=== PATIENT | female | born 1945 | race Caucasian/White ===

== ENCOUNTER 2018-02-15 21:04 | Inpatient (IN) | payer MEDICARE, SELFPAY ==
[2018-02-15 21:07] VITALS: BP 100/60; PULSE 90; RESP 18; TEMP 36.7; O2SAT 95
--- NOTE | 2018-02-15 21:23 | ED.GENADUL_ITS ---
Discharge Plan Discharge Details Chief Complaint: Cellulitis Primary Care Provider: Jaqueline You ED Provider: Bertin Toledo Home Meds and New Rx's Prescriptions: No Action warfarin [Coumadin] 5 MG tablet 5 mg PO DIRECTED RF: 0 omeprazole magnesium [Prilosec OTC] 20 MG tablet,delayed release (DR/EC) 20 mg PO DAILY RF: 0 valsartan [Diovan] 40 MG tablet 1 tab PO DAILY RF: 0 insulin aspart U-100 [Novolog Flexpen U-100 Insulin] 300 UNITS/3 ML insulin pen 20 units Sub-Q 0800,1200,1700 Qty: 5 RF: 0 insulin aspart U-100 [Novolog Flexpen U-100 Insulin] 300 UNITS/3 ML insulin pen 1 unit Sub-Q 0800,1200,1700 Qty: 5 RF: 0 metoprolol tartrate 50 MG tablet 50 mg PO BID RF: 0 furosemide 20 MG tablet 20 mg PO DAILY RF: 0 rosuvastatin [Crestor] 20 MG tablet 20 PO DAILY RF: 0 cholecalciferol (vitamin D3) 1,000 UNITS tablet 2,000 units PO DAILY RF: 0 Medical Decision Making MDM Narrative Medical decision making narrative: 72-year-old female presents from home with 2 weeks of worsening cellulitic changes to her legs. She is a diabetic who is followed by the [facility]. She is afebrile and pleasant, with fairly significant cellulitic changes to lower extremities on exam. IV placed, screening laboratories and blood cultures obtained, patient given a dose of Unasyn. Her diagnostic studies revealed elevated lactic acidosis of 3, hyperglycemia greater than 400 without anion gap, and hyponatremia. Given her poorly controlled diabetes, evidence of lactic acidemia, she will be admitted to the hospital [facility] - General Adult General Mode of arrival: ambulatory . Date/Time Provider Initiated Documentation: 02/15/18 21:13 . Limitations to Documentation: no limitations . Information obtained by: patient . History of Present Illness 72 year old F presents to the emergency department with the chief complaint of Bilateral lower extremity cellulitis, described as moderate, Quality is described as aching, and is localized to the lower extremity. Patient reports no radiation. Patient started experiencing this day(s) and it has been constant. No relieving factors improve symptom(s), No exacerbating factors reported . Patient notes malaise; denies fever/chills. Patient did receive the following treatments prior to arrival, none HPI Narrative: 72-year-old female presents the emergency department today with a gradual onset over 2 weeks time of weeping, erythematous lesions of her bilateral lower extremity. Similar to previous episodes of cellulitis. She has had some associated elevated blood glucose. Related Data Home Medications Medication Instructions Recorded Confirmed valsartan [Diovan] 1 tab PO DAILY 10/17/13 02/15/18 cholecalciferol (vitamin D3) 2,000 units PO DAILY 04/04/17 02/15/18 furosemide 20 mg PO DAILY 04/04/17 02/15/18 metoprolol tartrate 50 mg PO BID 04/04/17 02/15/18 rosuvastatin [Crestor] 20 PO DAILY 04/04/17 omeprazole magnesium [Prilosec Otc] 20 mg PO DAILY 08/28/17 02/15/18 warfarin [Coumadin] 5 mg PO DIRECTED tab-cap 08/28/17 02/15/18 Previous Rx's Medication Instructions Recorded insulin aspart U-100 [Novolog 1 unit SUB-Q 0800,1200,1700 #5 syr 10/21/13 Flexpen U-100 Insulin] insulin aspart U-100 [Novolog 20 units SUB-Q 0800,1200,1700 #5 10/21/13 Flexpen U-100 Insulin] syr Allergies Allergy/AdvReac Type Severity Reaction Status Date / Time atenolol Allergy Intermediate Wheezing Unverified 02/15/18 21:20 losartan potassium Allergy Mild back pain Unverified 02/15/18 21:20 [From Cozaar] metformin HCl Allergy Mild Unverified 02/15/18 21:20 [From Glucophage] lisinopril AdvReac Mild cough Unverified 02/15/18 21:20 rosiglitazone maleate AdvReac Mild Swelling/Ed Unverified 02/15/18 21:20 [From Avandia] doni Sulfa (Sulfonamide AdvReac Mild Skin Rash Unverified 02/15/18 21:20 Antibiotics) ketorolac [From Toradol] AdvReac Unverified 02/15/18 21:20 pioglitazone [From Actos] AdvReac Unverified 02/15/18 21:20 glucophage Allergy Mild Diarrhea Uncoded 02/15/18 21:20 General Stated Complaint: Cellulitis MONICA: 3 Review of Systems Review of Systems 8 systems reviewed, otherwise - PFSH Social History Smoking/Tobacco Use Status: Former Tobacco Use Exam Narrative Exam Narrative: GEN: awake, alert, oriented 3. Pleasant, well groomed, interactive. HEAD: Normocephalic, atraumatic ENT: Mucous membranes moist, oropharynx unremarkable, External ear exam unremarkable EYES: PERRL, EOMI NECK: Full ROM, no ARTIS, no menigismus CHEST/RESP: Nontender, clear to auscultation bilateral, no wheeze/rhonchi/rales CARDIOVASCULAR: RRR, no murmur, rub loulou. 2+ Rad pulse bilateral ABDOMEN: Soft, nontender, no mass. +Bowel sounds EXT: Full ROM, 2+ bilateral, symmetric edema with dependent cellulitic changes with shallow weeping ulcers, erythema extending from the proximal calf through the foot. No focal tenderness. Wet wocks removed & there are wet areas of trench foot on plantar aspect of feet Neuro: Grossly normal neurologic exam, conversant, interactive. Psych: Speech fluent, thoughts congruent, affect normal Course Vital Signs Temperature 36.7 C 02/15/18 21:07 Pulse 90 02/15/18 21:07 Respiratory Rate 18 02/15/18 21:07 Blood Pressure 100/60 02/15/18 21:07 Pulse Oximetry 95 02/15/18 21:07 Temperature 36.7 C 02/15/18 21:07 Pulse 90 02/15/18 21:07 Respiratory Rate 18 02/15/18 21:07 Blood Pressure 100/60 02/15/18 21:07 Pulse Oximetry 95 02/15/18 21:07
[2018-02-15 22:24] LABS: Abs Immature Grans 0.02 k/cumm (0.0-0.09); Absolute Eosinophil Count 0.02 k/cumm (0.0-0.7); Absolute Lymphocyte Count 0.81 k/cumm (1.2-3.4); Absolute Monocyte Count 0.78 k/cumm (0.11-0.7); Absolute Neutrophil Count 9.05 k/cumm (1.2-6.7); Eosinophils % 0.2; HCT 43.6 % (36.0-46.0); HGB 14.5 g/dL (12.0-15.5); Immature Grans % 0.2; Lymphocytes % 7.6; Mean Corp. HGB Concentration 33.3 g/dL (32.0-36.0); Mean Corpuscular Volume 93.4 fL (80-95); Mean Platelet Volume 9.9 fL (8.0-11.0); Monocytes % 7.3; Neutrophils % 84.7; Platelet Count 201 x1000/uL (130-400); RBC 4.67 m/cumm (4.00-5.20); RBC Distribution Width 16.1 % (11.7-14.6); White Blood Cell Count 10.68 k/cumm (4.4-10.8)
[2018-02-15 22:25] LABS: Lactate-non-spesis 3.1 mmol/L (0.6-1.4)
[2018-02-15 22:42] LABS: ALT 15 U/L (12-78); AST 15 U/L (15-37); Albumin 2.5 g/dL (3.4-5.0); Alkaline Phosphatase 78 U/L (46-116); Anion Gap 8.3 mmol/L (3-11); BUN 55 mg/dL (7-18); Bilirubin, Total 0.8 mg/dL (0.2-1.0); CO2 28.7 mmol/L (21.0-32.0); CREATININE 1.76 mg/dL (0.55-1.02); Calcium 9.1 mg/dL (8.5-10.1); Chloride 92 mmol/L (98-107); Estimated GFR 28.47 (mL/min/1.73m2); Glucose 488 mg/dL (70-100); Potassium 4.8 mmol/L (3.5-5.1); Sodium 129 mmol/L (136-145); Total Protein 7.8 g/dL (6.4-8.2)
[2018-02-15] MEDS: AMPICILLIN/SULBACTAM 3 GM in Normal Saline 100 ML IVPB (23:10)
[2018-02-15] MEDS: Normal Saline 1,000 ML 150 ML IV (23:17)
[2018-02-15] MEDS: Acetaminophen 500 MG TAB 1000 MG PO (23:47)
[2018-02-16 00:01] LABS: NT-proBNP 728 pg/mL
[2018-02-16 00:02] LABS: Troponin I < 0.02 ng/mL (0.00-0.06)
--- NOTE | 2018-02-16 00:23 | W.PM.HP.N ---
Date of service: 02/16/18 Time of Service: 00:24 Assessment and Plan (1) Lower extremity pain: Current visit: No Status: Acute Symptoms of bilateral lower extremity pain, ongoing and worsening over the last month. Erythematous skin bilaterally with areas of clear skin breakdown - although skin is not warm to touch, cellulitis is a possibility. Patient is afebrile and without a leukocytosis, but does have an elevation in lactate and complains of subjective fevers. Will cover for lower extremity cellulitis in a diabetic with broad spectrum Abx, to include Meropenem and Vancomycin. Check blood cultures and monitor for improvement. Also consider acutely worsening edema in patient with history of chronic venous insufficiency. This may be based on untreated sleep apnea or diastolic CHF, although ECHO from August reviewed and essentially normal. BNP was checked and while minimally elevated, is well within patient's prior values. Troponin also checked and undetectable. If patient fails to improve consider repeat ECHO and attempt at diuresis. Given extent of skin breakdown and oozing wound care consult was also placed. Given subjective pain and weakness will cover with pain control and physical therapy consult. (2) Chronic venous insufficiency: Current visit: No Status: Chronic (3) KENYON (acute kidney injury): Current visit: No Status: Acute Potentially prerenal in patient with concurrent hypochloremia and elevated BUN and BUN/Creatinine ratio. However, patient is overall fluid overloaded. Given concurrent elevation in lactate will gently overnight and recheck renal function and lactate in the morning. Hold ARB, avoid nephrotoxins, and renally dose medications when appropriate. (4) Hypertension: Current visit: No Status: Chronic Continue BB, but hold ARB in setting of KENYON. Monitor blood pressures - currently reasonable. (5) Hypercholesterolemia: Current visit: No Status: Chronic Continue statin therapy. (6) Diabetes mellitus: Current visit: No Status: Chronic Significant hyperglycemia potentially on the basis of infection. Continue IVFs, initiate low dose basal insulin, and continue sliding scale coverage. Monitor blood sugar carefully. ADA diet. (7) Atrial fibrillation: Current visit: No Status: Chronic Continue BB and AC with coumadin. Check INR now. (8) Coronary artery disease: Current visit: No Status: Chronic (9) NATY (obstructive sleep apnea): Current visit: No Status: Chronic Intolerant of CPAP. (10) DVT prophylaxis: Current visit: No Status: Acute On daily coumadin. Check INR. History of Present Illness Chief Complaint: Lower Extremity Pain 72-year-old woman with a past medical history significant for A. fib on anticoagulation, severe NATY intolerant of CPAP therapy, insulin-dependent diabetes, and chronic venous insufficiency presents to [facility] emergency department with complaints of worsening lower extremity pain. Mrs. Garland reports onset of red legs approximately 1 month ago, accompanied by blistering and weeping of fluid from her legs. She did not share this with her doctor, but instead we to see if she would improve on her own. Patient symptomatically worsened gradually over the next few weeks, with increasing level of pain and discomfort, erythema, and weeping. Workup in the emergency department was significant for an elevated lactate at 3.1, hyperglycemia, and mild hyponatremia that corrects to nearly normal. CBC did not reveal a leukocytosis, and the patient was afebrile. Of note her troponin was undetectable and a Bnp while mildly elevated was well within her previous ranges. The patient was referred for admission with a presumptive diagnosis of bilateral lower extremity cellulitis. Review of Systems Review of Systems All systems reviewed & are unremarkable except as noted in HPI and below PFSH Social History Smoking/Tobacco Use Status: Former Tobacco Use Meds Home Medications Medication Instructions Recorded Confirmed Type valsartan [Diovan] 1 tab PO DAILY 10/17/13 02/15/18 History cholecalciferol (vitamin D3) 2,000 units PO DAILY 04/04/17 02/15/18 History furosemide 20 mg PO DAILY 04/04/17 02/15/18 History metoprolol tartrate 50 mg PO BID 04/04/17 02/15/18 History rosuvastatin [Crestor] 20 PO DAILY 04/04/17 History omeprazole magnesium [Prilosec Otc] 20 mg PO DAILY 08/28/17 02/15/18 History warfarin [Coumadin] 5 mg PO DIRECTED tab-cap 08/28/17 02/15/18 History Allergies Allergy/AdvReac Type Severity Reaction Status Date / Time atenolol Allergy Intermediate Wheezing Unverified 02/15/18 21:20 losartan potassium Allergy Mild back pain Unverified 02/15/18 21:20 [From Cozaar] metformin HCl Allergy Mild Unverified 02/15/18 21:20 [From Glucophage] lisinopril AdvReac Mild cough Unverified 02/15/18 21:20 rosiglitazone maleate AdvReac Mild Swelling/Ed Unverified 02/15/18 21:20 [From Avandia] doni Sulfa (Sulfonamide AdvReac Mild Skin Rash Unverified 02/15/18 21:20 Antibiotics) ketorolac [From Toradol] AdvReac Unverified 02/15/18 21:20 pioglitazone [From Actos] AdvReac Unverified 02/15/18 21:20 glucophage Allergy Mild Diarrhea Uncoded 02/15/18 21:20 Exam Narrative Exam Narrative: General: Patient appears comfortable, AAOX3, NAD Neck: Supple CV: Irregularly Irregular, nontachycardic, S1S2, No rubs, murmurs, or gallops. Pulmonary: Clear to auscultation bilaterally, no crackles, wheezing, or rhonchi on exam limited by body habitus Abdomen: + Bowel Sounds, soft, nontender, nondistended, obese in contour Vascular: 3-4+ b/l LE edema Skin: B/l LE erythema, with swelling and frequent break in skin, which in itself appears wet and seeping with fluid. Skin is NOT warm to touch. Neurologic: CN II-XII grossly intact. No focal deficits. Psych: Normal mood and affect. Results Labs : 02/15/18 22:12 02/15/18 22:12 Laboratory Results - last 24 hr 02/15/18 02/15/18 02/15/18 22:12 22:12 22:12 WBC 10.68 RBC 4.67 Hgb 14.5 Hct 43.6 MCV 93.4 MCH 31.0 MCHC 33.3 RDW 16.1 H Plt Count 201 MPV 9.9 Immature Gran % 0.2 Neutrophils % 84.7 Lymphocytes % 7.6 Monocytes % 7.3 Eosinophils % 0.2 Basophils % 0.0 Absolute Neutrophils 9.05 H Absolute Lymphocytes 0.81 L Absolute Monocytes 0.78 H Absolute Eosinophils 0.02 Absolute Basophils 0.00 Sodium 129 L Potassium 4.8 Chloride 92 L Carbon Dioxide 28.7 Anion Gap 8.3 BUN 55 H Creatinine 1.76 H Estimated GFR/1.73 m2 28.47 Glucose 488 H Lactate 3.1 H Calcium 9.1 Magnesium 2.0 Total Bilirubin 0.8 AST 15 ALT 15 Alkaline Phosphatase 78 Troponin I NT-Pro-B Natriuret Pep Total Protein 7.8 Albumin 2.5 L 02/15/18 22:12 WBC RBC Hgb Hct MCV MCH MCHC RDW Plt Count MPV Immature Gran % Neutrophils % Lymphocytes % Monocytes % Eosinophils % Basophils % Absolute Neutrophils Absolute Lymphocytes Absolute Monocytes Absolute Eosinophils Absolute Basophils Sodium Potassium Chloride Carbon Dioxide Anion Gap BUN Creatinine Estimated GFR/1.73 m2 Glucose Lactate Calcium Magnesium Total Bilirubin AST ALT Alkaline Phosphatase Troponin I < 0.02 NT-Pro-B Natriuret Pep 728 H Total Protein Albumin
[2018-02-16 01:11] VITALS: BP 101/63; PULSE 63; PULSE 94; RESP 18; TEMP 36.4; O2SAT 92
[2018-02-16] MEDS: MEROPENEM 1 GM in Normal Saline 100 ML IVPB ×2 (01:26→13:55)
[2018-02-16] MEDS: Insulin Glargine 300 UNITS/3 ML PEN 10 UNITS SC (01:41)
[2018-02-16] MEDS: VANCOMYCIN 2,000 MG in Normal Saline 500 ML 150 MG IV (03:52)
[2018-02-16 06:51] LABS: Lactate-non-spesis 1.5 mmol/L (0.6-1.4)
[2018-02-16 07:01] LABS: Abs Immature Grans 0.01 k/cumm (0.0-0.09); Absolute Basophil Count 0.01 k/cumm (0.0-0.2); Absolute Eosinophil Count 0.04 k/cumm (0.0-0.7); Absolute Monocyte Count 0.65 k/cumm (0.11-0.7); Absolute Neutrophil Count 5.23 k/cumm (1.2-6.7); Basophils % 0.1; Eosinophils % 0.6; HCT 41.8 % (36.0-46.0); HGB 13.9 g/dL (12.0-15.5); Immature Grans % 0.1; Lymphocytes % 16.8; Mean Corp. HGB Concentration 33.3 g/dL (32.0-36.0); Mean Corpuscular Volume 93.3 fL (80-95); Mean Platelet Volume 9.6 fL (8.0-11.0); Monocytes % 9.1; Neutrophils % 73.3; Platelet Count 196 x1000/uL (130-400); RBC 4.48 m/cumm (4.00-5.20); RBC Distribution Width 15.8 % (11.7-14.6); White Blood Cell Count 7.14 k/cumm (4.4-10.8)
[2018-02-16 07:05] LABS: Anion Gap 5.5 mmol/L (3-11); BUN 49 mg/dL (7-18); CO2 29.5 mmol/L (21.0-32.0); CREATININE 1.45 mg/dL (0.55-1.02); Calcium 8.3 mg/dL (8.5-10.1); Chloride 98 mmol/L (98-107); Glucose 381 mg/dL (70-100); Potassium 4.1 mmol/L (3.5-5.1); Sodium 133 mmol/L (136-145)
[2018-02-16 07:06] LABS: Prothrombin Time 47.3 sec (9.3-10.8)
[2018-02-16 07:32] LABS: INR 5.1 (1.0-3.5)
[2018-02-16] MEDS: Normal Saline 1,000 ML 150 ML IV ×2 (08:36→15:27)
[2018-02-16] MEDS: Furosemide 20 MG TAB PO (08:36)
[2018-02-16] MEDS: Omeprazole 20 MG CAPCR PO (08:36)
[2018-02-16] MEDS: Metoprolol 50 MG TAB PO ×2 (08:37→20:07)
[2018-02-16] MEDS: Insulin Aspart 300 UNITS/3 ML PEN SC ×4 (08:37→17:27)
[2018-02-16 09:34] VITALS: BP 99/53; PULSE 89; RESP 18; TEMP 36.4; O2SAT 97
--- NOTE | 2018-02-16 10:59 | PDOC.CMIN ---
- If Service Date Differs Date of service: 02/16/18 Time of Service: 10:59 Care Management Initial Assess REASON FOR HOSPITALIZATION:: Cellulitis; bilateral lower extremities. PAST MEDICAL HISTORY/PAST SURGICAL HISTORY:: A fib, chronic venous insufficiency, coronary artery disease, diabetes mellitus, dyspnea, hypercholesterolemia, dyspnea, hypertension, morbid obesity. multinodular goiter, NATY, pseudogout, psoriasis. PREVIOUS FUNCTIONAL STATUS/SOCIAL/FAMILY SUPPORTS:: Elle resides in [place] in her own home with her , José Manuel. She has three adult children, all of whom live locally. Elle reports that her and children are all very supportive. 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 Elle reports that she uses a walker to ambulate at home and is independent with her ADLs. She no longer drives and reports that José Manuel drives her to appointments and for errands. CURRENT FUNCTIONAL STATUS:: Pt presented at interdisiplinary rounds. Elle was lying in bed when CM visited this morning. She is engaged in conversation, is talkative and makes good eye contact. Elle's bilateral lower extremities are inflammed and weepy. She reports her pain at 6/10; nurse Kathy aware. Elle continues to receive IV fluids and antibiotics. ADVANCE DIRECTIVES:: None on file at [facility]. Has patient been provided with information about the portal?: Yes Did the patient sign up for the portal?: No CODE STATUS:: Full Code INSURANCE COVERAGE / FINANCIAL ISSUES:: Medicare. CURRENT HOME/COMMUNITY SERVICES/EQUIPMENT:: No current home or community servies. Pt uses a walker for ambulating. PRIMARY CARE PHYSICIAN:: Jaqueline You. POTENTIAL DISCHARGE NEEDS:: Follow up appointment with PCP. PATIENT/FAMILY EDUCATION NEEDS:: Discharge education, any limitations and follow up plan of care. Ask Me Three discussion. ANTICIPATED BARRIERS TO DISCHARGE:: No anticipated barriers to discharge. TRANSPORTATION:: Elle will transport via private vehicle with her , José Manuel. PLAN:: Elle will discharge when medically ready per MD. Anticipate pt will discharge with no services and follow up with her PCP. CM will continue to offer support to patient, family and care team regarding discharge planning and disposition.
--- NOTE | 2018-02-16 11:23 | INITIAL_ITS ---
- If Service Date Differs Date of service: 02/16/18 Time of Service: 10:59 Care Management Initial Assess REASON FOR HOSPITALIZATION:: Cellulitis; bilateral lower extremities. PAST MEDICAL HISTORY/PAST SURGICAL HISTORY:: A fib, chronic venous insufficiency , coronary artery disease, diabetes mellitus, dyspnea, hypercholesterolemia, dyspnea, hypertension, morbid obesity. multinodular goiter, NATY, pseudogout, psoriasis. PREVIOUS FUNCTIONAL STATUS/SOCIAL/FAMILY SUPPORTS:: Elle resides in [place] in her own home with her , José Manuel. She has three adult children, all of whom live locally. Elle reports that her and children are all very supportive. 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 Elle reports that she uses a walker to ambulate at home and is independent with her ADLs. She no longer drives and reports that JoséM anuel drives her to appointments and for errands. CURRENT FUNCTIONAL STATUS:: Pt presented at interdisiplinary rounds. Elle was lying in bed when CM visited this morning. She is engaged in conversation, is talkative and makes good eye contact. Elle's bilateral lower extremities are inflammed and weepy. She reports her pain at 6/10; nurse Kathy aware. Elle continues to receive IV fluids and antibiotics. ADVANCE DIRECTIVES:: None on file at [facility]. Has patient been provided with information about the portal?: Yes Did the patient sign up for the portal?: No CODE STATUS:: Full Code INSURANCE COVERAGE / FINANCIAL ISSUES:: Medicare. CURRENT HOME/COMMUNITY SERVICES/EQUIPMENT:: No current home or community servies. Pt uses a walker for ambulating. PRIMARY CARE PHYSICIAN:: Jaqueline You. POTENTIAL DISCHARGE NEEDS:: Follow up appointment with PCP. PATIENT/FAMILY EDUCATION NEEDS:: Discharge education, any limitations and follow up plan of care. Ask Me Three discussion. ANTICIPATED BARRIERS TO DISCHARGE:: No anticipated barriers to discharge. TRANSPORTATION:: Elle will transport via private vehicle with her , José Manuel. PLAN:: Elle will discharge when medically ready per MD. Anticipate pt will discharge with no services and follow up with her PCP. CM will continue to offer support to patient, family and care team regarding discharge planning and disposition.
[2018-02-16 11:30] VITALS: BP 100/60; PULSE 90; RESP 18; TEMP 36.6; O2SAT 97
--- NOTE | 2018-02-16 11:35 | PT.INIE ---
Date of service: 02/16/18 Time of Service: 11:30 PT Notes Inpatient Physical Therapy Evaluation Date: 02/16/18 Referring Doctor: kendra Gilman PT Orders: PT CONSULT: LE pain, ambulatory dysfunction Precautions: Fall Precautions, elevate bilateral lower extremities Patient Profile/Admitting Diagnosis: Pt is a 72yr old female admitted with bilateral lower extremity pain PMHX: morbid obesity, chronic venous insufficiency, acute kidney injury, diabetes mellitus, obstructive sleep apnea uses CPAP, coronary artery disease, atrial fibrillation, deep vein thrombosis, multinodular goiter, psoriasis, appendectomy, bilateral oophorectomy, abdominal hysterectomy, bilateral tubal ligation, hypertension, hypercholesterolemia Social History/Home Situation: Lives with her in a house, 5 steps with railing to enter, 1 step inside between dining room and living room. Baseline mobility independent gait household distances with FWW, assists with ADLS, she can't step into the shower and uses a custom built box to be able to step into the shower to the shower chair with use of grab bars. Equipment Owned/DME: FWW, shower chair, grab bars in shower Subjective: Pt lying in bed, reports pain in bilateral lower extremities. Objective: General Observation: IV L UE Mental Status: A&Ox3 Pain: c/o pain in bilateral LE's ROM: Right Upper Extremity: AROM shoulder flexion 80, elbow and wrist WNL Left Upper Extremity: AROM shoulder flexion 80, elbow and wrist WNL Right Lower Extremity: AROM hip flexion 90, knee 95, ankle WNL Left Lower Extremity: AROM hip flexion 90, knee 95, ankle WNL Strength: Right Upper Extremity: 4/5 shoulder flexion, 5/5 bicep, 5/5 utility tech Left Upper Extremity: 4/5 shoulder flexion, 5/5 bicep, 5/5 utility tech Right Lower Extremity: 3/5 hip flexion, 4/5 quad, 5/5 DF/PF Left Lower Extremity: 3/5 hip flexion, 4/5 quad, 5/5 DF/PF Bed Mobility/Transfers: Supine-sit: HOB 45 degres, modAx1 for trunk to sitting and LE's to edge of bed Sit-stand: CGA with FWW Stand-sit: SBA Sit-supine: HOB flat, minAx1 for LE's into bed Gait: SBA with FWW 5 side steps to the right at the edge of bed. Further gait witheld due to draining of bilateral LE's Balance: Static Sitting: normal Dynamic Sitting: normal Static Standing:fair Dynamic Standing: fair Special Tests: Mobility Limitations Standardized Measure [facility] 6 clicks Basic Mobility Inpatient Short Form: Raw Score: 18 Standardized Score: 43.63 CMS Score: 46.58% CMS Modifier: CK Informed Consent/Education: Patient instructed in purpose of PT consult and plan of care. Assessment: Pt is a 72yr old female admitted with bilateral lower extremity pain in setting of morbid obesity, chronic venous insufficiency, acute kidney injury, diabetes mellitus, obstructive sleep apnea uses CPAP, coronary artery disease, atrial fibrillation. Patient presents with clinical signs and symptoms consistent with diagnosis, as demonstrated by the following impairment level findings: pain in bilateral LE's, drainage in bilateral LE's, decreased strength with bed transfers, standing transfers, gait mobility requiring use of FWW for stability due to weakness and decreased static and dynamic standing balnce. Pt will benefit from skilled therapy intervention for strengthening and progressive mobility training. Impairments are contributing to the following functional limitations: AMPAC score CMS Score: 46.58% Patient is assessed as a Moderate 22867 complexity based on the following: History: see PMHX Examination: see functional limitations above, bilateral LE's Presentation: evolving Decision Making: AMPAC score CMS Score: 46.58% Goals: Goals X1 week 1. Supine-Sit independent 2. Sit-Supine independent 3. Sit-Stand SBA with FWW 4. Stand-Sit supervision 5. Bed-Chair SBA with FWW 6. Chair-Bed SBA with FWW 7. Gait SBA with 75ftx2 8. Stairs up/down 5 steps with railing SBA Plan of Care/Treatment Plan: 1-2x/day, 7 days/week x 1 week. Plan of care has been reviewed with the BREAKFAST ATTENDANT providing the service under Physical Therapy direction. Initiate Physical Therapy intervention for strengthening, bed mobility, transfers, gait, stairs, balance training, use of assistive device. DISCHARGE RECOMMENDATIONS: Home with , home PT/OT Recommend inpatient OT Consultation TREATMENT CODE/TIME: 25min IE 11:30 G Codes in the area mobility of walking and moving around: current status [id number] CK; projected status GP [id number]. Discharge status (if discharging) GP [id number] CK based on AMPAC score CMS Score: 46.58% Rhoda Avina PT
--- NOTE | 2018-02-16 11:51 | IN_ITS ---
Date of service: 02/16/18 Time of Service: 11:30 PT Notes Inpatient Physical Therapy Evaluation Date: 02/16/18 Referring Doctor: kendra Gilman PT Orders: PT CONSULT: LE pain, ambulatory dysfunction Precautions: Fall Precautions, elevate bilateral lower extremities Patient Profile/Admitting Diagnosis: Pt is a 72yr old female admitted with bilateral lower extremity pain PMHX: morbid obesity, chronic venous insufficiency, acute kidney injury, diabetes mellitus, obstructive sleep apnea uses CPAP, coronary artery disease, atrial fibrillation, deep vein thrombosis, multinodular goiter, psoriasis, appendectomy, bilateral oophorectomy, abdominal hysterectomy, bilateral tubal ligation, hypertension, hypercholesterolemia Social History/Home Situation: Lives with her in a house, 5 steps with railing to enter, 1 step inside between dining room and living room. Baseline mobility independent gait household distances with FWW, assists with ADLS, she can't step into the shower and uses a custom built box to be able to step into the shower to the shower chair with use of grab bars. Equipment Owned/DME: FWW, shower chair, grab bars in shower Subjective: Pt lying in bed, reports pain in bilateral lower extremities. 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 Further gait witheld due to draining of bilateral LE's Balance: Static Sitting: normal Dynamic Sitting: normal Static Standing:fair Dynamic Standing: fair Special Tests: Mobility Limitations Standardized Measure [facility] 6 clicks Basic Mobility Inpatient Short Form: Raw Score: 18 Standardized Score: 43.63 CMS Score: 46.58% CMS Modifier: CK Informed Consent/Education: Patient instructed in purpose of PT consult and plan of care. Assessment: Pt is a 72yr old female admitted with bilateral lower extremity pain in setting of morbid obesity, chronic venous insufficiency, acute kidney injury, diabetes mellitus, obstructive sleep apnea uses CPAP, coronary artery disease, atrial fibrillation. Patient presents with clinical signs and symptoms consistent with diagnosis, as demonstrated by the following impairment level findings: pain in bilateral LE's, drainage in bilateral LE's, decreased strength with bed transfers, standing transfers, gait mobility requiring use of FWW for stability due to weakness and decreased static and dynamic standing balnce. Pt will benefit from skilled therapy intervention for strengthening and progressive mobility training. Impairments are contributing to the following functional limitations: AMPAC score CMS Score: 46.58% Patient is assessed as a Moderate [id number] complexity based on the following: History: see PMHX Examination: see functional limitations above, bilateral LE's Presentation: evolving Decision Making: AMPAC score CMS Score: 46.58% Goals: Goals X1 week 1. Supine-Sit independent 2. Sit-Supine independent 3. Sit-Stand SBA with FWW 4. Stand-Sit supervision 5. Bed-Chair SBA with FWW 6. Chair-Bed SBA with FWW 7. Gait SBA with 75ftx2 8. Stairs up/down 5 steps with railing SBA Plan of Care/Treatment Plan: 1-2x/day, 7 days/week x 1 week. Plan of care has been reviewed with the LINOLE[employer] PRINTER providing the service under Physical Therapy direction. Initiate Physical Therapy intervention for strengthening, bed mobility, transfers, gait, stairs, balance training, use of assistive device. DISCHARGE RECOMMENDATIONS: Home with , home PT/OT Recommend inpatient OT Consultation TREATMENT CODE/TIME: 25min IE 11:30 G Codes in the area mobility of walking and moving around: current status [id number] CK; projected status GP [id number]. Discharge status (if discharging) GP [id number] CK based on AMPAC score CMS Score: 46.58% Rhoda Avina PT
--- NOTE | 2018-02-16 13:54 | PHARADMIT ---
Addendum entered by Tyesha Amaya 02/19/18 14:41: Pharmacy Note Subjective cellulitis and abcess lower extremity Objective vs ok, FS 58, INR 2.6, vanco trough 15.3, no changes recommended, Bc no growth 72 hours Assessment vanco and meropenem continue, cut glargine dose in half, lowered humuli NPH dose Plan expect warfarin to restart, follow INR, follow FS Original Note: Addendum entered by Maggie Ortiz 02/18/18 16:58: Pharmacy Note Subjective Objective VS-okay INR-3.4 FSBG-137 WBC-3.36 Assessment insulin glargine and NPH doses decreased a bit vanco and meropenem continue blood cultures no growth at 48 hours Plan vanco trough scheduled for 1900 continue to watch INR Original Note: Addendum entered by Maggie Ortiz 02/17/18 17:14: Pharmacy Note Subjective Objective BP-91/54 other VS okay INR-4.4 Assessment warfarin still on hold nystatin cream ordered TID scheduled meropenem and vanco continue blood cultures- no growth at 24 hours Plan order vanco trough for tomorrow evening if pt still on vanco continue to watch INR Original Note: Addendum entered by Tyesha Amaya 02/16/18 14:03: pt on meropenem and vancomycin IV (pharmacy dosing) Original Note: Admission Pharmacy Clinical Review lower extremity pain Code Status Full Code Current Weight 131.542 kg Renally Cleared and Narrow Therapeutic Index Meds crcrl 33ml/min QTc Value / Action Taken BP Control, Fever 100/60 afebrile Electrolytes reviewed Na 133 DVT Prophylaxis no, high INR Opiate Usage / Scheduled Bowel Regimen Ordered PRN/PRN Plt/SCr for Heparin / Enoxaparin 196/1.45 INR for Warfarin 5.1 -pt on warfarin at home H/H stable, WBC/Bands 13.9/41.8 wbc 7.14 Antibiotic appropriateness meropenem IV Cultures and Sensitivities BC pending Surgical ABX d/c within 24 hr na DM control / Insulin Dosing FS 363, aspart and glargine insulin Heart Failure (Check EF%) (KASSANDRA's, B-Block, Diuretics) furosemide, metoprolol, valsartan(held) IV to PO Switch IV abx and pain med Home Meds Reviewed Home Meds Not Ordered valsartan [Diovan] 1 tab PO DAILY 05/18/14 warfarin [Coumadin] 5 mg PO DIRECTED tab-cap 08/28/17 Comments
--- NOTE | 2018-02-16 14:09 | DM INPTCON_ITS ---
DESCRIPTION/ASSESSMENT: Appreciate diabetes consult for Elle Garland who is hospitalized with cellulitis. She states her blood sugars started to increase about 2 weeks ago. States she had a recent A1c which is elevated. BMI 46 Blood sugars here 361-488 taking 10u Lantus and moderate insulin correction. At home she reports taking 70u Novolin N twice daily and often does not need Novolog correction, but she does have a scale. Elle states she has little appetite. She does not know what is going on with her body. INTERVENTION: Initially suggest adding basal insulin of Novolin N at her usual basal rate of 70units twice daily given that she has an infectious process likely causing increased blood sugars. She may also benefit with resistant insulin correction given her likely insulin resistance. PLAN: Suggest 70u Novolin N or equivalent Suggest resistant insulin correction Will follow blood sugars and meet with her tomorrow.
--- NOTE | 2018-02-16 14:26 | PT.INTREAT ---
Date of service: 02/16/18 Time of Service: 14:27 PT Notes Inpatient Physical Therapy Treatment Note Date: 02/16/18 PRECAUTIONS: Fall SUBJECTIVE: Elle is agreeable to PT, however reports that she is fatigued this afternoon. OBJECTIVE: PAIN: Patient complains of discomfort in bilateral calves. BED MOBILITY/TRANSFERS Supine-sit: Min A with HOB at 40? Sit-supine: Max A ?2 with HOB at 10? Sit-stand: CGA with STEDY Stand-sit: CGA with STEDY GAIT: STEDY Stood and STEDY 2?1 minute. TOILETING: Patient toileted with Max A. ASSESSMENT: Patient tolerated session with complaints of increased fatigue. Patient was able to tolerate standing in the STEDY 2?1 minute with SBA. Patient would benefit from participation in a strengthening program as well as continued bed mobility, transfer, and gait training, or improved ability to perform daily functional activities. PLAN: Continue with PT's POC. TREATMENT CODE/TIME: 25 minutes; TA ?2
[2018-02-16 15:15] VITALS: BP 106/63; PULSE 85; RESP 18; TEMP 36.3; O2SAT 94
[2018-02-16] MEDS: Insulin NPH-Human 300 UNITS/3 ML PEN 70 UNIT SC (17:26)
--- NOTE | 2018-02-16 18:37 | PGE_ITS ---
Date of service: 02/16/18 Time of Service: 14:00 Assessment and Plan (1) Cellulitis and abscess of lower extremity: Current visit: Yes Status: Acute Continue broad-spectrum antibiotic coverage including vancomycin and meropenem. Check the results of her blood cultures. (2) Chronic venous insufficiency: Current visit: No Status: Chronic Patient has significant bilateral pedal and leg edema probably on the basis of NATY. Patient had an echocardiogram September 18, 2017 that showed moderate LVH with normal left ventricular systolic function. No regional wall motion abnormalities. Right ventricular cavity size was upper limits of normal but showed normal RV systolic function. She has mild aortic stenosis and mild aortic insufficiency but mild to moderate mitral regurgitation. I suspect that she has diastolic heart failure contributing to her bilateral leg edema Although her proBNP was within her previous values of 731, and she was treated with IV fluids to treat her acute kidney injury her maintenance Lasix may need to be increased to help control her bilateral leg edema. I think once we get her weeping wounds healing up she should be wearing Gelacio wraps or using lymphedema pumps however with her having open wounds I am not going to order any type compression stockings at this time. We may be able to elevate her legs and apply some Gelacio wraps to help with her edema. (3) Lower extremity pain: Current visit: No Status: Acute Patient has Tylenol and morphine ordered for her pain. I am going to add Lyrica at renally adjusted doses to help with neuropathic pain. I will also order tramadol for acute pain of a moderate degree that is not controlled by Tylenol but does not require morphine for excessive pain (4) KENYON (acute kidney injury): Current visit: No Status: Acute Her creatinine is improved overnight dropping from 1.76-1.45. She appears to be close to her baseline level of 1.3 At this point I going to discontinue further IV fluids (5) Diabetes mellitus: Current visit: No Status: Chronic Diabetes is poorly controlled and remains elevated with glucose readings in the 300s today. GREG Bolivar made some recommendations which I have followed which includes resumption of the patient's home dose of Humulin N at 70 units twice a day. Furthermore, keep her on Lantus and increase her dose of Lantus as well as addition of Humalog per carbohydrate coverage as well as adjustment of her sliding scale to resistant dosing of Humalog. If this does not seem to bring her blood sugars down she may require an insulin drip however she has no evidence for DKA and does not have hyperosmolar nonketotic hyperglycemia (6) Atrial fibrillation: Current visit: No Status: Chronic Her atrial fibrillation rate seems to be well controlled on her current regimen of beta-blockers. Her INR was supratherapeutic and therefore her warfarin is currently on hold until her INR drifts down to therapeutic range. We will continue to check daily INRs (7) Anticoagulation excessive: Current visit: Yes Status: Acute As above (8) NATY (obstructive sleep apnea): Current visit: No Status: Chronic Patient refuses to wear CPAP mask therefore I have nothing further to offer her for treatment of her NATY (9) DVT prophylaxis: Current visit: No Status: Acute Patient is supratherapeutic on her warfarin and therefore needs no DVT prophylaxis at this time Subjective Patient reports: still having pain Interval history since last seen: Patient was seen with the patient's primary care nurse as well as the physical therapist technician. Patient was in the process of being ambulated off the commode. Patient has significant bilateral pedal edema with weeping clear fluid from her skin. Patient was admitted last night/early this morning by Dr. Gilman because of bilateral lower extremity cellulitis secondary to chronic venous insufficiency which is felt to be secondary to pulmonary hypertension from obstructive sleep apnea. Please see Dr. Gilman's admission H&P for details as well as Dr. Bertin Toledo's emergency room note. Other acute medical problems include chronic atrial fibrillation for which she has been on warfarin and she is currently supratherapeutic on her warfarin dose. Warfarin is currently on hold while we allow her INR to drift back down to the therapeutic range. Her diabetes is also poorly controlled she has significant hyperglycemia with blood sugars over 400 with no anion gap abnormality. She did have a mild lactic acidosis which is responding to IV fluid hydration. She also has worsening renal function. We are awaiting consult from wound care nurse to evaluate her feet. Exam Const General: ill appearing chronically Nutritional Appearance: obese morbidly obese Orientation: alert, awake and oriented x3 Chest Chest: normal inspection of the chest Resp Effort & Inspection: normal respiratory effort and able to speak in complete sentences Auscultation: diminished lung sounds (Over both bases but clear in her upper lung humphrey) bilaterally Cardio Jugular venous pressure: JVD Rhythm: abnormal rhythm irregularly irregular GI Palpation: soft and nontender Auscultation: normal bowel sounds Extrem Right lower extremity: foot Details: edema Location: diffusely Left lower extremity: foot Details: edema Location: diffusely Objective Objective Clinical Data: Abnormal lab results 02/15/18 02/15/18 02/15/18 Range/Units 22:12 22:12 22:12 RDW 16.1 H (11.7-14.6) % Absolute Neutrophils 9.05 H (1.2-6.7) k/cumm Absolute Lymphocytes 0.81 L (1.2-3.4) k/cumm Absolute Monocytes 0.78 H (0.11-0.7) k/cumm PT (9.3-10.8) sec INR (1.0-3.5) Sodium 129 L (136-145) mmol/L Chloride 92 L (98-107) mmol/L BUN 55 H (7-18) mg/dL Creatinine 1.76 H (0.55-1.02) mg/dL Glucose 488 H (70-100) mg/dL Lactate 3.1 H (0.6-1.4) mmol/L Calcium (8.5-10.1) mg/dL NT-Pro-B Natriuret Pep ( - 299) pg/mL Albumin 2.5 L (3.4-5.0) g/dL 02/15/18 02/16/18 02/16/18 Range/Units 22:12 06:40 06:40 RDW (11.7-14.6) % Absolute Neutrophils (1.2-6.7) k/cumm Absolute Lymphocytes (1.2-3.4) k/cumm Absolute Monocytes (0.11-0.7) k/cumm PT 47.3 H (9.3-10.8) sec INR 5.1 H* (1.0-3.5) Sodium (136-145) mmol/L Chloride (98-107) mmol/L BUN (7-18) mg/dL Creatinine (0.55-1.02) mg/dL Glucose (70-100) mg/dL Lactate 1.5 H (0.6-1.4) mmol/L Calcium (8.5-10.1) mg/dL NT-Pro-B Natriuret Pep 728 H ( - 299) pg/mL Albumin (3.4-5.0) g/dL 02/16/18 02/16/18 Range/Units 06:40 06:40 RDW 15.8 H (11.7-14.6) % Absolute Neutrophils (1.2-6.7) k/cumm Absolute Lymphocytes (1.2-3.4) k/cumm Absolute Monocytes (0.11-0.7) k/cumm PT (9.3-10.8) sec INR (1.0-3.5) Sodium 133 L (136-145) mmol/L Chloride (98-107) mmol/L BUN 49 H (7-18) mg/dL Creatinine 1.45 H (0.55-1.02) mg/dL Glucose 381 H D (70-100) mg/dL Lactate (0.6-1.4) mmol/L Calcium 8.3 L (8.5-10.1) mg/dL NT-Pro-B Natriuret Pep ( - 299) pg/mL Albumin (3.4-5.0) g/dL Vital Signs Temp 36.3 C L 02/16/18 15:15 Pulse 85 02/16/18 15:15 Resp 18 02/16/18 15:15 BP 106/63 02/16/18 15:15 Pulse Ox 94 L 02/16/18 15:15 Intake & Output 02/15/18 02/16/18 02/16/18 23:59 11:59 23:59 Intake Total 1252.5 / 1252.5 1293.9 / 1293.9 Output Total 450 / 450 700 / 700 Balance 802.5 / 802.5 593.9 / 593.9 Weight 131.542 kg 131.542 kg Intake: IV 802.5 / 802.5 1043.9 / 1043.9 Oral 450 / 450 250 / 250 Output: Urine 450 / 450 700 / 700 Other: Urine Color Dark Lona Yellow Urine Appearance Clear Clear Urine Odor Foul Comment bariatric commode Stool Size Small Stool Characteristics Soft Formed Brown Voiding Methods Bedside Commode Bedside Commode Laboratory Results WBC 7.14 k/cumm (4.4-10.8) D 02/16/18 06:40 RBC 4.48 m/cumm (4.00-5.20) 02/16/18 06:40 Hgb 13.9 g/dL (12.0-15.5) 02/16/18 06:40 Hct 41.8 % (36.0-46.0) 02/16/18 06:40 MCV 93.3 fL (80-95) 02/16/18 06:40 MCH 31.0 pg (27.0-33.0) 02/16/18 06:40 MCHC 33.3 g/dL (32.0-36.0) 02/16/18 06:40 RDW 15.8 % (11.7-14.6) H 02/16/18 06:40 Plt Count 196 x1000/uL (130-400) 02/16/18 06:40 MPV 9.6 fL (8.0-11.0) 02/16/18 06:40 Immature Gran % 0.1 02/16/18 06:40 Neutrophils % 73.3 02/16/18 06:40 Lymphocytes % 16.8 02/16/18 06:40 Monocytes % 9.1 02/16/18 06:40 Eosinophils % 0.6 02/16/18 06:40 Basophils % 0.1 02/16/18 06:40 Absolute Neutrophils 5.23 k/cumm (1.2-6.7) 02/16/18 06:40 Absolute Lymphocytes 1.20 k/cumm (1.2-3.4) 02/16/18 06:40 Absolute Monocytes 0.65 k/cumm (0.11-0.7) 02/16/18 06:40 Absolute Eosinophils 0.04 k/cumm (0.0-0.7) 02/16/18 06:40 Absolute Basophils 0.01 k/cumm (0.0-0.2) 02/16/18 06:40 PT 47.3 sec (9.3-10.8) H 02/16/18 06:40 INR 5.1 (1.0-3.5) H* 02/16/18 06:40 Sodium 133 mmol/L (136-145) L 02/16/18 06:40 Potassium 4.1 mmol/L (3.5-5.1) 02/16/18 06:40 Chloride 98 mmol/L (98-107) 02/16/18 06:40 Carbon Dioxide 29.5 mmol/L (21.0-32.0) 02/16/18 06:40 Anion Gap 5.5 mmol/L (3-11) 02/16/18 06:40 BUN 49 mg/dL (7-18) H 02/16/18 06:40 Creatinine 1.45 mg/dL (0.55-1.02) H 02/16/18 06:40 Estimated GFR/1.73 m2 35.60 (mL/min/1.73m2) 02/16/18 06:40 Glucose 381 mg/dL (70-100) H D 02/16/18 06:40 Lactate 1.5 mmol/L (0.6-1.4) H 02/16/18 06:40 Calcium 8.3 mg/dL (8.5-10.1) L 02/16/18 06:40 Magnesium 2.0 mg/dL (1.8-2.4) 02/15/18 22:12 Total Bilirubin 0.8 mg/dL (0.2-1.0) 02/15/18 22:12 AST 15 U/L (15-37) 02/15/18 22:12 ALT 15 U/L (12-78) 02/15/18 22:12 Alkaline Phosphatase 78 U/L (46-116) 02/15/18 22:12 Troponin I < 0.02 ng/mL (0.00-0.06) 02/15/18 22:12 NT-Pro-B Natriuret Pep 728 pg/mL (-299) H 02/15/18 22:12 Total Protein 7.8 g/dL (6.4-8.2) 02/15/18 22:12 Albumin 2.5 g/dL (3.4-5.0) L 02/15/18 22:12
[2018-02-16] MEDS: VANCOMYCIN 1,000 MG in Normal Saline 250 ML 166.667 MG IVPB (20:07)
[2018-02-16] MEDS: Pregabalin 50 MG CAP PO (21:16)
[2018-02-16] MEDS: Rosuvastatin 10 MG TAB 20 MG PO (21:16)
[2018-02-16] MEDS: Insulin Glargine 300 UNITS/3 ML PEN 15 UNITS SC (21:17)
[2018-02-17 00:03] VITALS: BP 112/65; PULSE 75; RESP 18; TEMP 36.8; O2SAT 97
[2018-02-17] MEDS: Normal Saline Flush 10 ML SYR IVP ×2 (00:22→02:50)
[2018-02-17] MEDS: MEROPENEM 1 GM in Normal Saline 100 ML IVPB ×2 (02:52→14:32)
[2018-02-17 07:24] LABS: Lactate-non-spesis 1.1 mmol/L (0.6-1.4)
[2018-02-17 07:35] VITALS: BP 116/70; PULSE 63; RESP 18; TEMP 36.6; O2SAT 96
[2018-02-17 07:42] LABS: C-Reactive Protein 14.12 mg/dL (0.0-0.3)
[2018-02-17 07:53] LABS: Hemoglobin A1C 8.5 % (4.5-6.2)
[2018-02-17 08:25] LABS: ESR 100 MM/HR (0-30)
[2018-02-17] MEDS: Acetaminophen 325 MG TAB PO ×3 (09:01→21:24)
[2018-02-17] MEDS: Omeprazole 20 MG CAPCR PO (09:01)
[2018-02-17] MEDS: Pregabalin 25 MG CAP PO (09:01)
[2018-02-17] MEDS: traMADol 50 MG TAB PO ×3 (09:02→21:25)
[2018-02-17] MEDS: Metoprolol 50 MG TAB PO ×2 (09:02→19:47)
[2018-02-17] MEDS: Furosemide 20 MG TAB PO (09:03)
[2018-02-17] MEDS: Insulin Aspart 300 UNITS/3 ML PEN SC ×6 (09:03→17:36)
[2018-02-17] MEDS: Insulin NPH-Human 300 UNITS/3 ML PEN 70 UNIT SC ×2 (09:05→16:45)
[2018-02-17 09:20] LABS: Prothrombin Time 41.1 sec (9.3-10.8)
[2018-02-17 09:26] LABS: INR 4.4 (1.0-3.5)
--- NOTE | 2018-02-17 11:22 | PT.INTREAT ---
Date of service: 02/17/18 Time of Service: 11:22 PT Notes Inpatient Physical Therapy Treatment Note Date: 02/17/18 PRECAUTIONS: Fall SUBJECTIVE: Elle reports that she is feeling better today, she reports that she got up and walked to her commode using FWW with nursing this morning. OBJECTIVE: PAIN: Patient complained of pain in bilateral calves with pressure BED MOBILITY/TRANSFERS Sit-stand: CGA (performed ?1); SBA (performed ?2) Stand-sit: SBA GAIT Assistive Device: FWW Weight bearing: WBAT B Assist: CGA/SBA Distance: 40' ?3 Deviation: Patient required significant seated rest breaks ?3 ASSESSMENT: Patient tolerated a progression in gait distance with FWW support requiring CGA/SBA only. Patient would benefit from continued transfer and gait training for improved strength and ability to perform activities with increased independence. PLAN: Continue with PT's POC TREATMENT CODE/TIME: 25 minutes; TA ?2
[2018-02-17] MEDS: Nystatin CREAM 30 GM TUBE TP ×2 (11:26→19:47)
--- NOTE | 2018-02-17 11:47 | PDOC.CMPRO ---
- If Service Date Differs Date of service: 02/17/18 Time of Service: 11:47 Care Management Progress Note S/O: Elle was lying in bed when CM visited this morning. She is engaged in conversation, makes good eye contact and is talkative. She has recently had a wound consult and reports that she is having pain and has right leg stiffness. She has been working with PT and is a two assist with a walker. No change in plan at this time. A: 72 year old female admitted for cellulitis of bilateral lower extremities. P: Elle will discharge when medically ready per MD. Anticipate pt will discharge home with no services and follow up with her PCP. Elle will transfer via private vehicle with her , José Manuel. CM will continue to provide support to patient, family and care team regarding discharge planning and disposition.
[2018-02-17] MEDS: VANCOMYCIN 1,000 MG in Normal Saline 250 ML 166 MG IVPB (12:19)
--- NOTE | 2018-02-17 13:51 | W.PM.PROGNOT ---
Date of service: 02/17/18 Time of Service: 13:51 Assessment and Plan (1) Cellulitis and abscess of lower extremity: Current visit: Yes Status: Acute Continue broad-spectrum antibiotic coverage including vancomycin and meropenem. So far blood cultures show no growth after 24 hours ?2 specimens from February 15, 2018. I have consulted and spoken with Dr. Aryan Escobar who will evaluate her feet and toes (2) Chronic venous insufficiency: Current visit: No Status: Chronic Patient has significant bilateral pedal and leg edema probably on the basis of NATY as well as chronic venous insufficiency. Hopefully we can get her to accept some Gelacio wraps to help with her bilateral leg edema (3) Lower extremity pain: Current visit: No Status: Acute Bilateral leg and foot pain seems to be improved with use of Lyrica (4) KENYON (acute kidney injury): Current visit: No Status: Acute Her creatinine is improved overnight dropping from 1.76-1.45. She appears to be close to her baseline level of 1.3. Continue to monitor her urine output in daily BMP the resume her furosemide and her valsartan . (5) Diabetes mellitus: Current visit: No Status: Chronic Blood sugars remain poorly controlled running in the 200-300 range. I am going to increase her Lantus as well as her carbohydrate coverage and her Novolin N. (6) Atrial fibrillation: Current visit: No Status: Chronic Her atrial fibrillation rate seems to be well controlled on her current regimen of beta-blockers. Her INR remains supratherapeutic (4.4) and therefore her warfarin is currently on hold until her INR drifts down to therapeutic range. We will continue to check daily INRs (7) Anticoagulation excessive: Current visit: Yes Status: Acute As above (8) NATY (obstructive sleep apnea): Current visit: No Status: Chronic Patient refuses to wear CPAP mask therefore I have nothing further to offer her for treatment of her NATY (9) DVT prophylaxis: Current visit: No Status: Acute Patient is supratherapeutic on her warfarin and therefore needs no DVT prophylaxis at this time Subjective Patient reports: no new complaints Interval history since last seen: See zora says that the pain in her feet is less today than it had been. The edema has gone down somewhat overnight and her legs are less erythematous than yesterday. She still has some moist weeping fluid from her legs and has superficial ulcers over the posterior calf as well as the pretibial areas. She also has what appears to be vascular ulceration on the tips of her toes and she has subungual hematomas. I went over all of her skin lesions on her legs and her feet as well as her tinea under her breasts and groin with her primary care nurse who is also one of our wound care nurses, Marga. Wound care nurses been changing the dressings and they seem to be absorbing the excess moisture from her wounds and drying up her superficial ulcerations. Patient remains on meropenem and vancomycin for diabetic leg cellulitis. Despite the fact that she is on Lantus and I adjusted the dose yesterday and added NovoLog for carb coverage and increased her corrective scale 2 insulin resistant level scale and added her Humulin and twice a day she still has elevated blood sugars in the 200-300 range. Exam Const General: ill appearing chronically Nutritional Appearance: obese morbidly obese Orientation: alert, awake and oriented x3 Chest Breast inspection: abnormal inspection of the breast (Tinea corpora) Resp Effort & Inspection: normal respiratory effort and able to speak in complete sentences Auscultation: clear to auscultation bilaterally Percussion: percussion normal Cardio Palpation: normal PMI Rhythm: abnormal rhythm irregularly irregular Pulses: posterior tibial pulses present (Nonpalpable but present by Doppler) bilaterally and dorsalis pedis pulses present (Nonpalpable but present by Doppler) bilaterally GI Inspection: normal to inspection and obesity Palpation: soft Percussion: normal to percussion Skin Rashes: rashes noted (Tinea corporis under both breasts as well as both groin skin folds) Neuro General: alert, awake and oriented x3 Cognition: normal cognition Speech: speech normal Sensory Exam: lower extremity (Non-sensate to light touch over her toes of both feet) Extrem Right lower extremity: lower leg Details: erythema, localized swelling, pitting edema and other (Blanched superficial skin ulcers over the posterior calf) and foot Details: edema and vascular exam (Present by Doppler but not palpable) Details: dorsalis pedis pulse present, posterior tibial pulse present and abnormal capillary refill; no cyanosis Left lower extremity: foot Details: edema and vascular exam (Present by Doppler but not palpable) Details: dorsalis pedis pulse present and posterior tibial pulse present Psych Appearance: disheveled Mental Status: mental status grossly normal Speech and Movement: speech and movement normal Mood: congruent mood Affect: normal affect Attitude: cooperative Thought Process: normal Thought Content: normal Insight: insight good Judgment: judgment good Objective Objective Clinical Data: Abnormal lab results 02/17/18 02/17/18 02/17/18 Range/Units 07:10 07:10 07:10 ESR 100 H (0-30) MM/HR PT (9.3-10.8) sec INR (1.0-3.5) Hemoglobin A1c 8.5 H (4.5-6.2) % C-Reactive Protein 14.12 H (0.0-0.3) mg/dL 02/17/18 Range/Units 08:35 ESR (0-30) MM/HR PT 41.1 H (9.3-10.8) sec INR 4.4 H* D (1.0-3.5) Hemoglobin A1c (4.5-6.2) % C-Reactive Protein (0.0-0.3) mg/dL Vital Signs Temp 36.6 C 02/17/18 07:35 Pulse 63 02/17/18 07:35 Resp 18 02/17/18 07:35 BP 116/70 02/17/18 07:35 Pulse Ox 96 02/17/18 07:35 Intake & Output 02/16/18 02/17/18 02/17/18 23:59 11:59 23:59 Intake Total 3082.9 / 3082.9 590 / 590 Output Total 1600 / 1600 550 / 550 Balance 1482.9 / 1482.9 40 / 40 Intake: IV 2592.9 / 2592.9 100 / 100 Oral 490 / 490 490 / 490 Output: Urine 1600 / 1600 550 / 550 Other: Urine Color Yellow Yellow Urine Appearance Clear Urine Odor Foul Comment bariatric commode Stool Size Small Stool Characteristics Soft Formed Brown Voiding Methods Toilet Bedside Commode Laboratory Results WBC 7.14 k/cumm (4.4-10.8) D 02/16/18 06:40 RBC 4.48 m/cumm (4.00-5.20) 02/16/18 06:40 Hgb 13.9 g/dL (12.0-15.5) 02/16/18 06:40 Hct 41.8 % (36.0-46.0) 02/16/18 06:40 MCV 93.3 fL (80-95) 02/16/18 06:40 MCH 31.0 pg (27.0-33.0) 02/16/18 06:40 MCHC 33.3 g/dL (32.0-36.0) 02/16/18 06:40 RDW 15.8 % (11.7-14.6) H 02/16/18 06:40 Plt Count 196 x1000/uL (130-400) 02/16/18 06:40 MPV 9.6 fL (8.0-11.0) 02/16/18 06:40 Immature Gran % 0.1 02/16/18 06:40 Neutrophils % 73.3 02/16/18 06:40 Lymphocytes % 16.8 02/16/18 06:40 Monocytes % 9.1 02/16/18 06:40 Eosinophils % 0.6 02/16/18 06:40 Basophils % 0.1 02/16/18 06:40 Absolute Neutrophils 5.23 k/cumm (1.2-6.7) 02/16/18 06:40 Absolute Lymphocytes 1.20 k/cumm (1.2-3.4) 02/16/18 06:40 Absolute Monocytes 0.65 k/cumm (0.11-0.7) 02/16/18 06:40 Absolute Eosinophils 0.04 k/cumm (0.0-0.7) 02/16/18 06:40 Absolute Basophils 0.01 k/cumm (0.0-0.2) 02/16/18 06:40 ESR 100 MM/HR (0-30) H 02/17/18 07:10 PT 41.1 sec (9.3-10.8) H 02/17/18 08:35 INR 4.4 (1.0-3.5) H* D 02/17/18 08:35 Sodium 133 mmol/L (136-145) L 02/16/18 06:40 Potassium 4.1 mmol/L (3.5-5.1) 02/16/18 06:40 Chloride 98 mmol/L (98-107) 02/16/18 06:40 Carbon Dioxide 29.5 mmol/L (21.0-32.0) 02/16/18 06:40 Anion Gap 5.5 mmol/L (3-11) 02/16/18 06:40 BUN 49 mg/dL (7-18) H 02/16/18 06:40 Creatinine 1.45 mg/dL (0.55-1.02) H 02/16/18 06:40 Estimated GFR/1.73 m2 35.60 (mL/min/1.73m2) 02/16/18 06:40 Glucose 381 mg/dL (70-100) H D 02/16/18 06:40 Hemoglobin A1c 8.5 % (4.5-6.2) H 02/17/18 07:10 Lactate 1.1 mmol/L (0.6-1.4) 02/17/18 07:10 Calcium 8.3 mg/dL (8.5-10.1) L 02/16/18 06:40 Magnesium 2.0 mg/dL (1.8-2.4) 02/15/18 22:12 Total Bilirubin 0.8 mg/dL (0.2-1.0) 02/15/18 22:12 AST 15 U/L (15-37) 02/15/18 22:12 ALT 15 U/L (12-78) 02/15/18 22:12 Alkaline Phosphatase 78 U/L (46-116) 02/15/18 22:12 Troponin I < 0.02 ng/mL (0.00-0.06) 02/15/18 22:12 C-Reactive Protein 14.12 mg/dL (0.0-0.3) H 02/17/18 07:10 NT-Pro-B Natriuret Pep 728 pg/mL (-299) H 02/15/18 22:12 Total Protein 7.8 g/dL (6.4-8.2) 02/15/18 22:12 Albumin 2.5 g/dL (3.4-5.0) L 02/15/18 22:12
--- NOTE | 2018-02-17 14:02 | OT.INIE ---
Occupational Therapy Notes Inpatient Occupational Therapy Evaluation Date: 02/17/18 Referring Doctor:Juan M Thompson MD OT Orders: Evaluate and treat for diminished ADL performance Precautions: Fall Precautions, elevate bilateral lower extremities PATIENT PROFILE/ADMITTING DIAGNOSIS: Pt is a 72 yearr old female that was admitted with bilateral lower extremity pain. Past Medical History: Morbid obesity, chronic venous insufficiency, acute kidney injury, diabetes mellitus, obstructive sleep apnea uses CPAP, coronary artery disease, atrial fibrillation, deep vein thrombosis, multinodular goiter, psoriasis, appendectomy, bilateral oophorectomy, abdominal hysterectomy, bilateral tubal ligation, hypertension, hypercholesterolemia Current Functional Limitations: Difficulty with UE ROM and decreased (I) in ADLs and functional mobility. Social History/Home Situation: Lives with her in a house in [place], [place], 5 steps with railing to enter, 1 step inside between dining room and living room. Baseline ADLs she was (I) in UE dressing but states her offers mid to mod (A) for everything else. She has 2 bathrooms with a tub/shower with a removable shower head. She can't step into the shower and uses a custom built box to be able to step into the shower to the shower chair with use of grab bars. Equipment owned/DME: FWW, shower chair, grab bars in shower SUBJECTIVE: Pt was sitting in chair when OT arrived. She states that she had just finished eating and that the posterior side of her legs was sore. OBJECTIVE: General Observation: IV (L) UE Mental Status: A&O x3 Pain: c/o pain on posterior side of (B) LEs ROM: RUE AROM shoulder flexion 70*, elbow, wrist and hand WFL L UE AROM shoulder flexion 70*, elbow, wrist and hand WFL STRENGTH: RUE 5/5 shoulder flexion, biceps 5/5, caving guide 5/5 LUE 5/5 shoulder flexion, biceps 5/5, caving guide 5/5 FUNCTIONAL MOBILITY/ADLS: Transfers Sit-Stand SBA FWW Stand-sit CGA FWW DRESSING Dressing LE Max (A) for donning and doffing socks. GROOMING: Pt required CGA and FWW for functional mobility to sink. While standing pt was able to perform brushing her teeth with minimal verbal cues and set up (A). Pt required verbal cues to turn on and shut off the water at the sink. Pt able to tolerate standing at sink for 10 minutes. BALANCE: Static sitting Normal Dynamic Sitting Normal Static Standing Fair Dynamic Standing Fair SPECIAL TESTS: Daily Activity Limitations Standardized Measure [facility] AM PAC ?6 clicks? Daily Activity Inpatient Short Form: Raw score: 18 Standardized score: 38.66 CMS score: 46.65% CMS modifier: CK INFORMED CONSENT/EDUCATION: Pt instructed in purpose of OT Consult and plan of care. ASSESSMENT: Pt is a 72yr old female admitted with bilateral lower extremity pain in setting of morbid obesity, chronic venous insufficiency, acute kidney injury, diabetes mellitus, obstructive sleep apnea uses CPAP, coronary artery disease, atrial fibrillation. Patient presents with clinical signs and symptoms consistent with diagnosis, as demonstrated by the following impairment level findings: pain in bilateral LE's, decreased (I) in functional mobility, Decreased AROM (B) UE, decreased ability to perform ADLs and functional activities. Pt will benefit from skilled OT intervention for education in adaptive equipment, energy conservation techniques and increased (I) in functional mobility to perform ADLs. AMPAC score 18, CMS score 46.65% Patient is assessed as a Moderate 80396 complexity based on the following: History: See above Examination: See functional impairments as listed above Presentation: Evolving Decision Making: AMPAC raw score 18, CMS score 46.65% GOALS Goals x1 week 1. Transfers SBA, FWW 2. Dressing, Pt able to perform LE dressing mod (I) with minimal verbal cues. 3. Bathing- Pt able to perform bathing with Min (A) and minimal verbal cues 4. Toileting- Min (A) with adaptive equipment 5. Eating (I) PLAN OF CARE/TREATMENT PLAN: 1x/day, 5 days/ week x 1week Initiate Occupational Therapy Services for bathing, dressing, grooming, toileting, eating, transfer training. DISCHARGE RECOMMENDATIONS Home with Home health OT TREATMENT TIME/MINUTES/CODES 32 min, IE mod, 13:30 G Codes in the area of self- : washing oneself, toileting, dressing, eating and drinking, current status [id number] CK projected status GP [id number].
--- NOTE | 2018-02-17 14:20 | OTIE_ITS ---
Occupational Therapy Notes Inpatient Occupational Therapy Evaluation Date: 02/17/18 Referring Doctor:Juan M Thompson MD OT Orders: Evaluate and treat for diminished ADL performance Precautions: Fall Precautions, elevate bilateral lower extremities PATIENT PROFILE/ADMITTING DIAGNOSIS: Pt is a 72 yearr old female that was admitted with bilateral lower extremity pain. Past Medical History: Morbid obesity, chronic venous insufficiency, acute kidney injury, diabetes mellitus, obstructive sleep apnea uses CPAP, coronary artery disease, atrial fibrillation, deep vein thrombosis, multinodular goiter, psoriasis, appendectomy, bilateral oophorectomy, abdominal hysterectomy, bilateral tubal ligation, hypertension, hypercholesterolemia Current Functional Limitations: Difficulty with UE ROM and decreased (I) in ADLs and functional mobility. Social History/Home Situation: Lives with her in a house in [place], [place], 5 steps with railing to enter, 1 step inside between dining room and living room. Baseline ADLs she was (I) in UE dressing but states her offers mid to mod (A) for everything else. She has 2 bathrooms with a tub/shower with a removable shower head. She can't step into the shower and uses a custom built box to be able to step into the shower to the shower chair with use of grab bars. Equipment owned/DME: FWW, shower chair, grab bars in shower SUBJECTIVE: Pt was sitting in chair when OT arrived. She states that she had just finished eating and that the posterior side of her legs was sore. OBJECTIVE: General Observation: IV (L) UE Mental Status: A&O x3 Pain: c/o pain on posterior side of (B) LEs ROM: RUE AROM shoulder flexion 70*, elbow, wrist and hand WFL L UE AROM shoulder flexion 70*, elbow, wrist and hand WFL STRENGTH: RUE 5/5 shoulder flexion, biceps 5/5, acoustic intelligence specialist 5/5 LUE 5/5 shoulder flexion, biceps 5/5, acoustic intelligence specialist 5/5 FUNCTIONAL MOBILITY/ADLS: Transfers Sit-Stand SBA FWW Stand-sit CGA FWW DRESSING Dressing LE Max (A) for donning and doffing socks. GROOMING: Pt required CGA and FWW for functional mobility to sink. While standing pt was able to perform brushing her teeth with minimal verbal cues and set up (A). Pt required verbal cues to turn on and shut off the water at the sink. Pt able to tolerate standing at sink for 10 minutes. BALANCE: Static sitting Normal Dynamic Sitting Normal Static Standing Fair Dynamic Standing Fair SPECIAL TESTS: Daily Activity Limitations Standardized Measure [facility] AM PAC ?6 clicks? Daily Activity Inpatient Short Form: Raw score: 18 Standardized score: 38.66 CMS score: 46.65 % CMS modifier: CK INFORMED CONSENT/EDUCATION: Pt instructed in purpose of OT Consult and plan of care. ASSESSMENT: Pt is a 72yr old female admitted with bilateral lower extremity pain in setting of morbid obesity, chronic venous insufficiency, acute kidney injury, diabetes mellitus, obstructive sleep apnea uses CPAP, coronary artery disease, atrial fibrillation. Patient presents with clinical signs and symptoms consistent with diagnosis, as demonstrated by the following impairment level findings: pain in bilateral LE's, decreased (I) in functional mobility, Decreased AROM (B) UE, decreased ability to perform ADLs and functional activities. Pt will benefit from skilled OT intervention for education in adaptive equipment, energy conservation techniques and increased (I) in functional mobility to perform ADLs. AMPAC score 18, CMS score 46.65% Patient is assessed as a Moderate [id number] complexity based on the following: History: See above Examination: See functional impairments as listed above Presentation: Evolving Decision Making: AMPAC raw score 18, CMS score 46.65% GOALS Goals x1 week 1. Transfers SBA, FWW 2. Dressing, Pt able to perform LE dressing mod (I) with minimal verbal cues. 3. Bathing- Pt able to perform bathing with Min (A) and minimal verbal cues 4. Toileting- Min (A) with adaptive equipment 5. Eating (I) PLAN OF CARE/TREATMENT PLAN: 1x/day, 5 days/ week x 1week Initiate Occupational Therapy Services for bathing, dressing, grooming, toileting, eating, transfer training. DISCHARGE RECOMMENDATIONS Home with Home health OT TREATMENT TIME/MINUTES/CODES 32 min, IE mod, 13:30 G Codes in the area of self- : washing oneself, toileting, dressing, eating and drinking, current status [id number] CK projected status GP [id number].
--- NOTE | 2018-02-17 15:09 | PT.INNT ---
Date of service: 02/17/18 Time of Service: 15:09 PT Notes 02/17/18 PHYSICAL THERAPY NOTE 2 attempts to see patient for PT session this afternoon, 1st attempt pt working with OT. 2nd attempt MD in room examining and wrapping LE's. Pt deferred therapy session after MD visit stating her legs were too sore I really just want to rest, my legs are sore. Spoke with RN who will provide patient with pain medication. Rhoda Avina PT
[2018-02-17 15:22] VITALS: BP 91/54; PULSE 73; RESP 18; TEMP 36.1; O2SAT 100
--- NOTE | 2018-02-17 15:30 | CHAPLAIN ---
Elle was sitting up in her chair when I visited. She had just finished walking with PT. During our conversation Elle talked about feeling guilty that her , José Manuel, does nearly all the work at home and cares for her, and is very good about it, she said. She hopes when she goes home she will be able to do more for herself and she said José Manuel told her he will be encouraging to move more and walk more. She has three grandchildren (her son's kids) living nearby and is very involved with them. Her daughter lives in [place] and calls often but was able to visit Elle here.
--- NOTE | 2018-02-17 15:32 | POCOE_ITS ---
Date of service: 02/17/18 Time of Service: 15:15 Assessment and Plan (1) Onychomycosis of foot with other complication: Start date: 02/17/18 Start time: 15:29 Current visit: Yes Status: Chronic Mechanically and electerically debrided all nails to patient tolerance. Achieved and no further treatment is necessary at this time although periodic debridement is required to maintain comfort and hygiene. Chronic venous stasis disease problems both lower extremity: No debridement of the wound was necessary at this time if they are superficial and clean. A Unna boot dressing was applied from the base of the toes to the tibial tuberosity utilizing a 4 inch Unna boot dressing, Kerlix roll, 4 inch Gelacio wrap. Good capillary return remains in the digits and the patient states that the dressing feels good. The right lower extremity was dressed in a Coflex TLC calamine S2 layer compression cyst. Once again Elle indicates that the dressing feels comfortable and good capillary return remains in the digits. My expectation is to leave these dressings on for 2 days. The dressing should be removed, both limbs washed with soap and and gently dried. I would anticipate reapplication of compression wraps to both lower limbs as the extent of her edema and wounds will likely take several applications to neutralize. Emphasized to Elle the importannce of continuing with compression wraps once she is out of the hospital to prevent this process from returning. (2) Diabetes mellitus with peripheral autonomic neuropathy: Current visit: Yes Status: Chronic History of Present Illness Chief Complaint: 72-year-old female with multiple wounds on both lower extremities Narrative: 72-year-old female with chronic venous stasis disease and multiple comorbidities admitted with cellulitis of both lower extremities with multiple venous stasis wounds. I have been asked to evaluate and manage this condition. She has long-standing venous stasis disease which she does not control through compression wraps due to intolerance she is a poorly controlled diabetic with peripheral neuropathy she suffers from A. fib, dyspnea on exertion , hypercholesterolemia coronary artery disease pseudogout psoriasis and morbid obesity. Review of Systems Constitutional Comments: Elle is seen in her chair. She is comfortable she is awake, alert and communicative she remembers seeing me back in 2014 in the office setting. She does indicate that she has been walking the halls but her legs get heavy and she feels like she is walking on odette on the bottoms of both feet. Musculoskeletal Comments: Muscle groups of 5 out of 5 to both lower extremities but markedly deconditioned. Palpation of the joints failed to reveal any crepitance, or gross deformities Integumentary/Breasts Comments: She has chronic venous stasis disease affecting both lower extremities with erythema from the base of the toes to about three quarters [address] the way up her legs. She has superficial venous stasis ulcers along the anterior aspects of both shins, posterior aspects of both legs right more so than left. A serous drainage is noted on the foam dressings when I removed them but nursing indicates that it was minimal compared to her admission status. Toenails are severely overgrown being yellow, thick, dystrophic, hypertrophic, elongated and in need of debridement all toenails are affected. There is subungual debris with periungual tenderness. No drainage or secondary signs of infection are noted. Superficial contusions with shallow ulcerations are noted affecting both great toes and several of the lesser toes which appear to be primarily from neuropathic microtrauma as she walks around her home in stocking feet. There is no active signs of infection. There is good capillary return to all toes. Both feet are warm to the touch. Calves are very tender but no cords were noted. Tenderness is highly consistent with venous stasis chronic edema process. Peripheral pulses are weakly palpable manually by audible through Doppler. Pressures are not obtainable due to pain in the calves with any form of significant compression. [facility] Medical History Chronic venous insufficiency (Chronic) NATY (obstructive sleep apnea) (Chronic) Dyspnea (Chronic) Atrial fibrillation (Chronic) Diabetes mellitus (Chronic) Hypertension (Chronic) Hypercholesterolemia (Chronic) Multinodular goiter (Chronic) Morbid obesity (Chronic) Coronary artery disease (Chronic) Pseudogout (Chronic) Psoriasis (Chronic) History of Surgical Procedure (Chronic) Social History Smoking/Tobacco Use Status: Former Tobacco Use additional social history: with 2 children. Lives locally in [facility]. 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 No current tobacco or ETOH use reported. Results Labs : 02/16/18 06:40 02/16/18 06:40 Laboratory Results - last 24 hr 02/17/18 02/17/18 02/17/18 07:10 07:10 07:10 ESR 100 H PT INR Hemoglobin A1c 8.5 H Lactate C-Reactive Protein 14.12 H 02/17/18 02/17/18 07:10 08:35 ESR PT 41.1 H INR 4.4 H* D Hemoglobin A1c Lactate 1.1 C-Reactive Protein
--- NOTE | 2018-02-17 16:01 | WOUNDCARE ---
02/16/181799 Wound Care Report - Pt alert and oriented. Pt states redness and drainage in legs started about a month ago. Pt states has not has issues prior to this with weeping legs. Her bilateral lower extremities are reddened, warm, very tender to touch. open areas noted on anterior and posterior calf. Ulcerations? or purplish spots noted on bilateral feet on tips of toes, toenails are dry and cracked, the great toe on bilat feet are lifted and areas of brown noted underneath. There are faint pulses able to be palpated on bilateral dorsalis pedis and pulses by doppler on bilateral dorsalis pedis and posterior tibial. right leg open areas with serous drainage, 100 percent pink non- granular tissue wound beds, no areas of slough noted. Right leg lateral open area 1.5 cm x 1 cm with depth less than 0.1. Right posterior calf open area 14 cm x 7 cm, macerated skin around sarah wound with redness around calf. moderate to large amount of serous drainage noted. left leg anterior open area 2.3 cm x 1.2 cm x less than 0.1 cm wound bed 100 % pink non- granular tissue with small amount of serous drainage noted. Lateral left leonard open area 1.3 cm x 1.3 cm x less than 0.1 cm 100 percent pink non granular wound bed. posterior left calf open area 10.6 cm x 6.1 cm x less than 0.1 cm 100 percent non granular pink wound bed, maceration noted around sarah wound. moderate amount of serous drainage noted. Underneath l breast noted to have large yeasty reddened area as well as underneath right pannus large reddened and yeasty. No open areas noted. l back noted to have three open areas. Pt stated had used heating pad and left it in place about 4-5 days ago most proximal open area 2 cm x 2.3 cm x less than 0.1 cm. 100 percent pink non granular tissue noted, scant serous drainage noted. sarah wound skin intact. medial l back wound 2 cm x 1.6 cm x less than 0.1 cm scant serous drainage noted, sarah wound skin intact. lateral l back open area 2.5 cm x 0.9 cm x less than 0.1 cm, scant serous drainage noted, intact periwound skin. Recommedations- Clean and dry underneath l breast and r pannus. Apply nystatin cream and interdry TID Bilateral lower extermities, cleanse with anasept, let dry, apply optilock to posterior calves, apply foam dressing to front of bilateral shins, wrap with cling. CHange every other day and PRN Back wounds- cleanse with anasept, let dry, apply hydrogel and foam dressing with border change every three days and PRN Offload heels and Consult Dr. Escobar, body shop floorperson.
[2018-02-17 20:40] VITALS: BP 125/68; PULSE 68; RESP 18; O2SAT 92
[2018-02-17] MEDS: Rosuvastatin 10 MG TAB 20 MG PO (21:18)
[2018-02-17] MEDS: Pregabalin 50 MG CAP PO (21:18)
[2018-02-17] MEDS: Insulin Glargine 300 UNITS/3 ML PEN 20 UNITS SC (21:19)
[2018-02-18] VITALS (8 sets, daily range): BP systolic 110–124; BP diastolic 62–75; PULSE 62–79; RESP 16–21; TEMP 35.4–36.3; O2SAT 87–95
[2018-02-18] MEDS: MEROPENEM 1 GM in Normal Saline 100 ML IVPB ×2 (02:07→14:17)
[2018-02-18] MEDS: Normal Saline Flush 10 ML SYR IVP (02:11)
[2018-02-18] MEDS: VANCOMYCIN 1,000 MG in Normal Saline 250 ML 166 MG IVPB ×2 (04:17→20:37)
[2018-02-18 07:03] LABS: Abs Immature Grans 0.01 k/cumm (0.0-0.09); Absolute Basophil Count 0.02 k/cumm (0.0-0.2); Absolute Eosinophil Count 0.24 k/cumm (0.0-0.7); Absolute Lymphocyte Count 2.09 k/cumm (1.2-3.4); Absolute Monocyte Count 0.68 k/cumm (0.11-0.7); Absolute Neutrophil Count 3.32 k/cumm (1.2-6.7); Basophils % 0.3; Eosinophils % 3.8; HCT 42.5 % (36.0-46.0); HGB 13.7 g/dL (12.0-15.5); Immature Grans % 0.2; Lymphocytes % 32.9; Mean Corp. HGB Concentration 32.2 g/dL (32.0-36.0); Mean Corpuscular Hemoglobin 30.6 pg (27.0-33.0); Mean Corpuscular Volume 95.1 fL (80-95); Mean Platelet Volume 9.2 fL (8.0-11.0); Monocytes % 10.7; Neutrophils % 52.1; Platelet Count 239 x1000/uL (130-400); RBC 4.47 m/cumm (4.00-5.20); RBC Distribution Width 15.7 % (11.7-14.6); White Blood Cell Count 6.36 k/cumm (4.4-10.8)
[2018-02-18 07:18] LABS: INR 3.4 (1.0-3.5); Prothrombin Time 31.7 sec (9.3-10.8)
[2018-02-18 07:25] LABS: BUN 28 mg/dL (7-18); CREATININE 1.14 mg/dL (0.55-1.02); Calcium 8.1 mg/dL (8.5-10.1); Chloride 105 mmol/L (98-107); Estimated GFR 46.99 (mL/min/1.73m2); Glucose 71 mg/dL (70-100); Sodium 141 mmol/L (136-145)
[2018-02-18] MEDS: Omeprazole 20 MG CAPCR PO (08:25)
[2018-02-18] MEDS: Metoprolol 50 MG TAB PO ×2 (08:25→20:37)
[2018-02-18] MEDS: traMADol 50 MG TAB PO ×2 (08:25→14:17)
[2018-02-18] MEDS: Acetaminophen 325 MG TAB PO ×2 (08:25→14:16)
[2018-02-18] MEDS: Insulin NPH-Human 300 UNITS/3 ML PEN 80 UNIT SC (08:26)
[2018-02-18] MEDS: Furosemide 20 MG TAB PO (08:26)
[2018-02-18] MEDS: Pregabalin 25 MG CAP PO (08:26)
[2018-02-18] MEDS: Insulin Aspart 300 UNITS/3 ML PEN SC ×3 (08:27→17:24)
[2018-02-18] MEDS: Valsartan 80 MG TAB 40 MG PO (08:29)
[2018-02-18] MEDS: Nystatin CREAM 30 GM TUBE TP ×3 (10:26→20:37)
--- NOTE | 2018-02-18 10:30 | PDOC.CMPRO ---
- If Service Date Differs Date of service: 02/18/18 Time of Service: 10:30 Care Management Progress Note S/O: Elle was lying in bed when CM visited this morning. She is engaged in conversation, makes good eye contact and is talkative. She reports that she had a rough night and morning and is not sure if the cause is the pain medications or not. She is now on 2 L via NC and continues to receive IV antibiotics. She has been ambulating well in the halls with a walker per PT. Elle reports that she spoke to her son last evening and he will be bringing her grandchildren for a visit. No change in plan at this time. A: 72 year old female admitted for cellulitis of bilateral lower extremities. P: Elle will discharge when medically ready per MD. Anticipate pt will discharge home with no services and follow up with her PCP. Elle will transfer via private vehicle with her , José Manuel. CM will continue to provide support to patient, family and care team regarding discharge planning and disposition.
--- NOTE | 2018-02-18 11:00 | PT.INTREAT ---
Date of service: 02/18/18 Time of Service: 11:01 PT Notes Inpatient Physical Therapy Treatment Note Date: 02/18/18 PRECAUTIONS: Fall SUBJECTIVE: Elle states that she is feeling better today, although she does report that she is feeling tired this morning. OBJECTIVE: PAIN: No complaints of pain BED MOBILITY/TRANSFERS Supine-sit: Min A with HOB at 40? Sit-stand: SBA Stand-sit: SBA GAIT Assistive Device: FWW Weight bearing: WBAT B Assist: SBA Distance: 70' ?2 Deviation: Patient required significant seated rest during gait training VITALS: 90?93% SaO2 on room air with gait training THEREX: Patient perform functional sit to stand transfer ?5 ASSESSMENT: Patient tolerated session with complaints of increased fatigue. Patient was able to tolerate a progression in gait distance with FWW support and SBA only. Patient was also able to tolerate the addition of functional sit to stand exercise ?5, although quickly fatigued. Patient would benefit from continued strengthening as well as transfer and gait training to work toward improved independence with functional daily activities. PLAN: Continue with PTs POC TREATMENT CODE/TIME: 30 minutes; TA ?2
--- NOTE | 2018-02-18 11:47 | OT.INTREAT ---
Date of service: 02/18/18 Time of Service: 09:55 Occupational Therapy Notes Occupational Therapy Inpatient Treatment Note Date: 02/18/18 SUBJECTIVE: Pt was lying supine in bed when OT arrived. Pt states that she was tired this morning and agreed to OT session. OT session was performed with AFFILIATE MARKETING SPECIALIST for bathing routine. OBJECTIVE: PAIN:3/10 pain for back of legs and heels VITALS: When OT arrived pt was on 2 liters, O2. AFFILIATE MARKETING SPECIALIST took SAO2 which was 93% and O2 was removed. FUNCTIONAL MOBILITY Rolling L/R: Min (A) , use of rails and HOB 40* Supine-sit: FWW, SBA Sit-supine: SBA Sit-stand: FWW, SBA Stand-sit: SBA, FWW Bed-Chair: SBA, FWW BATHING: Was performed with AFFILIATE MARKETING SPECIALIST, pt was able to perform UE bathing to forearms and shoulders with minimal verbal cues, needing mod (A) for shoulders and max (A) for Trunk and LE in the supine position. GROOMING: Pt able to stand at sink with FWW, with min verbal cues to turn off water. Dynamic functional standing was good with education on body positioning. ASSESSMENT: Pt making gains with functional mobility. Requires Max (A) for bathing of LE and trunk as well as under breasts which was performed by AFFILIATE MARKETING SPECIALIST today. Pt limited by UE ROM and generalized deconditioning. Pt may benefit from use of adaptive equipment and education on ADL routine for bathing. PLAN: Education adaptive equipment Improved (I) in functional mobility Improved (I) in ADL routines. TREATMENT CODES/TIME: 45 min, TAx2, Self care x1, 09:55.
--- NOTE | 2018-02-18 11:55 | OTTR_ITS ---
Date of service: 02/18/18 Time of Service: 09:55 Occupational Therapy Notes Occupational Therapy Inpatient Treatment Note Date: 02/18/18 SUBJECTIVE: Pt was lying supine in bed when OT arrived. Pt states that she was tired this morning and agreed to OT session. OT session was performed with HEAD HOUSEKEEPER for bathing routine. OBJECTIVE: PAIN:3/10 pain for back of legs and heels VITALS: When OT arrived pt was on 2 liters, O2. HEAD HOUSEKEEPER took SAO2 which was 93% and O2 was removed. FUNCTIONAL MOBILITY Rolling L/R: Min (A) , use of rails and HOB 40* Supine-sit: FWW, SBA Sit-supine: SBA Sit-stand: FWW, SBA Stand-sit: SBA, FWW Bed-Chair: SBA, FWW BATHING: Was performed with HEAD HOUSEKEEPER, pt was able to perform UE bathing to forearms and shoulders with minimal verbal cues, needing mod (A) for shoulders and max (A ) for Trunk and LE in the supine position. GROOMING: Pt able to stand at sink with FWW, with min verbal cues to turn off water. Dynamic functional standing was good with education on body positioning. ASSESSMENT: Pt making gains with functional mobility. Requires Max (A) for bathing of LE and trunk as well as under breasts which was performed by HEAD HOUSEKEEPER today. Pt limited by UE ROM and generalized deconditioning. Pt may benefit from use of adaptive equipment and education on ADL routine for bathing. PLAN: Education adaptive equipment Improved (I) in functional mobility Improved (I) in ADL routines. TREATMENT CODES/TIME: 45 min, TAx2, Self care x1, 09:55.
--- NOTE | 2018-02-18 14:07 | PT.INTREAT ---
Date of service: 02/18/18 Time of Service: 14:07 PT Notes Inpatient Physical Therapy Treatment Note Date: 02/18/18 PRECAUTIONS: Fall SUBJECTIVE: Elle reports that the back of her left leg is burning this afternoon, however she states that it feels significantly better when she is standing. OBJECTIVE: PAIN: Patient complains of burning pain in left calf BED MOBILITY/TRANSFERS Sit-stand: SBA Stand-sit: SBA GAIT Assistive Device: FWW Weight bearing: WBAT B Assist: SBA Distance: 80' ?2 Deviation: Seated rest ?1 THEREX: Patient perform functional sit to stand exercise ?7 ASSESSMENT: Patient tolerated a progression in her gait distance with FWW support and SBA only, well. Patient continues to require seated rest during gait training due to fatigue and mild SOB. Patient was able to tolerate several additional repetitions with sit to stand exercise this afternoon. Patient would benefit from continued strengthening as well as transfer training to improve independence with functional daily activities. PLAN: Continue with PTs POC TREATMENT CODE/TIME: 30 minutes; TA ?2
--- NOTE | 2018-02-18 16:35 | W.PM.PROGNOT ---
Date of service: 02/18/18 Time of Service: 16:35 Assessment and Plan (1) Cellulitis and abscess of lower extremity: Current visit: Yes Status: Acute Continue broad-spectrum antibiotic coverage including vancomycin and meropenem. So far blood cultures show no growth after 48 hours ?2 specimens from February 15, 2018. (2) Chronic venous insufficiency: Current visit: No Status: Chronic Patient has significant bilateral pedal and leg edema probably on the basis of NATY as well as chronic venous insufficiency. Dr. Escobar was able to convince the patient to wear Gelacio wraps to help with the bilateral lower extremity edema. (3) Lower extremity pain: Current visit: No Status: Acute I will increase her Lyrica to 50 mg twice a day (4) KENYON (acute kidney injury): Current visit: No Status: Acute Her renal function has improved with her BUN dropping down to 28 and creatinine down to 1.14 (5) Diabetes mellitus: Current visit: No Status: Chronic Blood sugars dropped dramatically overnight with the intensive increase in her insulin therapy. I suspect part of this is because she is now responding to the infection and clearing her cellulitis. She became quite symptomatic with blood glucose in the 80s-110s. I am and reduce her nightly dose of Lantus and decrease her Humulin and. We will probably also have to reduce her carbohydrate coverage as well. (6) Atrial fibrillation: Current visit: No Status: Chronic Her atrial fibrillation rate seems to be well controlled on her current regimen of beta-blockers. Her INR remains supratherapeutic (3.4) and therefore her warfarin is currently on hold until her INR drifts down to therapeutic range. We will continue to check daily INRs (7) Anticoagulation excessive: Current visit: Yes Status: Acute As above (8) NATY (obstructive sleep apnea): Current visit: No Status: Chronic Patient refuses to wear CPAP mask therefore I have nothing further to offer her for treatment of her NATY (9) DVT prophylaxis: Current visit: No Status: Acute Patient is supratherapeutic on her warfarin and therefore needs no DVT prophylaxis at this time Subjective Interval history since last seen: Patient states that her left calf is more painful today. Per nursing reports the edema is less and the weeping fluid has decreased considerably since the change in her dressing changes and the compression wraps. Renal function has improved her BUN is down to 28 creatinine 1.14. I am going to increase her Lyrica to 50 mg twice a day. Exam Const General: cooperative and no acute distress Nutritional Appearance: obese morbidly obese Orientation: alert, awake and oriented x3 Resp Effort & Inspection: normal respiratory effort and able to speak in complete sentences Auscultation: clear to auscultation bilaterally Cardio Palpation: normal PMI Rhythm: abnormal rhythm irregularly irregular GI Inspection: normal to inspection Palpation: soft and nontender Percussion: normal to percussion Extrem Right lower extremity: edema Details: pitting, 1+ and 2+ and foot (Foot and ankle were wrapped in pressure dressings and I did not undress these for examination today) Left lower extremity: edema Details: 2+ and foot (Feet and ankles were wrapped in pressure dressings and I did not unwrap them today) Objective Objective Clinical Data: Abnormal lab results 02/18/18 02/18/18 02/18/18 Range/Units 06:15 06:15 06:15 MCV 95.1 H (80-95) fL RDW 15.7 H (11.7-14.6) % PT 31.7 H (9.3-10.8) sec BUN 28 H D (7-18) mg/dL Creatinine 1.14 H (0.55-1.02) mg/dL Calcium 8.1 L (8.5-10.1) mg/dL Vital Signs Temp 36.1 C L 02/18/18 16:05 Pulse 77 02/18/18 16:05 Resp 18 02/18/18 16:05 BP 118/67 02/18/18 16:05 Pulse Ox 93 L 02/18/18 16:05 Intake & Output 02/17/18 02/18/18 02/18/18 23:59 11:59 23:59 Intake Total 1260 / 1260 640 / 640 490 / 490 Output Total 500 / 500 Balance 760 / 760 640 / 640 490 / 490 Intake: IV 350 / 350 100 / 100 250 / 250 Oral 910 / 910 540 / 540 240 / 240 Output: Urine 500 / 500 Other: Urine Color Dark Lona Urine Appearance Cloudy Urine Odor Strong Voiding Methods Bedside Commode Laboratory Results WBC 6.36 k/cumm (4.4-10.8) 02/18/18 06:15 RBC 4.47 m/cumm (4.00-5.20) 02/18/18 06:15 Hgb 13.7 g/dL (12.0-15.5) 02/18/18 06:15 Hct 42.5 % (36.0-46.0) 02/18/18 06:15 MCV 95.1 fL (80-95) H 02/18/18 06:15 MCH 30.6 pg (27.0-33.0) 02/18/18 06:15 MCHC 32.2 g/dL (32.0-36.0) 02/18/18 06:15 RDW 15.7 % (11.7-14.6) H 02/18/18 06:15 Plt Count 239 x1000/uL (130-400) 02/18/18 06:15 MPV 9.2 fL (8.0-11.0) 02/18/18 06:15 Immature Gran % 0.2 02/18/18 06:15 Neutrophils % 52.1 02/18/18 06:15 Lymphocytes % 32.9 02/18/18 06:15 Monocytes % 10.7 02/18/18 06:15 Eosinophils % 3.8 02/18/18 06:15 Basophils % 0.3 02/18/18 06:15 Absolute Neutrophils 3.32 k/cumm (1.2-6.7) 02/18/18 06:15 Absolute Lymphocytes 2.09 k/cumm (1.2-3.4) 02/18/18 06:15 Absolute Monocytes 0.68 k/cumm (0.11-0.7) 02/18/18 06:15 Absolute Eosinophils 0.24 k/cumm (0.0-0.7) 02/18/18 06:15 Absolute Basophils 0.02 k/cumm (0.0-0.2) 02/18/18 06:15 ESR 100 MM/HR (0-30) H 02/17/18 07:10 PT 31.7 sec (9.3-10.8) H 02/18/18 06:15 INR 3.4 (1.0-3.5) D 02/18/18 06:15 Sodium 141 mmol/L (136-145) 02/18/18 06:15 Potassium 4.0 mmol/L (3.5-5.1) 02/18/18 06:15 Chloride 105 mmol/L (98-107) 02/18/18 06:15 Carbon Dioxide 29.0 mmol/L (21.0-32.0) 02/18/18 06:15 Anion Gap 7.0 mmol/L (3-11) 02/18/18 06:15 BUN 28 mg/dL (7-18) H D 02/18/18 06:15 Creatinine 1.14 mg/dL (0.55-1.02) H 02/18/18 06:15 Estimated GFR/1.73 m2 46.99 (mL/min/1.73m2) 02/18/18 06:15 Glucose 71 mg/dL (70-100) D 02/18/18 06:15 Hemoglobin A1c 8.5 % (4.5-6.2) H 02/17/18 07:10 Lactate 1.1 mmol/L (0.6-1.4) 02/17/18 07:10 Calcium 8.1 mg/dL (8.5-10.1) L 02/18/18 06:15 Magnesium 2.0 mg/dL (1.8-2.4) 02/15/18 22:12 Total Bilirubin 0.8 mg/dL (0.2-1.0) 02/15/18 22:12 AST 15 U/L (15-37) 02/15/18 22:12 ALT 15 U/L (12-78) 02/15/18 22:12 Alkaline Phosphatase 78 U/L (46-116) 02/15/18 22:12 Troponin I < 0.02 ng/mL (0.00-0.06) 02/15/18 22:12 C-Reactive Protein 14.12 mg/dL (0.0-0.3) H 02/17/18 07:10 NT-Pro-B Natriuret Pep 728 pg/mL (-299) H 02/15/18 22:12 Total Protein 7.8 g/dL (6.4-8.2) 02/15/18 22:12 Albumin 2.5 g/dL (3.4-5.0) L 02/15/18 22:12
[2018-02-18] MEDS: Insulin NPH-Human 300 UNITS/3 ML PEN 70 UNIT SC (17:24)
[2018-02-18 20:10] LABS: Vancomycin, Trough 15.3 ug/mL (10.0-20.0)
[2018-02-18] MEDS: Pregabalin 50 MG CAP PO (22:38)
[2018-02-18] MEDS: Insulin Glargine 300 UNITS/3 ML PEN 15 UNITS SC (22:38)
[2018-02-18] MEDS: Rosuvastatin 10 MG TAB 20 MG PO (22:38)
[2018-02-19] MEDS: MEROPENEM 1 GM in Normal Saline 100 ML IVPB ×2 (02:02→14:37)
[2018-02-19 04:20] VITALS: BP 92/57; PULSE 74; RESP 20; TEMP 35.2; O2SAT 96
[2018-02-19 04:54] VITALS: O2SAT 96
[2018-02-19 07:15] VITALS: O2SAT 96
[2018-02-19 07:34] LABS: INR 2.6 (1.0-3.5); Prothrombin Time 24.8 sec (9.3-10.8)
[2018-02-19] MEDS: Metoprolol 50 MG TAB PO ×2 (07:51→21:56)
[2018-02-19] MEDS: Acetaminophen 325 MG TAB PO ×2 (07:51→14:37)
[2018-02-19] MEDS: traMADol 50 MG TAB PO ×2 (07:51→14:37)
[2018-02-19] MEDS: Pregabalin 50 MG CAP PO ×2 (07:51→21:58)
[2018-02-19] MEDS: Valsartan 80 MG TAB 40 MG PO (07:51)
[2018-02-19] MEDS: Omeprazole 20 MG CAPCR PO (07:52)
[2018-02-19] MEDS: Furosemide 20 MG TAB PO (07:52)
[2018-02-19] MEDS: Nystatin CREAM 30 GM TUBE TP ×3 (07:52→21:58)
[2018-02-19] MEDS: Docusate Sodium 100 MG CAP PO (07:52)
--- NOTE | 2018-02-19 09:31 | PT.INTREAT ---
Date of service: 02/19/18 Time of Service: 09:31 PT Notes Inpatient Physical Therapy Treatment Note Date: 02/19/18 PRECAUTIONS: Fall SUBJECTIVE: Elle is agreeable to working with PT OBJECTIVE: PAIN: Patient c/o pain in posterior calfs BED MOBILITY/TRANSFERS Supine-sit: Min A with HOB at 35 degrees Sit-stand: SBA Stand-sit: SBA Bed-Chair: S GAIT Assistive Device: FWW Weight bearing: WBAT on B Assist: S Distance: 100' TOILETING: Patient toileted with assist for perianal care ASSESSMENT: Patient was able to tolerate session well without c/o fatigue. She was able to tolerate a slight increase in gait distance before needing a seated rest today with FWW support. Patient was also able to progress to supervision only with gait training. PLAN: Continue with PT's POC TREATMENT CODE/TIME: 25 minutes; TAx2
--- NOTE | 2018-02-19 09:49 | DM INPTCON_ITS ---
DESCRIPTION/ASSESSMENT: Follow up blood sugar with fasting hypoglycemia. Her usual regimen is 70u NPH twice daily now decreased to 60units this AM. Here she is is also getting 20units Glargine now reduced to 8 units. Visited with Marlon again. She is happy with the food, eating well. She is surprised by her excellent glycemic control over the past 24 hours. INTERVENTION: Given that she does not use 2 basal insulins at home, discontinuing the Glargine may be a simpler regimen as well as decrease the risk for fasting hypoglycemia. PLAN: Suggest eliminating Glargine from her diabetes regimen and follow fasting blood sugars closely.
[2018-02-19 10:00] VITALS: O2SAT 94
[2018-02-19] MEDS: Insulin NPH-Human 300 UNITS/3 ML PEN 60 UNIT SC ×2 (10:19→18:04)
[2018-02-19 10:50] VITALS: BP 127/82; PULSE 71; RESP 20; TEMP 35.8; O2SAT 97
--- NOTE | 2018-02-19 11:25 | OT.INTREAT ---
Date of service: 02/19/18 Time of Service: 10:20 Occupational Therapy Notes Occupational Therapy Inpatient Treatment Note Date: 02/19/18 SUBJECTIVE: Patient sitting in chair when OT arrived. She states she had just showered with ORTHOTICS PROSTHETICS TECHNICIAN. Patient was agreeable to OT session. OBJECTIVE: PAIN: Patient reports a 6/10 for the back of the legs and heels. FUNCTIONAL MOBILITY Sit-stand: S, FWW Stand-sit: SBA, FWW DRESSING: Patient is max assist for lower extremity dressing including donning and doffing of socks and shoes. Patient educated on adaptive equipment of sock aid in proper body mechanics while performing this task. Patient demonstrated good understanding of education. Sock aid will provide patient with increased independence in functional ADLs for lower extremity dressing. GROOMING: SBA, patient educated in proper body mechanics for hygiene and grooming tasks performed at sink. Patient able to independently perform tasks without adaptive equipment at this time. TOILETING: OT educated patient on adaptive equipment to increase toileting performance and independence. Handout was provided to patient to be able to look at and OT will work with patient on this next at next session. THEREX: Initiation of upper upper extremity exercise prescription to increase improved participation in self-care and aerobic capacity. Patient instructed in shoulder flexion 10?2 times per day, shoulder abduction 10?2 times per day, and chair push-ups 10?2 times per day. Patient educated on the importance of safe posture during exercises. And the importance of upper extremity exercise prescription to improve functional activity tolerance for ADLs. ASSESSMENT: Patient was active participation within OT session today. She is compliant with training techniques for grooming and hygiene tasks. Patient will continue to benefit from OT sessions to increase independence in functional ADLs including lower extremity dressing, bathing of the lower extremity, toileting, and increased functional endurance performance. PLAN: Progression of upper extremity exercise prescription Training in adaptive equipment for toileting. Training in bathing routine and adaptive equipment as needed. TREATMENT CODES/TIME: 25 minutes, TA ?2, 10:20
[2018-02-19] MEDS: Insulin Aspart 300 UNITS/3 ML PEN SC ×3 (12:26→18:06)
--- NOTE | 2018-02-19 12:51 | PGE_ITS ---
Date of service: 02/19/18 Time of Service: 09:30 Assessment and Plan (1) Cellulitis and abscess of lower extremity: Current visit: Yes Status: Acute cont. meropenem and vancomycin through today then begin to step down her therapy unless her blood cultures turn postive. Cont. KASSANDRA wraps as they are helping w/ edema which should help w/ healing her wounds (2) Anticoagulation excessive: Current visit: Yes Status: Acute patient's INR is finally down to therapeutic level. I will restart her warfarin at reduced doses tonight and monitor her daily INR (3) KENYON (acute kidney injury): Current visit: No Status: Acute improved after short term hydration. now off any iv fluids. continue to monitor particularly if I have to use diuretics to help control her bilateral leg edema (4) Chronic venous insufficiency: Current visit: No Status: Chronic cont. KASSANDRA wraps (5) NATY (obstructive sleep apnea): Current visit: No Status: Chronic patient refuses to consider use of CPAP. nothing further to offer her. (6) Diabetes mellitus with peripheral autonomic neuropathy: Current visit: Yes Status: Chronic blood sugars have been low last night and again this a.m. I perhaps overshot on her required doses of insulin. I have reduced her Novolin N and her LANTUS DOSE. Subjective Interval history since last seen: Patient's leg pains are better today. Her leg edema has improved w/ use of the KASSANDRA wraps. I examined her leg wounds w/ her primary care nurse, Leyla this a.m. Her legs are less edematous and the bright redness is fading and her legs look more purplish like dependent rubor. The skin ulcers are not weeping. She remains on meropenem and vancomycin althought we have no positive cultures to guide her therapy. I will continue broad spectrum antibiotics through today then begin to step down her therapy perhaps to ancef. Exam Extrem Right lower extremity: edema Details: pitting and 1+ and lower leg Left lower extremity: edema Details: pitting and 1+ and lower leg Upper/lower leg/hip images: 2 1. superficial posterior tibia ulcer 2. superficial posterior tibia ulcer Objective Objective Clinical Data: Abnormal lab results 02/19/18 Range/Units 06:12 PT 24.8 H D (9.3-10.8) sec Vital Signs Temp 35.8 C L 02/19/18 10:50 Pulse 71 02/19/18 10:50 Resp 20 02/19/18 10:50 BP 127/82 02/19/18 10:50 Pulse Ox 97 02/19/18 10:50 Intake & Output 02/18/18 02/19/18 02/19/18 23:59 11:59 23:59 Intake Total 1320 / 1320 760 / 760 Output Total 700 / 700 900 / 900 Balance 620 / 620 -140 / -140 Intake: IV 600 / 600 Oral 720 / 720 760 / 760 Output: Urine 700 / 700 900 / 900 Other: Urine Color Yellow Yellow Urine Appearance Clear Urine Odor Normal Comment pt reports having a large void before 1500 Voiding Methods Bedside Commode Laboratory Results WBC 6.36 k/cumm (4.4-10.8) 02/18/18 06:15 RBC 4.47 m/cumm (4.00-5.20) 02/18/18 06:15 Hgb 13.7 g/dL (12.0-15.5) 02/18/18 06:15 Hct 42.5 % (36.0-46.0) 02/18/18 06:15 MCV 95.1 fL (80-95) H 02/18/18 06:15 MCH 30.6 pg (27.0-33.0) 02/18/18 06:15 MCHC 32.2 g/dL (32.0-36.0) 02/18/18 06:15 RDW 15.7 % (11.7-14.6) H 02/18/18 06:15 Plt Count 239 x1000/uL (130-400) 02/18/18 06:15 MPV 9.2 fL (8.0-11.0) 02/18/18 06:15 Immature Gran % 0.2 02/18/18 06:15 Neutrophils % 52.1 02/18/18 06:15 Lymphocytes % 32.9 02/18/18 06:15 Monocytes % 10.7 02/18/18 06:15 Eosinophils % 3.8 02/18/18 06:15 Basophils % 0.3 02/18/18 06:15 Absolute Neutrophils 3.32 k/cumm (1.2-6.7) 02/18/18 06:15 Absolute Lymphocytes 2.09 k/cumm (1.2-3.4) 02/18/18 06:15 Absolute Monocytes 0.68 k/cumm (0.11-0.7) 02/18/18 06:15 Absolute Eosinophils 0.24 k/cumm (0.0-0.7) 02/18/18 06:15 Absolute Basophils 0.02 k/cumm (0.0-0.2) 02/18/18 06:15 ESR 100 MM/HR (0-30) H 02/17/18 07:10 PT 24.8 sec (9.3-10.8) H D 02/19/18 06:12 INR 2.6 (1.0-3.5) D 02/19/18 06:12 Sodium 141 mmol/L (136-145) 02/18/18 06:15 Potassium 4.0 mmol/L (3.5-5.1) 02/18/18 06:15 Chloride 105 mmol/L (98-107) 02/18/18 06:15 Carbon Dioxide 29.0 mmol/L (21.0-32.0) 02/18/18 06:15 Anion Gap 7.0 mmol/L (3-11) 02/18/18 06:15 BUN 28 mg/dL (7-18) H D 02/18/18 06:15 Creatinine 1.14 mg/dL (0.55-1.02) H 02/18/18 06:15 Estimated GFR/1.73 m2 46.99 (mL/min/1.73m2) 02/18/18 06:15 Glucose 71 mg/dL (70-100) D 02/18/18 06:15 Hemoglobin A1c 8.5 % (4.5-6.2) H 02/17/18 07:10 Lactate 1.1 mmol/L (0.6-1.4) 02/17/18 07:10 Calcium 8.1 mg/dL (8.5-10.1) L 02/18/18 06:15 Magnesium 2.0 mg/dL (1.8-2.4) 02/15/18 22:12 Total Bilirubin 0.8 mg/dL (0.2-1.0) 02/15/18 22:12 AST 15 U/L (15-37) 02/15/18 22:12 ALT 15 U/L (12-78) 02/15/18 22:12 Alkaline Phosphatase 78 U/L (46-116) 02/15/18 22:12 Troponin I < 0.02 ng/mL (0.00-0.06) 02/15/18 22:12 C-Reactive Protein 14.12 mg/dL (0.0-0.3) H 02/17/18 07:10 NT-Pro-B Natriuret Pep 728 pg/mL (-299) H 02/15/18 22:12 Total Protein 7.8 g/dL (6.4-8.2) 02/15/18 22:12 Albumin 2.5 g/dL (3.4-5.0) L 02/15/18 22:12 Vancomycin Trough 15.3 ug/mL (10.0-20.0) 02/18/18 19:50
[2018-02-19] MEDS: VANCOMYCIN 1,000 MG in Normal Saline 250 ML 166 MG IVPB (13:04)
--- NOTE | 2018-02-19 14:57 | PT.INTREAT ---
Date of service: 02/19/18 Time of Service: 14:57 PT Notes Inpatient Physical Therapy Treatment Note Date: 02/19/18 PRECAUTIONS: Fall SUBJECTIVE: Elle states that she is tired this afternoon and would like to lay down, she reports that she had a busy morning. OBJECTIVE: PAIN: Patient complains of pain in posterior calves, bilaterally. BED MOBILITY/TRANSFERS Sit-supine: CGA with HOB flat Sit-stand: SBA Stand-sit: SBA GAIT Assistive Device: FWW Weight bearing: WBAT B Assist: S Distance: 100' ?2 ASSESSMENT: Patient tolerated a progression in gait distance with FWW support, well with minimal complaints of increased fatigue. Patient was able to demonstrate sit to supine transfer requiring CGA only with HOB flat. Patient would benefit from continued transfer and bed mobility training to improve independence with these functional activities. PLAN: Continue with PTs POC TREATMENT CODE/TIME: 25 minutes; TA ?2
[2018-02-19 15:54] VITALS: BP 119/69; PULSE 71; RESP 18; TEMP 36.8; O2SAT 93
--- NOTE | 2018-02-19 18:42 | PDOC.CMPRO ---
Care Management Progress Note S/O: Elle was sitting up in her chair when CM met with her. She was well engaged with discharge planning conversation and reported being home bound and struggling greatly to make medically appointments. She reports missing her last appointment due to difficulties leaving the home. She reports being agreeable to [facility] services; likely RN for DM management as well as PT and OT. CM faxed referral to [facility] for notification of pending referral. A: 72 year old female admitted for cellulitis of bilateral lower extremities. P: Elle will discharge when medically ready per MD, she will have new orders for home health services per MD including RN/PT/OT. Elle will transfer via private vehicle with her , José Manuel. CM will continue to provide support to patient, family and care team regarding discharge planning and disposition.
--- NOTE | 2018-02-19 18:45 | CMPROGNOTE_ITS ---
Care Management Progress Note S/O: Elle was sitting up in her chair when CM met with her. She was well engaged with discharge planning conversation and reported being home bound and struggling greatly to make medically appointments. She reports missing her last appointment due to difficulties leaving the home. She reports being agreeable to [facility] services; likely RN for DM management as well as PT and OT. CM faxed referral to [facility] for notification of pending referral. A: 72 year old female admitted for cellulitis of bilateral lower extremities. P: Elle will discharge when medically ready per MD, she will have new orders for home health services per MD including RN/PT/OT. Elle will transfer via private vehicle with her , José Manuel. CM will continue to provide support to patient, family and care team regarding discharge planning and disposition.
[2018-02-19] MEDS: Rosuvastatin 10 MG TAB 20 MG PO (21:56)
[2018-02-19] MEDS: Insulin Glargine 300 UNITS/3 ML PEN 8 UNITS SC (21:59)
[2018-02-20 02:00] VITALS: BP 132/74; PULSE 82; RESP 18; TEMP 36; O2SAT 95
[2018-02-20] MEDS: MEROPENEM 1 GM in Normal Saline 100 ML IVPB ×2 (02:01→14:46)
[2018-02-20] MEDS: Normal Saline Flush 10 ML SYR IVP ×2 (02:02→14:46)
[2018-02-20 02:28] VITALS: O2SAT 92
[2018-02-20] MEDS: VANCOMYCIN 1,000 MG in Normal Saline 250 ML 166 MG IVPB (03:55)
[2018-02-20 07:26] VITALS: PULSE 72; RESP 19; TEMP 36.4; O2SAT 92
[2018-02-20 07:45] LABS: INR 2.1 (1.0-3.5); Prothrombin Time 20.2 sec (9.3-10.8)
[2018-02-20 08:10] VITALS: O2SAT 98
[2018-02-20] MEDS: Pregabalin 50 MG CAP PO (09:31)
[2018-02-20] MEDS: Furosemide 20 MG TAB PO (09:31)
[2018-02-20] MEDS: Metoprolol 50 MG TAB PO ×2 (09:31→21:07)
[2018-02-20] MEDS: Omeprazole 20 MG CAPCR PO (09:31)
[2018-02-20] MEDS: Nystatin CREAM 30 GM TUBE TP ×3 (09:35→21:10)
--- NOTE | 2018-02-20 09:35 | PT.INTREAT ---
Date of service: 02/20/18 Time of Service: 09:35 PT Notes Inpatient Physical Therapy Treatment Note Date: 02/20/18 PRECAUTIONS: Fall SUBJECTIVE: Elle states that she is not feeling well today. OBJECTIVE: PAIN: Patient complains of pain in posterior calves, bilaterally. BED MOBILITY/TRANSFERS Supine-sit: Min A with HOB at 40? Sit-stand: SBA Stand-sit: SBA GAIT Assistive Device: FWW Weight bearing: WBAT B Assist: SBA Distance: 50' ?2 Deviation: Patient complained of dizziness with gait VITALS: Per nursing orthostatic BP was taken: Supine = 103/57, seated = 137/85, standing = 135/65 ASSESSMENT: Patient tolerated session with complaints of dizziness with gait training. Limited activity with PT due to dizziness, and patient request as she is not feeling well this morning. PLAN: Continue with PTs POC TREATMENT CODE/TIME: 25 minutes; TA ?2
--- NOTE | 2018-02-20 10:02 | W.PM.PROGNOT ---
Date of service: 02/20/18 Time of Service: 10:02 Subjective Interval history since last seen: Elle is seen in her room, she is resting in her bed. She is tolerating the Unna boot dressings well on both lower extremities she had been changed yesterday by nursing and the nursing report was that the edema was reduced, the drainage was minimal and that she was doing well. The Unna boot dressings are not taken down at this time but they are applied correctly and comfortably. She has good capillary return to all toes. No signs of drainage noted on the dressings at this time. Impression chronic venous stasis disease both lower extremity with clinical improvement Plan: Elle will need to wear compression stockings indefinitely. He is going to have difficulty putting on standard compression hosiery due to her mobility issues and I am recommending that she try CircAid devices or similar compression devices. Although she would probably benefit from 30-40 mmHg she may have difficulty tolerating that but it is her goal. All questions were answered in detail to her. I be happy to see her in the office as needed Objective Objective Clinical Data: Abnormal lab results 02/20/18 Range/Units 06:45 PT 20.2 H (9.3-10.8) sec Vital Signs Temp 36 C L 02/20/18 02:00 Pulse 82 02/20/18 02:00 Resp 18 02/20/18 02:00 BP 132/74 02/20/18 02:00 Pulse Ox 92 L 02/20/18 02:28 Intake & Output 02/19/18 02/20/18 02/20/18 18:59 06:59 18:59 Intake Total 1430 / 1430 Output Total 1400 / 1400 500 / 500 Balance 30 30 -500 / -500 Intake: IV 350 / 350 Oral 1080 / 1080 Output: Urine 1400 / 1400 500 / 500 Other: Urine Color Yellow Light Lona Urine Appearance Clear Urine Odor Normal Stool Size Moderate Moderate Stool Characteristics Formed Soft Hard Formed Brown Brown Voiding Methods Bedside Commode Laboratory Results WBC 6.36 k/cumm (4.4-10.8) 02/18/18 06:15 RBC 4.47 m/cumm (4.00-5.20) 02/18/18 06:15 Hgb 13.7 g/dL (12.0-15.5) 02/18/18 06:15 Hct 42.5 % (36.0-46.0) 02/18/18 06:15 MCV 95.1 fL (80-95) H 02/18/18 06:15 MCH 30.6 pg (27.0-33.0) 02/18/18 06:15 MCHC 32.2 g/dL (32.0-36.0) 02/18/18 06:15 RDW 15.7 % (11.7-14.6) H 02/18/18 06:15 Plt Count 239 x1000/uL (130-400) 02/18/18 06:15 MPV 9.2 fL (8.0-11.0) 02/18/18 06:15 Immature Gran % 0.2 02/18/18 06:15 Neutrophils % 52.1 02/18/18 06:15 Lymphocytes % 32.9 02/18/18 06:15 Monocytes % 10.7 02/18/18 06:15 Eosinophils % 3.8 02/18/18 06:15 Basophils % 0.3 02/18/18 06:15 Absolute Neutrophils 3.32 k/cumm (1.2-6.7) 02/18/18 06:15 Absolute Lymphocytes 2.09 k/cumm (1.2-3.4) 02/18/18 06:15 Absolute Monocytes 0.68 k/cumm (0.11-0.7) 02/18/18 06:15 Absolute Eosinophils 0.24 k/cumm (0.0-0.7) 02/18/18 06:15 Absolute Basophils 0.02 k/cumm (0.0-0.2) 02/18/18 06:15 ESR 100 MM/HR (0-30) H 02/17/18 07:10 PT 20.2 sec (9.3-10.8) H 02/20/18 06:45 INR 2.1 (1.0-3.5) 02/20/18 06:45 Sodium 141 mmol/L (136-145) 02/18/18 06:15 Potassium 4.0 mmol/L (3.5-5.1) 02/18/18 06:15 Chloride 105 mmol/L (98-107) 02/18/18 06:15 Carbon Dioxide 29.0 mmol/L (21.0-32.0) 02/18/18 06:15 Anion Gap 7.0 mmol/L (3-11) 02/18/18 06:15 BUN 28 mg/dL (7-18) H D 02/18/18 06:15 Creatinine 1.14 mg/dL (0.55-1.02) H 02/18/18 06:15 Estimated GFR/1.73 m2 46.99 (mL/min/1.73m2) 02/18/18 06:15 Glucose 71 mg/dL (70-100) D 02/18/18 06:15 Hemoglobin A1c 8.5 % (4.5-6.2) H 02/17/18 07:10 Lactate 1.1 mmol/L (0.6-1.4) 02/17/18 07:10 Calcium 8.1 mg/dL (8.5-10.1) L 02/18/18 06:15 Magnesium 2.0 mg/dL (1.8-2.4) 02/15/18 22:12 Total Bilirubin 0.8 mg/dL (0.2-1.0) 02/15/18 22:12 AST 15 U/L (15-37) 02/15/18 22:12 ALT 15 U/L (12-78) 02/15/18 22:12 Alkaline Phosphatase 78 U/L (46-116) 02/15/18 22:12 Troponin I < 0.02 ng/mL (0.00-0.06) 02/15/18 22:12 C-Reactive Protein 14.12 mg/dL (0.0-0.3) H 02/17/18 07:10 NT-Pro-B Natriuret Pep 728 pg/mL (-299) H 02/15/18 22:12 Total Protein 7.8 g/dL (6.4-8.2) 02/15/18 22:12 Albumin 2.5 g/dL (3.4-5.0) L 02/15/18 22:12 Vancomycin Trough 15.3 ug/mL (10.0-20.0) 02/18/18 19:50
[2018-02-20] MEDS: Valsartan 80 MG TAB 40 MG PO (10:09)
[2018-02-20] MEDS: Insulin NPH-Human 300 UNITS/3 ML PEN 50 UNIT SC ×2 (10:09→16:05)
--- NOTE | 2018-02-20 10:53 | OT.INTREAT ---
Date of service: 02/20/18 Time of Service: 09:55 Occupational Therapy Notes Occupational Therapy Inpatient Treatment Note Date: 02/20/18 SUBJECTIVE: When OT arrived, Pt was sitting in chair with legs elevated. Pt reports that she just was not feeling great today. She states that her blood glucose was low this morning and that she didn't feel like herself. OT communicated with nursing and Pt was agreeable to OT session. OBJECTIVE: PAIN:6-7/10 in back of legs. FUNCTIONAL MOBILITY Sit-stand: S, FWW Stand-sit: SBA DRESSING: Lower Extremity: Pt demonstrated with ideal technique use of sock aid to don socks to (B) LE. Pt required min verbal cues and assist for reaching down to pull socks up remaining of the way. Pt demonstrated good understanding of adaptive equipment and education provided. GROOMING: Standing at sink with FWW, pt able to perform teeth with S and good dynamic movements. Pt demonstrating ideal and improved body awareness and positioning. TOILETING: Device: Grab bars, FWW Assist: Mod (A)-Max(A). Pt required moderate verbal cues for stand to sit transfer. Education was provided about adaptive equipment for toileting hygiene and pt reports that her provides max (A) with toileting at home. Pt educated on improved (I) in toileting routine. Pt demonstrated good understanding of this and improving functional (I) in safe transfer techniques on and off toilet. ASSESSMENT: Pt demonstrated good understanding of education for adaptive equipment and safe transfer techniques to improve (I) in ADL routine. Pt still needing mod-min verbal cues for ADL routines. Pt would benefit from continued OT services for improved safety and (I) in functional ADL routine including toileting, bathing and dressing. PLAN: Update and progress upper body strengthening routine for increased (I) in ADLs. Adaptive equipment for bathing Safe mobility techniques for bathing and toileting. TREATMENT CODES/TIME: Self care X1, 25 min, 09:55
[2018-02-20] MEDS: Insulin Aspart 300 UNITS/3 ML PEN SC ×4 (12:02→17:13)
[2018-02-20] MEDS: traMADol 50 MG TAB PO (13:21)
[2018-02-20] MEDS: Acetaminophen 325 MG TAB PO (13:21)
--- NOTE | 2018-02-20 13:24 | PDOC.CMPRO ---
- If Service Date Differs Date of service: 02/20/18 Time of Service: 13:24 Care Management Progress Note S/O: Elle was lying in bed when CM visited this morning. She reports that she is not feeling well this morning. Her blood sugar was in the 50's this morning and her pain is increased. She is receiving supplemental oxygen via via NC and continues to receive IV antibiotics. CM faxed referral for home health nursing and services to [facility] at [phone]. Contact number for [facility] is [phone]. Wound nurse Leyla is recommending circaid compression wraps for Elle. CM will contact [facility] regarding the availability and costs. A: 72 year old female admitted for cellulitis of bilateral lower extremities. P: Elle will discharge when medically ready per MD. Anticipate pt will discharge home with home health, PT and OT services and follow up with her PCP. Elle will transfer via private vehicle with her , José Manuel. CM will continue to provide support to patient, family and care team regarding discharge planning and disposition.
--- NOTE | 2018-02-20 13:29 | CMPROGNOTE_ITS ---
- If Service Date Differs Date of service: 02/20/18 Time of Service: 13:24 Care Management Progress Note S/O: Elle was lying in bed when CM visited this morning. She reports that she is not feeling well this morning. Her blood sugar was in the 50's this morning and her pain is increased. She is receiving supplemental oxygen via via NC and continues to receive IV antibiotics. CM faxed referral for home health nursing and services to [facility] at [phone]. Contact number for [facility] is [phone]. Wound nurse Leyla is recommending circaid compression wraps for Elle. CM will contact [facility] regarding the availability and costs. A: 72 year old female admitted for cellulitis of bilateral lower extremities. P: Elle will discharge when medically ready per MD. Anticipate pt will discharge home with home health, PT and OT services and follow up with her PCP. Elle will transfer via private vehicle with her , José Manuel. CM will continue to provide support to patient, family and care team regarding discharge planning and disposition.
--- NOTE | 2018-02-20 15:17 | W.PM.PROGNOT ---
Date of service: 02/20/18 Time of Service: 15:17 Assessment and Plan (1) Cellulitis and abscess of lower extremity: Current visit: Yes Status: Acute I discontinued her broad-spectrum antibiotics of meropenem and vancomycin and switch her to Keflex. We have no cultures to guide her antibiotic treatment. We will watch her overnight and if she has no fever spikes and I think she can be discharged home with home health care services to help with her dressing changes on her legs. I would keep her on the Keflex for another 10 days. This would give her complete course of 14 days. I will recheck her ESR and CRP in the a.m. They were both very elevated on admission although she never had a leukocytosis. (2) Anticoagulation excessive: Current visit: Yes Status: Acute INR continues to decline. I have increased her nightly dose of warfarin to 4 mg nightly. At home she says that she was on 5 mg every e/Thurs/Sat/Sun and 2.5 mg all other nights. Based upon this her total weekly amount would be 27.5 mg. If she is put on 4 mg nightly then she would be getting 28 mg per week. Furthermore, with continued antibiotics I would expect interaction w/ her warfarin and her INR should begin to rise. (3) KENYON (acute kidney injury): Current visit: No Status: Resolved resolved. iv fluids have been discontinued. (4) Chronic venous insufficiency: Current visit: No Status: Chronic cont. KASSANDRA wraps and elevation of her legs. once her skin ulcers are healed she should be considered for lymphedema pumps (5) NATY (obstructive sleep apnea): Current visit: No Status: Chronic patient refuses to consider use of CPAP. nothing further to offer her. I have explained to her that some of her problems w/ her right sided venous insufficiency can be contributed by untreated NATY. (6) Diabetes mellitus with peripheral autonomic neuropathy: Current visit: Yes Status: Chronic a.m. blood sugars continue to be low. I have discontinued her Lantus at night and reduced her Humulin N to 50 bid. Her severe hyperglycemia has responded now that her cellulitis is getting under control. (7) Discharge planning issues: Current visit: Yes Status: Acute patient to receive home health services upon discharge including nursing visits for leg wound care/dressing changes, physical therapy and occupation therapy to improve her gait/balance, strength and to improve her ability to perform her ADL's independently. Subjective Interval history since last seen: Patient states that she is having some increased pain in her legs. Her labs show that her renal function has improved and therefore I think she could tolerate an increase dosing of her Lyrica. She has been keeping her legs elevated and the nursing staff is been doing daily dressing changes to help with her superficial skin ulcerations. She been wearing compression wraps to help with the leg edema. Exam Narrative Exam Narrative: Patient sitting up in the chair in no distress. She is alert and oriented to person place time circumstance. HEENT is unremarkable Lungs are clear to auscultation Heart irregularly irregular at a controlled rate with no appreciable murmur rub or gallop Abdomen is obese soft nontender with normal active bowel sounds Lower extremities show decrease in her edema. There is still 1+ edema in her lower legs bilaterally. Her legs have just been wrapped and so I did not ask nursing to take down her dressing today for me to look at her legs. I examined her feet in the edema in her feet have gone down considerably. She has dependent rubor in her toes but her toes are warm with good capillary refill Objective Objective Clinical Data: Abnormal lab results 02/20/18 Range/Units 06:45 PT 20.2 H (9.3-10.8) sec Vital Signs Temp 36.4 C L 02/20/18 07:26 Pulse 72 02/20/18 07:26 Resp 19 02/20/18 07:26 BP 132/74 02/20/18 02:00 Pulse Ox 98 02/20/18 08:10 Intake & Output 02/19/18 02/20/18 02/20/18 23:59 11:59 23:59 Intake Total 1070 / 1070 300 / 300 70 / 70 Output Total 1300 / 1300 Balance 1070 / 1070 -1000 / -1000 70 / 70 Intake: IV 350 / 350 70 / 70 Oral 720 / 720 300 / 300 Output: Urine 1300 / 1300 Other: Urine Color Yellow Yellow Urine Appearance Clear Clear Urine Odor Normal Normal Stool Size Moderate Moderate Large Stool Characteristics Soft Soft Formed Formed Formed Brown Brown Voiding Methods Toilet Bedside Commode Toilet Laboratory Results WBC 6.36 k/cumm (4.4-10.8) 02/18/18 06:15 RBC 4.47 m/cumm (4.00-5.20) 02/18/18 06:15 Hgb 13.7 g/dL (12.0-15.5) 02/18/18 06:15 Hct 42.5 % (36.0-46.0) 02/18/18 06:15 MCV 95.1 fL (80-95) H 02/18/18 06:15 MCH 30.6 pg (27.0-33.0) 02/18/18 06:15 MCHC 32.2 g/dL (32.0-36.0) 02/18/18 06:15 RDW 15.7 % (11.7-14.6) H 02/18/18 06:15 Plt Count 239 x1000/uL (130-400) 02/18/18 06:15 MPV 9.2 fL (8.0-11.0) 02/18/18 06:15 Immature Gran % 0.2 02/18/18 06:15 Neutrophils % 52.1 02/18/18 06:15 Lymphocytes % 32.9 02/18/18 06:15 Monocytes % 10.7 02/18/18 06:15 Eosinophils % 3.8 02/18/18 06:15 Basophils % 0.3 02/18/18 06:15 Absolute Neutrophils 3.32 k/cumm (1.2-6.7) 02/18/18 06:15 Absolute Lymphocytes 2.09 k/cumm (1.2-3.4) 02/18/18 06:15 Absolute Monocytes 0.68 k/cumm (0.11-0.7) 02/18/18 06:15 Absolute Eosinophils 0.24 k/cumm (0.0-0.7) 02/18/18 06:15 Absolute Basophils 0.02 k/cumm (0.0-0.2) 02/18/18 06:15 ESR 100 MM/HR (0-30) H 02/17/18 07:10 PT 20.2 sec (9.3-10.8) H 02/20/18 06:45 INR 2.1 (1.0-3.5) 02/20/18 06:45 Sodium 141 mmol/L (136-145) 02/18/18 06:15 Potassium 4.0 mmol/L (3.5-5.1) 02/18/18 06:15 Chloride 105 mmol/L (98-107) 02/18/18 06:15 Carbon Dioxide 29.0 mmol/L (21.0-32.0) 02/18/18 06:15 Anion Gap 7.0 mmol/L (3-11) 02/18/18 06:15 BUN 28 mg/dL (7-18) H D 02/18/18 06:15 Creatinine 1.14 mg/dL (0.55-1.02) H 02/18/18 06:15 Estimated GFR/1.73 m2 46.99 (mL/min/1.73m2) 02/18/18 06:15 Glucose 71 mg/dL (70-100) D 02/18/18 06:15 Hemoglobin A1c 8.5 % (4.5-6.2) H 02/17/18 07:10 Lactate 1.1 mmol/L (0.6-1.4) 02/17/18 07:10 Calcium 8.1 mg/dL (8.5-10.1) L 02/18/18 06:15 Magnesium 2.0 mg/dL (1.8-2.4) 02/15/18 22:12 Total Bilirubin 0.8 mg/dL (0.2-1.0) 02/15/18 22:12 AST 15 U/L (15-37) 02/15/18 22:12 ALT 15 U/L (12-78) 02/15/18 22:12 Alkaline Phosphatase 78 U/L (46-116) 02/15/18 22:12 Troponin I < 0.02 ng/mL (0.00-0.06) 02/15/18 22:12 C-Reactive Protein 14.12 mg/dL (0.0-0.3) H 02/17/18 07:10 NT-Pro-B Natriuret Pep 728 pg/mL (-299) H 02/15/18 22:12 Total Protein 7.8 g/dL (6.4-8.2) 02/15/18 22:12 Albumin 2.5 g/dL (3.4-5.0) L 02/15/18 22:12 Vancomycin Trough 15.3 ug/mL (10.0-20.0) 02/18/18 19:50
--- NOTE | 2018-02-20 15:51 | PT.INTREAT ---
Date of service: 02/20/18 Time of Service: 15:51 PT Notes Inpatient Physical Therapy Treatment Note Date: 02/20/18 PRECAUTIONS: Fall SUBJECTIVE: Elle states that she is feeling better this afternoon, however she is still experiencing significant pain in posterior calves, bilaterally. OBJECTIVE: PAIN: Patient complains of pain in the posterior calves, bilaterally. BED MOBILITY/TRANSFERS Sit-stand: SBA Stand-sit: SBA GAIT Assistive Device: FWW Weight bearing: WBAT B Assist: SBA Distance: 75' ?2 Deviation: Significant seated rest ?1 THEREX: Refused due to fatigue ASSESSMENT: Patient continues to require significant seated rest for extended gait distances with FWW support. Patient would benefit from continued strengthening as well as gait training to improve duration tolerance. PLAN: Continue with PTs POC TREATMENT CODE/TIME: 25 minutes; TA ?2
[2018-02-20] MEDS: Cephalexin 500 MG CAP PO ×2 (16:05→21:09)
[2018-02-20 16:39] VITALS: BP 108/56; PULSE 73; RESP 20; TEMP 36.8; O2SAT 95
[2018-02-20] MEDS: Warfarin 4 MG TAB PO (21:09)
[2018-02-20] MEDS: Rosuvastatin 10 MG TAB 20 MG PO (21:14)
[2018-02-20] MEDS: Pregabalin 25 MG CAP 75 MG PO (21:16)
[2018-02-21 07:28] LABS: INR 2.1 (1.0-3.5); Prothrombin Time 19.7 sec (9.3-10.8)
[2018-02-21] MEDS: Insulin Aspart 300 UNITS/3 ML PEN SC ×2 (08:53→12:31)
[2018-02-21 09:00] VITALS: BP 109/55; PULSE 60; RESP 20; TEMP 36.4; O2SAT 91
[2018-02-21] MEDS: Insulin NPH-Human 300 UNITS/3 ML PEN 50 UNIT SC (09:02)
[2018-02-21] MEDS: Acetaminophen 325 MG TAB PO (09:04)
[2018-02-21] MEDS: Valsartan 80 MG TAB 40 MG PO (09:05)
[2018-02-21] MEDS: Omeprazole 20 MG CAPCR PO (09:05)
[2018-02-21] MEDS: Metoprolol 50 MG TAB PO ×2 (09:06→21:05)
[2018-02-21] MEDS: Pregabalin 25 MG CAP 75 MG PO ×2 (09:06→21:04)
[2018-02-21] MEDS: Cephalexin 500 MG CAP PO ×4 (09:06→21:05)
[2018-02-21] MEDS: Furosemide 20 MG TAB PO (09:07)
[2018-02-21] MEDS: Nystatin CREAM 30 GM TUBE TP ×3 (09:07→21:19)
[2018-02-21 12:05] VITALS: BP 104/57; PULSE 62; RESP 20; TEMP 36.1; O2SAT 95
--- NOTE | 2018-02-21 12:09 | PT.INTREAT ---
Date of service: 02/21/18 Time of Service: 11:00 PT Notes Inpatient Physical Therapy Treatment Note Date: 02/21/18 PRECAUTIONS:Fall SUBJECTIVE: Indicated she is not going home until tomorrow, doctor wants to keep her one more day. Calf regions are still very sore. OBJECTIVE Sit-stand: SBA Stand-sit: SBA GAIT Assistive Device: FWW Weight bearing: WBAT bilaterally Assist: SBA Distance: 150ft, no seated or standing rests Utilized O2 supplement at 1L throughout session today. THEREX: Performed sit to stand transfers x 8 reps with hands on chair arms. Discussed chair activities such as ankle/ toe curls pumps which she stated she has been doing, seated hip abd/add and LAQs with patient to try occasionally throughout the day to keeps her leg muscles moving. Legs were tired after walking and sit to stands. ASSESSMENT: Tolerated today's session well with good effort given with ambulation and sit to stands. PLAN: Continue to encourage increased mobility with ambulation and ADL tasks for preparation for discharge home with . TREATMENT CODE/TIME: TA x 2, 11:00 to 11:25 (25 minutes)
--- NOTE | 2018-02-21 12:22 | PTTR_ITS ---
Date of service: 02/21/18
--- NOTE | 2018-02-21 12:22 | PT.INTREAT ---
Date of service: 02/21/18
--- NOTE | 2018-02-21 14:32 | CMPROGNOTE_ITS ---
- If Service Date Differs Date of service: 02/21/18 Time of Service: 14:30 Care Management Progress Note S/O: Elle is sitting up in her chair when this account underwriter visits this morning, she is pleasant and open to discussion. Elle is hopeful to return home soon and states that she will be having home health when she returns home. A referral has previously been faxed to [facility] home health for RN/PT/OT services at time of DC. A: 72 year old female admitted for cellulitis of bilateral lower extremities. P: Elle will discharge when medically ready per MD. Anticipate pt will discharge home with home health, RN, PT and OT services and follow up with her PCP. Elle will transfer via private vehicle with her , José Manuel. CM will continue to provide support to patient, family and care team regarding discharge planning and disposition.
--- NOTE | 2018-02-21 15:09 | PGE_ITS ---
Date of service: 02/21/18 Time of Service: 15:02 Assessment and Plan (1) Lower extremity pain: Current visit: No Status: Acute Symptoms of bilateral lower extremity pain, ongoing and worsening over the last month, with both swelling and erythema that appear worsening. Erythematous skin bilaterally with areas of clear skin breakdown - although skin was not warm to touch, cellulitis was considered as a potential etiology. Patient has done well, with broad spectrum antibiotics discontinued and changed to oral Cephalexin yesterday - day 5 of planned 14 day course of antibiotic therapy. Plan is for one additional day of observation, and discharge if continued improvement is noted. Blood cultures with no growth X120 hours. Also consider acutely worsening edema in patient with history of chronic venous insufficiency. This may be based on untreated sleep apnea or diastolic CHF, although ECHO from August reviewed and essentially normal. BNP was checked and while minimally elevated, was well within patient's prior values. Swelling improved with compressions wraps. Continue oral lasix. (2) Chronic venous insufficiency: Current visit: No Status: Chronic Plan as above. (3) KENYON (acute kidney injury): Current visit: No Status: Resolved Appears resolved, with IVFs discontinued. (4) Hypertension: Current visit: No Status: Chronic Continue BB. ARB reinitiated. (5) Hypercholesterolemia: Current visit: No Status: Chronic Continue statin therapy. (6) Diabetes mellitus: Current visit: No Status: Chronic Currently on NPH BID, ISS, and ADA diet. (7) Atrial fibrillation: Current visit: No Status: Chronic Continue BB and AC with coumadin. Monitor daily INR, currently therapeutic. (8) Coronary artery disease: Current visit: No Status: Chronic (9) NATY (obstructive sleep apnea): Current visit: No Status: Chronic Intolerant of CPAP. (10) DVT prophylaxis: Current visit: No Status: Acute On daily coumadin, with therapeutic INR. Subjective Interval history since last seen: 72-year-old woman with a past medical history significant for A. fib on anticoagulation, severe NATY intolerant of CPAP therapy , insulin-dependent diabetes, and chronic venous insufficiency admitted from [facility] emergency department with complaints of worsening lower extremity pain. Mrs. Garland had reported onset of red legs approximately 1 month ago, accompanied by blistering and weeping of fluid from her legs. She did not share this with her doctor, but instead we to see if she would improve on her own. Patient symptomatically worsened gradually over the next few weeks, with increasing level of pain and discomfort, erythema, and weeping. Workup in the emergency department was significant for an elevated lactate at 3.1, hyperglycemia, and mild hyponatremia that corrects to nearly normal. CBC did not reveal a leukocytosis, and the patient was afebrile. Of note her troponin was undetectable and a BNP while mildly elevated was well within her previous ranges. The patient was referred for admission with a presumptive diagnosis of bilateral lower extremity cellulitis. Since admission the patient has remained on antibiotic therapy, with wound care and podiatry consults obtained. No need for debridement was found, and the patient has been maintained on Unna boot dressing and compression wraps, with local care provided. Today Mrs. Garland reports continued pain in her legs, but with vast improvement in her overall swelling and erythema. No overnight events reported. She remains afebrile. Exam Narrative Exam Narrative: General: Patient appears comfortable, AAOX3, NAD Neck: Supple CV: Irregularly Irregular, nontachycardic, S1S2, No rubs, murmurs, or gallops. Pulmonary: Clear to auscultation bilaterally, no crackles, wheezing, or rhonchi on exam limited by body habitus Abdomen: + Bowel Sounds, soft, nontender, nondistended, obese in contour Vascular: Improved 2-3 + b/l LE edema Skin: B/l LE erythema, with swelling and frequent break in skin, which in itself appears wet and seeping with fluid. Skin is NOT warm to touch. Overall appearance is vastly improved, and erythema appears improved as well. Psych: Normal mood and affect. Objective Objective Clinical Data: Abnormal lab results 02/21/18 Range/Units 06:50 PT 19.7 H (9.3-10.8) sec Vital Signs Temperature 36.1 C L 02/21/18 12:05 Temperature Source Skin 02/21/18 12:05 Pulse 62 02/21/18 12:05 Pulse Rhythm Irregular 02/21/18 09:36 Respiratory Rate 20 02/21/18 12:05 Respiratory Effort Non-Labored 02/21/18 09:36 Respiratory Depth Normal 02/21/18 09:36 Respiratory Pattern Irregular 02/21/18 09:36 Blood Pressure 104/57 L 02/21/18 12:05 Pulse Oximetry 95 02/21/18 12:05 Oxygen Delivery Method Room Air 02/21/18 12:05 Oxygen Flow Rate 0 02/21/18 12:05 Pain Level 0 02/21/18 12:05 Comment 02/21/18 09:00 Intake & Output 02/20/18 02/21/18 02/21/18 23:59 11:59 23:59 Intake Total 410 / 410 740 / 740 240 / 240 Output Total 400 / 400 Balance 410 / 410 340 / 340 240 / 240 Intake: IV 170 / 170 Oral 240 / 240 740 / 740 240 / 240 Output: Urine 400 / 400 Other: Urine Color Yellow Urine Appearance Clear Urine Odor Normal Comment voided in toilet, not measure, no hat Stool Size Large Stool Characteristics Formed Brown Voiding Methods Toilet Toilet Laboratory Results WBC 6.36 k/cumm (4.4-10.8) 02/18/18 06:15 RBC 4.47 m/cumm (4.00-5.20) 02/18/18 06:15 Hgb 13.7 g/dL (12.0-15.5) 02/18/18 06:15 Hct 42.5 % (36.0-46.0) 02/18/18 06:15 MCV 95.1 fL (80-95) H 02/18/18 06:15 MCH 30.6 pg (27.0-33.0) 02/18/18 06:15 MCHC 32.2 g/dL (32.0-36.0) 02/18/18 06:15 RDW 15.7 % (11.7-14.6) H 02/18/18 06:15 Plt Count 239 x1000/uL (130-400) 02/18/18 06:15 MPV 9.2 fL (8.0-11.0) 02/18/18 06:15 Immature Gran % 0.2 02/18/18 06:15 Neutrophils % 52.1 02/18/18 06:15 Lymphocytes % 32.9 02/18/18 06:15 Monocytes % 10.7 02/18/18 06:15 Eosinophils % 3.8 02/18/18 06:15 Basophils % 0.3 02/18/18 06:15 Absolute Neutrophils 3.32 k/cumm (1.2-6.7) 02/18/18 06:15 Absolute Lymphocytes 2.09 k/cumm (1.2-3.4) 02/18/18 06:15 Absolute Monocytes 0.68 k/cumm (0.11-0.7) 02/18/18 06:15 Absolute Eosinophils 0.24 k/cumm (0.0-0.7) 02/18/18 06:15 Absolute Basophils 0.02 k/cumm (0.0-0.2) 02/18/18 06:15 ESR 100 MM/HR (0-30) H 02/17/18 07:10 PT 19.7 sec (9.3-10.8) H 02/21/18 06:50 INR 2.1 (1.0-3.5) 02/21/18 06:50 Sodium 141 mmol/L (136-145) 02/18/18 06:15 Potassium 4.0 mmol/L (3.5-5.1) 02/18/18 06:15 Chloride 105 mmol/L (98-107) 02/18/18 06:15 Carbon Dioxide 29.0 mmol/L (21.0-32.0) 02/18/18 06:15 Anion Gap 7.0 mmol/L (3-11) 02/18/18 06:15 BUN 28 mg/dL (7-18) H D 02/18/18 06:15 Creatinine 1.14 mg/dL (0.55-1.02) H 02/18/18 06:15 Estimated GFR/1.73 m2 46.99 (mL/min/1.73m2) 02/18/18 06:15 Glucose 71 mg/dL (70-100) D 02/18/18 06:15 Hemoglobin A1c 8.5 % (4.5-6.2) H 02/17/18 07:10 Lactate 1.1 mmol/L (0.6-1.4) 02/17/18 07:10 Calcium 8.1 mg/dL (8.5-10.1) L 02/18/18 06:15 Magnesium 2.0 mg/dL (1.8-2.4) 02/15/18 22:12 Total Bilirubin 0.8 mg/dL (0.2-1.0) 02/15/18 22:12 AST 15 U/L (15-37) 02/15/18 22:12 ALT 15 U/L (12-78) 02/15/18 22:12 Alkaline Phosphatase 78 U/L (46-116) 02/15/18 22:12 Troponin I < 0.02 ng/mL (0.00-0.06) 02/15/18 22:12 C-Reactive Protein 14.12 mg/dL (0.0-0.3) H 02/17/18 07:10 NT-Pro-B Natriuret Pep 728 pg/mL (-299) H 02/15/18 22:12 Total Protein 7.8 g/dL (6.4-8.2) 02/15/18 22:12 Albumin 2.5 g/dL (3.4-5.0) L 02/15/18 22:12 Vancomycin Trough 15.3 ug/mL (10.0-20.0) 02/18/18 19:50
[2018-02-21 19:50] VITALS: BP 108/62; PULSE 63; RESP 20; TEMP 36.8; O2SAT 93
[2018-02-21] MEDS: Rosuvastatin 10 MG TAB 20 MG PO (21:05)
[2018-02-21] MEDS: Warfarin 4 MG TAB PO (21:11)
[2018-02-21 21:27] VITALS: BP 106/72; PULSE 90; RESP 20; TEMP 36.5; O2SAT 93
[2018-02-22 07:34] LABS: C-Reactive Protein 1.93 mg/dL (0.0-0.3)
[2018-02-22 07:40] LABS: INR 2.2 (1.0-3.5); Prothrombin Time 21.2 sec (9.3-10.8)
[2018-02-22 07:50] VITALS: BP 128/72; PULSE 98; RESP 18; TEMP 36.7; O2SAT 98
[2018-02-22 08:05] LABS: ESR 83 MM/HR (0-30)
[2018-02-22] MEDS: Insulin Aspart 300 UNITS/3 ML PEN SC ×3 (08:28→12:15)
[2018-02-22] MEDS: Acetaminophen 325 MG TAB PO (08:30)
[2018-02-22] MEDS: Pregabalin 25 MG CAP 75 MG PO (08:31)
[2018-02-22] MEDS: Furosemide 20 MG TAB PO (08:32)
[2018-02-22] MEDS: Metoprolol 50 MG TAB PO (08:32)
[2018-02-22] MEDS: Omeprazole 20 MG CAPCR PO (08:33)
[2018-02-22] MEDS: Normal Saline Flush 10 ML SYR IVP (08:34)
[2018-02-22] MEDS: Nystatin CREAM 30 GM TUBE TP (08:34)
[2018-02-22] MEDS: Cephalexin 500 MG CAP PO ×2 (08:34→12:13)
[2018-02-22] MEDS: Valsartan 80 MG TAB 40 MG PO (08:35)
--- NOTE | 2018-02-22 10:30 | PT.INTREAT ---
Date of service: 02/22/18 Time of Service: 09:00 PT Notes Inpatient Physical Therapy Treatment Note Date: 02/22/18 PRECAUTIONS:Fall SUBJECTIVE: Hoping to go home today. Does feel a little out of breath without use of O2 supplement, but really does not want to have to depend on it. OBJECTIVE: PAIN: Continues to deal with lower leg pain. BED MOBILITY/TRANSFERS Sit-stand: SBA Stand-sit: SBA GAIT Assistive Device: FWW Weight bearing: WBAT with donya LEs Assist: SBA Distance: 150ft with one seated break for 10 minutes, indicated she was feeling a little winded. Visited with therapy dog while resting. VITALS: Session performed on room air only today. O2 before ambulation, 92%, during ambulation 88%, after ambulation 88%, after 5 minutes of seated rest 92% THEREX: Reviewed seated LAQs, toe curls and hip abd/add exercises which she indicated she is doing independently several times throughout the day. ASSESSMENT: Tolerated session well with good effort given. PLAN: To continue with skilled PT services with focus on improved ambulation and strengthening for ADL activities. TREATMENT CODE/TIME: TA x 2, 9:00 to 9:30 (30 minutes)
--- NOTE | 2018-02-22 10:47 | CMDISCH_ITS ---
- If Service Date Differs Date of service: 02/22/18 Time of Service: 10:45 LACE Index Scoring Tool - Questions: Length of Stay (in days): 4 - 6 Acuity (Admit via E.D.?): Yes Comorbidities: Diabetes w/o Complication E.D. Visits: 3 - Answers: Total Score: 11 Risk of Readmission: High Risk Care Management Discharge Reason for Hospitalization: Cellulitis; bilateral lower extremities. Discharge Plan: Elle will return home today with new home health RN/PT/OT/ Wound care through [facility]. Referral has previously been faxed. notified [facility], of fax number for DC instructions for [facility]. Elle's José Manuel will transport home today. Patient/Family Education Needs: Review DC instructions, any limitations, and discuss Ask me Three Services Needed at Discharge: Home Health Care Services (RN/PT/OT/Wound Care)
--- NOTE | 2018-02-22 11:45 | W.PM.DS.N ---
Date of service: 02/22/18 Time of Service: 11:46 DS: Diagnosis Discharge Diagnosis (1) Lower extremity pain: Status: Acute (2) Chronic venous insufficiency: Status: Chronic (3) KENYON (acute kidney injury): Status: Resolved (4) Hypertension: Status: Chronic (5) Hypercholesterolemia: Status: Chronic (6) Diabetes mellitus: Status: Chronic (7) Atrial fibrillation: Status: Chronic (8) Coronary artery disease: Status: Chronic (9) NATY (obstructive sleep apnea): Status: Chronic (10) DVT prophylaxis: Status: Acute Discharge Plan Disposition Patient Disposition: HOME W/HOME HEALTH SERVICE Condition: Improving Discharge Details Reason For Visit: LOWER EXTREMITY PAIN Admit Date/Time: 02/16/18 00:18 Admit Provider: Alex Gilman Attending Provider: Alex Gilman Primary Care Provider: Jaqueline Albarado [facility] Course Hospital Course: CC: Lower Extremity Pain HPI: 72-year-old woman with a past medical history significant for A. fib on anticoagulation, severe NATY intolerant of CPAP therapy, insulin-dependent diabetes, and chronic venous insufficiency admitted from [facility] emergency department with complaints of worsening lower extremity pain. Mrs. Garland had reported onset of red legs approximately 1 month ago, accompanied by worsening edema, blistering and weeping of fluid from her legs. She did not share this with her doctor, but instead waited to see if she would improve on her own. Patient symptomatically worsened gradually over the next few weeks, with increasing level of pain and discomfort, erythema, and weeping. Work-up in the emergency department was significant for an elevated lactate at 3.1, hyperglycemia, and mild hyponatremia that corrected to nearly normal. CBC did not reveal a leukocytosis, and the patient was afebrile. Of note her troponin was undetectable and a BNP while mildly elevated was well within her previous ranges. The patient was referred for admission with a presumptive diagnosis of bilateral lower extremity cellulitis. Since admission the patient has remained on antibiotic therapy, eventually switched to oral, with wound care and podiatry consults obtained. No need for debridement was found, and the patient has been maintained on Unna boot dressing and compression wraps, with local care provided. Today Mrs. Garland reports continued pain in her legs, but with vast improvement in her overall swelling and erythema. No overnight events reported. She remains afebrile. Hospital Course by Problem List: ADMITTING PROVIDER: Alex Gilman M.D. PRIMARY CARE PROVIDER: JAQUELINE ALBARADO MD DATE OF ADMIT: 02/16/18 : 1945 Date of service: 02/22/18 Time of Service: 12:00 pm (1) Lower extremity pain: Symptoms of bilateral lower extremity pain, ongoing and worsening over the last month, with both swelling and erythema that appeared to worsen over that time span. Erythematous skin bilaterally with areas of clear skin breakdown - although skin was not warm to touch initially, cellulitis was considered as a potential etiology. Patient has done well, with broad spectrum antibiotics discontinued and changed to oral Cephalexin 2 days ago - currently on day 6 of planned 14 day course of antibiotic therapy. Her lower extremities continue to appear improved. Blood cultures with no growth X120 hours. Also considered acutely worsening edema in patient with history of chronic venous insufficiency. This may be based on untreated sleep apnea or diastolic CHF, although ECHO from August of 2017 reviewed and essentially normal. BNP was checked and while minimally elevated, was well within patient's prior values. Swelling improved with compressions wraps. Podiatry consult with no need for further intervention. Wound Care is consulted for home health services. Continue oral lasix. (2) Chronic venous insufficiency: Plan as above. (3) KENYON (acute kidney injury): Appears improved prior to laboratory discontinuation, with IVFs discontinued as well. Currently back on home dose of oral lasix. (4) Hypertension: Continue BB. ARB reinitiated. (5) Hypercholesterolemia: Continue statin therapy. (6) Diabetes mellitus: Will be discharged on her own home insulin regimen and continuation of an ADA diet. (7) Atrial fibrillation: Continue BB and AC with coumadin. INR therapeutic. (8) Coronary artery disease: Appeared quiescent. Patient was continued on her home regimen of BB and statin therapy. (9) NATY (obstructive sleep apnea): Intolerant of CPAP. Home Meds and New Rx's Prescriptions: New tramadol 50 mg Tablet 50 mg PO Q4H PRN PRN7 Days Qty: 28 RF: 0 cephalexin 500 mg Capsule 500 mg PO QID 8 Days Qty: 34 RF: 0 Continue warfarin [Coumadin] 5 MG tablet 5 mg PO DIRECTED RF: 0 omeprazole magnesium [Prilosec OTC] 20 MG tablet,delayed release (DR/EC) 20 mg PO DAILY RF: 0 valsartan [Diovan] 40 MG tablet 1 tab PO DAILY RF: 0 insulin aspart U-100 [Novolog Flexpen U-100 Insulin] 300 UNITS/3 ML insulin pen 20 units Sub-Q 0800,1200,1700 Qty: 5 RF: 0 insulin aspart U-100 [Novolog Flexpen U-100 Insulin] 300 UNITS/3 ML insulin pen 1 unit Sub-Q 0800,1200,1700 Qty: 5 RF: 0 metoprolol tartrate 50 MG tablet 50 mg PO BID RF: 0 furosemide 20 MG tablet 20 mg PO DAILY RF: 0 rosuvastatin [Crestor] 20 MG tablet 20 PO DAILY RF: 0 cholecalciferol (vitamin D3) 1,000 UNITS tablet 2,000 units PO DAILY RF: 0 Discharge Instructions Instructions: Cellulitis (GEN), Venous Insufficiency (GEN) Additional Instructions: Please see your primary care doctor within 1 week of discharge. Please complete your antibiotics until you have taken all of the pills. Please repeat blood work in 3 days. Stand Alone Forms: Nursing Discharge Form Referrals: Jaqueline Albarado MD [Primary Care Provider] - 02/26/18 9:15 am Activity:: No strenuous activity Equipment/Supplies:: No Equipment Needed Discharge Orders Discharge Orders: Discharge Order (Routine); Ordered 02/22/18 Ordered By: Alex Gilman Other Ambulatory Orders: Basic Metabolic Panel (Routine) Timeframe: 3 Days Location: Determined by Patient Ordered By: Alex Gilman Prothrombin Time (Routine) Timeframe: 3 Days Location: Determined by Patient Ordered By: Alex Gilman Exam Narrative Exam Narrative: General: Patient appears comfortable, AAOX3, NAD Neck: Supple CV: Irregularly Irregular, nontachycardic, S1S2, No rubs, murmurs, or gallops. Pulmonary: Clear to auscultation bilaterally, no crackles, wheezing, or rhonchi on exam limited by body habitus Abdomen: + Bowel Sounds, soft, nontender, nondistended, obese in contour Vascular: Improved 2-3 + b/l LE edema Skin: B/l LE erythema, with swelling and frequent break in skin, which in itself appears wet and seeping with fluid. Skin is NOT warm to touch. Overall appearance is vastly improved, and erythema appears improved as well. Psych: Normal mood and affect. DS: Data Vitals/I&O Vitals and I&O: Vital Signs Temperature 36.7 C 02/22/18 07:50 Temperature Source Tympanic 02/22/18 07:50 Pulse 98 H 02/22/18 07:50 Pulse Rhythm Regular 02/22/18 08:45 Respiratory Rate 18 02/22/18 07:50 Respiratory Effort Non-Labored 02/22/18 08:45 Respiratory Depth Normal 02/22/18 08:45 Respiratory Pattern Normal 02/22/18 08:45 Blood Pressure 128/72 02/22/18 07:50 Pulse Oximetry 98 02/22/18 07:50 Oxygen Delivery Method Nasal Cannula 02/22/18 07:50 Oxygen Flow Rate 1 02/22/18 07:50 Pain Level 5 02/22/18 08:30 Comment 02/21/18 09:00 Intake & Output 02/21/18 02/21/18 02/22/18 11:59 23:59 11:59 Intake Total 740 / 740 540 / 540 710 / 710 Output Total 400 / 400 Balance 340 / 340 540 / 540 710 / 710 Intake: Oral 740 / 740 540 / 540 710 / 710 Output: Urine 400 / 400 Other: Urine Color Yellow Yellow Urine Appearance Clear Clear Urine Odor Normal Comment voided in toilet, not measure, no hat Void x 1 in toilet Voiding Methods Toilet Toilet Pending studies at discharge: ABDOMINAL WALL INCISION (07/02/06) AMBULATORY CARDIAC MONITORING (03/20/05) BONE BIOPSY NEC (07/02/06) CARDIAC STRESS TEST NEC (10/13/02) CLOSED ENDOSCOPIC BIOPSY OF LARGE INTESTINE (01/14/03) Cardiovascular stress test using treadmill (04/07/08) ELECTROCARDIOGRAM (06/30/06) ENDOSC POLYPECTOMY OF LG INTEST (02/10/04) OTHER ENDOSCOPY OF SM INTEST (02/10/04) OTHER NONOP RESPIRATORY MEASURE (05/24/98) Other oxygen enrichment (10/17/13) Other repair of knee (02/19/08) TREADMILL STRESS TEST (05/18/98) WBC 6.36 k/cumm (4.4-10.8) 02/18/18 06:15 RBC 4.47 m/cumm (4.00-5.20) 02/18/18 06:15 Hgb 13.7 g/dL (12.0-15.5) 02/18/18 06:15 Hct 42.5 % (36.0-46.0) 02/18/18 06:15 MCV 95.1 fL (80-95) H 02/18/18 06:15 MCH 30.6 pg (27.0-33.0) 02/18/18 06:15 MCHC 32.2 g/dL (32.0-36.0) 02/18/18 06:15 RDW 15.7 % (11.7-14.6) H 02/18/18 06:15 Plt Count 239 x1000/uL (130-400) 02/18/18 06:15 MPV 9.2 fL (8.0-11.0) 02/18/18 06:15 Immature Gran % 0.2 02/18/18 06:15 Neutrophils % 52.1 02/18/18 06:15 Lymphocytes % 32.9 02/18/18 06:15 Monocytes % 10.7 02/18/18 06:15 Eosinophils % 3.8 02/18/18 06:15 Basophils % 0.3 02/18/18 06:15 Absolute Neutrophils 3.32 k/cumm (1.2-6.7) 02/18/18 06:15 Absolute Lymphocytes 2.09 k/cumm (1.2-3.4) 02/18/18 06:15 Absolute Monocytes 0.68 k/cumm (0.11-0.7) 02/18/18 06:15 Absolute Eosinophils 0.24 k/cumm (0.0-0.7) 02/18/18 06:15 Absolute Basophils 0.02 k/cumm (0.0-0.2) 02/18/18 06:15 ESR 83 MM/HR (0-30) H 02/22/18 06:40 PT 21.2 sec (9.3-10.8) H 02/22/18 06:40 INR 2.2 (1.0-3.5) 02/22/18 06:40 Sodium 141 mmol/L (136-145) 02/18/18 06:15 Potassium 4.0 mmol/L (3.5-5.1) 02/18/18 06:15 Chloride 105 mmol/L (98-107) 02/18/18 06:15 Carbon Dioxide 29.0 mmol/L (21.0-32.0) 02/18/18 06:15 Anion Gap 7.0 mmol/L (3-11) 02/18/18 06:15 BUN 28 mg/dL (7-18) H D 02/18/18 06:15 Creatinine 1.14 mg/dL (0.55-1.02) H 02/18/18 06:15 Estimated GFR/1.73 m2 46.99 (mL/min/1.73m2) 02/18/18 06:15 Glucose 71 mg/dL (70-100) D 02/18/18 06:15 Hemoglobin A1c 8.5 % (4.5-6.2) H 02/17/18 07:10 Lactate 1.1 mmol/L (0.6-1.4) 02/17/18 07:10 Calcium 8.1 mg/dL (8.5-10.1) L 02/18/18 06:15 Magnesium 2.0 mg/dL (1.8-2.4) 02/15/18 22:12 Total Bilirubin 0.8 mg/dL (0.2-1.0) 02/15/18 22:12 AST 15 U/L (15-37) 02/15/18 22:12 ALT 15 U/L (12-78) 02/15/18 22:12 Alkaline Phosphatase 78 U/L (46-116) 02/15/18 22:12 Troponin I < 0.02 ng/mL (0.00-0.06) 02/15/18 22:12 C-Reactive Protein 1.93 mg/dL (0.0-0.3) H 02/22/18 06:40 NT-Pro-B Natriuret Pep 728 pg/mL (-299) H 02/15/18 22:12 Total Protein 7.8 g/dL (6.4-8.2) 02/15/18 22:12 Albumin 2.5 g/dL (3.4-5.0) L 02/15/18 22:12 Vancomycin Trough 15.3 ug/mL (10.0-20.0) 02/18/18 19:50 Labs on day of discharge: Labs from last 24 hours 02/22/18 02/22/18 02/22/18 06:40 06:40 06:40 ESR 83 H PT 21.2 H INR 2.2 C-Reactive Protein 1.93 H
--- NOTE | 2018-02-22 12:07 | PDOC.HHF2F ---
1. Encounter Date and Reason I certify that ELIS SHAVER was seen by Alex Gilman on 02/22/18 and that I had a [id number] encounter with this patient that meets the physician face to face encounter requirements. 2. Clinical Findings Supporting Skilled Need and Homebound Status I certify that home health services are medically necessary, include either intermittent half-way and/or physical/speech therapy, and that this patient is homebound in that absences from the home require considerable and taxing effort and are infrequent or of short duration, or are attributable to the need to receive medical care. [X] (a) Attached documentation from encounter provides clinical findings supporting skilled need and homebound status (including what assistance patient requires to leave the home). The encounter with the patient was in whole, or in part, for the following medical condition, which is the primary reason for home health care: LOWER EXTREMITY PAIN Group Home: Medication Reconciliation, blood work in 3 days. Physical Therapy: PT and OT for deconditioning, lower extremity pain Wound Care: Chronic LE Venous Stasis, with wounds and cellulitis. Consult for continuation of treatment, to include wraps and potentially Unna Boots. Homebound: Deconditioning following acute illness and hospitalization 3. Certification and Authentication I certify that I composed the above information based on my clinical judgement relating to this patient's medical condition and, if applicable, clinical findings communicated to me by the NPP or inpatient physician who performed the Home Health Referral. All further orders will be obtained through (Community Based Physician - PCP)
--- NOTE | 2018-02-23 07:49 | PT.INDS ---
Date of service: 02/23/18 Time of Service: 07:49 PT Notes Inpatient Physical Therapy Discharge Summary Date: 02/23/18 for 02/22/18 Dates of Service: 02/16/18-02/22/18 SUBJECTIVE: NT OBJECTIVE: 02/16/18-02/22/18 Bed Mobility/Transfers: Supine-sit: minAx1 sit-stand: SBA stand-sit: SBA Sit-supine: CGA Gait: SBA with FWW 150ft WBAT R LE Balance: Static Sitting: normal Dynamic Sitting: normal Static Standing:fair Dynamic Standing: fair Assessment: Pt is a 72yr old female admitted with bilateral lower extremity pain in setting of morbid obesity, chronic venous insufficiency, acute kidney injury, diabetes mellitus, obstructive sleep apnea uses CPAP, coronary artery disease, atrial fibrillation. Patient was seen for 11 PT visits. Progressed from modA bed transfers to Joan, from SBA gait 5 steps to SBA/supervision gait 150ft. Pt was discharged to home setting, home PT was recommended for continued gait and mobility training. Goals: Goals X1 week 1. Supine-Sit independent 2. Sit-Supine independent 3. Sit-Stand SBA with FWW 4. Stand-Sit supervision 5. Bed-Chair SBA with FWW 6. Chair-Bed SBA with FWW 7. Gait SBA with 75ftx2 8. Stairs up/down 5 steps with railing SBA Pt met goals # 3, 5, 6, 7 DISCHARGE RECOMMENDATIONS: Home with , home PT G Codes in the area mobility of walking and moving around; projected status GP [id number]. Discharge status (if discharging) GP [id number] CK Rhoda Avina PT
--- NOTE | 2018-02-23 08:11 | OT.INDS ---
Date of service: 02/23/18 Time of Service: 08:11 Occupational Therapy Notes Occupational Therapy Inpatient Discharge Summary Date: 02/23/18 for 02/22/18 Dates of Service: 02/17/18-02/23/18 SUBJECTIVE: N/A OBJECTIVE: FUNCTIONAL MOBILITY/ADLS: Supine-sit: S Sit-stand: S, FWW Stand-sit: SBA, FWW BATHING Upper Body: Min (A) for UE Lower Body: Max (A) with LE and lower abdomen creases/folds. DRESSING Upper body: Min (A) with minimal verbal cues. Lower Body: Max (A) with pants and shoes. Mod (I) With sock aid for donning socks. GROOMING: Standing at sink FWW, (S). (I) with hair and teeth routine. TOILETING: Assist: Mod (A) Device: Handout provided previously to pt on adaptive equipment for toileting hygiene. EATING: (I) ASSESSMENT: Pt is a 72 year old female seen for 4 OT sessions. Pt was seen for OT consult of evaluate and treat for diminished ADL performance with morbid obesity, chronic venous insufficiency, acute kidney injury, diabetes mellitus, obstructive sleep apnea uses CPAP, coronary artery disease, and atrial fibrillation. Pt has demonstrated good understanding of education provided during OT sessions and increased (I) in ADL routine, however still requires verbal cues and assistance. GOALS 1. Transfers SBA, FWW 2. Dressing, Pt able to perform LE dressing mod (I) with minimal verbal cues. 3. Bathing- Pt able to perform bathing with Min (A) and minimal verbal cues 4. Toileting- Min (A) with adaptive equipment 5. Eating (I) Pt met goals 1 and 5. Pt is max (A) for LE dressing for pants. She was educated on use of sock aid and was mod (I) for donning socks. Pt continues to require Mod (A) for bathing of the LE and toileting. Pt still requires mod (A) for toileting hygiene at this time. Education on adaptive equipment for toileting was provided. PLAN: D/C to home with . Home OT. TREATMENT CODES/TIME: G Codes in the area of self- : washing oneself, toileting, dressing, eating and drinking, current status [id number] projected status GP [id number]. Discharging status [id number].
== END 2018-02-22 15:08 | disposition home health service (06) | DRG 603 ==
LOC: ER 02-16 01:07 → MS 02-16 08:06
PROVIDERS: Internal Medicine; Admitting Provider Internal Medicine; Emergency Provider Emergency Medicine; PCP Family Medicine; Visit Provider Internal Medicine
DX: L03.116 Cellulitis of left lower limb (principal); L97.221 Non-pressure chronic ulcer of left calf limited to breakdown of skin; L97.211 Non-pressure chronic ulcer of right calf limited to breakdown of skin; L97.821 Non-pressure chronic ulcer of other part of left lower leg limited to breakdown of skin; L97.811 Non-pressure chronic ulcer of other part of right lower leg limited to breakdown of skin; Z68.42 Body mass index [BMI] 45.0-49.9, adult; L03.115 Cellulitis of right lower limb; L02.416 Cutaneous abscess of left lower limb; L02.415 Cutaneous abscess of right lower limb; M79.605 Pain in left leg; M79.604 Pain in right leg; E11.65 Type 2 diabetes mellitus with hyperglycemia; E11.51 Type 2 diabetes mellitus with diabetic peripheral angiopathy without gangrene; I87.2 Venous insufficiency (chronic) (peripheral); R79.1 Abnormal coagulation profile; T45.515A Adverse effect of anticoagulants, initial encounter; E11.622 Type 2 diabetes mellitus with other skin ulcer; Z79.4 Long term (current) use of insulin; I10 Essential (primary) hypertension; E11.42 Type 2 diabetes mellitus with diabetic polyneuropathy; E11.621 Type 2 diabetes mellitus with foot ulcer; L97.521 Non-pressure chronic ulcer of other part of left foot limited to breakdown of skin; L97.511 Non-pressure chronic ulcer of other part of right foot limited to breakdown of skin; L98.421 Non-pressure chronic ulcer of back limited to breakdown of skin; B35.4 Tinea corporis; E66.01 Morbid (severe) obesity due to excess calories; B35.1 Tinea unguium; G47.33 Obstructive sleep apnea (adult) (pediatric); E78.00 Pure hypercholesterolemia, unspecified; I48.91 Unspecified atrial fibrillation; Z79.01 Long term (current) use of anticoagulants; I25.10 Atherosclerotic heart disease of native coronary artery without angina pectoris; I08.0 Rheumatic disorders of both mitral and aortic valves
CPT/HCPCS: 36415; 80048; 80053; 85652; 87040; 96365; 96366; 97110; 97162; 97166; 97530; 97535; 99223; 99232; 99233; 99239; 99285; NC; 80202; 83036; 83605; 83735; 83880; 84484; 85025; 85610; 86140; 99284; J0295

== ENCOUNTER → 2018-03-04 09:49 | Outpatient (BNVA) | payer MEDICARE, SELFPAY | PROVIDERS: PCP Family Medicine; Referring Provider Family Medicine; Visit Provider Surgery | DX: I87.2 Venous insufficiency (chronic) (peripheral) (principal); L03.115 Cellulitis of right lower limb; L03.116 Cellulitis of left lower limb | CPT/HCPCS: 29580; 99202; 99213 ==

== ENCOUNTER → 2018-03-11 11:27 | Outpatient (BNVA) | payer MEDICARE, SELFPAY | PROVIDERS: PCP Family Medicine; Referring Provider Family Medicine; Visit Provider Surgery | DX: I87.2 Venous insufficiency (chronic) (peripheral) (principal); Z48.00 Encounter for change or removal of nonsurgical wound dressing | CPT/HCPCS: 29580; 99212 ==

== ENCOUNTER → 2018-03-18 11:30 | Outpatient (BNVA) | payer MEDICARE, SELFPAY | PROVIDERS: PCP Family Medicine; Referring Provider Family Medicine; Visit Provider Surgery | DX: Z48.00 Encounter for change or removal of nonsurgical wound dressing (principal); I87.2 Venous insufficiency (chronic) (peripheral) | CPT/HCPCS: 29580; 99212; 99213 ==

== ENCOUNTER 2018-03-20 01:32 | Outpatient (CLI) | payer MEDICARE, SELFPAY ==
--- NOTE | 2018-03-20 12:27 | DI.US_ITS ---
SYMPTOMS/DIAGNOSIS: JOSEPH LEG SWELLING, JOSEPH LEG PAIN, M79.604, M79.605 DUPLEX VENOUS ULTRASOUND BOTH LOWER EXTREMITIES: Duplex evaluation of the deep venous system was performed according to the usual protocol. The deep veins are freely compressible throughout to the level of the popliteal veins. There is normal doppler flow visible throughout and there is excellent flow augmentation with manual calf compression. CONCLUSION: No evidence of deep venous thrombosis.
== END 2018-03-20 01:52 ==
PROVIDERS: PCP Family Medicine; Visit Provider Surgery
DX: M79.604 Pain in right leg (principal); M79.605 Pain in left leg; R22.41 Localized swelling, mass and lump, right lower limb; R22.42 Localized swelling, mass and lump, left lower limb
CPT/HCPCS: 93970

== ENCOUNTER → 2018-03-25 11:19 | Outpatient (BNVA) | payer MEDICARE, SELFPAY | PROVIDERS: PCP Family Medicine; Referring Provider Family Medicine; Visit Provider Surgery | DX: L03.119 Cellulitis of unspecified part of limb (principal); I87.2 Venous insufficiency (chronic) (peripheral) | CPT/HCPCS: 99212 ==

== ENCOUNTER 2018-06-01 16:54 | Outpatient (REF) | payer MEDICARE, SELFPAY ==
[2018-06-01 21:31] LABS: HCT 51.8 % (36.0-46.0); HGB 16.6 g/dL (12.0-15.5); Mean Corpuscular Volume 96.8 fL (80-95); Platelet Count 217 x1000/uL (130-400); RBC 5.35 m/cumm (4.00-5.20); White Blood Cell Count 5.51 k/cumm (4.4-10.8)
[2018-06-01 21:57] LABS: ALT 18 U/L (12-78); AST 17 U/L (15-37); Albumin 2.4 g/dL (3.4-5.0); Alkaline Phosphatase 98 U/L (46-116); Anion Gap 7.3 mmol/L (3-11); BUN 15 mg/dL (7-18); Bilirubin, Total 0.4 mg/dL (0.2-1.0); CO2 33.7 mmol/L (21.0-32.0); CREATININE 0.91 mg/dL (0.55-1.02); Calcium 9.6 mg/dL (8.5-10.1); Chloride 96 mmol/L (98-107); Glucose 416 mg/dL (70-100); Potassium 4.8 mmol/L (3.5-5.1); Sodium 137 mmol/L (136-145); TSH (W/Ref FT4) 1.58 uIU/mL (0.358-3.74); Total Protein 6.7 g/dL (6.4-8.2)
== END 2018-06-01 17:14 ==
LOC: NCHCN 16:54
PROVIDERS: PCP Family Medicine; Visit Provider Family Medicine
DX: I10 Essential (primary) hypertension (principal); R79.1 Abnormal coagulation profile; E11.65 Type 2 diabetes mellitus with hyperglycemia
CPT/HCPCS: 80053; 85027; 84443

== ENCOUNTER 2019-07-02 15:40 | Outpatient (CLI) | payer MEDICARE, SELFPAY ==
--- NOTE | 2019-07-02 14:36 | DI.RAD_ITS ---
EXAM: XR CHEST 2V PA LATERAL CLINICAL HISTORY: SOB, R06.02, COUGH, R05 TECHNIQUE: COMPARISON: CHEST 2 VIEWS PA,LAT from 08/20/2017 FINDINGS: Heart is enlarged. Diaphragm is mildly elevated on the right. Prominence of the yolanda noted bilatera lly unchanged from prior study of 08/20 2017. No acute consolidation. No pleural effusion. No evid ence of CHF. IMPRESSION: Stable appearance of the chest. Cardiomegaly noted.
== END 2019-07-02 16:00 ==
PROVIDERS: PCP Family Medicine; Visit Provider Family Medicine
DX: R06.02 Shortness of breath (principal); R05 Cough; I51.7 Cardiomegaly
CPT/HCPCS: 71046

== ENCOUNTER 2019-07-20 22:52 | Outpatient (REF) | payer MEDICARE, SELFPAY ==
[2019-07-20 18:41] LABS: Anion Gap 6.5 mmol/L (3-11); BUN 35 mg/dL (7-18); CO2 36.5 mmol/L (21.0-32.0); CREATININE 1.23 mg/dL (0.55-1.02); Calcium 9.3 mg/dL (8.5-10.1); Chloride 103 mmol/L (98-107); Glucose 66 mg/dL (74-106); Potassium 3.7 mmol/L (3.5-5.1); Sodium 146 mmol/L (136-145)
[2019-07-20 18:43] LABS: Abs Immature Grans 0.02 k/cumm (0.0-0.09); Absolute Basophil Count 0.01 k/cumm (0.0-0.2); Absolute Lymphocyte Count 1.73 k/cumm (1.2-3.4); Absolute Monocyte Count 0.67 k/cumm (0.11-0.7); Absolute Neutrophil Count 4.51 k/cumm (1.2-6.7); Basophils % 0.1; Eosinophils % 1.4; HCT 46.4 % (36.0-46.0); HGB 14.3 g/dL (12.0-15.5); Immature Grans % 0.3 %; Lymphocytes % 24.6; Mean Corp. HGB Concentration 30.8 g/dL (32.0-36.0); Mean Corpuscular Hemoglobin 30.4 pg (27.0-33.0); Mean Corpuscular Volume 98.5 fL (80-95); Mean Platelet Volume 9.2 fL (8.0-11.0); Monocytes % 9.5; Neutrophils % 64.1; Platelet Count 292 x1000/uL (130-400); RBC 4.71 m/cumm (4.00-5.20); White Blood Cell Count 7.04 k/cumm (4.4-10.8)
[2019-07-20 18:48] LABS: INR 1.3 (0.9-1.1); Prothrombin Time 13.1 sec (9.3-11.0)
== END 2019-07-20 23:12 ==
LOC: NCHCN 22:52
PROVIDERS: PCP Family Medicine; Visit Provider Family Medicine
DX: I10 Essential (primary) hypertension (principal); R05 Cough; I87.2 Venous insufficiency (chronic) (peripheral)
CPT/HCPCS: 80048; 85025; 85610

== ENCOUNTER 2020-02-09 12:13 | Outpatient (REF) | payer MEDICARE, SELFPAY ==
[2020-02-09 15:50] LABS: HCT 42.4 % (36.0-46.0); HGB 13.7 g/dL (11.2-15.7); MCH 32.5 pg (27.0-33.0); MCHC 32.3 % (32.0-36.0); MCV 100.5 fL (80-95); MPV 9.5 fL (8.0-11.0); Platelet Count 218 10^3/uL (130-400); RBC 4.22 10^6/uL (3.93-5.22); RDW 15.4 % (11.7-14.6); RDW-SD 56.6 fL; WBC 7.21 10^3/uL (4.4-10.8)
[2020-02-09 15:53] LABS: Anion Gap 2.9 mmol/L (3-11); BUN 36 mg/dL (7-18); CO2 36.1 mmol/L (21.0-32.0); CREATININE 1.25 mg/dL (0.55-1.02); Calcium 9.4 mg/dL (8.5-10.1); Chloride 101 mmol/L (98-107); Estimated GFR 42.01 (mL/min/1.73m2); Glucose 242 mg/dL (74-106); Potassium 4.1 mmol/L (3.5-5.1); Sodium 140 mmol/L (136-145)
== END 2020-02-09 12:33 ==
LOC: NCHCN 12:13
PROVIDERS: PCP Family Medicine; Visit Provider Family Medicine
DX: I10 Essential (primary) hypertension (principal); I83.009 Varicose veins of unspecified lower extremity with ulcer of unspecified site
CPT/HCPCS: 80048; 85027

== ENCOUNTER 2020-06-16 19:29 | Outpatient (REF) | payer MEDICARE, SELFPAY ==
[2020-06-16 19:58] LABS: HCT 40.5 % (36.0-46.0); HGB 12.6 g/dL (11.2-15.7); MCH 31.4 pg (27.0-33.0); MCHC 31.1 % (32.0-36.0); MPV 9.2 fL (8.0-11.0); Platelet Count 237 10^3/uL (130-400); RBC 4.01 10^6/uL (3.93-5.22); RDW 15.9 % (11.7-14.6); RDW-SD 59.1 fL
[2020-06-16 19:59] LABS: ALT 18 U/L (14-59); AST 14 U/L (15-37); Albumin 3.1 g/dL (3.4-5.0); Alkaline Phosphatase 79 U/L (46-116); Anion Gap 2.5 mmol/L (3-11); BUN 35 mg/dL (7-18); Bilirubin, Total 0.3 mg/dL (0.2-1.0); CO2 34.5 mmol/L (21.0-32.0); CREATININE 1.35 mg/dL (0.55-1.02); Calcium 9.2 mg/dL (8.5-10.1); Chloride 105 mmol/L (98-107); Estimated GFR 38.33 (mL/min/1.73m2); Glucose 226 mg/dL (74-106); Magnesium 1.9 mg/dL (1.8-2.4); Potassium 4.1 mmol/L (3.5-5.1); Sodium 142 mmol/L (136-145); Total Protein 7.2 g/dL (6.4-8.2)
[2020-06-16 20:00] LABS: INR 1.9 (0.9-1.1); Prothrombin Time 18.9 sec (9.3-11.0)
== END 2020-06-16 19:49 ==
LOC: NCHCN 19:29
PROVIDERS: PCP Family Medicine; Visit Provider Family Medicine
DX: I10 Essential (primary) hypertension (principal); E11.65 Type 2 diabetes mellitus with hyperglycemia; I48.20 Chronic atrial fibrillation, unspecified; I25.10 Atherosclerotic heart disease of native coronary artery without angina pectoris
CPT/HCPCS: 80053; 85027; 83735; 85610

== ENCOUNTER 2020-09-23 12:25 | Emergency (ER) | payer MEDICARE, SELFPAY ==
[2020-09-23] VITALS (16 sets, daily range): BP systolic 107–140; BP diastolic 47–78; PULSE 57–78; RESP 20; TEMP 36.3–36.6; O2SAT 94–97
--- NOTE | 2020-09-23 13:22 | DI.RAD_ITS ---
EXAM: XR CHEST 2V PA LATERAL CLINICAL HISTORY: leg swelling. TECHNIQUE: 2D digital imaging was performed. COMPARISON: Prior chest x-ray 07/02/2019 FINDINGS: There is cardiomegaly. The mediastinum is not widened. No confluent infiltrates nor obvious pleural effusions. Exaggerate interstitial markings are noted w hich may be related to less than optimal inspiration. There are no Rina B lines. No pneumothorax. IMPRESSION: As above. Recommend nonportable PA and lateral views when clinically possible. DATA REPOSITORY: RADIATION DOSE DELIVERED:
--- NOTE | 2020-09-23 13:30 | RT.EKG_ITS ---
APPROVED REPORT Exam: Resting ECG Patient Location: E HR:74 bpm ECG Measurements Heart Rate 74 AXIS OK [id number] P [id number] QRSd 129 QRS -85 QT 442 T 79 QTc 490 Conclusion Atrial fibrillation...V-rate 75- 76, irreg A-activity Anterolateral infarct, age indeterminate...Q >35mS, flat/neg T, V3-V6,I,aVL
[2020-09-23 13:42] LABS: Abs Immature Grans 0.02 10^3/uL (0.0-0.06); Absolute Basophil Count 0.02 10^3/uL (0.0-0.2); Absolute Lymphocyte Count 1.41 10^3/uL (1.2-3.4); Absolute Monocyte Count 0.72 10^3/uL (0.1-0.8); Absolute Neutrophil Count 6.44 10^3/uL (1.2-6.7); Basophils % 0.2; Eosinophils % 1.1; HCT 44.3 % (36.0-46.0); HGB 14.1 g/dL (11.2-15.7); Immature Grans % 0.2; Lymphocytes % 16.2; MCH 31.3 pg (27.0-33.0); MCHC 31.8 % (32.0-36.0); MCV 98.4 fL (80-95); MPV 8.7 fL (8.0-11.0); Monocytes % 8.3; Nucleated RBC 0 %; Platelet Count 221 10^3/uL (130-400); RDW 14.7 % (11.7-14.6); RDW-SD 54.2 fL; WBC 8.71 10^3/uL (4.4-10.8)
[2020-09-23 13:57] LABS: PTT Activated 35.5 sec (21.0-27.5); Prothrombin Time 29.1 sec (9.3-11.0)
[2020-09-23 14:01] LABS: ALT 21 U/L (14-59); AST 16 U/L (15-37); Albumin 3.2 g/dL (3.4-5.0); Alkaline Phosphatase 95 U/L (46-116); Anion Gap 3.2 mmol/L (3-11); BUN 47 mg/dL (7-18); Bilirubin, Total 0.3 mg/dL (0.2-1.0); CO2 35.8 mmol/L (21.0-32.0); CREATININE 1.4 mg/dL (0.55-1.02); Calcium 9.4 mg/dL (8.5-10.1); Chloride 103 mmol/L (98-107); Estimated GFR 36.76 (mL/min/1.73m2); Glucose 281 mg/dL (74-106); NT-proBNP 750 pg/mL (<300); Potassium 4.5 mmol/L (3.5-5.1); Sodium 142 mmol/L (136-145); Total Protein 7.9 g/dL (6.4-8.2)
--- NOTE | 2020-09-23 14:38 | W.ED.GENAD ---
Discharge Plan Disposition Patient Disposition: HOME Condition: Stable Discharge Details Clinical Impression: Chronic venous insufficiency Primary Care Provider: Jaqueline You ED Provider: Juan M Brantley Home Meds and New Rx's Prescriptions: Continued warfarin [Coumadin] 5 MG tablet 5 mg PO DIRECTED RF: 0 omeprazole magnesium [Prilosec OTC] 20 MG tablet,delayed release (DR/EC) 20 mg PO DAILY RF: 0 valsartan [Diovan] 40 MG tablet 1 tab PO DAILY RF: 0 insulin aspart U-100 [Novolog Flexpen U-100 Insulin] 300 UNITS/3 ML insulin pen 20 units Sub-Q 0800,1200,1700 Qty: 5 RF: 0 insulin aspart U-100 [Novolog Flexpen U-100 Insulin] 300 UNITS/3 ML insulin pen 1 unit Sub-Q 0800,1200,1700 Qty: 5 RF: 0 metoprolol tartrate 50 MG tablet 50 mg PO BID RF: 0 furosemide 20 MG tablet 20 mg PO DAILY RF: 0 rosuvastatin [Crestor] 20 MG tablet 20 mg PO DAILY RF: 0 cholecalciferol (vitamin D3) 1,000 UNITS tablet 2,000 units PO DAILY RF: 0 Discharge Instructions Instructions: Edema (ED) Additional Instructions: Laboratory values do not reveal any obvious emergent process. I cannot stress the importance of being compliant with your care plan such as going to your appointment for your legs as directed, wearing compression stockings, elevation, and increasing her mobility. For the next 3 days you can increase your Lasix dose by 20 mg a day but as we discussed we need to be very careful with this medication as it can affect her kidneys. Please watch for new or worsening symptoms and return to the ER for any concerns. Otherwise contact your primary care provider on Friday, make them aware of your visit today and follow-up on the as already scheduled if they do not want to see you sooner Discharge Data Discharge Date/Time-TO BE ENTERED AT DEPARTURE: 09/23/20 15:27 Medical Decision Making This is a chronically unhealthy 75-year-old female who is not very engaging in her current medical treatment. She is complaining of acute on chronic bilateral leg swelling. Clinically this appears to be severe chronic venous stasis changes. I see no clear indication that there is a secondary infection. Patient is anticoagulated, will check her INR status, although low suspicion for acute DVT if her INR is appropriate. Would also like to obtain laboratory values to at least assess her white blood cell count as well as potential CHF diagnosis. Patient is agreeable to this plan. Laboratory values are unremarkable for obvious emergent process. White blood cell count of 8.71 hemoglobin 14.1 hematocrit 44.3 platelet count 221. INR 3.0, this is therapeutic. Potassium 4.5, creatinine 1.4, GFR 36.76, slightly decreased from her baseline. Troponin less than 0.05, BNP minimally elevated at 750. Chest x-ray negative Patient given a single Tylenol No. 3 for discomfort. Work-up in the ER thus far has been unremarkable for obvious emergent process. Discussed options both with patient and her . She is scheduled to be seen by her primary care provider next week on the . For the next 3 days she will increase her Lasix dose by 20 mg in the evening. We were able to get her compression stockings that should be able to fit and help her chronic venous stasis. Discussed the importance of being compliant with her medical plan, elevating her legs, etc. She was encouraged to watch for new or worsening symptoms and return to the ER for any concerns. Lastly given her ER visit I recommended contacting her primary care provider on Friday to discuss her ER visit and see if they wanted to see her in the office sooner than the as already scheduled. Both patient and are comfortable this plan and had no additional questions or concerns. Medical Records Medical records reviewed: Yes I reviewed the patient's medical records. Imaging Data Radiologic Study: Attestation: I personally reviewed and interpreted this imaging study as follows: Imaging: X-Ray Radiologist's impression: Chest x-ray read by radiology as no acute findings, limited secondary to body habitus and low lung Lab Data Lab results reviewed: Yes I reviewed the patient's lab results. Labs: Laboratory Tests Range/Units 09/23/20 09/23/20 09/23/20 13:33 13:33 13:33 WBC (4.4-10.8) 10^3/uL 8.71 RBC (3.93-5.22) 10^6/uL 4.50 Hgb (11.2-15.7) g/dL 14.1 Hct (36.0-46.0) % 44.3 MCV (80-95) fL 98.4 H MCH (27.0-33.0) pg 31.3 MCHC (32.0-36.0) % 31.8 L RDW (11.7-14.6) % 14.7 H Plt Count (130-400) 10^3/uL 221 MPV (8.0-11.0) fL 8.7 Immature Gran % 0.2 Neutrophils % 74.0 Lymphocytes % 16.2 Monocytes % 8.3 Eosinophils % 1.1 Basophils % 0.2 Nucleated RBC % % 0 Absolute Neutrophils (1.2-6.7) 10^3/uL 6.44 Absolute Lymphocytes (1.2-3.4) 10^3/uL 1.41 Absolute Monocytes (0.1-0.8) 10^3/uL 0.72 Absolute Eosinophils (0.0-0.7) 10^3/uL 0.10 Absolute Basophils (0.0-0.2) 10^3/uL 0.02 PT (9.3-11.0) sec 29.1 H INR (0.9-1.1) 3.0 H APTT (21.0-27.5) sec 35.5 H Sodium (136-145) mmol/L 142 Potassium (3.5-5.1) mmol/L 4.5 Chloride (98-107) mmol/L 103 Carbon Dioxide (21.0-32.0) mmol/L 35.8 H Anion Gap (3-11) mmol/L 3.2 BUN (7-18) mg/dL 47 H Creatinine (0.55-1.02) mg/dL 1.4 H Estimated GFR/1.73 m2 (mL/min/1.73m2) 36.76 Glucose (74-106) mg/dL 281 H Calcium (8.5-10.1) mg/dL 9.4 Magnesium (1.8-2.4) mg/dL 2.0 Total Bilirubin (0.2-1.0) mg/dL 0.3 AST (15-37) U/L 16 ALT (14-59) U/L 21 Alkaline Phosphatase (46-116) U/L 95 Troponin I (<0.06) ng/mL NT-Pro-B Natriuret Pep (<300) pg/mL 750 H Total Protein (6.4-8.2) g/dL 7.9 Albumin (3.4-5.0) g/dL 3.2 L Range/Units 09/23/20 13:33 WBC (4.4-10.8) 10^3/uL RBC (3.93-5.22) 10^6/uL Hgb (11.2-15.7) g/dL Hct (36.0-46.0) % MCV (80-95) fL MCH (27.0-33.0) pg MCHC (32.0-36.0) % RDW (11.7-14.6) % Plt Count (130-400) 10^3/uL MPV (8.0-11.0) fL Immature Gran % Neutrophils % Lymphocytes % Monocytes % Eosinophils % Basophils % Nucleated RBC % % Absolute Neutrophils (1.2-6.7) 10^3/uL Absolute Lymphocytes (1.2-3.4) 10^3/uL Absolute Monocytes (0.1-0.8) 10^3/uL Absolute Eosinophils (0.0-0.7) 10^3/uL Absolute Basophils (0.0-0.2) 10^3/uL PT (9.3-11.0) sec INR (0.9-1.1) APTT (21.0-27.5) sec Sodium (136-145) mmol/L Potassium (3.5-5.1) mmol/L Chloride (98-107) mmol/L Carbon Dioxide (21.0-32.0) mmol/L Anion Gap (3-11) mmol/L BUN (7-18) mg/dL Creatinine (0.55-1.02) mg/dL Estimated GFR/1.73 m2 (mL/min/1.73m2) Glucose (74-106) mg/dL Calcium (8.5-10.1) mg/dL Magnesium (1.8-2.4) mg/dL Total Bilirubin (0.2-1.0) mg/dL AST (15-37) U/L ALT (14-59) U/L Alkaline Phosphatase (46-116) U/L Troponin I (<0.06) ng/mL < 0.05 NT-Pro-B Natriuret Pep (<300) pg/mL Total Protein (6.4-8.2) g/dL Albumin (3.4-5.0) g/dL ECG Data Attestation: I personally reviewed and interpreted this ECG (s) as follows: Interpretation: Please see official report by Dr. Hernandez. Atrial fibrillation, ventricular of 74. Nonspecific intraventricular conduction delay. No STEMI HPI General Mode of arrival: wheelchair. Date/Time Provider Initiated Documentation: 09/23/20 12:49. Limitations to Documentation: no limitations. Information obtained by: patient. HPI Narrative: This is a 75-year-old female with past medical history that includes diabetes, A. fib, chronic anticoagulation, bilateral chronic venous insufficiency, low back pain, CAD, morbid obesity, hypertension, chronic immobility. History was obtained through both patient and her . Patient reports that she has chronic bilateral leg swelling, worsening over quite some time, pain is severe and she just cannot simply take it any longer. She has taken Tylenol with little relief. She denies recent illness or trauma. Denies headache, fever, chest pain, shortness of breath abdominal pain, change in bowel or bladder function, numbness or weakness. Reports chronic diabetic neuropathy. She takes all of her medications as directed, currently taking a total of 60 Lasix p.o. daily. Her reports that she is not very engaging in her therapy. Refuses to engage in any real mobility, has missed multiple wound care-OT appointments for her chronic venous stasis, sits in a chair with her legs down all day, and they currently do not have stockings large enough to fit her legs without causing additional pain. He states this is a chronic problem in nature and that in his opinion there has been no significant change just steady decline. She is scheduled to be seen by her primary care provider on the of this month. Related Data Home Medications Medication Instructions Recorded Confirmed valsartan [Diovan] 1 tab PO DAILY 10/17/13 09/23/20 insulin aspart U-100 [Novolog 1 unit SUB-Q 0800,1200,1700 #5 syr 10/21/13 09/23/20 Flexpen U-100 Insulin] insulin aspart U-100 [Novolog 20 units SUB-Q 0800,1200,1700 #5 10/21/13 09/23/20 Flexpen U-100 Insulin] syr cholecalciferol (vitamin D3) 2,000 units PO DAILY 04/04/17 09/23/20 furosemide 20 mg PO DAILY 04/04/17 09/23/20 metoprolol tartrate 50 mg PO BID 04/04/17 09/23/20 rosuvastatin [Crestor] 20 mg PO DAILY 04/04/17 09/23/20 omeprazole magnesium [Prilosec OTC] 20 mg PO DAILY 08/28/17 09/23/20 warfarin [Coumadin] 5 mg PO DIRECTED tab-cap 08/28/17 09/23/20 Previous Rx's Medication Instructions Recorded insulin aspart U-100 [Novolog 1 unit SUB-Q 0800,1200,1700 #5 syr 10/21/13 Flexpen U-100 Insulin] insulin aspart U-100 [Novolog 20 units SUB-Q 0800,1200,1700 #5 10/21/13 Flexpen U-100 Insulin] syr Allergies Allergy/AdvReac Type Severity Reaction Status Date / Time atenolol Allergy Intermediate Wheezing Verified 09/23/20 12:47 losartan potassium Allergy Mild back pain Verified 09/23/20 12:47 [From Cozaar] metformin HCl Allergy Mild Verified 09/23/20 12:47 [From Glucophage] lisinopril AdvReac Mild cough Verified 09/23/20 12:47 rosiglitazone maleate AdvReac Mild Swelling/Ed Verified 09/23/20 12:47 [From Avandia] doni Sulfa (Sulfonamide AdvReac Mild Skin Rash Verified 09/23/20 12:47 Antibiotics) ketorolac [From Toradol] AdvReac Verified 09/23/20 12:47 pioglitazone [From Actos] AdvReac Verified 09/23/20 12:47 glucophage Allergy Mild Diarrhea Uncoded 09/23/20 12:47 General Stated Complaint: Vascular MONICA: 3 Review of Systems Constitutional Constitutional: Denies fatigue, Denies fever(s) and Denies headache(s) ENT Ears, Nose, Mouth, and Throat: Denies headache(s) and Denies neck pain Cardiovascular Cardiovascular: Denies chest pain and Denies dyspnea Respiratory Respiratory: Denies cough and Denies dyspnea Gastrointestinal Gastrointestinal: Denies abdominal pain, Denies nausea and Denies vomiting Genitourinary Genitourinary: Denies dysuria Musculoskeletal Musculoskeletal: Reports back pain (Chronic), Denies neck pain, Denies numbness and Reports tingling Integumentary/Breasts Skin/Breast: Reports erythema (Chronic lower extremity) Neurologic Neurologic: Denies headache(s), Denies numbness and Reports tingling Endocrine Endocrine: Denies fatigue Hematologic/Lymphatic Hematologic/Lymphatic: Reports easy bleeding and Reports easy bruising [facility] Medical History Aortic stenosis Atrial fibrillation a. Permanent on oral anticoagulation with warfarin. Bilateral leg edema Cellulitis Chronic anticoagulation Chronic low back pain Chronic venous insufficiency Coronary artery disease a. With single vessel LAD involvement. CPDD (calcium pyrophosphate deposition disease) Diabetes mellitus a. Insulin-dependent, poorly controlled, with hemoglobin A1c 9.5 (09/13/13). Dyspnea a. Progressive. Dyspnea on exertion History of adenomatous polyp of colon (2003) History of colonic polyps (~2011) hyperplastic History of positive PPD Hypercholesterolemia Hypertension Mitral regurgitation Morbid obesity Multinodular goiter Nausea NATY (obstructive sleep apnea) Pseudogout Psoriasis Pulmonary nodules Rosacea Tremor Venous stasis dermatitis Surgical History History of Surgical Procedure a. Appendectomy. b. Bilateral tubal ligation. c. Total abdominal hysterectomy with bilateral salpingo-oophorectomy. Social History Smoking/Tobacco Use Status: Former Tobacco Use Smoking risk assessment performed?: Yes Alcohol Intake: never Drug use: Never Do you feel safe at home: Yes Do you feel safe in your relationship?: Yes Exam Const General: cooperative, comfortable, no acute distress and other (Morbidly obese, chronically ill-appearing) Orientation: alert, awake and oriented x3 HENMT Head: normal to inspection, normocephalic and atraumatic Mouth: moist mucous membranes Eyes General: appearance normal, both eyes and all related structures Conjunctivae: conjunctivae normal Neck Neck: normal visual inspection, full ROM, trachea midline and supple Resp Effort & Inspection: normal respiratory effort and able to speak in complete sentences Auscultation: diminished lung sounds bilaterally in the lower lung humphrey (Slightly) Cardio Rate: regular rate Rhythm: regular rhythm and abnormal rhythm irregularly irregular GI Inspection: obesity (Morbid) Palpation: soft and nontender Back/Spine/Pelvis Back: back tenderness (Diffuse mild lumbar) Skin Other: Patient has chronic bilateral lower leg changes that are consistent with both chronic venous insufficiency changes as well as psoriatic patches. Skin is intact, there is no weeping. 3+ pitting edema bilaterally, legs appear to be nearly equal. Diffuse discomfort throughout. Without point tenderness, palpable cord, warmth, negative Homans' sign bilaterally. No clear signs of secondary infection Neuro General: patient alert, patient awake, patient oriented x3, moves all extremities and no focal motor deficits Cognition: normal cognition Speech: speech normal Motor: muscle tone normal throughout Sensory Exam: no sensory deficits noted Extrem General: capillary refill normal Other: Upper extremities unremarkable, lower extremities described in the skin examination. Psych Appearance: grossly normal Mental Status: mental status grossly normal Course Vital Signs Vital signs: Vital Signs Temperature 36.3 C L 09/23/20 12:40 Pulse 57 L 09/23/20 12:40 Respiratory Rate 20 09/23/20 12:40 Blood Pressure 140/78 09/23/20 12:40 Pulse Oximetry 94 09/23/20 12:40 Temperature 36.6 C 09/23/20 14:08 Temperature Source Skin 09/23/20 14:08 Pulse 66 09/23/20 13:46 Respiratory Rate 20 09/23/20 12:40 Respiratory Effort Non-Labored 09/23/20 12:50 Respiratory Depth Normal 09/23/20 12:50 Respiratory Pattern Normal 09/23/20 12:50 Blood Pressure 119/71 09/23/20 13:46 Blood Pressure Mean 83 09/23/20 13:46 Blood Pressure Position Sitting 09/23/20 12:40 Pulse Oximetry 95 09/23/20 13:50 Oxygen Delivery Method Room Air 09/23/20 12:40 Oxygen Flow Rate 0 09/23/20 12:40 Pain Level 8 09/23/20 12:40 Lab/Test Results Lab/Test Results: Laboratory Tests Range/Units 09/23/20 09/23/20 09/23/20 13:33 13:33 13:33 WBC (4.4-10.8) 10^3/uL 8.71 RBC (3.93-5.22) 10^6/uL 4.50 Hgb (11.2-15.7) g/dL 14.1 Hct (36.0-46.0) % 44.3 MCV (80-95) fL 98.4 H MCH (27.0-33.0) pg 31.3 MCHC (32.0-36.0) % 31.8 L RDW (11.7-14.6) % 14.7 H Plt Count (130-400) 10^3/uL 221 MPV (8.0-11.0) fL 8.7 Immature Gran % 0.2 Neutrophils % 74.0 Lymphocytes % 16.2 Monocytes % 8.3 Eosinophils % 1.1 Basophils % 0.2 Nucleated RBC % % 0 Absolute Neutrophils (1.2-6.7) 10^3/uL 6.44 Absolute Lymphocytes (1.2-3.4) 10^3/uL 1.41 Absolute Monocytes (0.1-0.8) 10^3/uL 0.72 Absolute Eosinophils (0.0-0.7) 10^3/uL 0.10 Absolute Basophils (0.0-0.2) 10^3/uL 0.02 PT (9.3-11.0) sec 29.1 H INR (0.9-1.1) 3.0 H APTT (21.0-27.5) sec 35.5 H Sodium (136-145) mmol/L 142 Potassium (3.5-5.1) mmol/L 4.5 Chloride (98-107) mmol/L 103 Carbon Dioxide (21.0-32.0) mmol/L 35.8 H Anion Gap (3-11) mmol/L 3.2 BUN (7-18) mg/dL 47 H Creatinine (0.55-1.02) mg/dL 1.4 H Estimated GFR/1.73 m2 (mL/min/1.73m2) 36.76 Glucose (74-106) mg/dL 281 H Calcium (8.5-10.1) mg/dL 9.4 Magnesium (1.8-2.4) mg/dL 2.0 Total Bilirubin (0.2-1.0) mg/dL 0.3 AST (15-37) U/L 16 ALT (14-59) U/L 21 Alkaline Phosphatase (46-116) U/L 95 NT-Pro-B Natriuret Pep (<300) pg/mL 750 H Total Protein (6.4-8.2) g/dL 7.9 Albumin (3.4-5.0) g/dL 3.2 L
[2020-09-23 14:45] LABS: Troponin I < 0.05 ng/mL (<0.06)
--- NOTE | 2020-09-23 15:05 | DI.VRAD_ITS ---
PROCEDURE INFORMATION: Exam: XR Chest Exam date and time: 09/23/2020 2:26 PM Age: 75 years old Clinical indication: Other: Leg swelling TECHNIQUE: Imaging protocol: XR of the chest. Views: 2 views. COMPARISON: CR XR CHEST 2V PA LATERAL 07/02/2019 2:31 PM FINDINGS: Lungs: Low lung volumes. No definite focal area of consolidation. Mild pulmonary opacity difficult to exclude in either lung base due to overlying soft tissues and low lung volumes. Pleural spaces: Unremarkable. No pleural effusion. No pneumothorax. Heart/Mediastinum: Unremarkable. No cardiomegaly. Diaphragm: Moderate elevation of right hemidiaphragm similar to comparison studies. Bones/joints: Unremarkable. IMPRESSION: No acute findings with limitation especially of the lung bases due to low lung volumes and patient body habitus. Dictated and Authenticated by: Raheel Bee MD. Ordering:ABEBA Mcgowan MD
== END 2020-09-23 15:27 | disposition home or self-care (01) ==
PROVIDERS: Emergency Provider Physician Assistant; PCP Family Medicine
DX: I87.2 Venous insufficiency (chronic) (peripheral) (principal); I48.91 Unspecified atrial fibrillation; J44.9 Chronic obstructive pulmonary disease, unspecified
CPT/HCPCS: 80053; 93005; 99284; 71046; 83735; 83880; 84484; 85025; 85610; 85730; 93010; 99283

== ENCOUNTER 2020-10-19 10:21 | Observation (INO) | payer MEDICARE, SELFPAY ==
[2020-10-19] VITALS (27 sets, daily range): BP systolic 81–118; BP diastolic 44–106; PULSE 53–97; RESP 15–25; TEMP 35.4–36.6; O2SAT 90–100
--- NOTE | 2020-10-19 10:45 | DI.RAD_ITS ---
Exam(s) XR TIB/FIB RT EXAM: XR TIB/FIB RT CLINICAL HISTORY: redness. TECHNIQUE: 2D digital imaging was performed. COMPARISON: CR XR TIB/FIB LT from 10/19/2020 CR XR TIB/FIB LT from 10/19/2020 FINDINGS: There is edema in the right calf, similar to the opposite side. There is no evidence of fracture nor osseous lesions. Calcification is noted in the popliteal artery as well as in the runoff arteries of the calf, similar to the opposite side. There is also calcific ation within the thickened Achilles tendon consistent with chronic tendinitis of the right Achilles t endon. In reviewing the opposite-left side the lateral view unfortunately does not include the Achilles tend on area IMPRESSION: Bilateral calf edema. No fractures or osseous lesions. Arterial calcification in the popliteal roberto carlos ry and runoff arteries of both calves. Chronic calcific tendinitis of the right Achilles tendon. The left Achilles tendon is not included in the field of view on the left-sided images. DATA REPOSITORY: RADIATION DOSE DELIVERED:
--- NOTE | 2020-10-19 10:45 | RT.EKG_ITS ---
APPROVED REPORT Exam: Resting ECG Reason for Exam: dypsnea Patient Location: E HR:72 bpm ECG Measurements Heart Rate 72 AXIS [place] [id number] P [id number] QRSd 139 QRS 248 QT 443 T 55 QTc 485 Conclusion Atrial fibrillation...V-rate 57- 75, irreg A-activity Anterior infarct, old...Q >40mS, abnormal ST-T, V2-V5
--- NOTE | 2020-10-19 10:45 | DI.RAD_ITS ---
Exam(s) XR TIB/FIB LT EXAM: XR TIB/FIB LT CLINICAL HISTORY: redness. TECHNIQUE: 2D digital imaging was performed. COMPARISON: CR XR TIB/FIB RT from 10/19/2020 FINDINGS: There is abundant soft tissue edema in the calf. There is no evidence of fracture of the tibia and fi bula. Vascular calcifications in the popliteal artery and runoff arteries of the calf. No radiopaque foreign body. IMPRESSION: DATA REPOSITORY: RADIATION DOSE DELIVERED:
--- NOTE | 2020-10-19 10:48 | ED.GENADUL_ITS ---
Discharge Plan Discharge Details Chief Complaint: Cellulitis Primary Care Provider: Jaqueline You ED Provider: Rehana Esteves Home Meds and New Rx's Prescriptions: No Action valsartan [Diovan] 40 MG tablet 1 tab PO DAILY RF: 0 sennosides [senna] 8.6 mg Tablet 17.2 mg PO BID RF: 0 acetaminophen 325 mg Tablet 650 mg PO QID PRNRF: 0 ipratropium-albuterol 0.5 mg-3 mg(2.5 mg base)/3 mL Solution For Nebulization 3 ml INHALATION TID PRNRF: 0 torsemide 20 mg tablet 40 mg PO DAILY RF: 0 triamcinolone acetonide 0.1 % cream 1 applic TOPICAL BID RF: 0 spironolactone 25 mg tablet 25 mg PO DAILY RF: 0 warfarin 4 mg tablet 4 mg PO DAILY RF: 0 magnesium oxide 400 mg (241.3 mg magnesium) Tablet 400 mg PO BID RF: 0 Novolin N NPH U-100 Insulin 100 unit/mL Suspension 55 unit SUBCUT BID RF: 0 nystatin 100,000 unit/gram Powder 1 applic TOPICAL BID RF: 0 albuterol sulfate [Proventil HFA] 90 mcg/actuation Hfa Aerosol Inhaler 2 puff INHALATION QID PRNRF: 0 Multivitamin And Mineral Tablet 1 tab PO DAILY RF: 0 insulin aspart U-100 [Novolog Flexpen U-100 Insulin] 300 UNITS/3 ML insulin pen 20 - 30 unit Sub-Q 0800,1200,1700 RF: 0 metoprolol tartrate 50 MG tablet 50 mg PO BID RF: 0 rosuvastatin [Crestor] 20 MG tablet 20 mg PO DAILY RF: 0 cholecalciferol (vitamin D3) 1,000 UNITS tablet 2,000 units PO DAILY RF: 0 Medical Decision Making <HODAN Reed - Last Filed: 10/19/20 13:47> Patient with no complaints initial hypoxia with exertion, 85%, responded to oxygen well as of now on room air and at rest 96%, alert and oriented Patient was noted to be hypotensive, initially map of 65, responded to 500 cc bolus of fluid, does appear to be intravascularly depleted despite volume overload Tolerated 500 cc bolus well, still on room air, no respiratory distress I do not suspect that the patient is septic secondary to cellulitis, she does have an elevated lactate but her CBC, temperature, and she is not exhibiting any signs or symptoms of hypotension, specifically new weakness, lightheadedness Patient was given ceftriaxone and vancomycin to cover her from a cellulitis standpoint given comorbidities Case was discussed with Dr. Styles who will admit patient to the hospital for continued observation and evaluation X-rays do not show acute pathology in bilateral tib-fib, patient does have a left lower lobe infiltrate She has not exhibited any evidence of pneumonia, we will hold off on coverage for respiratory condition at this time Initially my plan was to diurese patient, however given elevated creatinine and BUN, I suspect she is intravascularly depleted She will be admitted to the hospital at this time We will hold on pressors and can continue to observe on telemetry Differential Diagnosis Differential Diagnosis: Cellulitis, CHF, Medical Records Medical records reviewed: Yes I reviewed the patient's medical records. Lab Data Lab results reviewed: Yes I reviewed the patient's lab results. <Junaid Hernandez MD - Last Filed: 10/19/20 13:02> I had a [id number]-[id number] encounter with the patient. I evaluated the patient. I discussed case with TRACK COACH/PA and I reviewed TRACK COACH/PA note and agree with note as documented. HPI <HODAN Reed - Last Filed: 10/19/20 13:47> General Mode of arrival: ambulatory . Date/Time Provider Initiated Documentation: 10/19/20 10:22 . Limitations to Documentation: no limitations . Information obtained by: patient . HPI Narrative: This 77-year-old female with history of diabetes, cellulitis, KENYON, atrial fibrillation, hypertension, hyperlipidemia presents with report of worsening pain and edema to bilateral lower extremities. She denies any fever or chills. She denies any chest pain or shortness of breath. She is having significant difficulty ambulating secondary to pain in her lower extremities. She reportedly gets quite short of breath with exertion. This has been intermittent over the course of the past several months with patient reportedly. She is taking her medications as prescribed. She did take her blood pressure medication prior to arrival. She denies any known falls or injuries. She did see wound care and they are managing her on the outpatient basis. She denies any nausea or vomiting. Related Data Home Medications Medication Instructions Recorded Confirmed valsartan [Diovan] 1 tab PO DAILY 10/17/13 10/19/20 cholecalciferol (vitamin D3) 2,000 units PO DAILY 04/04/17 10/19/20 metoprolol tartrate 50 mg PO BID 04/04/17 10/19/20 rosuvastatin [Crestor] 20 mg PO DAILY 04/04/17 10/19/20 acetaminophen 650 mg PO QID PRN 10/19/20 10/19/20 albuterol sulfate [Proventil HFA] 2 puff INHALATION QID PRN 10/19/20 10/19/20 insulin NPH isoph U-100 human 55 unit SUBCUT BID 10/19/20 10/19/20 [Novolin N NPH U-100 Insulin] insulin aspart U-100 [Novolog 20 - 30 unit SUB-Q 0800,1200,1700 10/19/20 10/19/20 Flexpen U-100 Insulin] ipratropium-albuterol 3 ml INHALATION TID PRN 10/19/20 10/19/20 magnesium oxide 400 mg PO BID 10/19/20 10/19/20 multivitamin,un-skii-Qu-FA-min 1 tab PO DAILY 10/19/20 10/19/20 [Multivitamin And Mineral] nystatin 1 applic TOPICAL BID 10/19/20 10/19/20 sennosides [senna] 17.2 mg PO BID 10/19/20 10/19/20 spironolactone 25 mg PO DAILY 10/19/20 10/19/20 torsemide 40 mg PO DAILY 10/19/20 10/19/20 triamcinolone acetonide 1 applic TOPICAL BID 10/19/20 10/19/20 warfarin 4 mg PO DAILY 10/19/20 10/19/20 Allergies Allergy/AdvReac Type Severity Reaction Status Date / Time atenolol Allergy Intermediate Wheezing Verified 10/19/20 10:36 metformin HCl Allergy Mild Verified 10/19/20 10:36 [From Glucophage] lisinopril AdvReac Mild cough Verified 10/19/20 10:36 losartan potassium AdvReac Mild back pain Verified 10/19/20 10:39 [From Cozaar] rosiglitazone maleate AdvReac Mild Swelling/Ed Verified 10/19/20 10:36 [From Avandia] doni Sulfa (Sulfonamide AdvReac Mild Skin Rash Verified 10/19/20 10:36 Antibiotics) ketorolac [From Toradol] AdvReac Verified 10/19/20 10:36 pioglitazone [From Actos] AdvReac Verified 10/19/20 10:36 glucophage Allergy Mild Diarrhea Uncoded 10/19/20 10:36 General Stated Complaint: Cellulitis MONICA: 2 Review of Systems <HODAN Reed - Last Filed: 10/19/20 13:47> Narrative: Review of systems negative x7 aside from where indicated in HPI PFSH <HODAN Reed - Last Filed: 10/19/20 13:47> Medical History Aortic stenosis Atrial fibrillation a. Permanent on oral anticoagulation with warfarin. Bilateral leg edema Cellulitis Chronic anticoagulation Chronic low back pain Chronic venous insufficiency Coronary artery disease a. With single vessel LAD involvement. CPDD (calcium pyrophosphate deposition disease) Diabetes mellitus a. Insulin-dependent, poorly controlled, with hemoglobin A1c 9.5 (09/13/13). Dyspnea a. Progressive. Dyspnea on exertion History of adenomatous polyp of colon (2003) History of colonic polyps (~2011) hyperplastic History of positive PPD Hypercholesterolemia Hypertension Mitral regurgitation Morbid obesity Multinodular goiter Nausea NATY (obstructive sleep apnea) Pseudogout Psoriasis Pulmonary nodules Rosacea Tremor Venous stasis dermatitis Surgical History History of Surgical Procedure a. Appendectomy. b. Bilateral tubal ligation. c. Total abdominal hysterectomy with bilateral salpingo-oophorectomy. Social History Smoking/Tobacco Use Status: Former Tobacco Use Smoking risk assessment performed?: Yes Alcohol Intake: never Drug use: Never Do you feel safe at home: Yes Do you feel safe in your relationship?: Yes Exam <HODAN Reed - Last Filed: 10/19/20 13:47> Const General: cooperative and frail appearing HENMT Head: normal to inspection Mouth: normal oral mucosae Other: moist mucous membranes Chest Chest: normal inspection of the chest Resp Effort & Inspection: normal respiratory effort Other: crackles Cardio Rate: regular rate Rhythm: regular rhythm GI Other: No CVA tenderness, left lower quadrant abdominal tenderness Skin General skin exam: no rashes or lesions noted Neuro General: patient alert and patient oriented x3 Extrem Other: 3+ edema to bilateral lower extremities Erythema, significantly to right lower extremity No crepitus, Doppler pulses intact DP PT bilaterally Course <HODAN Reed - Last Filed: 10/19/20 13:47> Vital Signs Vital signs: Vital Signs Temperature 36.6 C 10/19/20 10:30 Pulse 80 10/19/20 10:30 Respiratory Rate 18 10/19/20 10:30 Blood Pressure 114/50 L 10/19/20 10:30 Pulse Oximetry 90 L 10/19/20 10:30 Temperature 36.6 C 10/19/20 10:30 Temperature Source Temporal Artery Scan 10/19/20 10:30 Pulse 80 10/19/20 10:30 Respiratory Rate 18 10/19/20 10:30 Respiratory Effort 10/19/20 10:34 Blood Pressure 114/50 L 10/19/20 10:30 Blood Pressure Position Supine 10/19/20 10:30 Pulse Oximetry 99 10/19/20 10:30 Oxygen Delivery Method Nasal Cannula 10/19/20 10:30 Oxygen Flow Rate 1 10/19/20 10:30 Pain Level 8 10/19/20 10:30
--- NOTE | 2020-10-19 11:15 | DI.RAD_ITS ---
Exam(s) XR CHEST 2V PA LATERAL EXAM: XR CHEST 2V PA LATERAL CLINICAL HISTORY: shortness of breath, hypoxia. TECHNIQUE: 2D digital imaging was performed. COMPARISON: CR,XR XR CHEST 2V PA LATERAL from 09/23/2020 FINDINGS: Heart size is normal. The mediastinum is not widened. Right lung is clear. Slightly elevated right hemidiaphragm again. Increased markings noted behind the heart shadow on the left side left lower lobe, but without obviou s infiltrated dislocations seen on the lateral view. There are no pleural effusions. No pulmonary e misael. No pneumothorax. IMPRESSION: Subtle increased markings left lower lobe. Possible developing infiltrate at this location. There a re no obvious pleural effusions. DATA REPOSITORY: RADIATION DOSE DELIVERED:
[2020-10-19] MEDS: Normal Saline 500 ML IV (11:29)
[2020-10-19 11:32] LABS: Abs Immature Grans 0.02 10^3/uL (0.0-0.06); Absolute Basophil Count 0.02 10^3/uL (0.0-0.2); Absolute Eosinophil Count 0.14 10^3/uL (0.0-0.7); Absolute Lymphocyte Count 1.48 10^3/uL (1.2-3.4); Absolute Monocyte Count 0.91 10^3/uL (0.1-0.8); Absolute Neutrophil Count 6.98 10^3/uL (1.2-6.7); Basophils % 0.2; Eosinophils % 1.5; HCT 41.3 % (36.0-46.0); HGB 13.3 g/dL (11.2-15.7); Immature Grans % 0.2; Lymphocytes % 15.5; MCH 31.4 pg (27.0-33.0); MCHC 32.2 % (32.0-36.0); MCV 97.6 fL (80-95); Monocytes % 9.5; Neutrophils % 73.1; Nucleated RBC 0 %; Platelet Count 221 10^3/uL (130-400); RBC 4.23 10^6/uL (3.93-5.22); RDW 15.8 % (11.7-14.6); RDW-SD 55.8 fL; WBC 9.55 10^3/uL (4.4-10.8)
[2020-10-19] MEDS: cefTRIAXone 2 GM/50 ML BAG IVPB (11:38)
[2020-10-19 11:40] LABS: INR 2.4 (0.9-1.1); Prothrombin Time 23.2 sec (9.3-11.0)
[2020-10-19 11:52] LABS: ALT 19 U/L (14-59); AST 14 U/L (15-37); Albumin 3.2 g/dL (3.4-5.0); Alkaline Phosphatase 88 U/L (46-116); Anion Gap 6.3 mmol/L (3-11); BUN 63 mg/dL (7-18); Bilirubin, Total 0.3 mg/dL (0.2-1.0); CO2 32.7 mmol/L (21.0-32.0); CREATININE 1.6 mg/dL (0.55-1.02); Calcium 9.8 mg/dL (8.5-10.1); Chloride 104 mmol/L (98-107); Estimated GFR 31.51 (mL/min/1.73m2); Glucose 123 mg/dL (74-106); NT-proBNP 572 pg/mL (<300); Potassium 4.4 mmol/L (3.5-5.1); Sodium 143 mmol/L (136-145); Total Protein 7.6 g/dL (6.4-8.2)
[2020-10-19 11:53] LABS: Troponin I < 0.05 ng/mL (<0.06)
[2020-10-19] MEDS: VANCOMYCIN/WATER (PEG) 2 GM/400 ML BAG IVPB (11:55)
[2020-10-19] MEDS: Acetaminophen 500 MG TAB 1000 MG PO (11:57)
[2020-10-19 13:18] LABS: Bilirubin Negative (Negative); Blood Negative (Negative); Clarity Clear (Clear); Glucose Negative (Negative); Ketones Negative (Negative); Leukocyte Esterase Negative (Negative); Nitrite Negative (Negative); Specific Gravity 1.015 (1.005-1.025); Urobilinogen 0.2 EU/dL (Up TO 0.2); pH 5.5 (5-8)
[2020-10-19 13:23] LABS: Source Nasal/Nares
[2020-10-19] MEDS: Normal Saline 500 ML 250 ML IV (13:35)
[2020-10-19 13:40] LABS: Procalcitonin < 0.1 ng/mL
[2020-10-19 15:09] LABS: COVID-19 PCR Negative (Negative)
[2020-10-19] MEDS: ceFAZolin 1 GM/50 ML BAG IVPB (16:04)
[2020-10-19] MEDS: Normal Saline Flush 10 ML SYR (16:05)
--- NOTE | 2020-10-19 16:48 | HPE_ITS ---
Date of service: 10/19/20 Time of Service: 16:48 Assessment and Plan Assessment and plan (1) Bilateral lower leg cellulitis: Status: Suspected Assessment and plan: Await results of blood culture and start Ancef pending the results of her blood cultures. Obtain wound care consultation regarding her right lower leg wound (2) Skin ulcer of right lower leg: Status: Acute Assessment and plan: Wound care consult (3) Lymphedema: Status: Acute Assessment and plan: Recommend use of Gelacio wraps and once her skin ulcer is healed up progress to antilymphedema boots (4) Prerenal azotemia: Status: Acute Assessment and plan: Patient was given gentle hydration through the emergency department. At this point we will let her volume status equilibrate by withholding her diuretics. (5) Dehydration: Status: Acute Assessment and plan: Patient has been given a couple IV boluses in the emergency department. At this point we will withhold her diuretics and monitor her renal function. If there is no significant improvement in her BUN and creatinine tomorrow morning she may require some further IV fluid hydration. Because of her history of heart failure with preserved ejection fraction as well as her history of LVH with evidence of left ventricular outflow tract obstruc tion we will have to be careful but aggressive rehydration as she may going to flash pulmonary edema. (6) Diabetes mellitus with peripheral autonomic neuropathy: Status: Chronic Assessment and plan: Continue her current scheduled NPH. Will monitor blood sugars before meals and at bedtime and give her NovoLog resistant scale for coverage of elevated blood sugars but provide additional NovoLog per carbohydrate coverage at a ratio of 1 unit per 5 g of carbohydrates. (7) Chronic heart failure with preserved ejection fraction: Status: Acute Assessment and plan: Check a repeat echo in the morning as her last echo is from 3 years ago. Will withhold her diuretics for a day until her BUN and creatinine normalized. (8) Generalized weakness: Status: Acute Assessment and plan: Obtain physical therapy consultation in the morning to evaluate her generalized weakness and her gait stability. History of Present Illness History of Present Illness Chief Complaint: Bilateral leg swelling and pain Narrative: 75-year-old white female past medical history significant for diabetes mellitus type 2 requiring insulin, cellulitis, chronic kidney disease, atrial fibrillation on chronic anticoagulation with warfarin, essential hypertension, hyperlipidemia, lymphedema who presents emergency department with worsening pain and bilateral leg edema. She denies any fever or chills or rigors. She has had no chest pain. She does have exertional dyspnea and has chronic heart failure with preserved ejection fraction. Upon evaluation in the emergency department the PA who attended to her found that she had bilateral lower leg erythema and some weeping of clear fluid from a superficial ulcer over her right leg. Patient was also found to be mildly hypotensive with a systolic blood pressure in the 90s and as low as 81 for which the patient received a bolus of saline 500 mL. Routine labs showed a CBC with no anemia and normal white cell count 9500. CMP demonstrated azotemia with a BUN of 63 and a creatinine 1.6. Her baseline creatinine is around 1.4. Her baseline BUN is around 40. LFTs were normal and troponin was less than 0.05. Her proBNP was mildly elevated at 572 but well below her previous value of 750 from a month ago. Her INR was therapeutic at 2.4 her urinalysis was unremarkable. SARS-CoV-2 PCR was negative. Chest x-ray was read as showing subtle increased markings in the left lower lobe possible infiltrate no obvious pleural effusions. I reviewed this x-ray myself and compared it to her prior chest x- ray dated September 23, 2020 and found that she has cardiomegaly along with increased interstitial pattern similar to her previous studies. ER personnel obtained blood cultures and started on Rocephin and vancomycin for presumed cellulitis of her legs. Patient is being admitted now for treatment of presumptive bilateral lower extremity cellulitis. My impression is that this is more dependent rubor and that she has chronic venous stasis in bilateral lower extremity lymphedema. Review of Systems All systems reviewed & are unremarkable except as noted in HPI and below Constitutional Constitutional: Denies chills, Reports fatigue, Denies fever(s) and Reports weakness Eyes Eyes: Reports system reviewed and no additional complaints, except as documented Cardiovascular Cardiovascular: Denies chest pain, Denies chest pain with activity, Denies palpitations, Reports dyspnea and Reports dyspnea on exertion Respiratory Respiratory: Denies chest congestion, Denies hemoptysis, Denies excessive phlegm production, Denies pain with cough, Reports dyspnea, Reports dyspnea on exertion and Denies wheezing Gastrointestinal Gastrointestinal: Reports system reviewed and no additional complaints, except as documented Genitourinary Genitourinary: Reports system reviewed and no additional complaints, except as documented Musculoskeletal Musculoskeletal: Reports system reviewed and no additional complaints, except as documented Integumentary/Breasts Skin/Breast: Reports skin swelling, Reports skin ulcer and Reports wounds Neurologic Neurologic: Reports system reviewed and no additional complaints, except as documented and Reports weakness Endocrine Endocrine: Reports fatigue and Denies palpitations Hematologic/Lymphatic Hematologic/Lymphatic: Reports easy bruising Allergic/Immunologic Allergic/Immunologic: Denies wheezing [facility] Medical History (Updated 10/19/20 @ 23:09 by Juan M Thompson) Aortic stenosis Atrial fibrillation a. Permanent on oral anticoagulation with warfarin. Bilateral leg edema Cellulitis Chronic anticoagulation Chronic heart failure with preserved ejection fraction Chronic low back pain Chronic venous insufficiency Coronary artery disease a. With single vessel LAD involvement. CPDD (calcium pyrophosphate deposition disease) Diabetes mellitus a. Insulin-dependent, poorly controlled, with hemoglobin A1c 9.5 (09/13/13). Dyspnea a. Progressive. Dyspnea on exertion History of adenomatous polyp of colon (2003) History of colonic polyps (~2011) hyperplastic History of positive PPD Hypercholesterolemia Hypertension Mitral regurgitation Morbid obesity Multinodular goiter Nausea NATY (obstructive sleep apnea) Pseudogout Psoriasis Pulmonary nodules Rosacea Tremor Venous stasis dermatitis Surgical History History of Surgical Procedure a. Appendectomy. b. Bilateral tubal ligation. c. Total abdominal hysterectomy with bilateral salpingo-oophorectomy. Social History Smoking/Tobacco Use Status: Former Tobacco Use Smoking risk assessment performed?: Yes Alcohol Intake: never Drug use: Never Do you feel safe at home: Yes Do you feel safe in your relationship?: Yes Meds Allergies and Home Medications Allergies Allergy/AdvReac Type Severity Reaction Status Date / Time atenolol Allergy Intermediate Wheezing Verified 10/19/20 10:36 metformin HCl Allergy Mild Verified 10/19/20 10:36 [From Glucophage] lisinopril AdvReac Mild cough Verified 10/19/20 10:36 losartan potassium AdvReac Mild back pain Verified 10/19/20 10:39 [From Cozaar] rosiglitazone maleate AdvReac Mild Swelling/Ed Verified 10/19/20 10:36 [From Avandia] doni Sulfa (Sulfonamide AdvReac Mild Skin Rash Verified 10/19/20 10:36 Antibiotics) ketorolac [From Toradol] AdvReac Verified 10/19/20 10:36 pioglitazone [From Actos] AdvReac Verified 10/19/20 10:36 glucophage Allergy Mild Diarrhea Uncoded 10/19/20 10:36 Home Medications Medication Instructions Recorded Confirmed Type valsartan [Diovan] 1 tab PO DAILY 10/17/13 10/19/20 History cholecalciferol (vitamin D3) 2,000 units PO DAILY 04/04/17 10/19/20 History metoprolol tartrate 50 mg PO BID 04/04/17 10/19/20 History rosuvastatin [Crestor] 20 mg PO DAILY 04/04/17 10/19/20 History acetaminophen 650 mg PO QID PRN 10/19/20 10/19/20 History albuterol sulfate [Proventil HFA] 2 puff INHALATION QID PRN 10/19/20 10/19/20 History insulin NPH isoph U-100 human 55 unit SUBCUT BID 10/19/20 10/19/20 History [Novolin N NPH U-100 Insulin] insulin aspart U-100 [Novolog 20 - 30 unit SUB-Q 0800,1200,1700 10/19/20 10/19/20 History Flexpen U-100 Insulin] ipratropium-albuterol 3 ml INHALATION TID PRN 10/19/20 10/19/20 History magnesium oxide 400 mg PO BID 10/19/20 10/19/20 History multivitamin,ho-vprh-Dg-FA-min 1 tab PO DAILY 10/19/20 10/19/20 History [Multivitamin And Mineral] nystatin 1 applic TOPICAL BID 10/19/20 10/19/20 History sennosides [senna] 17.2 mg PO BID 10/19/20 10/19/20 History spironolactone 25 mg PO DAILY 10/19/20 10/19/20 History torsemide 40 mg PO DAILY 10/19/20 10/19/20 History triamcinolone acetonide 1 applic TOPICAL BID 10/19/20 10/19/20 History warfarin 4 mg PO DAILY 10/19/20 10/19/20 History Exam Narrative Exam Narrative: Morbidly obese white female who is alert and oriented person place and time and circumstance. She is in no acute respiratory distress. Not using accessory respiratory muscles. HEENT is unremarkable. Neck is supple nontender with no JVD normal carotid pulses no bruits no thyromegaly Lungs are clear to auscultation anteriorly as well as posteriorly. No rhonchi or wheezes or rales Abdomen is obese soft and nondistended with normal active bowel sounds no bruits no palpable masses. Lower extremities with 3+ pitting edema in bilateral purplish to erythematous discoloration over lower legs from below the knees down to her ankles with a granular pebbly texture to her pretibial surface. The right anterolateral surface has superficial ulceration with clear drainage and a good granulation base. Pedal pulses are nonpalpable. There is calf tenderness bilaterally. Neuro exam reveals no focal cranial nerve deficits. She has diminished sensation to light touch over both feet intact sensation to noxious stimulation. Range of motion and strength. Results Labs Result diagrams: 10/19/20 11:14 10/19/20 11:14 Labs: Laboratory Results - last 24 hr 10/19/20 10/19/20 10/19/20 10:50 10:50 10:50 WBC Cancelled RBC Cancelled Hgb Cancelled Hct Cancelled MCV Cancelled MCH Cancelled MCHC Cancelled RDW Cancelled Plt Count Cancelled MPV Cancelled Immature Gran % Cancelled Neutrophils % Cancelled Band Neutrophils % Cancelled Lymphocytes % Cancelled Atypical Lymphs % Cancelled Monocytes % Cancelled Eosinophils % Cancelled Basophils % Cancelled Metamyelocytes % Cancelled Myelocytes % Cancelled Promyelocytes % Cancelled Other Cells % Cancelled Nucleated RBC % Cancelled Absolute Neutrophils Cancelled Absolute Lymphocytes Cancelled Absolute Monocytes Cancelled Absolute Eosinophils Cancelled Absolute Basophils Cancelled RBC Morphology Cancelled Polychromasia Cancelled Hypochromasia Cancelled Poikilocytosis Cancelled Basophilic Stippling Cancelled Anisocytosis Cancelled Microcytosis Cancelled Macrocytosis Cancelled Spherocytes Cancelled Tear Drop Cells Cancelled Ovalocytes Cancelled Stomatocytes Cancelled [place] Bodies Cancelled [place] Cells/Echinocytes Cancelled Acanthocytes (Spur) Cancelled Schistocytes Cancelled PT INR VBG Lactate 2.0 H Sodium Cancelled Potassium Cancelled Chloride Cancelled Carbon Dioxide Cancelled Anion Gap Cancelled BUN Cancelled Creatinine Cancelled Estimated GFR/1.73 m2 Cancelled Glucose Cancelled Calcium Cancelled Total Bilirubin Cancelled AST Cancelled ALT Cancelled Alkaline Phosphatase Cancelled Troponin I Cancelled NT-Pro-B Natriuret Pep Total Protein Cancelled Albumin Cancelled Procalcitonin Urine Color Urine Clarity Urine pH Ur Specific [place] Urine Protein Urine Ketones Urine Blood Urine Nitrite Urine Bilirubin Urine Urobilinogen Ur Leukocyte Esterase Urine Glucose COVID-19 Source SARS-CoV-2 (PCR) 10/19/20 10/19/20 10/19/20 10:50 10:50 11:14 WBC RBC Hgb Hct MCV MCH MCHC RDW Plt Count MPV Immature Gran % Neutrophils % Band Neutrophils % Lymphocytes % Atypical Lymphs % Monocytes % Eosinophils % Basophils % Metamyelocytes % Myelocytes % Promyelocytes % Other Cells % Nucleated RBC % Absolute Neutrophils Absolute Lymphocytes Absolute Monocytes Absolute Eosinophils Absolute Basophils RBC Morphology Polychromasia Hypochromasia Poikilocytosis Basophilic Stippling Anisocytosis Microcytosis Macrocytosis Spherocytes Tear Drop Cells Ovalocytes Stomatocytes [place] Bodies [place] Cells/Echinocytes Acanthocytes (Spur) Schistocytes PT Cancelled INR Cancelled VBG Lactate Sodium 143 Potassium 4.4 Chloride 104 Carbon Dioxide 32.7 H Anion Gap 6.3 BUN 63 H Creatinine 1.6 H Estimated GFR/1.73 m2 31.51 Glucose 123 H Calcium 9.8 Total Bilirubin 0.3 AST 14 L ALT 19 Alkaline Phosphatase 88 Troponin I < 0.05 NT-Pro-B Natriuret Pep Cancelled 572 H Total Protein 7.6 Albumin 3.2 L Procalcitonin Urine Color Urine Clarity Urine pH Ur Specific [place] Urine Protein Urine Ketones Urine Blood Urine Nitrite Urine Bilirubin Urine Urobilinogen Ur Leukocyte Esterase Urine Glucose COVID-19 Source SARS-CoV-2 (PCR) 10/19/20 10/19/20 10/19/20 11:14 11:14 11:14 WBC 9.55 RBC 4.23 Hgb 13.3 Hct 41.3 MCV 97.6 H MCH 31.4 MCHC 32.2 RDW 15.8 H Plt Count 221 MPV 9.0 Immature Gran % 0.2 Neutrophils % 73.1 Band Neutrophils % Lymphocytes % 15.5 Atypical Lymphs % Monocytes % 9.5 Eosinophils % 1.5 Basophils % 0.2 Metamyelocytes % Myelocytes % Promyelocytes % Other Cells % Nucleated RBC % 0 Absolute Neutrophils 6.98 H Absolute Lymphocytes 1.48 Absolute Monocytes 0.91 H Absolute Eosinophils 0.14 Absolute Basophils 0.02 RBC Morphology Polychromasia Hypochromasia Poikilocytosis Basophilic Stippling Anisocytosis Microcytosis Macrocytosis Spherocytes Tear Drop Cells Ovalocytes Stomatocytes [place] Bodies [place] Cells/Echinocytes Acanthocytes (Spur) Schistocytes PT 23.2 H INR 2.4 H VBG Lactate Sodium Potassium Chloride Carbon Dioxide Anion Gap BUN Creatinine Estimated GFR/1.73 m2 Glucose Calcium Total Bilirubin AST ALT Alkaline Phosphatase Troponin I NT-Pro-B Natriuret Pep Total Protein Albumin Procalcitonin < 0.1 Urine Color Urine Clarity Urine pH Ur Specific [place] Urine Protein Urine Ketones Urine Blood Urine Nitrite Urine Bilirubin Urine Urobilinogen Ur Leukocyte Esterase Urine Glucose COVID-19 Source SARS-CoV-2 (PCR) 10/19/20 10/19/20 13:08 13:09 WBC RBC Hgb Hct MCV MCH MCHC RDW Plt Count MPV Immature Gran % Neutrophils % Band Neutrophils % Lymphocytes % Atypical Lymphs % Monocytes % Eosinophils % Basophils % Metamyelocytes % Myelocytes % Promyelocytes % Other Cells % Nucleated RBC % Absolute Neutrophils Absolute Lymphocytes Absolute Monocytes Absolute Eosinophils Absolute Basophils RBC Morphology Polychromasia Hypochromasia Poikilocytosis Basophilic Stippling Anisocytosis Microcytosis Macrocytosis Spherocytes Tear Drop Cells Ovalocytes Stomatocytes [place] Bodies [place] Cells/Echinocytes Acanthocytes (Spur) Schistocytes PT INR VBG Lactate Sodium Potassium Chloride Carbon Dioxide Anion Gap BUN Creatinine Estimated GFR/1.73 m2 Glucose Calcium Total Bilirubin AST ALT Alkaline Phosphatase Troponin I NT-Pro-B Natriuret Pep Total Protein Albumin Procalcitonin Urine Color Yellow Urine Clarity Clear Urine pH 5.5 Ur Specific [place] 1.015 Urine Protein Negative Urine Ketones Negative Urine Blood Negative Urine Nitrite Negative Urine Bilirubin Negative Urine Urobilinogen 0.2 Ur Leukocyte Esterase Negative Urine Glucose Negative COVID-19 Source Nasal/nares SARS-CoV-2 (PCR) Negative Last Vital Signs Temp 36.2 C L 10/19/20 14:30 Pulse 68 10/19/20 14:30 Resp 20 10/19/20 14:30 BP 109/69 10/19/20 14:30 Pulse Ox 99 10/19/20 14:30 COVID-19 Screening Have you, or household traveled for leisure in last 14 days?: No Had IN PERSON contact w/suspected or confirmed C-19 person: No
[2020-10-19] MEDS: Insulin NPH-Human 300 UNITS/3 ML PEN 55 UNIT SC (17:37)
[2020-10-19] MEDS: Insulin Aspart 300 UNITS/3 ML PEN SC (17:41)
--- NOTE | 2020-10-19 19:11 | WOUNDCONS_ITS ---
- If Service Date Differs Date of service: 10/19/20 Time of Service: 19:11 Wound Initial Evaluation Narrative: 10/19/20 Consulted for bilat lower extremity wounds. Pt has multiple partial and full thickness area on bilat lower extremities below knees. Pt stated has had unna boots in the past and they have worked okay. SHe currently sees wound care in [place], [place]. Pt had slight pain with cleansing the wounds but it resolved after cleansing was stopped. Bilat feet have palpable pedal pulses. There is also a fluctuant purple area on right lateral side of right second toe. Ot is u naware how she got it. - Wound Left lower extremity Wound Type: Partial Thickness Wound General Appearance: Unapproximated Wound Bed Greatest Portion: Red (Granulation) Wound Surrounding Tissue Appearance: Bright Red Wound Drainage Amount: Minimal Wound Drainage Odor: None/Absent Wound Drainage Description: Serous Wound Topical Solution/Irrigant: Saline Irrigant Wound Debridement Method: Mechanical Wound Debridement Result: Healthy Tissue Revealed Wound Debridement Amount of Tissue Removed: Minimal Right lower extremity Wound Type: Partial Thickness Wound General Appearance: Unapproximated Wound Bed Greatest Portion: Red (Granulation) Wound Surrounding Tissue Appearance: Bright Red Wound Drainage Amount: Minimal Wound Drainage Odor: None/Absent Wound Drainage Description: Serous Wound Topical Solution/Irrigant: Saline Irrigant Wound Debridement Method: Mechanical Wound Debridement Result: Healthy Tissue Revealed Wound Debridement Amount of Tissue Removed: Minimal Right second toe Wound Length: 0.7 cm Wound Width: 0.7 cm Wound Drainage Amount: None - Circulation, Sensation, Motion Edema Degree: 4+ Peripheral Pulse Strength: Weak Capillary Refill: Less than 3 seconds Sensation Description: Pain Skin Temperature: Warm - PETTY Comment:: PETTY's taken and showed non- compressible veins, but it had a weak signal - Pain Pain Level: 4 (with cleansing) Pain Scale Used: Adult BIlat lower extremities are reddened with no increased warmth. Multiple open areas on bilat lower extremities that are mainly partial thickness wounds. There also several blisters noted on bilat lower legs. - Treatment/Dressing Change Topicals/Ointments: None Dressing Types: Unna Boot - Recomendation Recomendation:: Bialteral lower extremity open areas- Cleanse with normal saline, pat dry, apply unna boots (zinc layer, kerlix and ellen wraps). Change q 3 days and PRN.
[2020-10-19] MEDS: Magnesium Oxide 400 MG TAB PO (20:05)
[2020-10-19] MEDS: Senna TAB 1 TAB PO (20:05)
[2020-10-19] MEDS: Metoprolol 50 MG TAB PO (20:05)
[2020-10-19] MEDS: Nystatin POWDER 15 GM JAR TP (20:16)
[2020-10-19] MEDS: Triamcinolone 0.1% CR 80 GM TUBE TP (20:19)
[2020-10-20 03:26] VITALS: BP 114/56; PULSE 83; RESP 19; TEMP 36.6; O2SAT 98
[2020-10-20] MEDS: ceFAZolin 1 GM/50 ML BAG IVPB ×2 (03:37→15:57)
[2020-10-20 06:35] LABS: Abs Immature Grans 0.01 10^3/uL (0.0-0.06); Absolute Basophil Count 0.01 10^3/uL (0.0-0.2); Absolute Eosinophil Count 0.18 10^3/uL (0.0-0.7); Absolute Lymphocyte Count 1.21 10^3/uL (1.2-3.4); Absolute Monocyte Count 0.67 10^3/uL (0.1-0.8); Basophils % 0.2; Eosinophils % 2.8; HCT 40.5 % (36.0-46.0); HGB 12.8 g/dL (11.2-15.7); Immature Grans % 0.2; Lymphocytes % 18.7; MCH 31.2 pg (27.0-33.0); MCHC 31.6 % (32.0-36.0); MCV 98.8 fL (80-95); MPV 8.8 fL (8.0-11.0); Monocytes % 10.4; Neutrophils % 67.7; Nucleated RBC 0 %; Platelet Count 195 10^3/uL (130-400); RDW 15.5 % (11.7-14.6); RDW-SD 56.1 fL; WBC 6.46 10^3/uL (4.4-10.8)
[2020-10-20 06:37] LABS: Absolute Neutrophil Count 4.37 10^3/uL (1.2-6.7)
[2020-10-20 06:50] LABS: INR 2.7 (0.9-1.1); Prothrombin Time 26.2 sec (9.3-11.0)
[2020-10-20 06:56] LABS: Anion Gap 4.1 mmol/L (3-11); BUN 50 mg/dL (7-18); CO2 32.9 mmol/L (21.0-32.0); CREATININE 1.4 mg/dL (0.55-1.02); Chloride 105 mmol/L (98-107); Estimated GFR 36.76 (mL/min/1.73m2); Glucose 148 mg/dL (74-106); Magnesium 2.1 mg/dL (1.8-2.4); Potassium 4.9 mmol/L (3.5-5.1); Sodium 142 mmol/L (136-145); TSH (W/Ref FT4) 0.84 uIU/mL (0.36-3.74)
--- NOTE | 2020-10-20 07:00 | DI.US_ITS ---
Exam(s) US EXTREMITY VENOUS BI EXAM: US EXTREMITY VENOUS BI CLINICAL HISTORY: bilateral leg edema and pain. TECHNIQUE: Ultrasound performed using standard protocol. COMPARISON: US US extremity venous BI from 03/20/2018 FINDINGS: Duplex venous ultrasound was performed according to the usual protocol. The deep veins are freely com pressible throughout and there is normal flow augmentation with manual calf compression. 2D and Doppl er evaluation are unremarkable. IMPRESSION: No evidence of deep venous thrombosis of the right or left lower extremity. DATA REPOSITORY:
[2020-10-20 07:20] VITALS: BP 106/65; PULSE 80; RESP 17; TEMP 36.5; O2SAT 93
[2020-10-20] MEDS: ROSUVASTATIN 20 MG TAB PO (09:32)
[2020-10-20] MEDS: Cholecalciferol (Vitamin D3) 1,000 UNIT TAB 2000 UNITS PO (09:32)
[2020-10-20] MEDS: Warfarin 4 MG TAB PO (09:32)
[2020-10-20] MEDS: Acetaminophen 325 MG TAB PO ×2 (09:32→15:59)
[2020-10-20] MEDS: Metoprolol 50 MG TAB PO ×2 (09:33→19:34)
[2020-10-20] MEDS: Magnesium Oxide 400 MG TAB PO ×2 (09:33→19:34)
[2020-10-20] MEDS: Triamcinolone 0.1% CR 80 GM TUBE TP ×2 (09:33→19:34)
[2020-10-20] MEDS: Nystatin POWDER 15 GM JAR TP ×2 (09:33→19:35)
[2020-10-20] MEDS: Valsartan 40 MG TAB PO (09:33)
[2020-10-20] MEDS: Senna TAB 1 TAB PO ×2 (09:33→19:34)
[2020-10-20] MEDS: Multivitamin w/Minerals TAB 1 TAB PO (09:33)
[2020-10-20] MEDS: Insulin Aspart 300 UNITS/3 ML PEN SC ×6 (09:34→16:58)
[2020-10-20] MEDS: Insulin NPH-Human 300 UNITS/3 ML PEN 55 UNIT SC ×2 (09:35→16:59)
--- NOTE | 2020-10-20 10:41 | PT.INIE ---
Date of service: 10/20/20 Time of Service: 10:41 PT Notes Visit Reasons: Cellulitis Physical Therapy Inpatient Initial Evaluation Date: 10/20/2020 Referring Doctor: Juan M Thompson MD PT Orders: PT CONSULT: Limited ability Precautions: Fall. Activity as tolerated. Contact precautions in place Patient Profile/Admitting Diagnosis: Elle is a 75-year-old female who presented to the ED on 10/19/2020 due to complaints of bilateral leg swelling and pain, shortness of breath with exertion, and low blood pressure. Patient is diagnosed with BLE cellulitis, skin ulcer right LE, lymphedema, prerenal azootemia, dehydration, DM with peripheral neuropathy, CHF, and generalized weakness. PMHX: Medical History?(Updated 10/19/20 @ 23:09 by Juan M Thompson) Aortic stenosis Atrial fibrillation a. Permanent on oral anticoagulation with warfarin.Bilateral leg edema Cellulitis Chronic anticoagulation Chronic heart failure with preserved ejection fraction Chronic low back pain Chronic venous insufficiency Coronary artery disease a. With single vessel LAD involvement.CPDD (calcium pyrophosphate deposition disease) Diabetes mellitus a. Insulin-dependent, poorly controlled, with hemoglobin A1c 9.5 (09/13/13).Dyspnea a. Progressive.Dyspnea on exertion History of adenomatous polyp of colon (2003) History of colonic polyps (~2011) hyperplasticHistory of positive PPD Hypercholesterolemia Hypertension Mitral regurgitation Morbid obesity Multinodular goiter Nausea NATY (obstructive sleep apnea) Pseudogout Psoriasis Pulmonary nodules Rosacea Tremor Venous stasis dermatitis Surgical History? History of Surgical Procedure a. Appendectomy. b. Bilateral tubal ligation. c. Total abdominal hysterectomy with bilateral salpingo-oophorectomy. Social History/Home Situation: Lives with in a private home with 4 steps to enter with rails on both sides but are wide apart. Reports no falls in the past 12 months. Has been in [place] for over 20 years in [facility]. Independent with all mobility ADL performance using the front wheeled walker. Equipment Owned/DME: Front-wheeled walker, standard walker Subjective: Agreeable to PT consult. States that the swelling in both her legs have limited her ability to move for over a year now. She is anxious about falling as she feels that her legs are weak and could give a anytime. Reports 3/10 bilateral leg pain. Objective: General Observation: B legs erythematous and swollen. Gage catheter in place. Obese Mental Status: Alert and oriented as to person, place, time, and purpose. Able to pay attention, focus, and respond appropriately. Pain: 3?4/10 in B legs ROM: Right Upper Extremity: Shoulder Flexion WFL. Shoulder abduction WFL. Shoulder ER/IR WFL. Elbow flexion WFL. Forearm pronation/supination WFL. Wrist flexion WFL. Opening and closing of hand WFL. Left Upper Extremity: Shoulder Flexion WFL. Shoulder abduction WFL. Shoulder ER/IR WFL. Elbow flexion WFL. Forearm pronation/supination WFL. Wrist flexion WFL. Opening and closing of hand WFL. Right Lower Extremity: Hip flexion allows about 100 degrees. Hip abduction allows about 20 degrees. Hip ER/IR WFL. Knee flexion WFL. Knee extension. Ankle dorsiflexion/eversion WFL. Ankle plantarflexion/inversion WFL. Left Lower Extremity: Hip flexion allows about 100 degrees. Hip abduction allows about 20 degrees. Hip ER/IR WFL. Knee flexion WFL. Knee extension. Ankle dorsiflexion/eversion WFL. Ankle plantarflexion/inversion WFL. Strength: Right Upper Extremity: Shoulder flexors 4-/5. Shoulder abductors 4-/5. Shoulder ER 4-/5. Shoulder IR 4-/5. Forearm pronators 4-/5. Forearm supinators 4-/5. Elbow flexors 4-/5. Elbow extensors 4-/5. Tar Heater Operator strong. Left Upper Extremity: Shoulder flexors 4-/5. Shoulder abductors 4-/5. Shoulder ER 4-/5. Shoulder IR 4-/5. Forearm pronators 4-/5. Forearm supinators 4-/5. Elbow flexors 4-/5. Elbow extensors 4-/5. Tar Heater Operator strong. Right Lower Extremity: Hip flexors 3-/5. Hip abductors 3-/5. Hip external rotators 4-/5. Hip internal rotators 4-/5. Knee flexors 4-/5. Knee extensors 4-/5. Ankle dorsiflexors/evertors 4-/5. Ankle plantarflexors/invertors 4-/5. Left Lower Extremity: Hip flexors 3-/5. Hip abductors 3-/5. Hip external rotators 4-/5. Hip internal rotators 4-/5. Knee flexors 4-/5. Knee extensors 4-/5. Ankle dorsiflexors/evertors 4-/5. Ankle plantarflexors/invertors 4-/5. Bed Mobility/Transfers: Rolling moderate assist Supine to sit minimal assist with HOB at 45 degrees Sit to stand contact-guard assist Stand to sit contact-guard assist Bed to bedside commode contact-guard assist Bedside commode to bed contact-guard assist Bed to chair contact-guard assist Gait: Patient was guided through level surface ambulation of 10 steps +1 turn +4 step backs using front wheeled walker with full weight bearing requiring minimal assist for safety with decreased estuardo and decreased step height observed. Reported 3?10 pain in both legs. Balance: Static Sitting: Normal Dynamic Sitting: Normal Static Standing: Fair Dynamic Standing: Fair Special Tests: Mobility Limitations Standardized Measure [facility] AM-PAC 6 clicks Basic Mobility Inpatient Short Form: Raw Score: 12 CMS Score: 69% deficit Informed Consent/Education: Patient was instructed in purpose of PT consult and plan of care. Agreeable to proceed with established PT POC to achieve personal goals. Assessment: Patient requires the use of front wheeled walker in order to perform mobility ADL performance due to bilateral leg pain and generalized weakness. Her activity tolerance is limited at this time due to symptoms of swelling and pain. Patient will benefit from home health PT services in order to progress mobility level using least restrictive assistive ambulatory device, assess home safety, identify additional equipment needs, and establish a functional maintenance program that will increase ability of patient to remain at home. Patient presents with clinical signs and symptoms consistent with current/admitting diagnoses that have resulted to mobility limitations, gait instability, generalized weakness, and impairment of motor control as demonstrated by the following impairment level findings: 1. Decreased strength to B LE major muscle groups 2. Impaired standing balance 3. Impaired activity tolerance 4. Limitation of joint range of motion in B hips Impairments are contributing to the following functional limitations: 1. Dependent bed mobility skills 2. Increased dependence with transfers 3. Inability to safely ambulate without assistive device and physical assistance 4. Increase completion time for mobility ADL performance 5. Increased fall risk 6. Inability to negotiate steps alone safely 7. Inability to return to prior living environment at this time Patient is assessed as a 26385 moderate complexity based on the following: History: 75-year-old female with past medical history as indicated above Examination: Demonstrable impairment in strength, balance, and mobility level with underlying impairments and functional limitations as exhibited above as well as deficit score of 69% utilizing the [facility] Mobility Inpatient Short Form Presentation: Evolving Decision Makin moderate complexity Goals: Goals X1 week 1. Supine-Sit independent 2. Sit-Supine independent 3. Sit-Stand independent 4. Stand-Sit independent 5. Bed-Chair independent 6. Chair-Bed independent 7. Independent gait on level surface with use of front wheeled walker for at least 200 feet without report of pain nor dyspnea 8. Independent stair negotiation while holding onto 1 rail for at least 5 steps without report of pain nor dyspnea 9. Independent with home exercise program 10. Good static and dynamic standing balance/tolerance Plan of Care/Treatment Plan: 1-2x/day, 7 days/week x 1 week. Plan of care has been reviewed with the PLANT PULLER providing the service under Physical Therapy direction. Initiate Physical Therapy intervention for pain management as needed, strengthening, bed mobility, transfers, gait, stairs, balance training, and use of assistive device. DISCHARGE RECOMMENDATIONS: Home when medically cleared by hospitalist. Patient will benefit from home health PT services in order to progress mobility level using least restrictive assistive ambulatory device, assess home safety, identify additional equipment needs, and establish a functional maintenance program that will increase ability of patient to remain at home. TREATMENT CODE/TIME: 03990 x 20 minutes, 9753 0 x 19 minutes beginning at 10:41 AM. Thank you for the opportunity to participate in the care of this patient. Pavithra Willingham PT, DPT, CLT [facility] [place], [place]
--- NOTE | 2020-10-20 11:10 | INITIAL_ITS ---
- If Service Date Differs Date of service: 10/20/20 Time of Service: 11:10 Care Management Initial Assess REASON FOR HOSPITALIZATION:: Cellulitis PAST MEDICAL HISTORY/PAST SURGICAL HISTORY:: Medical History. Aortic stenosis. Atrial fibrillation. a. Permanent on oral anticoagulation with warfarin. Bilateral leg edema. Cellulitis. Chronic anticoagulation. Chronic heart failure with preserved ejection fraction. Chronic low back pain. Chronic venous insufficiency. Coronary artery disease. a. With single vessel LAD involvement. CPDD (calcium pyrophosphate deposition disease). Diabetes mellitus. a. Insulin-dependent, poorly controlled, with hemoglobin A1c 9.5 (09/13/13). Dyspnea. a. Progressive. Dyspnea on exertion. History of adenomatous polyp of colon (2003). History of colonic polyps (~2011). hyperplastic. History of positive PPD. Hypercholesterolemia. Hypertension. Mitral regurgitation. Morbid obesity. Multinodular goiter. Nausea. NATY (obstructive sleep apnea). Pseudogout. Psoriasis. Pulmonary nodules. Rosacea. Tremor. Venous stasis dermatitis. Surgical History. History of Surgical Procedure. a. Appendectomy. b. Bilateral tubal ligation. c. Total abdominal hysterectomy with bilateral salpingo-oophorectomy. PREVIOUS FUNCTIONAL STATUS/SOCIAL/FAMILY SUPPORTS:: Elle resides in [place] in her own home with her , José Manuel. She has three adult children, all of whom live locally. Elle reports that her and children are all very supportive. 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 Elle reports that she uses a walker to ambulate at home and is independent with her ADLs. She no longer drives and reports that José Manuel drives her to appointments and for errands. CURRENT FUNCTIONAL STATUS:: Elle was sitting up in bed when CM met with her. She reported that she is very tired, as she has not had good rest. She stated that as soon as she starts to fall asleep, someone comes into the room. She reported that per MD, she may require IV abx, and her blood cultures are pending. CM will continue to follow. ADVANCE DIRECTIVES:: On file. José Manuel listed as agent. Has patient been provided with info about the portal/API?: Yes Did the patient sign up for the portal?: No CODE STATUS:: Full Code INSURANCE COVERAGE / FINANCIAL ISSUES:: MCR CURRENT HOME/COMMUNITY SERVICES/EQUIPMENT:: No current services. Elle uses a FWW to ambulate. PRIMARY CARE PHYSICIAN:: Jaqueline You POTENTIAL DISCHARGE NEEDS:: Evaluations for further needs, follow up appointments. PATIENT/FAMILY EDUCATION NEEDS:: Review discharge instructions regarding activity levels and medications, discussion of self care needs and goals of care. ANTICIPATED BARRIERS TO DISCHARGE:: None identified. TRANSPORTATION:: Via private vehicle by family. PLAN:: Anticipate Elle will return home once medically cleared. She will be driven home via private vehicle by her . She will follow up with her PCP and discharge plan of care. CM will continue to follow.
--- NOTE | 2020-10-20 15:25 | PT.INTREAT ---
Date of service: 10/20/20 Time of Service: 15:25 PT Notes Visit Reasons: Cellulitis Physical Therapy Inpatient Treatment Note Date: 10/20/2020 Precautions: Fall. Activity as tolerated.? Contact precautions in place. Subjective: Agreeable to going for a second walk and initiating seated level exercises this afternoon. Reports much improved pain level compared to this morning. Objective: General Observation: B legs wrapped with KASSANDRA wraps. Gage catheter in place.? Obese Mental Status: Alert and oriented as to person, place, time, and purpose. Able to pay attention, focus, and respond appropriately. Pain: 1?2/10 in B legs Bed Mobility/Transfers: Rolling minimal assist Supine to sit minimal assist with HOB at 45 degrees Sit to stand standby assist Stand to sit standby assist Bed to bedside commode standby assist Bedside commode to bed standby assist Bed to chair standby assist Gait: Patient was guided through level surface ambulation of 100 feet using front wheeled walker with full weight bearing requiring contact-guard assist for safety with increasing estuardo and increasing step height observed.? Reported 1?3/10 pain in both legs. Balance: Static Sitting: Normal Dynamic Sitting: Normal Static Standing: Fair Dynamic Standing: Fair Informed Consent/Education:? Patient was instructed in purpose of PT consult and plan of care. Agreeable to proceed with established PT POC to achieve personal goals. Assessment: Improved activity tolerance with ambulation activity with less physical assistance but with continued minimal shortness of breath. Continues to struggle with sit<> supine movement transitions. Pain and swelling continues to limit mobility performance and level of independence. Patient will benefit from home health PT services in order to progress mobility level using least restrictive assistive ambulatory device, assess home safety, identify additional equipment needs, and establish a functional maintenance program that will increase ability of patient to remain at home. DISCHARGE RECOMMENDATIONS: Home when medically cleared by hospitalist.? Patient will benefit from home health PT services in order to progress mobility level using least restrictive assistive ambulatory device, assess home safety, identify additional equipment needs, and establish a functional maintenance program that will increase ability of patient to remain at home. TREATMENT CODE/TIME: 69804 x 15 minutes, 73755 x 10 minutes beginning at 15:25 PM.
--- NOTE | 2020-10-20 15:34 | CHAPLAIN ---
Elle was up in her chair when I visited. She was very pleasant and told me about her grandchildren and their involvement in her life.
--- NOTE | 2020-10-20 15:42 | PGE_ITS ---
Date of Service Date of service: 10/20/20 Time of Service: 15:43 Assessment and Plan Assessment and plan (1) Bilateral lower leg cellulitis: Status: Suspected Assessment and plan: MRSA screening pending. blood cultures no growth. cont. Ancef. If no fever and blood cultures remain no growth, consider switching to Keflex and discharge home w/ home health and wound care through home health. Her ADL performance may hold up discharge if she needs further inpatient P.T. services once her infection is clearing. (2) Skin ulcer of right lower leg: Status: Acute Assessment and plan: Wound care dressing changes as per wound care nurse consult (3) Lymphedema: Status: Acute Assessment and plan: Recommend use of Gelacio wraps and once her skin ulcers is healed up progress to antilymphedema boots (4) Prerenal azotemia: Status: Acute Assessment and plan: improving. probably can resume home diuretics tomorrow but may need reduced dose. i.e. give aldactone either every other. continue torsemide at present home dose (5) Dehydration: Status: Acute Assessment and plan: resolving (6) Diabetes mellitus with peripheral autonomic neuropathy: Status: Chronic Assessment and plan: Continue her current scheduled NPH. Will monitor blood sugars before meals and at bedtime and give her NovoLog resistant scale for coverage of elevated blood sugars but provide additional NovoLog per carbohydrate coverage at a ratio of 1 unit per 5 g of carbohydrates. I increased her NPH to 60 units bid from her home dose of 55 bid. Her glucose has been running 155 to low 200's. Goal is for FG less than 120 mg/dL and other readings under 180. (7) Chronic heart failure with preserved ejection fraction: Status: Acute Assessment and plan: echo not done d/t lack of tech today. will obtain on Friday if she remains inpatient otherwise can get outpatient order. cont. valsartan. resume diuretics at lower dose tomorrow. (8) Generalized weakness: Status: Acute Assessment and plan: Obtain physical therapy consultation in the morning to evaluate her generalized weakness and her gait stability. Subjective Subjective Interval history since last seen: Patient still has significant bilateral leg pains although somewhat improved today compared to yesterday. she has been getting the Nucynta 50 mg q4h prn and received two doses so far today. Her legs have been wrapped w/ gelacio wraps. I have held her diuretics d/t her KENYON. She has finished her iv fluids she recieved last night. Renal function is still not back to baseline. BUN 50 and creatinine 1.4 (baseline is 35 and 1.25 to 1.3). I think tomorrow her diuretics can be restarted albeit at a lower dose. she has HFPEF and her leg edema is more due to her morbid obesity and chronic venous s tasis/lymphedema. I do not feel that all of her leg edema can be controlled w/ diuresis alone w/out causing prerenal azotemia. I think that once her skin ulcer on her right leg has healed and her cellulitis has resolved, she should be evaluated for lymphedema leg pumps and needs thigh high antilymphedema stockings. Exam Const General: cooperative, comfortable and well developed Nutritional Appearance: obese morbidly obese Orientation: alert, awake and oriented x3 Chest Chest: normal inspection of the chest Resp Effort & Inspection: normal respiratory effort and able to speak in complete sentences Auscultation: clear to auscultation bilaterally Cardio Jugular venous pressure: other (unable to asses d/t obese neck) Palpation: normal PMI Rate: regular rate Rhythm: regular rhythm Pulses: posterior tibial pulses not present and dorsalis pedis pulses not present Other: pulses were obtained by doppler per nursing GI Inspection: normal to inspection and obesity Palpation: soft Percussion: normal to percussion Auscultation: normal bowel sounds Skin General skin exam: other (unable to evaluate skin changes over her legs d/t bandages) Extrem Right lower extremity: edema Details: pitting and 2+ Left lower extremity: edema Details: pitting and 2+ Objective Last Vital Signs Temp 36.5 C 10/20/20 07:20 Pulse 80 10/20/20 07:20 Resp 17 10/20/20 07:20 BP 106/65 10/20/20 07:20 Pulse Ox 93 10/20/20 07:20 Laboratory Results - last 24 hr 10/20/20 10/20/20 10/20/20 06:25 06:25 06:25 WBC 6.46 D RBC 4.10 Hgb 12.8 Hct 40.5 MCV 98.8 H MCH 31.2 MCHC 31.6 L RDW 15.5 H Plt Count 195 MPV 8.8 Immature Gran % 0.2 Neutrophils % 67.7 Lymphocytes % 18.7 Monocytes % 10.4 Eosinophils % 2.8 Basophils % 0.2 Nucleated RBC % 0 Absolute Neutrophils 4.37 Absolute Lymphocytes 1.21 Absolute Monocytes 0.67 Absolute Eosinophils 0.18 Absolute Basophils 0.01 PT 26.2 H INR 2.7 H Sodium 142 Potassium 4.9 Chloride 105 Carbon Dioxide 32.9 H Anion Gap 4.1 BUN 50 H D Creatinine 1.4 H Estimated GFR/1.73 m2 36.76 Glucose 148 H Calcium 9.0 Magnesium 2.1 TSH 0.84
[2020-10-20] MEDS: Normal Saline 500 ML 100 ML IV (15:57)
[2020-10-20] MEDS: Normal Saline Flush 10 ML SYR (15:58)
[2020-10-20] MEDS: Docusate Sodium 100 MG CAP PO (15:59)
[2020-10-20 16:06] VITALS: BP 108/61; PULSE 75; RESP 16; TEMP 35.9; O2SAT 95
[2020-10-20 19:33] VITALS: BP 101/50; PULSE 73; RESP 18; TEMP 36.3; O2SAT 92
[2020-10-20] MEDS: Normal Saline Flush 10 ML SYR IVP (20:36)
[2020-10-21 03:34] VITALS: BP 108/57; PULSE 67; RESP 18; TEMP 36.3; O2SAT 91
[2020-10-21] MEDS: ceFAZolin 1 GM/50 ML BAG IVPB (03:43)
[2020-10-21] MEDS: Normal Saline Flush 10 ML SYR IVP (03:43)
[2020-10-21 07:15] VITALS: BP 106/72; PULSE 77; RESP 20; TEMP 36.4; O2SAT 92
[2020-10-21 07:17] LABS: Abs Immature Grans 0.02 10^3/uL (0.0-0.06); Absolute Basophil Count 0.02 10^3/uL (0.0-0.2); Absolute Eosinophil Count 0.23 10^3/uL (0.0-0.7); Absolute Lymphocyte Count 1.25 10^3/uL (1.2-3.4); Absolute Monocyte Count 0.56 10^3/uL (0.1-0.8); Absolute Neutrophil Count 4.12 10^3/uL (1.2-6.7); Basophils % 0.3; Eosinophils % 3.7; HCT 39.4 % (36.0-46.0); HGB 12.6 g/dL (11.2-15.7); Immature Grans % 0.3; Lymphocytes % 20.2; MCH 31.5 pg (27.0-33.0); MCV 98.5 fL (80-95); MPV 9.1 fL (8.0-11.0); Neutrophils % 66.5; Nucleated RBC 0 %; Platelet Count 193 10^3/uL (130-400); RDW 15.5 % (11.7-14.6); RDW-SD 55.6 fL
[2020-10-21 07:28] LABS: Anion Gap 5.9 mmol/L (3-11); BUN 53 mg/dL (7-18); C-Reactive Protein 5.08 mg/dL (0.0-0.3); CO2 30.1 mmol/L (21.0-32.0); CREATININE 1.4 mg/dL (0.55-1.02); Calcium 9.1 mg/dL (8.5-10.1); Chloride 105 mmol/L (98-107); Estimated GFR 36.76 (mL/min/1.73m2); Glucose 150 mg/dL (74-106); Sodium 141 mmol/L (136-145)
[2020-10-21 07:29] LABS: INR 2.6 (0.9-1.1); Prothrombin Time 25.1 sec (9.3-11.0)
[2020-10-21] MEDS: Senna TAB 1 TAB PO (07:40)
[2020-10-21] MEDS: Metoprolol 50 MG TAB PO (07:40)
[2020-10-21] MEDS: Valsartan 40 MG TAB PO (07:40)
[2020-10-21] MEDS: ROSUVASTATIN 20 MG TAB PO (07:40)
[2020-10-21] MEDS: Multivitamin w/Minerals TAB 1 TAB PO (07:40)
[2020-10-21] MEDS: Magnesium Oxide 400 MG TAB PO (07:40)
[2020-10-21] MEDS: Warfarin 4 MG TAB PO (07:40)
[2020-10-21] MEDS: Cholecalciferol (Vitamin D3) 1,000 UNIT TAB 2000 UNITS PO (07:40)
--- NOTE | 2020-10-21 08:25 | PTTR_ITS ---
PT Notes Visit Reasons: Cellulitis 10/21/20 SUBJECTIVE: Pt noting increased fatigue today with numbness like feeling in the bottom of her feet. She notes she was able to walk far yesterday but unsure if she will even be able to transfer to the chair today. OBJECTIVE: TRANSFERS Supine to sit: Min A Sit to stand: SBA Stand to sit: SBA GAIT Device: FWW Weight bearing: Full Assist: CGA Distance: 30'+5' Deviation: Wheel chair follow, requiring rest break, unable to walk back to her room due to fatigue. THEREX: Ankle pumps, SLR x 2. ASSESSMENT: Low energy level today and subjectively reports increase in fatigue. Pt would benefit from continued PT treatment for improvement in activity tolerance and safety with gait. PLAN: Continue current POC. Direct time: 25' Total time: 25' Rita Jain PTA Clinic location: [facility] [place], [place]
[2020-10-21] MEDS: Insulin Aspart 300 UNITS/3 ML PEN SC ×4 (08:34→12:23)
[2020-10-21] MEDS: Insulin NPH-Human 300 UNITS/3 ML PEN 55 UNIT SC (08:36)
[2020-10-21] MEDS: Triamcinolone 0.1% CR 80 GM TUBE TP (09:38)
[2020-10-21] MEDS: Nystatin POWDER 15 GM JAR TP (09:38)
--- NOTE | 2020-10-21 11:24 | DSE_ITS ---
Date of service: 10/21/20 Time of Service: 11:24 DS: Diagnosis Discharge Diagnosis (1) Bilateral lower leg cellulitis: Status: Suspected (2) Skin ulcer of right lower leg: Status: Acute (3) Lymphedema: Status: Acute (4) Prerenal azotemia: Status: Acute (5) Dehydration: Status: Acute (6) Diabetes mellitus with peripheral autonomic neuropathy: Status: Chronic (7) Chronic heart failure with preserved ejection fraction: Status: Acute (8) Generalized weakness: Status: Acute Discharge Plan Disposition Patient Disposition: HOME W/HOME HEALTH SERVICE Condition: Improving Discharge Details Reason For Visit: CELLULITIS Admit Date/Time: 10/19/20 12:59 Admit Provider: Juan M Thompson Attending Provider: Juan M Thompson Primary Care Provider: Jaqueline You [facility] Course Hospital Course: 75-year-old white female past medical history significant for diabetes mellitus type 2 requiring insulin, cellulitis, chronic kidney disease, atrial fibrillation on chronic anticoagulation with warfarin, essential hypertension, hyperlipidemia, lymphedema who presents emergency department with worsening pain and bilateral leg edema.? She denies any fever or chills or rigors.? She has had no chest pain.? She does have exertional dyspnea and has chronic heart failure with preserved ejection fraction.? Upon evaluation in the emergency department the PA who attended to her found that she had bilateral lower leg erythema and some weeping of clear fluid from a superficial ulcer over her right leg.? Patient was also found to be mildly hypotensive with a systolic blood pressure in the 90s and as low as 81 for which the patient received a bolus of saline 500 mL.? Routine labs showed a CBC with no anemia and normal white cell count 9500.? CMP demonstrated azotemia with a BUN of 63 and a creatinine 1.6.? Her baseline creatinine is around 1.4.? Her baseline BUN is around 40.? LFTs were normal and troponin was less than 0.05.? Her proBNP was mildly elevated at 572 but well below her previous value of 750 from a month ago.? Her INR was therapeutic at 2.4 her urinalysis was unremarkable.? SARS-CoV-2 PCR was negative.? Chest x-ray was read as showing subtle increased markings in the left lower lobe possible infiltrate no obvious pleural effusions.? I reviewed this x-ray myself and compared it to her prior chest x-ray dated September 23, 2020 and found that she has cardiomegaly along with increased interstitial pattern similar to her previous studies.? ER personnel obtained blood cultures and started on Rocephin and vancomycin for presumed cellulitis of her legs.? Patient is being admitted now for treatment of presumptive bilateral lower extremity cellulitis.? My impression is that this is more dependent rubor and that she has chronic venous stasis in bilateral lower extremity lymphedema. Her creatinine returned to a baseline value of 1.4 Rocephin was continued; discharged of Keflex for 5 more days. Bilateral WEI boots placed. Home health services ordered; Nursing, PT/OT, SAND MOLDER. Home Meds and New Rx's Prescriptions: New polyethylene glycol 3350 17 gram Powder In Packet 17 g PO DAILY Qty: 0 RF: 0 cephalexin 500 mg capsule 500 mg PO TID Qty: 15 RF: 0 Continued valsartan [Diovan] 40 MG tablet 1 tab PO DAILY RF: 0 sennosides [senna] 8.6 mg Tablet 17.2 mg PO BID RF: 0 acetaminophen 325 mg Tablet 650 mg PO QID PRNRF: 0 ipratropium-albuterol 0.5 mg-3 mg(2.5 mg base)/3 mL Solution For Nebulization 3 ml INHALATION TID PRNRF: 0 torsemide 20 mg tablet 40 mg PO DAILY RF: 0 triamcinolone acetonide 0.1 % cream 1 applic TOPICAL BID RF: 0 spironolactone 25 mg tablet 25 mg PO DAILY RF: 0 warfarin 4 mg tablet 4 mg PO DAILY RF: 0 magnesium oxide 400 mg (241.3 mg magnesium) Tablet 400 mg PO BID RF: 0 Novolin N NPH U-100 Insulin 100 unit/mL Suspension 55 unit SUBCUT BID RF: 0 nystatin 100,000 unit/gram Powder 1 applic TOPICAL BID RF: 0 albuterol sulfate [Proventil HFA] 90 mcg/actuation Hfa Aerosol Inhaler 2 puff INHALATION QID PRNRF: 0 multivitamin,hf-sbsx-Vn-FA-min Tablet 1 tab PO DAILY RF: 0 insulin aspart U-100 [Novolog Flexpen U-100 Insulin] 300 UNITS/3 ML insulin pen 20 - 30 unit Sub-Q 0800,1200,1700 RF: 0 metoprolol tartrate 50 MG tablet 50 mg PO BID RF: 0 rosuvastatin [Crestor] 20 MG tablet 20 mg PO DAILY RF: 0 cholecalciferol (vitamin D3) 1,000 UNITS tablet 2,000 units PO DAILY RF: 0 Discharge Instructions Instructions: Stasis Dermatitis (DC) Stand Alone Forms: Nursing Discharge Form Referrals: Jaqueline You MD [Primary Care Provider] - (call your pcp friday at [phone] for an appt in one to two weeks) Activity:: Activity as Tolerated Equipment/Supplies:: No Equipment Needed Diet:: diabetic and heart healthy Discharge Orders Discharge Orders: Discharge Order (Routine); Ordered 10/21/20 Ordered By: Manpreet Celis DS: Summary Time Spent with Patient providing and/or coordinating discharge services: Greater than 30 minutes Status at Discharge Functional status at discharge: uses cane/walker Overall status at discharge: patient is progressing back to baseline Mental Status: mental status grossly normal Speech and Movement: speech and movement normal Mood: congruent mood Affect: normal affect Exam Const General: cooperative and no acute distress Nutritional Appearance: obese Resp Effort & Inspection: normal respiratory effort Auscultation: clear to auscultation bilaterally Cardio Rate: regular rate Rhythm: regular rhythm Heart Sounds: S1 normal and S2 normal GI Palpation: soft and nontender Neuro General: no focal motor deficits and not confused Cognition: normal cognition Speech: speech normal Extrem General: other (WEI Boots with overlying KASSANDRA wraps in place bilateral lower exts.) Psych Mental Status: mental status grossly normal Speech and Movement: speech and movement normal Mood: congruent mood Affect: normal affect DS: Data Vitals/I&O Vitals and I&O: Vital Signs Temperature 36.4 C L 10/21/20 07:15 Temperature Source Tympanic 10/21/20 07:15 Pulse 77 10/21/20 07:15 Pulse Rhythm Regular 10/21/20 07:40 Pulse 70 10/19/20 13:35 Respiratory Rate 20 10/21/20 07:15 Respiratory Effort Non-Labored 10/21/20 07:40 Respiratory Depth Normal 10/21/20 07:40 Respiratory Pattern Normal 10/21/20 07:40 Blood Pressure 106/72 10/21/20 07:15 Blood Pressure Mean 61 10/19/20 13:35 Blood Pressure Position Supine 10/19/20 10:30 Pulse Oximetry 92 10/21/20 07:15 Oxygen Delivery Method Room Air 10/21/20 07:15 Oxygen Flow Rate 0 10/21/20 07:15 Pain Level 0 10/21/20 07:15 Intake & Output 10/20/20 10/20/20 10/21/20 11:59 23:59 11:59 Intake Total 900 / 1861.667 961.667 / 1861.667 190 / 190 Output Total 1500 / 1950 450 / 1950 850 / 850 Balance -600 / -88.333 511.667 / -88.333 -660 / -660 Weight 130.6 kg Intake: IV 60 / 201.667 141.667 / 201.667 70 / 70 Oral 840 / 1660 820 / 1660 120 / 120 Output: Urine 1500 / 1949 450 / 1950 850 / 850 Other: Urine Color Yellow Straw Light Lona Urine Appearance Clear Sediment Sediment Comment document wrong place Stool Size Moderate Large Stool Characteristics Hard Soft Brown Data Completed and Pending Labs on day of discharge: Labs from last 24 hours 10/21/20 10/21/20 10/21/20 06:09 06:09 06:09 WBC 6.20 RBC 4.00 Hgb 12.6 Hct 39.4 MCV 98.5 H MCH 31.5 MCHC 32.0 RDW 15.5 H Plt Count 193 MPV 9.1 Immature Gran % 0.3 Neutrophils % 66.5 Lymphocytes % 20.2 Monocytes % 9.0 Eosinophils % 3.7 Basophils % 0.3 Nucleated RBC % 0 Absolute Neutrophils 4.12 Absolute Lymphocytes 1.25 Absolute Monocytes 0.56 Absolute Eosinophils 0.23 Absolute Basophils 0.02 PT 25.1 H INR 2.6 H Sodium 141 Potassium 5.0 Chloride 105 Carbon Dioxide 30.1 Anion Gap 5.9 BUN 53 H Creatinine 1.4 H Estimated GFR/1.73 m2 36.76 Glucose 150 H Calcium 9.1 C-Reactive Protein 5.08 H Preliminary micro results at discharge 10/19/20 11:05 Blood Culture - Preliminary Blood NO GROWTH 24 HOURS 10/19/20 10:50 Blood Culture - Preliminary Blood NO GROWTH 24 HOURS PFSH Medical History Aortic stenosis Atrial fibrillation a. Permanent on oral anticoagulation with warfarin. Bilateral leg edema Cellulitis Chronic anticoagulation Chronic heart failure with preserved ejection fraction Chronic low back pain Chronic venous insufficiency Coronary artery disease a. With single vessel LAD involvement. CPDD (calcium pyrophosphate deposition disease) Diabetes mellitus a. Insulin-dependent, poorly controlled, with hemoglobin A1c 9.5 (09/13/13). Dyspnea a. Progressive. Dyspnea on exertion History of adenomatous polyp of colon (2003) History of colonic polyps (~2011) hyperplastic History of positive PPD Hypercholesterolemia Hypertension Mitral regurgitation Morbid obesity Multinodular goiter Nausea NATY (obstructive sleep apnea) Pseudogout Psoriasis Pulmonary nodules Rosacea Tremor Venous stasis dermatitis Surgical History History of Surgical Procedure a. Appendectomy. b. Bilateral tubal ligation. c. Total abdominal hysterectomy with bilateral salpingo-oophorectomy. Social History Smoking/Tobacco Use Status: Former Tobacco Use Smoking risk assessment performed?: Yes Alcohol Intake: never Drug use: Never Do you feel safe at home: Yes Do you feel safe in your relationship?: Yes
--- NOTE | 2020-10-21 11:33 | PDOC.HHF2F_ITS ---
Home Health Certification Home Health Certification: 1. Encounter Date and Reason I certify that Elle Garland was seen by Manpreet Celis MD on 10/21/20 and that I had a [id number] encounter with this patient that meets the physician face to face encounter requirements. 2. Clinical Findings Supporting Skilled Need and Homebound Status I certify that home health services are medically necessary, include either intermittent long-term and/or physical/speech therapy, and that this pa tient is homebound in that absences from the home require considerable and taxing effort and are infrequent or of short duration, or are attributable to the need to receive medical care. [X] (a) Attached documentation from encounter provides clinical findings supporting skilled need and homebound status (including what assistance patient requires to leave the home). The encounter with the patient was in whole, or in part, for the following medical condition, which is the primary reason for home health care: CELLULITIS Intermediate: Monitor LE possible cellulitis, + venous stasis dermatitis and new application of WEI boots. Physical Therapy: Eval and Tx ambulatory dysfunction, generalized LE weakness. Speech Therapy: UNDERWRITING CLERK: Assist with community / health resources Homebound: Cannot ambulate out of the home w/o assistance from another person. 3. Certification and Authentication I certify that I composed the above information based on my clinical judgement relating to this patient's medical condition and, if applicable, clinical findings communicated to me by the NPP or inpatient physician who performed the Home Health Referral. All further orders will be obtained through ____Jaqueline You (Community Based Physician - PCP)
--- NOTE | 2020-10-21 11:52 | PDOC.CMDIS ---
- If Service Date Differs Date of service: 10/21/20 Time of Service: 11:52 LACE Index Scoring Tool - Questions: Length of Stay (in days): 2 Acuity (Admit via E.D.?): Yes Comorbidities: Diabetes w/o Complication, Congestive Heart Failure E.D. Visits: 2 - Answers: Total Score: 10 Risk of Readmission: High Risk Care Management Discharge Reason for Hospitalization: Cellulitis Discharge Plan: Elle will return home with new orders for RN, PT, OT, PRODUCTION COOK. Her will drive her home via private vehicle. She reported to that she would prefer to be home, and she is medically cleared by MD. She will follow up with her PCP and discharge plan of care. She is agreeable to going home. Patient/Family Education Needs: Review discharge instructions regarding activity levels and medications, discussion of self care needs and goals of care. Services Needed at Discharge: Home Health Care Services (RN, PT, OT, PRODUCTION COOK)
--- NOTE | 2020-10-23 13:10 | INDS_ITS ---
Date of service: 10/23/20 Time of Service: 13:10 PT Notes Visit Reasons: Cellulitis Physical Therapy Inpatient Discharge Summary Date: 10/23/2020 Date of service: 10/20/2020 through 10/21/2020 This is a clinical summary of care provided on the duration of dates listed above. No charge was made in the completion of this documentation. Referring Doctor: Juan M Thompson MD PT Orders: PT CONSULT: Limited ability Precautions: Fall. Activity as tolerated.? Contact precautions in place Patient Profile/Admitting Diagnosis: Elle is a 75-year-old female who presented to the ED on 10/19/2020 due to complaints of bilateral leg swelling and pain, shortness of breath with exertion, and low blood pressure.? Patient is diagnosed with BLE cellulitis, skin ulcer right LE, lymphedema, prerenal azootemia, dehydration, DM with peripheral neuropathy, CHF, and generalized weakness. PMHX: Medical History?(Updated 10/19/20 @ 23:09 by Juan M Thompson) Aortic stenosis Atrial fibrillation a. Permanent on oral anticoagulation with warfarin.Bilateral leg edema Cellulitis Chronic anticoagulation Chronic heart failure with preserved ejection fraction Chronic low back pain Chronic venous insufficiency Coronary artery disease a. With single vessel LAD involvement.CPDD (calcium pyrophosphate deposition disease) Diabetes mellitus a. Insulin-dependent, poorly controlled, with hemoglobin A1c 9.5 (09/13/13).Dyspnea a. Progressive.Dyspnea on exertion History of adenomatous polyp of colon (2003) History of colonic polyps (~2011) hyperplasticHistory of positive PPD Hypercholesterolemia Hypertension Mitral regurgitation Morbid obesity Multinodular goiter Nausea NATY (obstructive sleep apnea) Pseudogout Psoriasis Pulmonary nodules Rosacea Tremor Venous stasis dermatitis Surgical History? History of Surgical Procedure a. Appendectomy. b. Bilateral tubal ligation. c. Total abdominal hysterectomy with bilateral salpingo-oophorectomy. Social History/Home Situation: Lives with in a private home with 4 steps to enter with rails on both sides but are wide apart.? Reports no falls in the past 12 months.? Has been in [place] for over 20 years in [facility].? Independent with all mobility ADL performance using the front wheeled walker. Equipment Owned/DME: Front-wheeled walker, standard walker Subjective: NT. See most recent RECRUITING TEAM LEAD notes. Objective: General Observation: NT. See most recent RECRUITING TEAM LEAD notes. Mental Status: NT. See most recent RECRUITING TEAM LEAD notes. Pain: NT. See most recent RECRUITING TEAM LEAD notes. ROM: Right Upper Extremity: ? Shoulder Flexion WFL. Shoulder abduction WFL. Shoulder ER/IR WFL. Elbow flexion WFL. Forearm pronation/supination WFL. Wrist flexion WFL. Opening and closing of hand WFL. Left Upper Extremity:? Shoulder Flexion WFL. Shoulder abduction WFL. Shoulder ER/IR WFL. Elbow flexion WFL. Forearm pronation/supination WFL. Wrist flexion WFL. Opening and closing of hand WFL. Right Lower Extremity: Hip flexion allows about 100 degrees. Hip abduction allows about 20 degrees. Hip ER/IR WFL. Knee flexion WFL. Knee extension. Ankle dorsiflexion/eversion WFL. Ankle plantarflexion/inversion WFL. Left Lower Extremity: Hip flexion allows about 100 degrees. Hip abduction allows about 20 degrees. Hip ER/IR WFL. Knee flexion WFL. Knee extension. Ankle dorsiflexion/eversion WFL. Ankle plantarflexion/inversion WFL. Strength: Right Upper Extremity: Shoulder flexors 4-/5. Shoulder abductors 4-/5. Shoulder ER 4-/5. Shoulder IR 4-/5. Forearm pronators 4-/5. Forearm supinators 4-/5. Elbow flexors 4-/5. Elbow extensors 4-/5. Propagation Worker strong. Left Upper Extremity: Shoulder flexors 4-/5. Shoulder abductors 4-/5. Shoulder ER 4-/5. Shoulder IR 4-/5. Forearm pronators 4-/5. Forearm supinators 4-/5. Elbow flexors 4-/5. Elbow extensors 4-/5. Propagation Worker strong. Right Lower Extremity: Hip flexors 3-/5. Hip abductors 3-/5. Hip external rotators 4-/5. Hip internal rotators 4-/5. Knee flexors 4-/5. Knee extensors 4- /5. Ankle dorsiflexors/evertors 4-/5. Ankle plantarflexors/invertors 4-/5. Left Lower Extremity: Hip flexors 3-/5. Hip abductors 3-/5. Hip external rotators 4-/5. Hip internal rotators 4-/5. Knee flexors 4-/5. Knee extensors 4- /5. Ankle dorsiflexors/evertors 4-/5. Ankle plantarflexors/invertors 4-/5. Bed Mobility/Transfers: Rolling minimal assist Supine to sit minimal assist with HOB at 45 degrees Sit to stand standby assist Stand to sit standby assist Bed to bedside standby assist Bedside commode to bed standby assist Bed to chair standby assist Gait: Patient was guided through level surface ambulation of up to 100 feet using front wheeled walker with full weight bearing requiring contact-guard assist for safety with decreased estuardo and decreased step height observed.? Reported 3?10 pain in both legs. Balance: Static Sitting: Normal Dynamic Sitting: Normal Static Standing: Fair Dynamic Standing: Fair Assessment: Patient continues to require the use of front wheeled walker in order to perform mobility ADL performance due to bilateral leg pain and generalized weakness.? Her activity tolerance is limited at this time due to symptoms of swelling and pain.? Patient will benefit from home health PT services in order to progress mobility level using least restrictive assistive ambulatory device, assess home safety, identify additional equipment needs, and establish a functional maintenance program that will increase ability of patient to remain at home. Patient continues to present with clinical signs and symptoms consistent with current/admitting diagnoses that have resulted to mobility limitations, gait instability, generalized weakness, and impairment of motor control as demonstrated by the following impairment level findings: 1.? Decreased strength to B LE major muscle groups 2.? Impaired standing balance 3.? Impaired activity tolerance 4.? Limitation of joint range of motion in B hips Impairments are continuing to contribute to the following functional limitations: 1.? Dependent bed mobility skills 2.? Increased dependence with transfers 3.? Inability to safely ambulate without assistive device and physical assistance 4.? Increase completion time for mobility ADL performance 5.? Increased fall risk 6.? Inability to negotiate steps alone safely 7.? Inability to return to prior living environment at this time Goals: Goals X1 week 1. Supine-Sit independent NOT MET 2. Sit-Supine independent NOT MET 3. Sit-Stand independent NOT MET 4. Stand-Sit independent NOT MET 5. Bed-Chair independent NOT MET 6. Chair-Bed independent NOT MET 7. Independent gait on level surface with use of front wheeled walker for at least 200 feet without report of pain nor dyspnea NOT MET 8. Independent stair negotiation while holding onto 1 rail for at least 5 steps without report of pain nor dyspnea NOT MET 9. Independent with home exercise program NOT MET 10. Good static and dynamic standing balance/tolerance NOT MET DISCHARGE RECOMMENDATIONS: Home when medically cleared by hospitalist.? Patient will benefit from home health PT services in order to progress mobility level using least restrictive assistive ambulatory device, assess home safety, identify additional equipment needs, and establish a functional maintenance program that will increase ability of patient to remain at home. TREATMENT CODE/TIME: [place] Thank you for the opportunity to participate in the care of this patient. Pavithra Willingham PT, DPT, CLT [facility] [place], [place]
== END 2020-10-21 14:01 | disposition home health service (06) ==
LOC: ER 13:20 → MS 14:16
PROVIDERS: Admitting Provider Internal Medicine; Emergency Provider Physician Assistant; PCP Family Medicine; Visit Provider Internal Medicine
DX: I87.2 Venous insufficiency (chronic) (peripheral) (principal); I89.0 Lymphedema, not elsewhere classified; E86.0 Dehydration; L97.811 Non-pressure chronic ulcer of other part of right lower leg limited to breakdown of skin; L97.821 Non-pressure chronic ulcer of other part of left lower leg limited to breakdown of skin; Z20.822 Contact with and (suspected) exposure to COVID-19; I50.32 Chronic diastolic (congestive) heart failure; R53.1 Weakness; E11.42 Type 2 diabetes mellitus with diabetic polyneuropathy; N18.9 Chronic kidney disease, unspecified; E11.22 Type 2 diabetes mellitus with diabetic chronic kidney disease; I48.91 Unspecified atrial fibrillation; Z79.01 Long term (current) use of anticoagulants; I13.0 Hypertensive heart and chronic kidney disease with heart failure and stage 1 through stage 4 chronic kidney disease, or unspecified chronic kidney disease; E78.5 Hyperlipidemia, unspecified; E66.01 Morbid (severe) obesity due to excess calories; Z68.43 Body mass index [BMI] 50.0-59.9, adult; Z79.4 Long term (current) use of insulin; N28.9 Disorder of kidney and ureter, unspecified; I95.9 Hypotension, unspecified
CPT/HCPCS: 36415; 51702; 80048; 80053; 84145; 87040; 87081; 87635; 93005; 96361; 96365; 96366; 97110; 97162; 97530; 99285; 71046; 73590; 81003; 83605; 83735; 83880; 84443; 84484; 85025; 85610; 86140; 93010; 93970; 99217; 99220; 99225; G0378; J0690

== ENCOUNTER 2021-03-05 16:05 | Outpatient (REF) | payer MEDICARE, SELFPAY ==
[2021-03-05 20:23] LABS: INR 1.7 (0.9-1.1); Prothrombin Time 17.3 sec (9.3-11.0)
[2021-03-05 20:26] LABS: Anion Gap 4.4 mmol/L (3-11); BUN 56 mg/dL (7-18); CO2 33.6 mmol/L (21.0-32.0); CREATININE 1.7 mg/dL (0.55-1.02); Calcium 9.5 mg/dL (8.5-10.1); Chloride 106 mmol/L (98-107); Estimated GFR 29.38 (mL/min/1.73m2); Glucose 143 mg/dL (74-106); Potassium 4.8 mmol/L (3.5-5.1); Sodium 144 mmol/L (136-145)
== END 2021-03-05 16:06 | disposition home or self-care (01) ==
LOC: NCHCN 16:05
PROVIDERS: PCP Family Medicine; Visit Provider Family Medicine
DX: Z79.01 Long term (current) use of anticoagulants (principal); I10 Essential (primary) hypertension; R60.0 Localized edema; I48.20 Chronic atrial fibrillation, unspecified
CPT/HCPCS: 80048; 85610

== ENCOUNTER 2021-07-10 11:07 | Inpatient (IN) | payer MEDICARE, SELFPAY ==
[2021-07-10] VITALS (57 sets, daily range): BP systolic 86–158; BP diastolic 32–138; PULSE 69–129; RESP 8–27; TEMP 36.2–37.1; O2SAT 69–100
--- NOTE | 2021-07-10 11:00 | RT.EKG_ITS ---
APPROVED REPORT Exam: Resting ECG Reason for Exam: pui Patient Location: E HR:111 bpm ECG Measurements Heart Rate 111 AXIS VA [id number] P [id number] QRSd 133 QRS -79 QT 392 T 81 QTc 532 Conclusion Atrial fibrillation...V-rate 95-134, irreg A-activity ST elevation secondary to IVCD...Multiple VCG criteria
[2021-07-10 11:43] LABS: Source Nasal/Nares
[2021-07-10 11:44] LABS: Abs Immature Grans 0.06 10^3/uL (0.0-0.06); Absolute Lymphocyte Count 0.61 10^3/uL (1.2-3.4); Absolute Monocyte Count 0.62 10^3/uL (0.1-0.8); Basophils % 0.1; HCT 42.7 % (36.0-46.0); HGB 13.3 g/dL (11.2-15.7); Immature Grans % 0.4; Lymphocytes % 4.3; MCHC 31.1 % (32.0-36.0); MCV 102.9 fL (80-95); MPV 8.9 fL (8.0-11.0); Monocytes % 4.4; Neutrophils % 90.8; Nucleated RBC 0 %; Platelet Count 187 10^3/uL (130-400); RBC 4.15 10^6/uL (3.93-5.22); RDW 15.7 % (11.7-14.6); RDW-SD 58.7 fL; WBC 14.15 10^3/uL (4.4-10.8)
[2021-07-10 11:53] LABS: Absolute Basophil Count 0.01 10^3/uL (0.0-0.2); Absolute Neutrophil Count 12.85 10^3/uL (1.2-6.7)
[2021-07-10 11:57] LABS: ALT 14 U/L (14-59); AST 18 U/L (15-37); Albumin 3.1 g/dL (3.4-5.0); Alkaline Phosphatase 79 U/L (46-116); Anion Gap 5.7 mmol/L (3-11); BUN 31 mg/dL (7-18); Bilirubin, Total 0.7 mg/dL (0.2-1.0); CO2 33.3 mmol/L (21.0-32.0); CREATININE 1.5 mg/dL (0.55-1.02); Calcium 9.5 mg/dL (8.5-10.1); Chloride 100 mmol/L (98-107); Estimated GFR 33.85 (mL/min/1.73m2); Glucose 233 mg/dL (74-106); Potassium 4.5 mmol/L (3.5-5.1); Sodium 139 mmol/L (136-145); Total Protein 8.1 g/dL (6.4-8.2)
--- NOTE | 2021-07-10 12:05 | W.ED.GENAD ---
Discharge Plan Disposition Patient Disposition: HOME Condition: Stable Discharge Details Chief Complaint: RespSymp Clinical Impression: Cellulitis, Hypoxia, Non-ST elevation [place] (NSTEMI) Primary Care Provider: Jaqueline You ED Provider: Rigo Shaver Home Meds and New Rx's Prescriptions: No Action valsartan [Diovan] 40 MG tablet 1 tab PO DAILY RF: 0 sennosides [senna] 8.6 mg Tablet 17.2 mg PO BID RF: 0 acetaminophen 325 mg Tablet 650 mg PO QID PRNRF: 0 ipratropium-albuterol 0.5 mg-3 mg(2.5 mg base)/3 mL Solution For Nebulization 3 ml INHALATION TID PRNRF: 0 torsemide 20 mg tablet 40 mg PO DAILY RF: 0 triamcinolone acetonide 0.1 % cream 1 applic TOPICAL BID RF: 0 spironolactone 25 mg tablet 25 mg PO DAILY RF: 0 warfarin 4 mg tablet 4 mg PO DAILY RF: 0 magnesium oxide 400 mg (241.3 mg magnesium) Tablet 400 mg PO BID RF: 0 Novolin N NPH U-100 Insulin 100 unit/mL Suspension 55 unit SUBCUT BID RF: 0 nystatin 100,000 unit/gram Powder 1 applic TOPICAL BID RF: 0 albuterol sulfate [Proventil HFA] 90 mcg/actuation Hfa Aerosol Inhaler 2 puff INHALATION QID PRNRF: 0 multivitamin,yp-reou-Yv-FA-min Tablet 1 tab PO DAILY RF: 0 insulin aspart U-100 [Novolog Flexpen U-100 Insulin] 300 UNITS/3 ML insulin pen 20 - 30 unit Sub-Q 0800,1200,1700 RF: 0 polyethylene glycol 3350 17 gram Powder In Packet 17 g PO DAILY Qty: 0 RF: 0 cephalexin 500 mg capsule 500 mg PO TID Qty: 15 RF: 0 metoprolol tartrate 50 MG tablet 50 mg PO BID RF: 0 rosuvastatin [Crestor] 20 MG tablet 20 mg PO DAILY RF: 0 cholecalciferol (vitamin D3) 1,000 UNITS tablet 2,000 units PO DAILY RF: 0 Medical Decision Making 1225 --76-year-old female with mild medical problems including history of coronary artery disease, A. fib on Coumadin, insulin dependent diabetes, here with shortness of breath and dyspnea on exertion. Patient had significant difficulty transitioning from wheelchair to bed and became hypoxic and severely short of breath prompting a rapid response. Nonrebreather supplemental oxygen was applied and hypoxia resolved and mentation improved. Patient denies recent cough. Concern for CHF and ACS. EKG was reviewed and interpreted by me: Please see report, Amanda. fib with RVR [address] [place] beats per minute, left bundle branch block, left bundle infection on prior EKG 10-19-20. Initial labs reviewed and elevated troponin noted. Concern for potential NSTEMI demand ischemia. Consider acute pulmonary embolism. Plan to obtain CT of the chest. Patient has questionable history of COPD and is prescribed albuterol. She was given Solu-Medrol 125 mg IV. 1320 --CT of the chest was interpreted by radiology: Study is limited secondary to motion artifact and suboptimal, unable to visualize peripheral vessels, no central PE, groundglass opacity noted which may be secondary to poor inspiration. INR and lactate pending. I spoke with the patient's who notes that she is fairly immobile at home. He notes that she has had pain in her left leg with increased inflammation recently. He states that she intermittently uses oxygen at home and has had to use oxygen recently for SOB. --Ultrasound of the left lower extremity was interpreted by radiology: No DVT. Additional labs resulted including INR of 2.6, WBC 14 and lactate of 2.4. Will treat for LLE cellulitis with cefazolin. I called [facility] and [facility] accept transfer. Troponin stable elevated. I called and spoke with Dr. Celis, on-call hospitalist, discussed ED presentation and course, he will admit the patient. HPI General Mode of arrival: ambulatory. Date/Time Provider Initiated Documentation: 07/10/21 11:13. Limitations to Documentation: other (acuity of condition). Information obtained by: patient. HPI Narrative: 76-year-old female with multiple medical problems including history of atrial fibrillation, diabetes, hypertension, hypercholesterolemia, morbid obesity, coronary artery disease, CHF, COPD, aortic stenosis, here with chief complaint of shortness of breath. Patient notes worsening shortness of breath over the past 2 days. Symptoms are severe and now constant. Symptoms are worse with exertion. No associated chest pain. She does note some pain in her right lower leg. History review of systems limited secondary to acuity of condition and respiratory distress. Related Data Home Medications Medication Instructions Recorded Confirmed valsartan [Diovan] 1 tab PO DAILY 10/17/13 07/10/21 cholecalciferol (vitamin D3) 2,000 units PO DAILY 04/04/17 07/10/21 metoprolol tartrate 50 mg PO BID 04/04/17 07/10/21 rosuvastatin [Crestor] 20 mg PO DAILY 04/04/17 07/10/21 Novolin N NPH U-100 Insulin 55 unit SUBCUT BID 10/19/20 10/19/20 acetaminophen 650 mg PO QID PRN 10/19/20 10/19/20 albuterol sulfate [Proventil HFA] 2 puff INHALATION QID PRN 10/19/20 10/19/20 insulin aspart U-100 [Novolog 20 - 30 unit SUB-Q 0800,1200,1700 10/19/20 07/10/21 Flexpen U-100 Insulin] ipratropium-albuterol 3 ml INHALATION TID PRN 10/19/20 07/10/21 magnesium oxide 400 mg PO BID 10/19/20 07/10/21 multivitamin,fg-fhkj-Kw-FA-min 1 tab PO DAILY 10/19/20 07/10/21 nystatin 1 applic TOPICAL BID 10/19/20 07/10/21 sennosides [senna] 17.2 mg PO BID 10/19/20 07/10/21 spironolactone 25 mg PO DAILY 10/19/20 07/10/21 torsemide 40 mg PO DAILY 10/19/20 07/10/21 triamcinolone acetonide 1 applic TOPICAL BID 10/19/20 07/10/21 warfarin 4 mg PO DAILY 10/19/20 07/10/21 cephalexin 500 mg PO TID #15 cap 10/21/20 polyethylene glycol 3350 17 g PO DAILY #0 ea 10/21/20 07/10/21 Previous Rx's Medication Instructions Recorded cephalexin 500 mg PO TID #15 cap 10/21/20 polyethylene glycol 3350 17 g PO DAILY #0 ea 10/21/20 Allergies Allergy/AdvReac Type Severity Reaction Status Date / Time atenolol Allergy Intermediate Wheezing Verified 10/19/20 10:36 metformin HCl Allergy Mild Verified 10/19/20 10:36 [From Glucophage] lisinopril AdvReac Mild cough Verified 10/19/20 10:36 losartan potassium AdvReac Mild back pain Verified 10/19/20 10:39 [From Cozaar] rosiglitazone maleate AdvReac Mild Swelling/Ed Verified 10/19/20 10:36 [From Avandia] doni Sulfa (Sulfonamide AdvReac Mild Skin Rash Verified 10/19/20 10:36 Antibiotics) ketorolac [From Toradol] AdvReac Verified 10/19/20 10:36 pioglitazone [From Actos] AdvReac Verified 10/19/20 10:36 glucophage Allergy Mild Diarrhea Uncoded 10/19/20 10:36 General Stated Complaint: RespSymp MONICA: 2 Review of Systems Unobtainable due to (Limited secondary to acuity of condition) Constitutional Constitutional: Denies fever(s) Cardiovascular Cardiovascular: Denies chest pain and Denies syncope Respiratory Respiratory: Reports as per HPI Gastrointestinal Gastrointestinal: Denies abdominal pain Neurologic Neurologic: Denies syncope PFSH All Active Problems Cellulitis (Acute) Hypotension (Acute) Hypoxia (Acute) Non-ST elevation [place] (NSTEMI) (Acute) Lymphedema (Acute) Skin ulcer of right lower leg (Acute) Generalized weakness (Acute) Chronic heart failure with preserved ejection fraction (Acute) Dehydration (Acute) Prerenal azotemia (Acute) Encounter for wound care (Acute) Discharge planning issues (Acute) Diabetes mellitus with peripheral autonomic neuropathy (Chronic) Onychomycosis of foot with other complication (Chronic) Cellulitis and abscess of lower extremity (Acute) Anticoagulation excessive (Acute) Chronic venous insufficiency (Acute) NATY (obstructive sleep apnea) (Chronic) Lower extremity pain (Acute) DVT prophylaxis (Acute) Dyspnea (Chronic) a. Progressive. Atrial fibrillation (Chronic) a. Permanent on oral anticoagulation with warfarin. Diabetes mellitus (Chronic) a. Insulin-dependent, poorly controlled, with hemoglobin A1c 9.5 (09/13/13). Hypertension (Chronic) Hypercholesterolemia (Chronic) Multinodular goiter (Chronic) Morbid obesity (Chronic) Coronary artery disease (Chronic) a. With single vessel LAD involvement. H/O cardiac catheterization (Chronic) a. [facility], 2002. Pseudogout (Chronic) Psoriasis (Chronic) History of Surgical Procedure (Chronic) a. Appendectomy. b. Bilateral tubal ligation. c. Total abdominal hysterectomy with bilateral salpingo-oophorectomy. Medical History Aortic stenosis Bilateral leg edema Cellulitis Chronic anticoagulation Chronic low back pain CPDD (calcium pyrophosphate deposition disease) Dyspnea on exertion History of adenomatous polyp of colon (2003) History of colonic polyps (~2011) hyperplastic History of positive PPD Mitral regurgitation Nausea Pulmonary nodules Rosacea Tremor Venous stasis dermatitis Social History Smoking/Tobacco Use Status: Former Tobacco Use Smoking risk assessment performed?: Yes Alcohol Intake: never Drug use: Never Substance use type: does not use Do you feel safe at home: Yes Do you feel safe in your relationship?: Yes Exam Const General: cooperative, not healthy appearing and in distress respiratory Nutritional Appearance: obese Orientation: alert and awake HENMT Mouth: moist mucous membranes Eyes EOM: EOM intact bilaterally Neck Neck: trachea midline and supple Resp Effort & Inspection: respiratory distress and tachypneic Auscultation: clear to auscultation bilaterally (Anteriorly), no rales, no rhonchi and no wheezes Cardio Rate: tachycardic Rhythm: regular rhythm Pulses: dorsalis pedis present bilaterally 2+ GI Palpation: soft, not firm, no guarding, no masses, not rigid and nontender Skin General skin exam: no rashes or lesions noted Neuro General: patient alert, patient awake, patient oriented x3 and tone normal Extrem General: calf tenderness bilaterally and edema Laterality: bilateral (L>R) Psych Appearance: grossly normal Mental Status: mental status grossly normal Speech and Movement: speech and movement normal Course Vital Signs Vital signs: Vital Signs Temperature 37.1 C 07/10/21 11:16 Pulse 124 H 07/10/21 11:16 Respiratory Rate 20 07/10/21 11:16 Blood Pressure 158/98 H 07/10/21 11:16 Pulse Oximetry 81 L 07/10/21 11:16 Temperature 37.1 C 07/10/21 11:16 Temperature Source Temporal Artery Scan 07/10/21 11:16 Pulse 127 H 07/10/21 11:31 Pulse 99 H 07/10/21 11:31 Respiratory Rate 21 07/10/21 11:31 Respiratory Effort 07/10/21 11:24 Respiratory Depth Normal 07/10/21 11:24 Blood Pressure 126/89 07/10/21 11:31 Blood Pressure Mean 96 07/10/21 11:31 Blood Pressure Position Sitting 07/10/21 11:16 Pulse Oximetry 69 L 07/10/21 11:41 Oxygen Delivery Method Room Air 07/10/21 11:41 Oxygen Flow Rate 0 07/10/21 11:41 Lab/Test Results Lab/Test Results: Laboratory Tests Range/Units 07/10/21 07/10/21 07/10/21 11:25 11:25 11:33 WBC (4.4-10.8) 10^3/uL 14.15 H RBC (3.93-5.22) 10^6/uL 4.15 Hgb (11.2-15.7) g/dL 13.3 Hct (36.0-46.0) % 42.7 MCV (80-95) fL 102.9 H MCH (27.0-33.0) pg 32.0 MCHC (32.0-36.0) % 31.1 L RDW (11.7-14.6) % 15.7 H Plt Count (130-400) 10^3/uL 187 MPV (8.0-11.0) fL 8.9 Immature Gran % 0.4 Neutrophils % 90.8 Lymphocytes % 4.3 Monocytes % 4.4 Eosinophils % 0.0 Basophils % 0.1 Nucleated RBC % % 0 Absolute Neutrophils (1.2-6.7) 10^3/uL 12.85 H Absolute Lymphocytes (1.2-3.4) 10^3/uL 0.61 L Absolute Monocytes (0.1-0.8) 10^3/uL 0.62 Absolute Eosinophils (0.0-0.7) 10^3/uL 0.00 Absolute Basophils (0.0-0.2) 10^3/uL 0.01 Sodium (136-145) mmol/L 139 Potassium (3.5-5.1) mmol/L 4.5 Chloride (98-107) mmol/L 100 Carbon Dioxide (21.0-32.0) mmol/L 33.3 H Anion Gap (3-11) mmol/L 5.7 BUN (7-18) mg/dL 31 H Creatinine (0.55-1.02) mg/dL 1.5 H Estimated GFR/1.73 m2 (mL/min/1.73m2) 33.85 Glucose (74-106) mg/dL 233 H Calcium (8.5-10.1) mg/dL 9.5 Total Bilirubin (0.2-1.0) mg/dL 0.7 AST (15-37) U/L 18 ALT (14-59) U/L 14 Alkaline Phosphatase (46-116) U/L 79 Total Protein (6.4-8.2) g/dL 8.1 Albumin (3.4-5.0) g/dL 3.1 L COVID-19 Source Nasal/Nares
[2021-07-10 12:06] LABS: NT-proBNP 2679 pg/mL (<300)
[2021-07-10 12:08] LABS: Troponin I 125 ng/L (<or=60)
[2021-07-10 12:19] LABS: D-Dimer 209 ng/mlFEU (<500)
[2021-07-10 12:29] LABS: COVID-19 PCR Negative (Negative); Influenza A PCR Negative (Negative); Influenza B PCR Negative (Negative); RSV PCR Negative (Negative)
--- NOTE | 2021-07-10 12:50 | DI.CT_ITS ---
Exam(s) CT CHEST PE CTA EXAM: CT CHEST PE CTA CLINICAL HISTORY: shortness of breath. TECHNIQUE: Imaging Protocol: Axial CT angiography was performed with multi-slice acquisition and mu lti-planar and/or 3D reconstructions. CONTRAST MATERIAL: Intravenous: Omnipaque 350 Contrast volume:52 COMPARISON: CT CHEST WITHOUT CONTRAST from 10/17/2013 FINDINGS: The examination is limited due to patient motion artifact. There are low lung volumes. Tracheobronchial tree: Patent where visualized. Pulmonary parenchyma: Examination is limited due to low lung volumes and patient motion. There are f ew peripheral areas of ground-glass opacity present. While this may be due to the artifact previousl y mentioned, infection cannot be excluded. No architectural distortion. Pulmonary Arteries: Peripheral pulmonary artery evaluation is indeterminate due to the above-mentione d limitations. There is no evidence of a pulmonary embolus in the main or right or left pulmonary ar teries. Mediastinum and Madhavi: There is an enlarged pretracheal lymph node measuring 1.6 cm. The esophagus is unremarkable. Visualized thyroid gland: Unremarkable. Pleura: No effusion or pneumothorax. Heart: Cardiomegaly. Coronary artery calcifications are present. No pericardial effusion. Aorta: Thoracic aorta non-dilated. No evidence of dissection. Atherosclerosis. Upper abdomen: Unremarkable. Soft tissues: Unremarkable. Bones: Within normal limits for the patient's age. IMPRESSION: 1. Examination is significantly limited due to low lung volumes and patient motion artifact. 2. No evidence of a central pulmonary embolus. The peripheral pulmonary arteries could not be evalua maryellen due to patient motion and low lung volumes. 3. A few peripheral ground-glass opacities are present. Infection cannot be excluded. Please correl ate clinically. 4. Results of this exam have been verbally communicated with provider. RADIATION DOSE DELIVERED: 609.28mGy.cm Total DLP DATA REPOSITORY: All CT scans at this facility are submitted to the National Radiology Data Registry (NRDR) Dose Index Registry (DIR) with the [employer] ([employer]). RADIATION OPTIMIZATION: All CT scans at this facility use at least one of these dose optimization te chniques: automated exposure control; mA and/or kV adjustment per patient size (includes targeted exa ms where dose is matched to clinical indication); or iterative reconstruction.
[2021-07-10] MEDS: methylPREDNISolone SUCC 125 MG VIAL IVP (12:57)
[2021-07-10] MEDS: Normal Saline 1,000 ML 125 ML IV (12:57)
--- NOTE | 2021-07-10 13:00 | DI.US_ITS ---
Exam(s) US LOWER EXTREMITY VENOUS LT EXAM: US LOWER EXTREMITY VENOUS LT CLINICAL HISTORY: pain, swelling TECHNIQUE: Left lower extremity venous ultrasound performed using grayscale, color-flow, and spectra l Doppler analysis. COMPARISON: No exams were available for comparison FINDINGS: The left common femoral, femoral and popliteal veins demonstrate normal compressibility, augmentation , and color Doppler. The posterior tibial veins are patent. The saphenofemoral junction is unremarka ble. There is no evidence of a Milian cyst. The soft tissues are unremarkable. IMPRESSION: No DVT. DATA REPOSITORY:
[2021-07-10 13:03] LABS: INR 2.6 (0.9-1.1); Prothrombin Time 25.4 sec (9.3-11.0)
[2021-07-10 13:44] LABS: Lactate 2.4 mmol/L (0.6-1.4)
[2021-07-10] MEDS: Omnipaque 350 MG/ML 100 ML BTL IJ (14:05)
[2021-07-10] MEDS: Lactated Ringers 500 ML IV (14:22)
[2021-07-10] MEDS: ceFAZolin 2 GM/50 ML BAG IVPB (14:35)
[2021-07-10 15:08] LABS: Troponin I 133 ng/L (<or=60)
[2021-07-10 15:58] LABS: Bilirubin Negative (Negative); Blood Trace-lysed (Negative); Clarity Sl Cloudy (Clear); Glucose Negative (Negative); Ketones Negative (Negative); Leukocyte Esterase Negative (Negative); Nitrite Negative (Negative); Urobilinogen 0.2 EU/dL (Up TO 0.2)
[2021-07-10] MEDS: Acetaminophen 500 MG TAB (16:00)
[2021-07-10 16:06] LABS: Bacteria Many HPF (Negative); C & S Indicated? Yes; Crystals Negative HPF (Negative); Epithelial Cells Moderate HPF (Negative); Mucus Negative (Negative); WBC 0-2 HPF (0-5)
--- NOTE | 2021-07-10 17:41 | W.PM.HP.N ---
Date of service: 07/10/21 Time of Service: 17:42 Assessment and Plan Assessment and plan (1) Troponin level elevated: Status: Acute Assessment and plan: Mild elevations; flat. Likely related to respiratory distress / hypoxia. (2) Lymphedema: Status: Acute Assessment and plan: Chronic. Combined with venous insufficiency, she has chronic venous stasis changes. I am not clear that she has cellulitis. (3) Chronic heart failure with preserved ejection fraction: Status: Acute Assessment and plan: Last echo in our chart was in 2018. Echocardiogram ordered. Cont home torsemide and spironolactone. D/T low BP; holding off on IV diuretic at this time. (4) Diabetes mellitus with peripheral autonomic neuropathy: Status: Chronic Assessment and plan: Cont NPH BID and insulin with meals; ordered dosages in the low end of her home range of doses. Diabetic diet. ACHS glucose monitoring. (5) Chronic venous insufficiency: Status: Acute Assessment and plan: See above. (6) DVT prophylaxis: Status: Acute Assessment and plan: On Coumadin (7) Pneumonia, community acquired: Status: Resolved Assessment and plan: Presumptive diagnosis. POssible infiltrates on CT. Elevated WBC count. Resp distress. Does deny cough/sputum Rocephin initiated. (8) Atrial fibrillation: Status: Chronic Assessment and plan: Cont metoprolol as BP allows. Coumadin for AC. Telemetry. (9) Morbid obesity: Status: Chronic (10) Coronary artery disease: Status: Chronic Assessment and plan: No current angina. Cont BB as BP allows/tolertes. Not on ASA. Is on coumadin. Cont statin (HLD) History of Present Illness History of Present Illness Chief Complaint: Shortness of breath. Narrative: This is a 76 yo female with a PMH of morbid obesity, DM2/insulin requiring, atrial fibrillation, HTN, HLD, CAD, CHF, COPD, aortic stenosis. She presented with c/o shortness of breath that has progressed for appx 2 days. She does use supplemental O2 at home intermittently. She also c/o pain in her left lower leg; achey. Initially in the ED a rapid response was called d/t SOA when transferring from wheelchair to bed. A nonrebreather was placed briefly but her hypoxia improved and she, from there forward, required supplemental O2 via NC. EKG showed afib with HR of 100 / LBBB. US of LLE neg for DVT. CT chest w/o central pulmonary emboli; peripheral vessels not well visualized. + small areas of bilateral ground glass appearance possibly d/t atelectasis; PNA cannot be ruled out. COVID neg. WBC count 14.15. Lytes normal. Creatinine 1.5 which is her baseline. Troponin 125 > 133 >135. She was given a 500L LR bolus in the ED. IV maintainance fluids initiated, but stopped once she was evaluated on the med-surg unit. There was a question of cellulitis of the LLE and a dose of cefazolin given in the ED. She denied CP/palpitations. No F/C. No cough/sputum. No dysuria. No trauma to the LLE. ED physician spoke with [facility] cardiology; they had no capacity for transfer. Accepted on the hospitalist service for admission here. PFSH All Active Problems Troponin level elevated (Acute) Cellulitis (Acute) Hypotension (Acute) Hypoxia (Acute) Non-ST elevation [place] (NSTEMI) (Acute) Lymphedema (Acute) Skin ulcer of right lower leg (Acute) Generalized weakness (Acute) Chronic heart failure with preserved ejection fraction (Acute) Dehydration (Acute) Prerenal azotemia (Acute) Encounter for wound care (Acute) Discharge planning issues (Acute) Diabetes mellitus with peripheral autonomic neuropathy (Chronic) Onychomycosis of foot with other complication (Chronic) Cellulitis and abscess of lower extremity (Acute) Anticoagulation excessive (Acute) Chronic venous insufficiency (Acute) NATY (obstructive sleep apnea) (Chronic) Lower extremity pain (Acute) DVT prophylaxis (Acute) Dyspnea (Chronic) a. Progressive. Atrial fibrillation (Chronic) a. Permanent on oral anticoagulation with warfarin. Diabetes mellitus (Chronic) a. Insulin-dependent, poorly controlled, with hemoglobin A1c 9.5 (09/13/13). Hypertension (Chronic) Hypercholesterolemia (Chronic) Multinodular goiter (Chronic) Morbid obesity (Chronic) Coronary artery disease (Chronic) a. With single vessel LAD involvement. H/O cardiac catheterization (Chronic) a. [facility], 2002. Pseudogout (Chronic) Psoriasis (Chronic) History of Surgical Procedure (Chronic) a. Appendectomy. b. Bilateral tubal ligation. c. Total abdominal hysterectomy with bilateral salpingo-oophorectomy. Medical History Aortic stenosis Bilateral leg edema Cellulitis Chronic anticoagulation Chronic low back pain CPDD (calcium pyrophosphate deposition disease) Dyspnea on exertion History of adenomatous polyp of colon (2003) History of colonic polyps (~2011) hyperplastic History of positive PPD Mitral regurgitation Nausea Pulmonary nodules Rosacea Tremor Venous stasis dermatitis Social History Smoking/Tobacco Use Status: Former Tobacco Use Smoking risk assessment performed?: Yes Alcohol Intake: never Drug use: Never Substance use type: does not use Do you feel safe at home: Yes Do you feel safe in your relationship?: Yes Meds Allergies and Home Medications Allergies Allergy/AdvReac Type Severity Reaction Status Date / Time atenolol Allergy Intermediate Wheezing Verified 10/19/20 10:36 metformin HCl Allergy Mild Verified 10/19/20 10:36 [From Glucophage] lisinopril AdvReac Mild cough Verified 10/19/20 10:36 losartan potassium AdvReac Mild back pain Verified 10/19/20 10:39 [From Cozaar] rosiglitazone maleate AdvReac Mild Swelling/Ed Verified 10/19/20 10:36 [From Avandia] doni Sulfa (Sulfonamide AdvReac Mild Skin Rash Verified 10/19/20 10:36 Antibiotics) ketorolac [From Toradol] AdvReac Verified 10/19/20 10:36 pioglitazone [From Actos] AdvReac Verified 10/19/20 10:36 glucophage Allergy Mild Diarrhea Uncoded 10/19/20 10:36 Home Medications Medication Instructions Recorded Confirmed Type valsartan [Diovan] 1 tab PO DAILY 10/17/13 07/10/21 History cholecalciferol (vitamin D3) 2,000 units PO DAILY 04/04/17 07/10/21 History metoprolol tartrate 50 mg PO BID 04/04/17 07/10/21 History rosuvastatin [Crestor] 20 mg PO DAILY 04/04/17 07/10/21 History Novolin N NPH U-100 Insulin 55 unit SUBCUT BID 10/19/20 10/19/20 History acetaminophen 650 mg PO QID PRN 10/19/20 10/19/20 History albuterol sulfate [Proventil HFA] 2 puff INHALATION QID PRN 10/19/20 10/19/20 History insulin aspart U-100 [Novolog 20 - 30 unit SUB-Q 0800,1200,1700 10/19/20 07/10/21 History Flexpen U-100 Insulin] ipratropium-albuterol 3 ml INHALATION TID PRN 10/19/20 07/10/21 History magnesium oxide 400 mg PO BID 10/19/20 07/10/21 History multivitamin,oe-akjk-Cd-FA-min 1 tab PO DAILY 10/19/20 07/10/21 History nystatin 1 applic TOPICAL BID 10/19/20 07/10/21 History sennosides [senna] 17.2 mg PO BID 10/19/20 07/10/21 History spironolactone 25 mg PO DAILY 10/19/20 07/10/21 History torsemide 40 mg PO DAILY 10/19/20 07/10/21 History triamcinolone acetonide 1 applic TOPICAL BID 10/19/20 07/10/21 History warfarin 4 mg PO DAILY 10/19/20 07/10/21 History cephalexin 500 mg PO TID #15 cap 10/21/20 Rx polyethylene glycol 3350 17 g PO DAILY #0 ea 10/21/20 07/10/21 Rx Exam Narrative Exam Narrative: Morbidly obese female lying supine. NAD / normal work of breathing. Const General: cooperative Nutritional Appearance: obese Orientation: alert and oriented x3 Eyes General: appearance normal, both eyes and all related structures Sclera: sclerae normal Neck Neck: full ROM and other (large girth; difficult to assess JVD) Resp Effort & Inspection: normal respiratory effort Auscultation: clear to auscultation bilaterally and diminished lung sounds Cardio Rate: tachycardic Rhythm: abnormal rhythm irregularly irregular GI Inspection: obesity Palpation: soft and nontender Auscultation: hypoactive bowel sounds Skin Full body images: 1. Brawny skin color discoloration. No weeping, discharge. Calf size equal bilaterally. + BLE edema. Neuro General: moves all extremities Cranial Nerves: facial strength normal Speech: speech normal Psych Mental Status: mental status grossly normal Speech and Movement: speech clear Affect: normal affect Results Labs Result diagrams: 07/11/21 07:05 07/11/21 07:05 Labs: Laboratory Results - last 24 hr 07/10/21 07/10/21 07/10/21 11:25 11:25 11:25 WBC RBC Hgb Hct MCV MCH MCHC RDW Plt Count MPV Immature Gran % Neutrophils % Lymphocytes % Monocytes % Eosinophils % Basophils % Nucleated RBC % Absolute Neutrophils Absolute Lymphocytes Absolute Monocytes Absolute Eosinophils Absolute Basophils PT 25.4 H INR 2.6 H D-Dimer 209 VBG Lactate Sodium 139 Potassium 4.5 Chloride 100 Carbon Dioxide 33.3 H Anion Gap 5.7 BUN 31 H Creatinine 1.5 H Estimated GFR/1.73 m2 33.85 Glucose 233 H Calcium 9.5 Total Bilirubin 0.7 AST 18 ALT 14 Alkaline Phosphatase 79 Troponin I 125 H* NT-Pro-B Natriuret Pep 2679 H Total Protein 8.1 Albumin 3.1 L Urine Color Urine Clarity Urine pH Ur Specific [place] Urine Protein Urine Ketones Urine Blood Urine Nitrite Urine Bilirubin Urine Urobilinogen Ur Leukocyte Esterase Urine RBC Urine WBC Ur Epithelial Cells Urine Crystals Urine Bacteria Urine Mucus Ur Culture Indicated? Urine Glucose COVID-19 Source SARS-CoV-2 (PCR) Influenza Type A (PCR) Influenza Type B (PCR) RSV (PCR) 07/10/21 07/10/21 07/10/21 11:25 11:33 13:30 WBC 14.15 H RBC 4.15 Hgb 13.3 Hct 42.7 MCV 102.9 H MCH 32.0 MCHC 31.1 L RDW 15.7 H Plt Count 187 MPV 8.9 Immature Gran % 0.4 Neutrophils % 90.8 Lymphocytes % 4.3 Monocytes % 4.4 Eosinophils % 0.0 Basophils % 0.1 Nucleated RBC % 0 Absolute Neutrophils 12.85 H Absolute Lymphocytes 0.61 L Absolute Monocytes 0.62 Absolute Eosinophils 0.00 Absolute Basophils 0.01 PT INR D-Dimer VBG Lactate 2.4 H* Sodium Potassium Chloride Carbon Dioxide Anion Gap BUN Creatinine Estimated GFR/1.73 m2 Glucose Calcium Total Bilirubin AST ALT Alkaline Phosphatase Troponin I NT-Pro-B Natriuret Pep Total Protein Albumin Urine Color Urine Clarity Urine pH Ur Specific [place] Urine Protein Urine Ketones Urine Blood Urine Nitrite Urine Bilirubin Urine Urobilinogen Ur Leukocyte Esterase Urine RBC Urine WBC Ur Epithelial Cells Urine Crystals Urine Bacteria Urine Mucus Ur Culture Indicated? Urine Glucose COVID-19 Source Nasal/Nares SARS-CoV-2 (PCR) Negative Influenza Type A (PCR) Negative Influenza Type B (PCR) Negative RSV (PCR) Negative 07/10/21 07/10/21 14:30 15:55 WBC RBC Hgb Hct MCV MCH MCHC RDW Plt Count MPV Immature Gran % Neutrophils % Lymphocytes % Monocytes % Eosinophils % Basophils % Nucleated RBC % Absolute Neutrophils Absolute Lymphocytes Absolute Monocytes Absolute Eosinophils Absolute Basophils PT INR D-Dimer VBG Lactate Sodium Potassium Chloride Carbon Dioxide Anion Gap BUN Creatinine Estimated GFR/1.73 m2 Glucose Calcium Total Bilirubin AST ALT Alkaline Phosphatase Troponin I 133 H* NT-Pro-B Natriuret Pep Total Protein Albumin Urine Color Yellow Urine Clarity Sl Cloudy Urine pH 7.0 Ur Specific [place] 1.020 Urine Protein 100 H Urine Ketones Negative Urine Blood Trace-lysed H Urine Nitrite Negative Urine Bilirubin Negative Urine Urobilinogen 0.2 Ur Leukocyte Esterase Negative Urine RBC 3-5 H Urine WBC 0-2 Ur Epithelial Cells Moderate Urine Crystals Negative Urine Bacteria Many Urine Mucus Negative Ur Culture Indicated? Yes Urine Glucose Negative COVID-19 Source SARS-CoV-2 (PCR) Influenza Type A (PCR) Influenza Type B (PCR) RSV (PCR) Last Vital Signs Temp 37.1 C 07/10/21 11:16 Pulse 80 07/10/21 16:31 Resp 16 07/10/21 16:31 BP 91/55 L 07/10/21 16:31 Pulse Ox 100 07/10/21 16:31
[2021-07-10 17:52] LABS: Troponin I 135 ng/L (<or=60)
[2021-07-10] MEDS: Acetaminophen 325 MG TAB PO (18:42)
[2021-07-10] MEDS: cefTRIAXone 1 GM/50 ML BAG IVPB (18:53)
[2021-07-10] MEDS: Normal Saline Flush 10 ML SYR IVP (18:53)
[2021-07-10] MEDS: Insulin Aspart 300 UNITS/3 ML PEN 20 UNITS SC (20:16)
[2021-07-10] MEDS: Insulin NPH-Human 300 UNITS/3 ML PEN 50 UNIT SC (20:17)
[2021-07-10] MEDS: Senna TAB 2 TAB PO (20:17)
[2021-07-10] MEDS: Albuterol/Ipratropium 3 ML UPD VIAL UPD (20:18)
[2021-07-10] MEDS: Magnesium Oxide 400 MG TAB PO (20:18)
[2021-07-10] MEDS: Nystatin POWDER 60 GM JAR TP (20:20)
[2021-07-10 20:37] LABS: Troponin I 130 ng/L (<or=60)
[2021-07-10] MEDS: Metoprolol 50 MG TAB PO (20:45)
[2021-07-10] MEDS: traMADol 50 MG TAB PO (22:28)
--- NOTE | 2021-07-10 23:38 | NUR.NOTE ---
Patient requested this nursing to call her to verify her Coumadin dosage. José Manuel state she 2mg Coumadin on Mondays, Wednesdays,Fridays and Saturdays. She takes 4mg Coumadin other days.
[2021-07-11] VITALS (14 sets, daily range): BP systolic 93–122; BP diastolic 54–61; PULSE 59–100; RESP 1–20; TEMP 35.5–36.8; O2SAT 95–100
[2021-07-11] MEDS: Acetaminophen 325 MG TAB PO ×2 (02:39→16:04)
[2021-07-11 07:24] LABS: Abs Immature Grans 0.06 10^3/uL (0.0-0.06); Absolute Basophil Count 0.01 10^3/uL (0.0-0.2); Absolute Lymphocyte Count 0.68 10^3/uL (1.2-3.4); Absolute Neutrophil Count 8.51 10^3/uL (1.2-6.7); Basophils % 0.1; HCT 36.9 % (36.0-46.0); HGB 11.3 g/dL (11.2-15.7); Immature Grans % 0.6; Lymphocytes % 7.3; MCHC 30.6 % (32.0-36.0); MCV 101.4 fL (80-95); MPV 9.1 fL (8.0-11.0); Monocytes % 1.1; Neutrophils % 90.9; Nucleated RBC 0 %; Platelet Count 164 10^3/uL (130-400); RBC 3.64 10^6/uL (3.93-5.22); RDW 15.5 % (11.7-14.6); RDW-SD 58.3 fL; WBC 9.36 10^3/uL (4.4-10.8)
[2021-07-11 07:34] LABS: INR 2.6 (0.9-1.1); Prothrombin Time 25.6 sec (9.3-11.0)
[2021-07-11 07:36] LABS: Anion Gap 5.2 mmol/L (3-11); BUN 42 mg/dL (7-18); CO2 31.8 mmol/L (21.0-32.0); CREATININE 1.7 mg/dL (0.55-1.02); Calcium 8.7 mg/dL (8.5-10.1); Chloride 101 mmol/L (98-107); Glucose 352 mg/dL (74-106); Magnesium 2.2 mg/dL (1.8-2.4); Potassium 5.2 mmol/L (3.5-5.1); Sodium 138 mmol/L (136-145)
[2021-07-11] MEDS: Magnesium Oxide 400 MG TAB PO ×2 (09:24→20:24)
[2021-07-11] MEDS: Senna TAB 2 TAB PO ×2 (09:24→20:23)
[2021-07-11] MEDS: Spironolactone 25 MG TAB PO (09:24)
[2021-07-11] MEDS: Cholecalciferol (Vitamin D3) 1,000 UNIT TAB 2000 UNITS PO (09:24)
[2021-07-11] MEDS: Nystatin POWDER 60 GM JAR TP ×2 (09:25→20:24)
[2021-07-11] MEDS: ROSUVASTATIN 20 MG TAB PO (09:25)
[2021-07-11] MEDS: Insulin NPH-Human 300 UNITS/3 ML PEN 50 UNIT SC (09:25)
[2021-07-11] MEDS: Insulin Aspart 300 UNITS/3 ML PEN 20 UNITS SC ×2 (09:26→11:55)
[2021-07-11] MEDS: Metoprolol 50 MG TAB PO ×2 (09:40→20:24)
[2021-07-11] MEDS: Valsartan 40 MG TAB PO (09:40)
--- NOTE | 2021-07-11 10:37 | PDOC.CMIN ---
- If Service Date Differs Date of service: 07/11/21 Time of Service: 10:37 Care Management Initial Assess REASON FOR HOSPITALIZATION:: Hypoxic respiratory failure PAST MEDICAL HISTORY/PAST SURGICAL HISTORY:: All Active Problems. Troponin level elevated (Acute). Cellulitis (Acute). Hypotension (Acute). Hypoxia (Acute). Non-ST elevation [place] (NSTEMI) (Acute). Lymphedema (Acute). Skin ulcer of right lower leg (Acute). Generalized weakness (Acute). Chronic heart failure with preserved ejection fraction (Acute). Dehydration (Acute). Prerenal azotemia (Acute). Encounter for wound care (Acute). Discharge planning issues (Acute). Diabetes mellitus with peripheral autonomic neuropathy (Chronic). Onychomycosis of foot with other complication (Chronic). Cellulitis and abscess of lower extremity (Acute). Anticoagulation excessive (Acute). Chronic venous insufficiency (Acute). NATY (obstructive sleep apnea) (Chronic). Lower extremity pain (Acute). DVT prophylaxis (Acute). Dyspnea (Chronic). a. Progressive. Atrial fibrillation (Chronic). a. Permanent on oral anticoagulation with warfarin. Diabetes mellitus (Chronic). a. Insulin-dependent, poorly controlled, with hemoglobin A1c 9.5 (09/13/13). Hypertension (Chronic). Hypercholesterolemia (Chronic). Multinodular goiter (Chronic). Morbid obesity (Chronic). Coronary artery disease (Chronic). a. With single vessel LAD involvement. H/O cardiac catheterization (Chronic). a. [facility], 2002. Pseudogout (Chronic). Psoriasis (Chronic). History of Surgical Procedure (Chronic). a. Appendectomy. b. Bilateral tubal ligation. c. Total abdominal hysterectomy with bilateral salpingo-oophorectomy. Medical History. Aortic stenosis. Bilateral leg edema. Cellulitis. Chronic anticoagulation. Chronic low back pain. CPDD (calcium pyrophosphate deposition disease). Dyspnea on exertion. History of adenomatous polyp of colon (2003). History of colonic polyps (~2011). hyperplastic. History of positive PPD. Mitral regurgitation. Nausea. Pulmonary nodules. Rosacea. Tremor. Venous stasis dermatitis PREVIOUS FUNCTIONAL STATUS/SOCIAL/FAMILY SUPPORTS:: Elle resides in [place] in her own home with her , José Manuel. She has three adult children, all of whom live locally. Elle reports that her and children are all very supportive. She worked for years as a [employer] prior to [employer]. Elle reports that she uses a walker to ambulate at home and her assists her with her ADL's. She has O2 at baseline, but only has a concentrator, which she owns. She no longer drives and reports that José Manuel drives her to appointments and for errands, although she doesn't go out often. CURRENT FUNCTIONAL STATUS:: Elle was sitting up in bed when CM met with her. She stated that she is feeling ok today. Per report, she had an echo today, awaiting results. She stated that she is agreeable to home health services, if recommended, but she does plan to return home once she is medically cleared. CM will continue to follow. ADVANCE DIRECTIVES:: On file. José Manuel listed as agent. Has patient been provided with info about the portal/API?: Yes Did the patient sign up for the portal?: No CODE STATUS:: Full Code INSURANCE COVERAGE / FINANCIAL ISSUES:: MCR/ [facility] replacement CURRENT HOME/COMMUNITY SERVICES/EQUIPMENT:: No current services. She owns a FWW. PRIMARY CARE PHYSICIAN:: Jaqueline You POTENTIAL DISCHARGE NEEDS:: Evaluations for further needs, follow up appointments. PATIENT/FAMILY EDUCATION NEEDS:: Review discharge instructions regarding activity levels and medications, discussion of self care needs and goals of care. ANTICIPATED BARRIERS TO DISCHARGE:: None identified. TRANSPORTATION:: Via private vehicle by family. PLAN:: Anticipate Elle will return home once medically cleared. She will be driven home via private vehicle by her . She will follow up with her PCP and discharge plan of care. CM will continue to follow.
[2021-07-11] MEDS: Albuterol/Ipratropium 3 ML UPD VIAL UPD ×3 (11:04→20:21)
--- NOTE | 2021-07-11 14:02 | WOUNDCONS_ITS ---
- If Service Date Differs Date of service: 07/11/21 Time of Service: 13:30 Wound Initial Evaluation Narrative: Patient is a 76 yof. She is seen here for SOB and hypoxemia. Also has a significant medical history including chronic heart failure, diabetes, morbid obesity, CAD, and chronic venous insufficiency. Wound nursing has been asked to look at her legs and make a recommendation. This was discussed with the patient, she agrees to the consult and signs consent. H&P, labs allergies, and other pertinent information were reviewed. - Wound Left Tib/Fib(lower leg) Wound Type: Other (venous insuffiency. ) Wound General Appearance: Open to air, Reddened, Unapproximated, Other (couple of weeping areas) Wound Bed Greatest Portion: Pale [place] Wound Surrounding Tissue Appearance: [place] Wound Length: 44 cm Wound Width: 29 cm Wound Depth: 0.1 cm (less than) Wound Drainage Amount: None Wound Drainage Odor: None/Absent Wound Drainage Description: No drainage Wound Topical Solution/Irrigant: Antibiotic Irrigant (Anasept) Wound Debridement Method: Gauze Wound Debridement Result: Healthy Tissue Revealed Wound Debridement Amount of Tissue Removed: None Additional Other Comments: Black spot 2nd toe Right Tib/Fib(lower leg) Wound Type: Other (venous insuffiency) Wound General Appearance: Reddened, Unapproximated Wound Bed Greatest Portion: Pale [place] Wound Surrounding Tissue Appearance: [place], Edematous Wound Drainage Amount: None Wound Drainage Odor: None/Absent Wound Drainage Description: No drainage Wound Topical Solution/Irrigant: Antibiotic Irrigant (Anasept) Wound Debridement Method: Gauze Wound Debridement Result: Healthy Tissue Revealed Wound Debridement Amount of Tissue Removed: None Additional Other Comments: Black spot 3rd toe. Diabetic ulcer between the 1st and 2nd toe. Have asked Hospitalist for a podiatry consult. - Circulation, Sensation, Motion Edema Degree: 2+ Peripheral Pulse Strength: Absent (located with doppler) Capillary Refill: Less than 3 seconds Sensation Description: Pain (left ankle pain) Skin Temperature: Warm Skin Color: Pale - Pain Pain Level: 4 (palpation of left ankle) Pain Duration/Frequency: With Palpation Patient is a poor historian, and provides conflicting information about her woun d care. Patient agrees to an Unna boot. She stated she is ambulatory, using a walker to get around the house. - Photo Photo: - Treatment/Dressing Change Topicals/Ointments: None Cleanse With: Anasept Dressing Types: Kerlix (Gauze Roll) - Recomendation Recomendation:: Both legs: Cleanse leg with Anasept, allow to dwell for 2 minutes. Pat dry. Wrap legs with Unna boots to just below the knee. Cover with Kerlix. Change weekly or PRN.. Physcian/Nurse Practioner Notified: Yes (Dr. Celis) Referrals: Podiatry (Dr. Escobar) Treatment Time - Time Total Time Spent with Patient: 1 hour - Patient Will be Seen Weekly Treatment: 1x/wk - For: For:: 1 week
--- NOTE | 2021-07-11 14:32 | W.PM.PROGNOT ---
Date of Service Date of service: 07/11/21 Time of Service: 14:33 Assessment and Plan Assessment and plan (1) Troponin level elevated: Status: Acute Assessment and plan: Mild elevations; flat. Likely related to respiratory distress / hypoxia. (2) Lymphedema: Status: Acute Assessment and plan: Chronic. Combined with venous insufficiency, she has chronic venous stasis changes. I am not clear that she has cellulitis. Also has diabetic ulcer present. Wound care has evaluated. Consult podiatry. (3) Chronic heart failure with preserved ejection fraction: Status: Acute Assessment and plan: Last echo in our chart was in 2018. Echocardiogram this admission: EF of 55%. Mild concentric left ventricular hypertophy. Cont home torsemide and spironolactone. D/T low BP; holding off on IV diuretic at this time. (4) Diabetes mellitus with peripheral autonomic neuropathy: Status: Chronic Assessment and plan: Cont NPH BID and insulin with meals;adjusting Diabetic diet. ACHS glucose monitoring. (5) Chronic venous insufficiency: Status: Acute Assessment and plan: See above. (6) DVT prophylaxis: Status: Acute Assessment and plan: On Coumadin (7) Pneumonia, community acquired: Status: Resolved Assessment and plan: Presumptive diagnosis. POssible infiltrates on CT. Elevated WBC count now normalized. Resp distress has resolved. Does deny cough/sputum Rocephin initiated. (8) Atrial fibrillation: Status: Chronic Assessment and plan: Cont metoprolol as BP allows. Coumadin for AC. Telemetry. (9) Morbid obesity: Status: Chronic (10) Coronary artery disease: Status: Chronic Assessment and plan: No current angina. Cont BB as BP allows/tolertes. Not on ASA. Is on coumadin. Cont statin (HLD) Subjective Subjective Patient reports: no new complaints, feels better and tolerating a regular diet; denies nausea, vomiting and shortness of breath Exam Narrative Exam Narrative: Morbidly obese female lying supine. NAD / normal work of breathing. Const General: cooperative, not disheveled, not ill appearing and other (More alert.) Nutritional Appearance: obese Orientation: alert and oriented x3 Eyes General: appearance normal, both eyes and all related structures Sclera: sclerae normal Neck Neck: full ROM and other (large girth; difficult to assess JVD) Resp Effort & Inspection: normal respiratory effort Auscultation: clear to auscultation bilaterally and diminished lung sounds Cardio Rate: tachycardic Rhythm: abnormal rhythm irregularly irregular GI Inspection: obesity Palpation: soft and nontender Auscultation: hypoactive bowel sounds Skin Full body images: 1. Brawny skin color changes. Edema. Several small open areas w/o purulent drainage of BLE's. Neuro General: moves all extremities Cranial Nerves: facial strength normal Speech: speech normal Psych Mental Status: mental status grossly normal Speech and Movement: speech clear Affect: normal affect Objective Last Vital Signs Temp 35.5 C L 07/11/21 11:39 Pulse 69 07/11/21 11:39 Resp 20 07/11/21 11:39 BP 93/54 L 07/11/21 11:39 Pulse Ox 98 07/11/21 11:39 Laboratory Results - last 24 hr 07/10/21 07/10/21 07/10/21 14:30 15:55 17:10 WBC RBC Hgb Hct MCV MCH MCHC RDW Plt Count MPV Immature Gran % Neutrophils % Lymphocytes % Monocytes % Eosinophils % Basophils % Nucleated RBC % Absolute Neutrophils Absolute Lymphocytes Absolute Monocytes Absolute Eosinophils Absolute Basophils PT INR Sodium Potassium Chloride Carbon Dioxide Anion Gap BUN Creatinine Estimated GFR/1.73 m2 Glucose Calcium Magnesium Troponin I 133 H* 135 H* Urine Color Yellow Urine Clarity Sl Cloudy Urine pH 7.0 Ur Specific [place] 1.020 Urine Protein 100 H Urine Ketones Negative Urine Blood Trace-lysed H Urine Nitrite Negative Urine Bilirubin Negative Urine Urobilinogen 0.2 Ur Leukocyte Esterase Negative Urine RBC 3-5 H Urine WBC 0-2 Ur Epithelial Cells Moderate Urine Crystals Negative Urine Bacteria Many Urine Mucus Negative Ur Culture Indicated? Yes Urine Glucose Negative 07/10/21 07/11/21 07/11/21 20:00 07:05 07:05 WBC 9.36 D RBC 3.64 L Hgb 11.3 Hct 36.9 MCV 101.4 H MCH 31.0 MCHC 30.6 L RDW 15.5 H Plt Count 164 MPV 9.1 Immature Gran % 0.6 Neutrophils % 90.9 Lymphocytes % 7.3 Monocytes % 1.1 Eosinophils % 0.0 Basophils % 0.1 Nucleated RBC % 0 Absolute Neutrophils 8.51 H Absolute Lymphocytes 0.68 L Absolute Monocytes 0.10 Absolute Eosinophils 0.00 Absolute Basophils 0.01 PT INR Sodium 138 Potassium 5.2 H Chloride 101 Carbon Dioxide 31.8 Anion Gap 5.2 BUN 42 H D Creatinine 1.7 H Estimated GFR/1.73 m2 29.30 Glucose 352 H D Calcium 8.7 Magnesium 2.2 Troponin I 130 H* Urine Color Urine Clarity Urine pH Ur Specific [place] Urine Protein Urine Ketones Urine Blood Urine Nitrite Urine Bilirubin Urine Urobilinogen Ur Leukocyte Esterase Urine RBC Urine WBC Ur Epithelial Cells Urine Crystals Urine Bacteria Urine Mucus Ur Culture Indicated? Urine Glucose 07/11/21 07:05 WBC RBC Hgb Hct MCV MCH MCHC RDW Plt Count MPV Immature Gran % Neutrophils % Lymphocytes % Monocytes % Eosinophils % Basophils % Nucleated RBC % Absolute Neutrophils Absolute Lymphocytes Absolute Monocytes Absolute Eosinophils Absolute Basophils PT 25.6 H INR 2.6 H Sodium Potassium Chloride Carbon Dioxide Anion Gap BUN Creatinine Estimated GFR/1.73 m2 Glucose Calcium Magnesium Troponin I Urine Color Urine Clarity Urine pH Ur Specific [place] Urine Protein Urine Ketones Urine Blood Urine Nitrite Urine Bilirubin Urine Urobilinogen Ur Leukocyte Esterase Urine RBC Urine WBC Ur Epithelial Cells Urine Crystals Urine Bacteria Urine Mucus Ur Culture Indicated? Urine Glucose
[2021-07-11] MEDS: Insulin Aspart 300 UNITS/3 ML PEN 40 UNITS SC (16:54)
[2021-07-11 17:17] LABS: Glucose 406 mg/dL (74-106)
[2021-07-11] MEDS: Insulin NPH-Human 300 UNITS/3 ML PEN 60 UNIT SC (17:34)
[2021-07-11] MEDS: cefTRIAXone 1 GM/50 ML BAG IVPB (17:43)
[2021-07-11] MEDS: Normal Saline Flush 10 ML SYR IVP ×2 (17:44→20:21)
[2021-07-11] MEDS: Warfarin 1 MG TAB 2 MG PO (20:30)
[2021-07-12] VITALS (9 sets, daily range): BP systolic 103–136; BP diastolic 60–74; PULSE 65–92; RESP 2–20; TEMP 35.4–36.4; O2SAT 96–99
[2021-07-12 07:49] LABS: INR 2.7 (0.9-1.1); Prothrombin Time 26.2 sec (9.3-11.0)
[2021-07-12] MEDS: Polyethylene Glycol 3350 17 GM PACKET PO (08:21)
[2021-07-12] MEDS: Senna TAB 2 TAB PO (08:21)
[2021-07-12] MEDS: Cholecalciferol (Vitamin D3) 1,000 UNIT TAB 2000 UNITS PO (08:21)
[2021-07-12] MEDS: Valsartan 40 MG TAB PO (08:21)
[2021-07-12] MEDS: Albuterol/Ipratropium 3 ML UPD VIAL UPD ×3 (08:21→20:18)
[2021-07-12] MEDS: Spironolactone 25 MG TAB PO (08:21)
[2021-07-12] MEDS: Torsemide 20 MG TAB 40 MG PO (08:21)
[2021-07-12] MEDS: Insulin NPH-Human 300 UNITS/3 ML PEN 60 UNIT SC ×2 (08:22→16:48)
[2021-07-12] MEDS: Insulin Aspart 300 UNITS/3 ML PEN 40 UNITS SC ×3 (08:22→16:47)
[2021-07-12] MEDS: Metoprolol 50 MG TAB PO ×2 (08:22→20:18)
[2021-07-12] MEDS: ROSUVASTATIN 20 MG TAB PO (08:22)
[2021-07-12] MEDS: Magnesium Oxide 400 MG TAB PO ×2 (08:22→20:18)
[2021-07-12] MEDS: Nystatin POWDER 60 GM JAR TP ×2 (08:54→20:39)
--- NOTE | 2021-07-12 09:13 | POCOE_ITS ---
Date of service: 07/12/21 Time of Service: :14 History of Present Illness History of Present Illness Chief Complaint: Wounds of the right foot Narrative: 76-year-old, morbidly obese diabetic, who was seen in her room sitting in her ch air with her legs in dependency. Unna boots are in place both lower extremities. Elle indicates she has been managed for her chronic wounds by a physician in [facility]. She cannot come up with the names and she states she missed the last couple of appointment. She claims the wounds on her right foot have been there for at least 2 months likely longer. [facility] All Active Problems Troponin level elevated (Acute) Cellulitis (Acute) Hypotension (Acute) Hypoxia (Acute) Non-ST elevation UT (NSTEMI) (Acute) Lymphedema (Acute) Skin ulcer of right lower leg (Acute) Generalized weakness (Acute) Chronic heart failure with preserved ejection fraction (Acute) Dehydration (Acute) Prerenal azotemia (Acute) Encounter for wound care (Acute) Discharge planning issues (Acute) Diabetes mellitus with peripheral autonomic neuropathy (Chronic) Onychomycosis of foot with other complication (Chronic) Cellulitis and abscess of lower extremity (Acute) Anticoagulation excessive (Acute) Chronic venous insufficiency (Acute) NATY (obstructive sleep apnea) (Chronic) Lower extremity pain (Acute) DVT prophylaxis (Acute) Dyspnea (Chronic) a. Progressive. Atrial fibrillation (Chronic) a. Permanent on oral anticoagulation with warfarin. Diabetes mellitus (Chronic) a. Insulin-dependent, poorly controlled, with hemoglobin A1c 9.5 (09/13/13). Hypertension (Chronic) Hypercholesterolemia (Chronic) Multinodular goiter (Chronic) Morbid obesity (Chronic) Coronary artery disease (Chronic) a. With single vessel LAD involvement. H/O cardiac catheterization (Chronic) a. [facility], 2002. Pseudogout (Chronic) Psoriasis (Chronic) History of Surgical Procedure (Chronic) a. Appendectomy. b. Bilateral tubal ligation. c. Total abdominal hysterectomy with bilateral salpingo-oophorectomy. Medical History Aortic stenosis Bilateral leg edema Cellulitis Chronic anticoagulation Chronic low back pain CPDD (calcium pyrophosphate deposition disease) Dyspnea on exertion History of adenomatous polyp of colon (2003) History of colonic polyps (~2011) hyperplastic History of positive PPD Mitral regurgitation Nausea Pulmonary nodules Rosacea Tremor Venous stasis dermatitis Social History Smoking/Tobacco Use Status: Former Tobacco Use Smoking risk assessment performed?: Yes Alcohol Intake: never Drug use: Never Substance use type: does not use Do you feel safe at home: Yes Do you feel safe in your relationship?: Yes Exam Narrative Exam Narrative: Elle is seen in her room sitting in her chair with her feet in dependency. I reviewed the wound care nurses notes and pictures and agree with the working diagnosis of venous stasis disease, venous insufficiency. Unna boot compression dressings are appropriate at this time. Pulses were palpable although somewhat difficult to gauge based on the peripheral edema in the Unna boot dressings but she does have good capillary return to all toes. I suspect there is some component of neuropathy however this is difficult to quantify with the Unna boot in place. She does respond to discomfort on her toes. Both feet show fungal nail changes, chronic. The right foot has multiple vesicles affecting the first second third and fourth digit with serous drainage mild to moderate in quantity noted. Webspace involvement with maceration is noted. I did not detect an odor and no active cellulitis was seen. A region over the dorsal aspect of the second toe at the PIPJ level is denuded and appears to be approaching tendinous structures. The possibility of an underlying osteomyelitis cannot be ruled out. Impressions: Vesiculation right foot digits, etiology likely from stasis a lthough a tinea component is also likely venous insufficiency with chronic venous stasis changes both lower extremities Plan: Radiographs of the right foot will be ordered to assess the underlying bony integrity in lieu of chronic ulcerations overlying the digits. I will add topical ketoconazole cream to the digits to cover tinea and will have the right foot cleansed with Anasept wound cleanser, 3 x 3 gauze weaved between the digits to separate and collect drainage, BID. She is currently on Rocephin which certainly would cover her staph and strep sufficiently. She would benefit from diuresis when medically stable to do so. Encourage limb elevation when not ambulating. Thank you for the consultation. I will continue to follow. Results Last Vital Signs Temp 35.7 C L 07/12/21 08:43 Pulse 77 07/12/21 08:43 Resp 18 07/12/21 08:43 BP 118/72 07/12/21 08:43 Pulse Ox 97 07/12/21 08:43 Labs Result diagrams: 07/11/21 07:05 07/11/21 16:50 Labs: Laboratory Results - last 24 hr 07/11/21 07/12/21 16:50 06:30 PT 26.2 H INR 2.7 H Glucose 406 H
[2021-07-12] MEDS: Acetaminophen 325 MG TAB PO ×2 (09:20→15:46)
[2021-07-12 09:56] LABS: Lab Add On Test DONE
--- NOTE | 2021-07-12 10:00 | DI.RAD_ITS ---
Exam(s) XR CHEST 2V PA LATERAL EXAM: XR CHEST 2V PA LATERAL CLINICAL HISTORY: hypoxia. TECHNIQUE: 2D digital imaging was performed. COMPARISON: CR XR CHEST 2V PA LATERAL from 10/19/2020 FINDINGS: Elevation of the right hemidiaphragm is again noted Mild cardiomegaly again noted. Mediastinum is not widened. There is subtle increased markings in the mid right lung field and in the left parahilar region. Clari pect infiltrates. No pleural effusions. IMPRESSION: Subtle bilateral infiltrates. No obvious pleural effusions. DATA REPOSITORY: RADIATION DOSE DELIVERED:
--- NOTE | 2021-07-12 10:00 | DI.RAD_ITS ---
Exam(s) XR FOOT RT COMPLETE EXAM: XR FOOT RT COMPLETE CLINICAL HISTORY: ulcers on the 2nd, 3rd toes, evaluate for osteomy. TECHNIQUE: 2D digital imaging was performed. COMPARISON: No exams were available for comparison FINDINGS: There is no evidence of fracture nor diastasis of the Lisfranc joint. Mild degenerative changes are noted at the great toe metatarsophalangeal joint. Moderate size inferi or calcaneal spur is noted. Vascular calcifications noted in the posterior tibial artery-plantar art isaak. No osseous lesions nor erosions. No radiographic evidence of osteomyelitis. Accessory ossicle s noted medial side of the foot adjacent to the navicular tuberosity IMPRESSION: DATA REPOSITORY: RADIATION DOSE DELIVERED:
[2021-07-12 10:13] LABS: Hemoglobin A1C 7.6 % (<5.7)
--- NOTE | 2021-07-12 11:33 | CMPROGNOTE_ITS ---
- If Service Date Differs Date of service: 07/12/21 Time of Service: 11:33 Care Management Progress Note S/O: Elle was sitting up in her chair when CM met with her. She stated that she was feeling ok today. She had her hair washed today, which she was happy about. CM recommended that she be evaluated by PT, as she is agreeable to services, if indicated. Per report, she is tolerating a regular diet. Her CM will continue to follow. A: Elle is a 76 year old female admitted to [facility] on 07/10/21 with hypoxic respiratory failure, cellulitis. P: Anticipate Elle will return home once medically cleared. She will be driven home via private vehicle by her . She will follow up with her PCP and discharge plan of care. CM will continue to follow.
[2021-07-12] MEDS: Ketoconazole 2% CREAM 15 GM TUBE TP ×2 (11:44→20:40)
--- NOTE | 2021-07-12 14:19 | W.INDIABCONS ---
Date of service: 07/12/21 Time of Service: 14:19 Diabetes Inpatient Consult Reason for Visit: Diabetes consult DESCRIPTION/ASSESSMENT: Ms. Garland is admitted for respiratory failure. She also has ulcers on her both lower extremities. Blood sugars are still above target. She is getting Aspart correction as well as 60 units NPH, b.i.d. Her PO intake is excellent. Most recent A1C was 7.6 which seems like a reasonable value given her age and comorbitites. At home she takes 20-30 units of Aspart with meals and 55 units of NPH b.i.d. INTERVENTION: Given her hyperglycemia here in the hospital and her wounds would consider adding a prandial correction for CHO intake in addition to her pre-meal blood sugar correction. PLAN: Will check in with Ms. Garland prior to her discharge to assess her DSMES needs. Will continue to monitor her progress here. Time Spent in Nutritional Counseling and Treatment: 0
--- NOTE | 2021-07-12 14:30 | W.PM.PROGNOT ---
Date of Service Date of service: 07/12/21 Time of Service: 16:59 Assessment and Plan Assessment and plan (1) Troponin level elevated: Status: Acute Assessment and plan: Mild elevations; flat. Likely related to respiratory distress / hypoxia. (2) Lymphedema: Status: Acute Assessment and plan: Chronic. Combined with venous insufficiency, she has chronic venous stasis changes. I am not clear that she has cellulitis. Also has diabetic ulcer present. Wound care has evaluated. Consult podiatry. (3) Chronic heart failure with preserved ejection fraction: Status: Acute Assessment and plan: Last echo in our chart was in 2018. Echocardiogram this admission: EF of 55%. Mild concentric left ventricular hypertophy. Cont home torsemide and spironolactone. D/T low BP; holding off on IV diuretic at this time. (4) Diabetes mellitus with peripheral autonomic neuropathy: Status: Chronic Assessment and plan: Cont NPH BID and insulin with meals;adjusting Diabetic diet. ACHS glucose monitoring. (5) Chronic venous insufficiency: Status: Acute Assessment and plan: See above. (6) DVT prophylaxis: Status: Acute Assessment and plan: On Coumadin (7) Pneumonia, community acquired: Status: Resolved Assessment and plan: Presumptive diagnosis. POssible infiltrates on CT. Elevated WBC count now normalized. Resp distress has resolved. Does deny cough/sputum Rocephin initiated. (8) Atrial fibrillation: Status: Chronic Assessment and plan: Cont metoprolol as BP allows. Coumadin for AC. Telemetry. (9) Morbid obesity: Status: Chronic (10) Coronary artery disease: Status: Chronic Assessment and plan: No current angina. Cont BB as BP allows/tolertes. Not on ASA. Is on coumadin. Cont statin (HLD) (11) Discharge planning issues: Status: Acute Assessment and plan: discharge home when medically stable. discussed with DR Celis. Subjective Subjective Patient reports: no new complaints, feels better and tolerating a regular diet; denies nausea, vomiting or shortness of breath Exam Const General: cooperative and not ill appearing Nutritional Appearance: obese Orientation: alert and oriented x3 Eyes General: appearance normal, both eyes and all related structures Sclera: sclerae normal Neck Neck: full ROM Resp Effort & Inspection: normal respiratory effort Auscultation: clear to auscultation bilaterally and diminished lung sounds Cardio Rate: tachycardic Rhythm: abnormal rhythm irregularly irregular GI Inspection: obesity Palpation: soft and nontender Neuro General: moves all extremities Cranial Nerves: facial strength normal Speech: speech normal Psych Mental Status: mental status grossly normal Speech and Movement: speech clear Affect: normal affect Objective Last Vital Signs Temp 35.7 C L 07/12/21 08:43 Pulse 73 07/12/21 11:21 Resp 18 07/12/21 08:43 BP 118/72 07/12/21 08:43 Pulse Ox 97 07/12/21 08:43 Laboratory Results - last 24 hr 07/11/21 07/12/21 07/12/21 16:50 06:30 06:30 PT 26.2 H INR 2.7 H Glucose 406 H Hemoglobin A1c Add-On Test Request DONE 07/12/21 06:30 PT INR Glucose Hemoglobin A1c 7.6 H Add-On Test Request
--- NOTE | 2021-07-12 15:41 | CHAPLAIN ---
Elle was sitting in a wheelchair in her room when I visited. She had just returned from a test and she thought she would be going out for another test soon. I explained my role and offered support. Elle told me she is from [place] and has been in touch with family by phone.
[2021-07-12] MEDS: Normal Saline 500 ML 30 ML IV (17:51)
[2021-07-12] MEDS: cefTRIAXone 1 GM/50 ML BAG IVPB (17:51)
[2021-07-12] MEDS: Normal Saline Flush 10 ML SYR IVP (17:51)
[2021-07-12] MEDS: Warfarin 4 MG TAB PO (20:39)
[2021-07-13] VITALS (15 sets, daily range): BP systolic 78–133; BP diastolic 50–79; PULSE 62–100; RESP 4–24; TEMP 35.9–36.9; O2SAT 94–100
[2021-07-13 06:51] LABS: INR 2.3 (0.9-1.1); Prothrombin Time 22.6 sec (9.3-11.0)
[2021-07-13] MEDS: Spironolactone 25 MG TAB PO (08:43)
[2021-07-13] MEDS: Valsartan 40 MG TAB PO (08:43)
[2021-07-13] MEDS: Torsemide 20 MG TAB 40 MG PO (08:43)
[2021-07-13] MEDS: Metoprolol 50 MG TAB PO ×2 (08:43→20:23)
[2021-07-13] MEDS: ROSUVASTATIN 20 MG TAB PO (08:44)
[2021-07-13] MEDS: Cholecalciferol (Vitamin D3) 1,000 UNIT TAB 2000 UNITS PO (08:44)
[2021-07-13] MEDS: Ketoconazole 2% CREAM 15 GM TUBE TP ×2 (08:45→20:25)
[2021-07-13] MEDS: Insulin NPH-Human 300 UNITS/3 ML PEN 60 UNIT SC (08:47)
[2021-07-13] MEDS: Magnesium Oxide 400 MG TAB PO ×2 (08:48→20:23)
[2021-07-13] MEDS: Albuterol/Ipratropium 3 ML UPD VIAL UPD ×3 (09:15→20:24)
--- NOTE | 2021-07-13 09:49 | W.PM.PROGNOT ---
Date of Service Date of service: 07/13/21 Time of Service: 09:49 Subjective Subjective Interval history since last seen: Elle is seen in her room. She is in her chair with her legs in dependency. Exam Narrative Exam Narrative: Unna boot dressings remain intact both lower extremities. Strike through is noted along the posterior lateral aspect of the left leg. Saturated gauze sponge, serous drainage,noted between the digits right foot. The skin on the digits of the right foot is peeling, generalized oozing is appreciated. No odor was detected. No erythema or cellulitis seen at this time. Radiographs were obtained yesterday was negative for findings suggestive of osteomyelitis. Impressions: Venous insufficiency with venous stasis ulcerations affecting the digits right foot and legs bilaterally Plan: Continue with current treatment on the right foot. We will need to increase frequency of dressing changes to keep up with drainage. I am suggesting that we discontinue the Unna boot as I believe it may be causing some retrograde edema/swelling into the toes. We will treat the legs with PolyMem dressings to absorb drainage, Kerlix roll and Gelacio wraps. I did discuss this with the hospitalist as well as the wound care nurse who will make the appropriate changes. We also discussed diuresing Elle to reduce fluid load and the hospitalist agrees to tune her up in this regard. Objective Last Vital Signs Temp 36.8 C 07/13/21 07:47 Pulse 65 07/13/21 07:47 Resp 18 07/13/21 09:15 BP 104/60 07/13/21 07:47 Pulse Ox 100 07/13/21 07:47 Laboratory Results - last 24 hr 07/12/21 07/12/21 07/13/21 06:30 06:30 06:05 PT 22.6 H INR 2.3 H Hemoglobin A1c 7.6 H Add-On Test Request DONE
[2021-07-13] MEDS: metOLazone 2.5 MG TAB 5 MG PO (10:59)
[2021-07-13] MEDS: traMADol 50 MG TAB PO ×2 (11:00→20:23)
[2021-07-13] MEDS: ALBUMIN HUMAN 25 GM/100 ML BTL IV (11:06)
[2021-07-13] MEDS: Normal Saline Flush 10 ML SYR IVP (11:15)
[2021-07-13] MEDS: Nystatin POWDER 60 GM JAR TP (11:16)
--- NOTE | 2021-07-13 11:23 | W.PM.PROGNOT ---
Date of Service Date of service: 07/13/21 Time of Service: 11:24 Assessment and Plan Assessment and plan (1) Troponin level elevated: Status: Resolved Assessment and plan: Mild elevations; flat. Likely related to respiratory distress / hypoxia. (2) Lymphedema: Status: Acute Assessment and plan: Chronic. Combined with venous insufficiency, she has chronic venous stasis changes. Also has diabetic ulcer present. Wound care has evaluated and making recommendations for daily changes while hospitalized. Podiatry following, no evidence of osteomyelitis, continue with current plan. (3) Chronic heart failure with preserved ejection fraction: Status: Acute Assessment and plan: Last echo in our chart was in 2018. Echocardiogram this admission: EF of 55%. Mild concentric left ventricular hypertophy. Cont home torsemide and spironolactone. was given albumin, metolazone today which she did not tolerate. lasix discontinued. will hold diovan for now, parameters on lopressor (4) Diabetes mellitus with peripheral autonomic neuropathy: Status: Chronic Assessment and plan: Cont NPH BID and insulin with meals;adjusting downward for hypoglycemia. change NPH to 40 bid from 60 and aspart from 40 to 35 with meals. Diabetic diet. ACHS glucose monitoring. (5) Chronic venous insufficiency: Status: Acute Assessment and plan: See above. (6) DVT prophylaxis: Status: Acute Assessment and plan: On Coumadin (7) Pneumonia, community acquired: Status: Resolved Assessment and plan: Presumptive diagnosis. POssible infiltrates on CT. Elevated WBC count now normalized. Resp distress has resolved. Does deny cough/sputum Rocephin day 4/5 (8) Atrial fibrillation: Status: Chronic Assessment and plan: Cont metoprolol as BP allows. Coumadin for AC. Telemetry. (9) Morbid obesity: Status: Chronic (10) Coronary artery disease: Status: Chronic Assessment and plan: No current angina. Cont BB as BP allows/tolertes. Not on ASA. Is on coumadin. Cont statin (HLD) (11) Discharge planning issues: Status: Acute Assessment and plan: discharge home when medically stable. will need home health services discussed with DR Celis. (12) UTI (urinary tract infection) due to Enterococcus: Status: Acute Assessment and plan: urine cultures positive for enterococcus, will treat with fosfomycin. Subjective Subjective Patient reports: shortness of breath (minimal) and afebrile; denies nausea or vomiting Interval history since last seen: patient with ongoing edema, given metolazone and albumin this morning for diuresis, unable to give lasix d/t SBP < 90, patient in bed, reporting dizziness and feeling unwell. no chest pain, minimal sob, no cough no fever. blood sugars also running low 90-150. blood pressure improved with leg elevation. Exam Const General: cooperative, no acute distress, frail appearing and ill appearing Nutritional Appearance: obese Orientation: alert, awake and oriented x3 HENMT Head: normal to inspection, normocephalic and atraumatic Mouth: moist mucous membranes abnormal (dry) Eyes General: appearance normal, both eyes and all related structures Sclera: sclerae normal Neck Neck: full ROM Resp Effort & Inspection: normal respiratory effort Auscultation: clear to auscultation bilaterally and diminished lung sounds Cardio Rate: regular rate Rhythm: abnormal rhythm irregularly irregular GI Inspection: obesity Palpation: soft and nontender Skin Lesions: other (see wound care consult note, weepy) Rashes: other (bilateral venous stasis.) Neuro General: moves all extremities Cranial Nerves: facial strength normal Speech: speech normal Extrem General: edema and pedal edema (1/2 up bilaterally. ) bilaterally Psych Mental Status: mental status grossly normal Speech and Movement: speech clear Affect: normal affect Objective Last Vital Signs Temp 36.8 C 07/13/21 07:47 Pulse 65 07/13/21 07:47 Resp 18 07/13/21 09:15 BP 104/60 07/13/21 07:47 Pulse Ox 100 07/13/21 07:47 Laboratory Results - last 24 hr 07/13/21 06:05 PT 22.6 H INR 2.3 H
[2021-07-13] MEDS: Fosfomycin Tromethamine 3 GM PACKET PO (11:44)
[2021-07-13] MEDS: Acetaminophen 325 MG TAB PO ×2 (11:45→17:53)
[2021-07-13] MEDS: Insulin Aspart 300 UNITS/3 ML PEN 40 UNITS SC (11:51)
--- NOTE | 2021-07-13 14:34 | CMPROGNOTE_ITS ---
- If Service Date Differs Date of service: 07/13/21 Time of Service: 14:34 Care Management Progress Note S/O: Elle was sitting up in her chair when CM met with her today. She stated that she is not feeling well today, and per provider, she will remain overnight, which she is agreeable to. She was seen by Dr. Escobar again today, who noted drainage from the digits on her right foot. She is wearing the Unna boot dressings on both lower extremities. Per provider, she continues to meet acute admission criteria. CM will continue to follow. A: Elle is a 76 year old female admitted to [facility] on 07/10/21 with hypoxic respiratory failure, cellulitis. P: Anticipate Elle will return home once medically cleared. She will likely have new orders for RN, PT, OT, [employer]. She will be driven home via private vehicle by her . She will follow up with her PCP and discharge plan of care. CM will continue to follow.
[2021-07-13 14:59] LABS: Abs Immature Grans 0.04 10^3/uL (0.0-0.06); Absolute Basophil Count 0.01 10^3/uL (0.0-0.2); Absolute Eosinophil Count 0.08 10^3/uL (0.0-0.7); Absolute Lymphocyte Count 0.88 10^3/uL (1.2-3.4); Absolute Monocyte Count 0.96 10^3/uL (0.1-0.8); Absolute Neutrophil Count 7.27 10^3/uL (1.2-6.7); Basophils % 0.1; Eosinophils % 0.9; HCT 34.6 % (36.0-46.0); HGB 10.8 g/dL (11.2-15.7); Immature Grans % 0.4; Lymphocytes % 9.5; MCHC 31.2 % (32.0-36.0); MCV 102.4 fL (80-95); MPV 9.5 fL (8.0-11.0); Monocytes % 10.4; Neutrophils % 78.7; Nucleated RBC 0 %; Platelet Count 195 10^3/uL (130-400); RBC 3.38 10^6/uL (3.93-5.22); RDW 15.6 % (11.7-14.6); RDW-SD 59.2 fL; WBC 9.24 10^3/uL (4.4-10.8)
[2021-07-13 15:09] LABS: Anion Gap 3.4 mmol/L (3-11); CO2 33.6 mmol/L (21.0-32.0); CREATININE 1.8 mg/dL (0.55-1.02); Calcium 9.4 mg/dL (8.5-10.1); Chloride 100 mmol/L (98-107); Estimated GFR 27.43 (mL/min/1.73m2); Glucose 150 mg/dL (74-106); Potassium 4.4 mmol/L (3.5-5.1); Sodium 137 mmol/L (136-145)
[2021-07-13 15:11] LABS: BUN 82 mg/dL (7-18)
[2021-07-13 15:16] LABS: Troponin I 74 ng/L (<or=60)
--- NOTE | 2021-07-13 16:12 | PHA.REVIEW ---
Pharmacy Admission Review - Admission Clinical Review (Last Reviewed 07/12/21 @ 09:16 by Arayn Escobar DPM) UTI (urinary tract infection) due to Enterococcus (Acute) Discharge planning issues (Acute) Cellulitis (Acute) Hypoxia (Acute) Non-ST elevation PR (NSTEMI) (Acute) Lymphedema (Acute) Chronic heart failure with preserved ejection fraction (Acute) Chronic venous insufficiency (Acute) DVT prophylaxis (Acute) atenolol Allergy (Intermediate, Verified 10/19/20 10:36) Wheezing metformin HCl [From Glucophage] Allergy (Mild, Verified 10/19/20 10:36) lisinopril Adverse Reaction (Mild, Verified 10/19/20 10:36) cough losartan potassium [From Cozaar] Adverse Reaction (Mild, Verified 10/19/20 10:39) back pain rosiglitazone maleate [From Avandia] Adverse Reaction (Mild, Verified 10/19/20 10:36) Swelling/Edema Sulfa (Sulfonamide Antibiotics) Adverse Reaction (Mild, Verified 10/19/20 10:36) Skin Rash ketorolac [From Toradol] Adverse Reaction (Verified 10/19/20 10:36) pioglitazone [From Actos] Adverse Reaction (Verified 10/19/20 10:36) glucophage Allergy (Mild, Uncoded 10/19/20 10:36) Diarrhea Resuscitation Status Full Code Height 5 ft 5 in Weight 133.6 kg - Renal Dosing Renal Dosing: BUN 82 mg/dL (7-18) H* D 07/13/21 14:05 Creatinine 1.8 mg/dL (0.55-1.02) H 07/13/21 14:05 Medications needing adjustments: Reviewed (Crcl ~37.3 mL/min using adjusted body weight, current meds okay.) - Anticoagulation Anticoagulation: Hgb 10.8 g/dL (11.2-15.7) L 07/13/21 14:05 Hct 34.6 % (36.0-46.0) L 07/13/21 14:05 Plt Count 195 10^3/uL (130-400) 07/13/21 14:05 INR 2.3 (0.9-1.1) H 07/13/21 06:05 Creatinine 1.8 mg/dL (0.55-1.02) H 07/13/21 14:05 DVT Prophylaxis: N/A Therapeutic Anticoagulation: Reviewed Medications: Warfarin - Opiate Usage Evaluate Pain Scale/Pains Meds: N/A - Relevant Labs Sodium 137 mmol/L (136-145) 07/13/21 14:05 Potassium 4.4 mmol/L (3.5-5.1) 07/13/21 14:05 Chloride 100 mmol/L (98-107) 07/13/21 14:05 Magnesium 2.2 mg/dL (1.8-2.4) 07/11/21 07:05 Electrolytes, C-Reactive P, ESR: Reviewed - DM Control DM Control: Glucose 150 mg/dL (74-106) H D 07/13/21 14:05 Hemoglobin A1c 7.6 % (<5.7) H 07/12/21 06:30 Finger Stick Blood Glucose 157 Finger Stick Blood Glucose 157 Finger Stick Blood Glucose 183 Finger Stick Blood Glucose 183 Finger Stick Blood Glucose 183 Finger Stick Blood Glucose 63 Finger Stick Blood Glucose 63 Insulin Dosing: Intervened (BG was a little low this morning, mentioned to provider. Both aspart and NPH doses were decreased some.) - Heart Failure/PR Heart Failure/PR: Troponin I 74 ng/L (<or=60) H* 07/13/21 14:05 NT-Pro-B Natriuret Pep 2679 pg/mL (<300) H 07/10/21 11:25 EF%, KASSANDRA's, B-Blockers, Diuretics: Reviewed - BP Control BP Control: Blood Pressure 91/54 Blood Pressure 78/50 Blood Pressure 95/60 Blood Pressure 99/65 Blood Pressure 104/60 If elevated: Reviewed (BP has been low to normal most of admission. Currently has spironolactone and torsemide ordered.) - Qtc Review If Elevated: Reviewed (QTc 532 on admission. Current meds okay) - IV to PO Switch IV Medications: Reviewed - Home Meds Home Med List reviewed: Intervened (Had nursing double check on warfarin dosing as it was entetred as 4 mg po daily or as directed on home med list.) Relevent Home Meds Not ordered & why?: multivitamin, triamcinolone, valsartan (was discontinued today) - Current meds Current Medication Order Review: Intervened (Discontinued DI meds that had already been given.) - Comments Comments/Follow Ups: Watch BP, BG, SCr, INR, labs and for med changes (possible renal dose adjustments, avoid QT prolonging meds). Antibiotic Activity - Pharmacy Antibiotic Review Pharmacy Antibiotic Activity: Abx regimen adjustment (Fosfomycin X1 dose given today for UTI. Ceftriaxone continues (day 4) for pneumonia per progress note. Urine culture grew E. faecalis.)
--- NOTE | 2021-07-13 17:21 | NT_ITS ---
Date of service: 07/13/21 Time of Service: 17:21 PT Notes Visit Reasons: Hypoxic Respiratory Failure,Cellulitis Hold PT eval until tomorrow as patient requires more diuresing to address fluid volume/BP issues at this time. Thank you for the opportunity to participate in the care of this patient. Pavithra Willingham PT, DPT, CLT [facility] [place], [place]
[2021-07-13] MEDS: cefTRIAXone 1 GM/50 ML BAG IVPB (17:53)
[2021-07-13] MEDS: Insulin Aspart 300 UNITS/3 ML PEN 35 UNITS SC (17:54)
[2021-07-13] MEDS: Insulin NPH-Human 300 UNITS/3 ML PEN 40 UNIT SC (17:56)
[2021-07-13] MEDS: Senna TAB 2 TAB PO (20:23)
[2021-07-13] MEDS: Warfarin 1 MG TAB 2 MG PO (21:09)
[2021-07-14] VITALS (14 sets, daily range): BP systolic 103–128; BP diastolic 64–77; PULSE 64–107; RESP 8–22; TEMP 36–36.5; O2SAT 92–99
[2021-07-14 07:08] LABS: Abs Immature Grans 0.05 10^3/uL (0.0-0.06); Absolute Basophil Count 0.01 10^3/uL (0.0-0.2); Absolute Eosinophil Count 0.17 10^3/uL (0.0-0.7); Absolute Lymphocyte Count 1.06 10^3/uL (1.2-3.4); Absolute Monocyte Count 1.29 10^3/uL (0.1-0.8); Basophils % 0.1; Eosinophils % 1.9; HCT 37.8 % (36.0-46.0); HGB 11.4 g/dL (11.2-15.7); Immature Grans % 0.6; Lymphocytes % 12.1; MCHC 30.2 % (32.0-36.0); MCV 102.7 fL (80-95); MPV 9.4 fL (8.0-11.0); Monocytes % 14.7; Neutrophils % 70.6; Nucleated RBC 0 %; Platelet Count 198 10^3/uL (130-400); RBC 3.68 10^6/uL (3.93-5.22); RDW 15.6 % (11.7-14.6); RDW-SD 58.9 fL; WBC 8.78 10^3/uL (4.4-10.8)
[2021-07-14 07:20] LABS: INR 2.3 (0.9-1.1)
[2021-07-14 07:23] LABS: Anion Gap 5.9 mmol/L (3-11); CO2 35.1 mmol/L (21.0-32.0); CREATININE 1.8 mg/dL (0.55-1.02); Calcium 9.5 mg/dL (8.5-10.1); Chloride 101 mmol/L (98-107); Estimated GFR 27.43 (mL/min/1.73m2); Glucose 88 mg/dL (74-106); Potassium 4.6 mmol/L (3.5-5.1); Sodium 142 mmol/L (136-145)
[2021-07-14 07:29] LABS: BUN 83 mg/dL (7-18)
[2021-07-14] MEDS: Cholecalciferol (Vitamin D3) 1,000 UNIT TAB 2000 UNITS PO (09:22)
[2021-07-14] MEDS: Spironolactone 25 MG TAB PO (09:22)
[2021-07-14] MEDS: Acetaminophen 325 MG TAB PO ×2 (09:22→17:16)
[2021-07-14] MEDS: ROSUVASTATIN 20 MG TAB PO (09:22)
[2021-07-14] MEDS: Magnesium Oxide 400 MG TAB PO ×2 (09:23→19:45)
[2021-07-14] MEDS: Torsemide 20 MG TAB 40 MG PO (09:23)
[2021-07-14] MEDS: Metoprolol 50 MG TAB PO ×2 (09:23→19:45)
[2021-07-14] MEDS: Insulin NPH-Human 300 UNITS/3 ML PEN 40 UNIT SC ×2 (09:24→17:18)
[2021-07-14] MEDS: Nystatin POWDER 60 GM JAR TP (09:25)
[2021-07-14] MEDS: Albuterol/Ipratropium 3 ML UPD VIAL UPD ×3 (09:25→19:45)
[2021-07-14] MEDS: Ketoconazole 2% CREAM 15 GM TUBE TP ×2 (09:26→19:46)
--- NOTE | 2021-07-14 11:01 | PT.INIE ---
Date of service: 07/14/21 Time of Service: 08:10 PT Notes Visit Reasons: Hypoxic Respiratory Failure,Cellulitis Physical Therapy Inpatient Initial Evaluation Date: 07/14/21 Referring Doctor: Manpreet Celis PT Orders: PT CONSULT: Eval and treat Precautions: Fall. Standard. Patient Profile/Admitting Diagnosis: Elle is a 76-year-old female that presented to the ER on 07/10/2021 and admitted for hypoxic respiratory failure and cellulitis. PMHX: See EMR Social History/Home Situation: Patient lives at home with , uses FWW for ambulation, usually on 2-3L O2 dependent on activity, no stairs Equipment Owned/DME: FWW, oxygen Subjective: Cleared by nursing to see patient and patient is agreeable to PT. Patient is resting in bed at time of consult and connected to telemetry and 2.5L O2 via nasal cannula. Upon sitting reports dizziness and presence of headache, nusring made aware, no change in vitals. Objective: General Observation: Slightly lethargic Mental Status: A&O x3 Pain: Discomfort left leg ROM: Right Upper Extremity: Shoulder Flexion WFL. Shoulder abduction WFL. Elbow flexion WFL. Wrist flexion WFL. Opening and closing of hand WFL. Left Upper Extremity: Shoulder Flexion WFL. Shoulder abduction WFL. Elbow flexion WFL. Wrist flexion WFL. Opening and closing of hand WFL. Right Lower Extremity: Hip flexion WFL. Hip abduction WFL. Knee flexion WFL. Ankle dorsiflexion WFL. Ankle plantarflexion WFL. Left Lower Extremity: Hip flexion WFL. Hip abduction WFL. Knee flexion WFL. Ankle dorsiflexion WFL. Ankle plantarflexion WFL. Strength: Right Upper Extremity: Grossly 4+/5 Left Upper Extremity: Grossly 4+/5 Right Lower Extremity: Grossly 4+/5 Left Lower Extremity: Grossly 4+/5 13 Sensation: Intact as to pain and pressure on bilateral lower extremities. Bed Mobility/Transfers: Supine to sit: Head of bed elevated, min A Sit to stand: CGA Stand to sit: CGA Gait: Ambulated 5 ft in room to chair with FWW, CGA Balance: Static Sitting: Good Dynamic Sitting: Fair Static Standing: Fair Dynamic Standing: Poor Special Tests: Mobility Limitations Standardized Measure [facility] 6 clicks Basic Mobility Inpatient Short Form: Raw Score: 13 CMS Score: 64.91% Informed Consent/Education: Patient instructed in purpose of PT consult and plan of care. Assessment: Patient presents with clinical signs and symptoms consistent with current/admitting diagnoses that have resulted to mobility limitations, gait instability, generalized weakness, and impairment of motor control as demonstrated by the following impairment level findings: 1. Decreased strength to upper and lower extremity major muscle groups 2. Impaired sitting/standing balance 3. Impaired activity tolerance Impairments are contributing to the following functional limitations: 1. Increased dependence with transfers 2. Inability to safely ambulate without assistive device and physical assistance 3. Increase completion time for mobility ADL performance 4. Increased fall risk Patient is assessed as a moderate complexity based on the following: History: 76 year old female with impairment level findings, functional limitations, and past medical history as indicated above Examination: Demonstrable impairment in strength, balance, and mobility level with underlying impairments and functional limitations as documented above Presentation: Evolving Decision Making: Moderate complexity In general Elle has very poor endurance and decreased overall mobility. Goals: Goals x1 week 1. Supine-Sit: independent 2. Sit-Supine: independent 3. Sit-Stand: independent 4. Stand-Sit: independent 5. Bed-Chair: independent 6. Chair-Bed: independent 7. Independent gait on level surface with use of least restrictive device for at least 150 feet without report of pain nor dyspnea Plan of Care/Treatment Plan: 1-2x/day, 7 days/week x 1 week. Plan of care has been reviewed with the [employer] providing the service under Physical Therapy direction. Initiate Physical Therapy intervention for strengthening, bed mobility, transfers, gait, stairs, balance training, and use of assistive device. Discharge Plan DISCHARGE RECOMMENDATIONS: SNF for continued rehabilitation at time of evaluation TREATMENT CODE/TIME: 8:10-8:50 (40 minutes), [id number] Thank you for the opportunity to participate in the care of this patient. Laverne Rowland, PT, DPT, OCS [facility] [place], [place]
[2021-07-14] MEDS: Insulin Aspart 300 UNITS/3 ML PEN 35 UNITS SC ×2 (13:09→17:12)
--- NOTE | 2021-07-14 13:49 | W.PM.PROGNOT ---
Date of Service Date of service: 07/14/21 Time of Service: 16:56 Assessment and Plan Assessment and plan (1) Lymphedema: Status: Acute Assessment and plan: Chronic. Combined with venous insufficiency, she has chronic venous stasis changes. Also has diabetic ulcer present. Wound care has evaluated and making recommendations for daily changes while hospitalized. Podiatry following, no evidence of osteomyelitis, continue with current plan. (2) Chronic heart failure with preserved ejection fraction: Status: Acute Assessment and plan: Last echo in our chart was in 2018. Echocardiogram this admission: EF of 55%. Mild concentric left ventricular hypertophy. Cont home torsemide and spironolactone. was given albumin, metolazone today which she did not tolerate. lasix discontinued. will hold diovan for now, parameters on lopressor (3) Diabetes mellitus with peripheral autonomic neuropathy: Status: Chronic Assessment and plan: Cont NPH BID and insulin with meals;adjusting downward for hypoglycemia. change NPH to 40 bid from 60 and aspart from 40 to 35 with meals. Diabetic diet. ACHS glucose monitoring. (4) Chronic venous insufficiency: Status: Acute Assessment and plan: See above. (5) DVT prophylaxis: Status: Acute Assessment and plan: On Coumadin (6) Pneumonia, community acquired: Status: Resolved Assessment and plan: Presumptive diagnosis. POssible infiltrates on CT. Elevated WBC count now normalized. Resp distress has resolved. Does deny cough/sputum Rocephin day 5/ (7) Atrial fibrillation: Status: Chronic Assessment and plan: Cont metoprolol as BP allows. Coumadin for AC. Telemetry. INR 2.3 continue current dosing. (8) Morbid obesity: Status: Chronic (9) Coronary artery disease: Status: Chronic Assessment and plan: No current angina. Cont BB as BP allows/tolertes. Not on ASA. Is on coumadin. Cont statin (HLD) (10) Discharge planning issues: Status: Acute Assessment and plan: discharge home when medically stable. will need home health services discussed with DR Syed (11) UTI (urinary tract infection) due to Enterococcus: Status: Acute Assessment and plan: urine cultures positive for enterococcus, will treat with fosfomycin. Subjective Subjective Patient reports: shortness of breath (minimal) and afebrile; denies nausea or vomiting Interval history since last seen: feels markedly improved since yesterday and close to her baseline Exam Const General: cooperative, no acute distress, frail appearing and ill appearing Nutritional Appearance: obese Orientation: alert, awake and oriented x3 HENMT Head: normal to inspection, normocephalic and atraumatic Mouth: moist mucous membranes abnormal (dry) Eyes General: appearance normal, both eyes and all related structures Sclera: sclerae normal Neck Neck: full ROM Resp Effort & Inspection: normal respiratory effort Auscultation: clear to auscultation bilaterally and diminished lung sounds Cardio Rate: regular rate and tachycardic Rhythm: abnormal rhythm irregularly irregular GI Inspection: obesity Palpation: soft and nontender Skin Lesions: other (see wound care consult note, bradley) Rashes: other (bilateral venous stasis.) Neuro General: moves all extremities Cranial Nerves: facial strength normal Speech: speech normal Extrem General: edema and pedal edema (1/2 up bilaterally. ) bilaterally Psych Mental Status: mental status grossly normal Speech and Movement: speech clear Affect: normal affect Objective Last Vital Signs Temp 36.2 C L 07/14/21 11:59 Pulse 65 07/14/21 11:59 Resp 19 07/14/21 11:59 BP 104/64 07/14/21 11:59 Pulse Ox 97 07/14/21 11:59 Laboratory Results - last 24 hr 07/13/21 07/13/21 07/13/21 14:05 14:05 14:05 WBC 9.24 RBC 3.38 L Hgb 10.8 L Hct 34.6 L MCV 102.4 H MCH 32.0 MCHC 31.2 L RDW 15.6 H Plt Count 195 MPV 9.5 Immature Gran % 0.4 Neutrophils % 78.7 Lymphocytes % 9.5 Monocytes % 10.4 Eosinophils % 0.9 Basophils % 0.1 Nucleated RBC % 0 Absolute Neutrophils 7.27 H Absolute Lymphocytes 0.88 L Absolute Monocytes 0.96 H Absolute Eosinophils 0.08 Absolute Basophils 0.01 PT INR Sodium 137 Potassium 4.4 Chloride 100 Carbon Dioxide 33.6 H Anion Gap 3.4 BUN 82 H* D Creatinine 1.8 H Estimated GFR/1.73 m2 27.43 Glucose 150 H D Calcium 9.4 Troponin I 74 H* 07/14/21 07/14/21 07/14/21 06:25 06:25 06:25 WBC 8.78 RBC 3.68 L Hgb 11.4 Hct 37.8 MCV 102.7 H MCH 31.0 MCHC 30.2 L RDW 15.6 H Plt Count 198 MPV 9.4 Immature Gran % 0.6 Neutrophils % 70.6 Lymphocytes % 12.1 Monocytes % 14.7 Eosinophils % 1.9 Basophils % 0.1 Nucleated RBC % 0 Absolute Neutrophils 6.20 Absolute Lymphocytes 1.06 L Absolute Monocytes 1.29 H Absolute Eosinophils 0.17 Absolute Basophils 0.01 PT 23.0 H INR 2.3 H Sodium 142 Potassium 4.6 Chloride 101 Carbon Dioxide 35.1 H Anion Gap 5.9 BUN 83 H* Creatinine 1.8 H Estimated GFR/1.73 m2 27.43 Glucose 88 D Calcium 9.5 Troponin I
[2021-07-14] MEDS: cefTRIAXone 1 GM/50 ML BAG IVPB (17:16)
[2021-07-14] MEDS: Senna TAB 2 TAB PO (19:45)
[2021-07-14] MEDS: Warfarin 1 MG TAB 2 MG PO (19:45)
[2021-07-15] VITALS (11 sets, daily range): BP systolic 102–135; BP diastolic 54–84; PULSE 55–80; RESP 1–20; TEMP 36–36.8; O2SAT 82–99
--- NOTE | 2021-07-15 | DI.RAD_ITS ---
Exam(s) XR CHEST 2V PA LATERAL EXAM: XR CHEST 2V PA LATERAL CLINICAL HISTORY: shortness of breath, hypoxia TECHNIQUE: 2D digital imaging was performed of the chest. Two images were obtained. PA and lateral views were obtained. COMPARISON: CR XR CHEST 2V PA LATERAL from 07/12/2021 FINDINGS: Examination limited by patient body habitus. MEDIASTINUM: Normal. HEART: Cardiomegaly. PULMONARY VASCULATURE: Normal. LUNGS: No focal consolidating infiltrates. There again seen increased interstitial markings in the p erihilar regions, right greater than left. PLEURAL SPACE: No pleural effusion or pneumothorax. BONE:Within normal limits for the patient's age. OTHER FINDINGS:Normal. IMPRESSION: Persistent increased interstitial infiltrates. DATA REPOSITORY: RADIATION DOSE DELIVERED:
[2021-07-15] MEDS: Normal Saline Flush 10 ML SYR IVP ×2 (00:36→20:56)
[2021-07-15 07:18] LABS: Prothrombin Time 19.3 sec (9.3-11.0)
[2021-07-15 07:23] LABS: INR 1.9 (0.9-1.1)
[2021-07-15] MEDS: Cholecalciferol (Vitamin D3) 1,000 UNIT TAB 2000 UNITS PO (08:10)
[2021-07-15] MEDS: Metoprolol 50 MG TAB PO ×2 (08:11→20:52)
[2021-07-15] MEDS: Magnesium Oxide 400 MG TAB PO ×2 (08:11→20:52)
[2021-07-15] MEDS: ROSUVASTATIN 20 MG TAB PO (08:11)
[2021-07-15] MEDS: Torsemide 20 MG TAB 40 MG PO (08:11)
[2021-07-15] MEDS: Nystatin POWDER 60 GM JAR TP ×2 (08:11→20:52)
[2021-07-15] MEDS: Albuterol/Ipratropium 3 ML UPD VIAL UPD ×2 (08:11→20:52)
[2021-07-15] MEDS: Acetaminophen 325 MG TAB PO (08:11)
[2021-07-15] MEDS: Spironolactone 25 MG TAB PO (08:11)
[2021-07-15] MEDS: Insulin NPH-Human 300 UNITS/3 ML PEN 40 UNIT SC ×2 (08:12→16:39)
[2021-07-15] MEDS: Insulin Aspart 300 UNITS/3 ML PEN 35 UNITS SC ×2 (08:12→12:23)
[2021-07-15] MEDS: Ketoconazole 2% CREAM 15 GM TUBE TP ×2 (08:13→20:52)
--- NOTE | 2021-07-15 11:42 | W.PM.PROGNOT ---
Date of Service Date of service: 07/15/21 Time of Service: 11:43 Assessment and Plan Assessment and plan (1) Lymphedema: Status: Acute Assessment and plan: Chronic. Combined with venous insufficiency, she has chronic venous stasis changes. Also has diabetic ulcer present. Wound care has evaluated and making recommendations for daily changes while hospitalized. Podiatry following, no evidence of osteomyelitis, continue with current plan. (2) Chronic heart failure with preserved ejection fraction: Status: Acute Assessment and plan: Last echo in our chart was in 2018. Echocardiogram this admission: EF of 55%. Mild concentric left ventricular hypertophy. Cont home torsemide and spironolactone. was given albumin, metolazone which she did not tolerate. lasix discontinued. Continue to hold diovan for now, parameters on lopressor (3) Diabetes mellitus with peripheral autonomic neuropathy: Status: Chronic Assessment and plan: blood sugars improved on lower doses of changed NPH to 40 bid from 60 and aspart from 40 to 35 with meals. Diabetic diet. ACHS glucose monitoring. (4) Chronic venous insufficiency: Status: Acute Assessment and plan: See above. (5) DVT prophylaxis: Status: Acute Assessment and plan: On Coumadin (6) Pneumonia, community acquired: Status: Resolved Assessment and plan: Presumptive diagnosis. POssible infiltrates on CT. Elevated WBC count now normalized. Resp distress has resolved. Does deny cough/sputum Rocephin day 5 (7) Atrial fibrillation: Status: Chronic Assessment and plan: Cont metoprolol as BP allows. Coumadin for AC. Telemetry. INR 1.9 today will be given 4 mg today. continue to monitor and adjust as needed. (8) Morbid obesity: Status: Chronic (9) Coronary artery disease: Status: Chronic Assessment and plan: No current angina. Cont BB as BP allows/tolertes. Not on ASA. Is on coumadin. Cont statin (HLD) (10) Discharge planning issues: Status: Acute Assessment and plan: will likely need custodial facility for rehabilitation prior to returning home. discussed with DR Syed (11) UTI (urinary tract infection) due to Enterococcus: Status: Acute Assessment and plan: urine cultures positive for enterococcus, will treat with fosfomycin. Subjective Subjective Patient reports: tolerating liquids well, tolerating a regular diet, shortness of breath and afebrile Interval history since last seen: placed on oxygen overnight. feels generally better when compared to last few days but is short of breath still. Exam Const General: cooperative, no acute distress, frail appearing and ill appearing Nutritional Appearance: obese Orientation: alert, awake and oriented x3 HENMT Head: normal to inspection, normocephalic and atraumatic Mouth: moist mucous membranes abnormal (dry) Eyes General: appearance normal, both eyes and all related structures Sclera: sclerae normal Neck Neck: full ROM Resp Effort & Inspection: normal respiratory effort Auscultation: diminished lung sounds Cardio Rate: regular rate Rhythm: abnormal rhythm irregularly irregular GI Inspection: obesity Palpation: soft and nontender Skin Lesions: other (see wound care consult note, bradley) Rashes: other (bilateral venous stasis.) Neuro General: moves all extremities Speech: speech normal Extrem General: edema and pedal edema (1/2 up bilaterally. ) bilaterally Psych Mental Status: mental status grossly normal Speech and Movement: speech clear Affect: normal affect Objective Last Vital Signs Temp 36.1 C L 07/15/21 07:59 Pulse 68 07/15/21 07:59 Resp 19 07/15/21 07:59 BP 118/58 L 07/15/21 07:59 Pulse Ox 99 07/15/21 07:59 Laboratory Results - last 24 hr 07/15/21 06:15 PT 19.3 H INR 1.9 H
--- NOTE | 2021-07-15 13:09 | PT.INTREAT ---
Date of service: 07/15/21 Time of Service: 10:30 PT Notes Visit Reasons: Hypoxic Respiratory Failure,Cellulitis Inpatient Physical Therapy Treatment Note [facility] Date: 07/15/2021 PRECAUTIONS: Fall, standard SUBJECTIVE: Very tired today. OBJECTIVE: PAIN: No pain, just very tired. BED MOBILITY/TRANSFERS Up in chair when I arrived to room. Sit-stand: CGA Stand-sit: CGA GAIT Assistive Device: FWW Weight bearing: Full Assist: CGA of one Distance: 14ft THEREX: Discussed trying to do LAQs, ankle pumps, seated marching. But patient was too tired post ambulation. Stated she would try moving legs later. ASSESSMENT: Tolerated ambulation better than yesterday, but unable to perform light chair exercises post ambulation. PLAN: Continue to advance as patient is able to tolerate. Focus on improved functional mobility and ADL activities. TREATMENT CODE/TIME: 09888, 10:30 to 10:45 am (15 minutes)
--- NOTE | 2021-07-15 15:10 | DI.VRAD_ITS ---
PROCEDURE INFORMATION: Exam: XR Chest Exam date and time: 07/15/2021 11:50 AM Age: 76 years old Clinical indication: Other: SOB, hypoxia TECHNIQUE: Imaging protocol: XR of the chest. Views: 2 views. COMPARISON: CR XR CHEST 2V PA LATERAL 07/12/2021 9:35 AM FINDINGS: Lungs: There is some hazy opacity at the right lung base and on the lateral view anteriorly. Pleural spaces: Unremarkable. No pleural effusion. No pneumothorax. Heart/Mediastinum: Cardiomegaly unchanged. Bones/joints: Unremarkable. Soft tissues: Patient body habitus limits the exam. Other findings: The patient is slightly rotated to the left. IMPRESSION: Concern for patchy airspace disease, mild. Dictated and Authenticated by: Shannan Mills MD. Ordering:DAVID Carlin MD
[2021-07-15] MEDS: cefTRIAXone 1 GM/50 ML BAG IVPB (16:40)
[2021-07-15] MEDS: Senna TAB 2 TAB PO (20:50)
[2021-07-15] MEDS: Warfarin 4 MG TAB PO (20:50)
[2021-07-15] MEDS: traMADol 50 MG TAB PO (22:44)
[2021-07-16] VITALS (14 sets, daily range): BP systolic 95–138; BP diastolic 54–81; PULSE 58–72; RESP 1–20; TEMP 35.7–36.8; O2SAT 94–99
[2021-07-16] MEDS: Acetaminophen 325 MG TAB PO (00:41)
[2021-07-16 07:17] LABS: Abs Immature Grans 0.02 10^3/uL (0.0-0.06); Absolute Basophil Count 0.01 10^3/uL (0.0-0.2); Absolute Eosinophil Count 0.21 10^3/uL (0.0-0.7); Absolute Lymphocyte Count 1.51 10^3/uL (1.2-3.4); Absolute Monocyte Count 0.51 10^3/uL (0.1-0.8); Absolute Neutrophil Count 2.56 10^3/uL (1.2-6.7); Basophils % 0.2; Eosinophils % 4.4; HCT 39.2 % (36.0-46.0); Immature Grans % 0.4; Lymphocytes % 31.3; MCH 30.7 pg (27.0-33.0); MCHC 30.6 % (32.0-36.0); MCV 100.3 fL (80-95); MPV 9.2 fL (8.0-11.0); Monocytes % 10.6; Neutrophils % 53.1; Nucleated RBC 0 %; Platelet Count 233 10^3/uL (130-400); RBC 3.91 10^6/uL (3.93-5.22); RDW 15.2 % (11.7-14.6); RDW-SD 55.8 fL; WBC 4.82 10^3/uL (4.4-10.8)
[2021-07-16 07:32] LABS: Anion Gap -0.5 mmol/L (3-11); BUN 76 mg/dL (7-18); CO2 38.5 mmol/L (21.0-32.0); CREATININE 1.7 mg/dL (0.55-1.02); Calcium 9.8 mg/dL (8.5-10.1); Chloride 102 mmol/L (98-107); Glucose 130 mg/dL (74-106); Potassium 4.4 mmol/L (3.5-5.1); Sodium 140 mmol/L (136-145)
[2021-07-16 08:05] LABS: INR 1.7 (0.9-1.1); Prothrombin Time 16.6 sec (9.3-11.0)
[2021-07-16] MEDS: Insulin Aspart 300 UNITS/3 ML PEN 35 UNITS SC ×3 (08:29→16:53)
[2021-07-16] MEDS: Insulin NPH-Human 300 UNITS/3 ML PEN 40 UNIT SC ×2 (08:30→16:54)
[2021-07-16] MEDS: Senna TAB 2 TAB PO ×2 (08:50→20:15)
[2021-07-16] MEDS: Cholecalciferol (Vitamin D3) 1,000 UNIT TAB 2000 UNITS PO (08:50)
[2021-07-16] MEDS: Torsemide 20 MG TAB 40 MG PO (08:51)
[2021-07-16] MEDS: ROSUVASTATIN 20 MG TAB PO (08:51)
[2021-07-16] MEDS: Spironolactone 25 MG TAB PO (08:51)
[2021-07-16] MEDS: Metoprolol 50 MG TAB PO ×2 (08:52→20:15)
[2021-07-16] MEDS: Normal Saline Flush 10 ML SYR IVP ×3 (08:52→20:14)
[2021-07-16] MEDS: Magnesium Oxide 400 MG TAB PO ×2 (08:52→20:15)
[2021-07-16] MEDS: Ketoconazole 2% CREAM 15 GM TUBE TP ×2 (08:53→20:15)
[2021-07-16] MEDS: Nystatin POWDER 60 GM JAR TP ×2 (08:53→20:14)
[2021-07-16] MEDS: Albuterol/Ipratropium 3 ML UPD VIAL UPD ×3 (09:28→20:15)
[2021-07-16] MEDS: traMADol 50 MG TAB PO (15:00)
--- NOTE | 2021-07-16 15:37 | PT.INTREAT ---
Date of service: 07/16/21 Time of Service: 14:25 PT Notes Visit Reasons: Hypoxic Respiratory Failure,Cellulitis Inpatient Physical Therapy Treatment Note [facility] Date: 07/16/2021 PRECAUTIONS: Fall, Activity as tolerated SUBJECTIVE: Elle states that she is very tired this afternoon. She reports that her lightheadedness from this morning has resolved at this point. OBJECTIVE: Held morning PT session due to low BP and persistent lightheadedness. PAIN: Patient c/o R shoulder pain and LBP R>L with transfers and gait training BED MOBILITY/TRANSFERS Supine-sit: I with HOB at 40 degrees Sit-stand: SBA (completed x4) Stand-sit: SBA (completed x4) Bed-Chair: SBA GAIT Assistive Device: FWW Weight bearing: Full Assist: SBA Distance: 6' Deviation: c/o LBP R>L ASSESSMENT: Patient tolerated session with LBP and new onset R shoulder pain with transfers. She would benefit from continued gait and transfer training for improved mobility and activity tolerance. PLAN: Continue with gait training and transfer training. TREATMENT CODE/TIME: 23 minutes; 06004 x2 (14:45)
--- NOTE | 2021-07-16 15:42 | W.PM.PROGNOT ---
Date of Service Date of service: 07/16/21 Time of Service: 15:42 Assessment and Plan Assessment and plan (1) Lymphedema: Status: Acute Assessment and plan: Chronic. Combined with venous insufficiency, she has chronic venous stasis changes. Also has diabetic ulcer present. Wound care has evaluated and making recommendations for daily changes while hospitalized. Podiatry following, no evidence of osteomyelitis, continue with current plan. ceftriaxone day 7 (2) Chronic heart failure with preserved ejection fraction: Status: Acute Assessment and plan: Last echo in our chart was in 2018. Echocardiogram this admission: EF of 55%. Mild concentric left ventricular hypertophy. Cont home torsemide and spironolactone. was given albumin, metolazone which she did not tolerate. lasix discontinued. Continue to hold diovan for now, parameters on lopressor (3) Diabetes mellitus with peripheral autonomic neuropathy: Status: Chronic Assessment and plan: blood sugars improved on lower doses of changed NPH to 40 bid from 60 and aspart from 40 to 35 with meals. Diabetic diet. ACHS glucose monitoring. (4) Chronic venous insufficiency: Status: Acute Assessment and plan: See above. (5) DVT prophylaxis: Status: Acute Assessment and plan: On Coumadin (6) Pneumonia, community acquired: Status: Resolved Assessment and plan: Presumptive diagnosis. completed course of ceftriaxone still on oxygen, wean as able. white count normalized. cxr unchanged. Does deny cough/sputum (7) Atrial fibrillation: Status: Chronic Assessment and plan: Cont metoprolol . Coumadin for AC. discontinue telemetry. INR 1.7 today will continue 4 mg today. continue to monitor and adjust as needed. (8) Morbid obesity: Status: Chronic (9) Coronary artery disease: Status: Chronic Assessment and plan: No current angina. Cont BB as BP allows/tolertes. Not on ASA. Is on coumadin. Cont statin (HLD) (10) Discharge planning issues: Status: Acute Assessment and plan: will likely need intermediate facility for rehabilitation prior to returning home. discussed with DR Syed (11) UTI (urinary tract infection) due to Enterococcus: Status: Acute Assessment and plan: urine cultures positive for enterococcus, treated with fosfomycin. no further symptoms. Subjective Subjective Patient reports: no new complaints, feels better, tolerating liquids well, tolerating a regular diet, shortness of breath and afebrile Interval history since last seen: with some ongoing shortness of breath, no fever or cough, still requiring 1-2 liters maintaining sats in high 90's Exam Const General: cooperative, no acute distress, frail appearing and ill appearing Nutritional Appearance: obese Orientation: alert, awake and oriented x3 HENMT Head: normal to inspection, normocephalic and atraumatic Mouth: moist mucous membranes abnormal (dry) Eyes General: appearance normal, both eyes and all related structures Sclera: sclerae normal Neck Neck: full ROM Resp Effort & Inspection: normal respiratory effort Auscultation: clear to auscultation bilaterally and diminished lung sounds Cardio Rate: regular rate Rhythm: abnormal rhythm irregularly irregular GI Inspection: obesity Palpation: soft and nontender Skin Rashes: other (bilateral venous stasis.) Neuro General: moves all extremities Speech: speech normal Extrem General: edema and pedal edema (1/2 up bilaterally. ) bilaterally Psych Mental Status: mental status grossly normal Speech and Movement: speech clear Affect: normal affect Objective Last Vital Signs Temp 35.7 C L 07/16/21 11:31 Pulse 58 L 07/16/21 11:31 Resp 17 07/16/21 11:31 BP 95/58 L 07/16/21 11:31 Pulse Ox 99 07/16/21 11:31 Laboratory Results - last 24 hr 07/16/21 07/16/21 07/16/21 06:15 06:15 06:15 WBC 4.82 RBC 3.91 L Hgb 12.0 Hct 39.2 MCV 100.3 H MCH 30.7 MCHC 30.6 L RDW 15.2 H Plt Count 233 MPV 9.2 Immature Gran % 0.4 Neutrophils % 53.1 Lymphocytes % 31.3 Monocytes % 10.6 Eosinophils % 4.4 Basophils % 0.2 Nucleated RBC % 0 Absolute Neutrophils 2.56 Absolute Lymphocytes 1.51 Absolute Monocytes 0.51 Absolute Eosinophils 0.21 Absolute Basophils 0.01 PT 16.6 H INR 1.7 H Sodium 140 Potassium 4.4 Chloride 102 Carbon Dioxide 38.5 H Anion Gap -0.5 L BUN 76 H Creatinine 1.7 H Estimated GFR/1.73 m2 29.30 Glucose 130 H Calcium 9.8
--- NOTE | 2021-07-16 18:04 | PDOC.CMPRO ---
- If Service Date Differs Date of service: 07/16/21 Time of Service: 18:04 Care Management Progress Note S/O: Elle was sitting up in her chair when CM met with her. She stated that she is feeling ok. CM discussed discharge plans, and she confirmed that she is agreeable to going to short term rehab prior to returning home. She stated that she prefers to stay local, and asked for referrals to be sent to [facility] and the [facility]. CM sent referrals, as requested. CM will continue to follow. A: Elle is a 76 year old female admitted to [facility] on 07/10/21 with hypoxic respiratory failure, cellulitis. P: Anticipate Elle will return home vs SNF once medically cleared. She will be driven home via private vehicle by her . She will follow up with her PCP and discharge plan of care. CM will continue to follow.
[2021-07-16] MEDS: cefTRIAXone 1 GM/50 ML BAG IVPB (18:23)
[2021-07-16] MEDS: Normal Saline 500 ML 30 ML IV (18:23)
[2021-07-16] MEDS: Warfarin 4 MG TAB PO (20:16)
[2021-07-17] VITALS (9 sets, daily range): BP systolic 105–130; BP diastolic 66–75; PULSE 56–76; RESP 1–19; TEMP 35.9–36.8; O2SAT 91–98
[2021-07-17 07:09] LABS: Abs Immature Grans 0.04 10^3/uL (0.0-0.06); Absolute Basophil Count 0.02 10^3/uL (0.0-0.2); Absolute Eosinophil Count 0.21 10^3/uL (0.0-0.7); Absolute Monocyte Count 0.63 10^3/uL (0.1-0.8); Basophils % 0.3; Eosinophils % 3.3; HCT 38.6 % (36.0-46.0); Immature Grans % 0.6; Lymphocytes % 26.4; MCH 30.9 pg (27.0-33.0); MCHC 31.1 % (32.0-36.0); MCV 99.5 fL (80-95); MPV 8.9 fL (8.0-11.0); Monocytes % 9.8; Neutrophils % 59.6; Nucleated RBC 0 %; Platelet Count 257 10^3/uL (130-400); RBC 3.88 10^6/uL (3.93-5.22); RDW 14.9 % (11.7-14.6); WBC 6.45 10^3/uL (4.4-10.8)
[2021-07-17 07:11] LABS: Absolute Neutrophil Count 3.84 10^3/uL (1.2-6.7)
[2021-07-17 07:25] LABS: INR 1.8 (0.9-1.1); Prothrombin Time 17.6 sec (9.3-11.0)
[2021-07-17 07:29] LABS: Anion Gap 4.7 mmol/L (3-11); BUN 70 mg/dL (7-18); CO2 36.3 mmol/L (21.0-32.0); CREATININE 1.5 mg/dL (0.55-1.02); Chloride 99 mmol/L (98-107); Estimated GFR 33.85 (mL/min/1.73m2); Glucose 151 mg/dL (74-106); Potassium 4.6 mmol/L (3.5-5.1); Sodium 140 mmol/L (136-145)
[2021-07-17] MEDS: Albuterol/Ipratropium 3 ML UPD VIAL UPD ×3 (07:48→19:57)
[2021-07-17] MEDS: Spironolactone 25 MG TAB PO (07:49)
[2021-07-17] MEDS: Torsemide 20 MG TAB 40 MG PO (07:49)
[2021-07-17] MEDS: Acetaminophen 325 MG TAB PO (07:49)
[2021-07-17] MEDS: Senna TAB 2 TAB PO ×2 (07:49→19:58)
[2021-07-17] MEDS: Metoprolol 50 MG TAB PO ×2 (07:50→19:58)
[2021-07-17] MEDS: Normal Saline Flush 10 ML SYR IVP ×2 (07:50→19:57)
[2021-07-17] MEDS: Cholecalciferol (Vitamin D3) 1,000 UNIT TAB 2000 UNITS PO (07:50)
[2021-07-17] MEDS: ROSUVASTATIN 20 MG TAB PO (07:50)
[2021-07-17] MEDS: Magnesium Oxide 400 MG TAB PO ×2 (07:50→19:57)
[2021-07-17] MEDS: Insulin NPH-Human 300 UNITS/3 ML PEN 40 UNIT SC ×2 (08:01→16:59)
[2021-07-17] MEDS: Insulin Aspart 300 UNITS/3 ML PEN 35 UNITS SC ×3 (08:02→17:06)
[2021-07-17] MEDS: Ketoconazole 2% CREAM 15 GM TUBE TP ×2 (10:05→19:58)
[2021-07-17] MEDS: Nystatin POWDER 60 GM JAR TP ×2 (10:06→19:58)
[2021-07-17] MEDS: traMADol 50 MG TAB PO (10:11)
--- NOTE | 2021-07-17 15:58 | PT.INTREAT ---
Date of service: 07/17/21 Time of Service: 14:45 PT Notes Visit Reasons: Hypoxic Respiratory Failure,Cellulitis Inpatient Physical Therapy Treatment Note [facility] Date: 07/17/2021 PRECAUTIONS: Fall, Activity as tolerated SUBJECTIVE: Elle reports that she is having B LE pain, shoulder pain, and back pain. She is agreeable to participating in PT. OBJECTIVE: PAIN: Patient c/o LBP R>L with activity BED MOBILITY/TRANSFERS Sit-stand: Min A x2 in a.m.; SBA in p.m. Stand-sit: SBA GAIT Assistive Device: FWW Weight bearing: Full Assist: SBA - S Distance: 40' in a.m.; 100' in p.m. Deviation: C/o LBP R>L, UE fatigue, B LE pain, mild SOB THEREX: Patient was instructed in a LE strengthening program, completed in a seated position, as per flow sheet. ASSESSMENT: Patient tolerated session with c/o LBP and B LE pain with gait training. She demonstrates limited activity tolerance and global weakness, increasing her risk for falls at home. At this time, recommend discharge to SNF-level facility for short term rehab. PLAN: Continue with gait training and transfer training as well as global strengthening and conditioning. TREATMENT CODE/TIME: Session 1: 26 minutes; 16207, [id number] (10:36) Session 2: 15 minutes; 60961 (14:07)
--- NOTE | 2021-07-17 16:57 | W.PM.PROGNOT ---
Date of Service Date of service: 07/17/21 Time of Service: 16:57 Assessment and Plan Assessment and plan (1) Lymphedema: Status: Acute Assessment and plan: Chronic. Combined with venous insufficiency, she has chronic venous stasis changes. Also has diabetic ulcer present. Wound care has evaluated and making recommendations for daily changes while hospitalized. Podiatry following, no evidence of osteomyelitis, continue with current plan. ceftriaxone day 8 (2) Chronic heart failure with preserved ejection fraction: Status: Acute Assessment and plan: Last echo in our chart was in 2018. Echocardiogram this admission: EF of 55%. Mild concentric left ventricular hypertophy. Cont home torsemide and spironolactone. was given albumin, metolazone which she did not tolerate. lasix discontinued. Continue to hold diovan for now, parameters on lopressor (3) Diabetes mellitus with peripheral autonomic neuropathy: Status: Chronic Assessment and plan: blood sugars improved on lower doses of changed NPH to 40 bid from 60 and aspart from 40 to 35 with meals. Diabetic diet. ACHS glucose monitoring. (4) Chronic venous insufficiency: Status: Acute Assessment and plan: See above. (5) DVT prophylaxis: Status: Acute Assessment and plan: On Coumadin (6) Pneumonia, community acquired: Status: Resolved Assessment and plan: Presumptive diagnosis. completed course of ceftriaxone weaned off oxygen white count normalized. cxr unchanged. Does deny cough/sputum (7) Atrial fibrillation: Status: Chronic Assessment and plan: Cont metoprolol . Coumadin for AC. discontinue telemetry. INR 1.8 today will continue 4 mg today. continue to monitor and adjust as needed. (8) Morbid obesity: Status: Chronic (9) Coronary artery disease: Status: Chronic Assessment and plan: No current angina. Cont BB as BP allows/tolertes. Not on ASA. Is on coumadin. Cont statin (HLD) (10) Discharge planning issues: Status: Acute Assessment and plan: home tomorrow with services discussed with DR Syed (11) UTI (urinary tract infection) due to Enterococcus: Status: Resolved Assessment and plan: urine cultures positive for enterococcus, treated with fosfomycin. no further symptoms. Subjective Subjective Patient reports: no new complaints, feels better, tolerating liquids well, tolerating a regular diet and afebrile; denies shortness of breath (weaned off oxygen) Interval history since last seen: work with PT and re-ambulating with one stand by assist Exam Const General: cooperative, no acute distress, frail appearing and ill appearing Nutritional Appearance: obese Orientation: alert, awake and oriented x3 HENMT Head: normal to inspection, normocephalic and atraumatic Mouth: moist mucous membranes abnormal (dry) Eyes General: appearance normal, both eyes and all related structures Sclera: sclerae normal Neck Neck: full ROM Resp Effort & Inspection: normal respiratory effort Auscultation: clear to auscultation bilaterally and diminished lung sounds Cardio Rate: regular rate and tachycardic Rhythm: abnormal rhythm irregularly irregular GI Inspection: obesity Palpation: soft and nontender Skin Lesions: other (see wound care consult note, bradley) Rashes: other (bilateral venous stasis.) Neuro General: moves all extremities Cranial Nerves: facial strength normal Speech: speech normal Extrem General: edema and pedal edema (1/2 up bilaterally. ) bilaterally Psych Mental Status: mental status grossly normal Speech and Movement: speech clear Affect: normal affect Objective Last Vital Signs Temp 36.8 C 07/17/21 15:39 Pulse 75 07/17/21 15:39 Resp 17 07/17/21 15:39 BP 130/75 07/17/21 15:39 Pulse Ox 91 L 07/17/21 16:53 Laboratory Results - last 24 hr 07/17/21 07/17/21 07/17/21 06:30 06:30 06:30 WBC 6.45 D RBC 3.88 L Hgb 12.0 Hct 38.6 MCV 99.5 H MCH 30.9 MCHC 31.1 L RDW 14.9 H Plt Count 257 MPV 8.9 Immature Gran % 0.6 Neutrophils % 59.6 Lymphocytes % 26.4 Monocytes % 9.8 Eosinophils % 3.3 Basophils % 0.3 Nucleated RBC % 0 Absolute Neutrophils 3.84 Absolute Lymphocytes 1.70 Absolute Monocytes 0.63 Absolute Eosinophils 0.21 Absolute Basophils 0.02 PT 17.6 H INR 1.8 H Sodium 140 Potassium 4.6 Chloride 99 Carbon Dioxide 36.3 H Anion Gap 4.7 BUN 70 H Creatinine 1.5 H Estimated GFR/1.73 m2 33.85 Glucose 151 H Calcium 10.0
[2021-07-17] MEDS: cefTRIAXone 1 GM/50 ML BAG IVPB (17:37)
--- NOTE | 2021-07-17 18:22 | CMPROGNOTE_ITS ---
- If Service Date Differs Date of service: 07/17/21 Time of Service: 18:22 Care Management Progress Note S/O: Elle was sitting up in her chair when CM met with her. She reported that she has been doing well working with PT, and is hopeful that she will return home soon. Her discharge plan has been to go to short term rehab, and she was accepted at both facilities where referrals were sent, [facility] and [facility]. She chose [facility], as it is closer to home. [facility] has started the PA for her rehab stay, which may take a day or two. Later, the provider informed CM that if she continues to improve with PT, she may be ready for discharge home with instead of rehab. CM will discuss this with PT and the patient. CM will continue to follow. A: Elle is a 76 year old female admitted to [facility] on 07/10/21 with hypoxic respiratory failure, cellulitis. P: Anticipate Elle will return home vs SNF once medically cleared. She will be driven home via private vehicle by her . She will follow up with her PCP and discharge plan of care. CM will continue to follow.
--- NOTE | 2021-07-17 18:52 | RESPIRATORY ---
Pt placed on on room air and desaturated to 85% (07/17/2021 @ 1000.) Placed back on oxygen post room air trial.
[2021-07-17] MEDS: Warfarin 4 MG TAB PO (19:57)
[2021-07-18] VITALS (10 sets, daily range): BP systolic 97–125; BP diastolic 55–71; PULSE 62–77; RESP 8–20; TEMP 36.2–36.6; O2SAT 84–97
[2021-07-18] MEDS: Albuterol/Ipratropium 3 ML UPD VIAL UPD ×3 (07:55→19:47)
--- NOTE | 2021-07-18 10:00 | RT.EKG_ITS ---
APPROVED REPORT Exam: Resting ECG Reason for Exam: chest pain with exertion Patient Location: I HR:92 bpm ECG Measurements Heart Rate 92 AXIS NM [id number] P [id number] QRSd 140 QRS -63 QT 418 T 80 QTc 518 Conclusion Atrial fibrillation...V-rate 73- 97, irreg A-activity LBBB
[2021-07-18] MEDS: Insulin Aspart 300 UNITS/3 ML PEN 35 UNITS SC ×3 (10:05→17:09)
[2021-07-18] MEDS: Insulin NPH-Human 300 UNITS/3 ML PEN 40 UNIT SC ×2 (10:07→17:08)
[2021-07-18] MEDS: Torsemide 20 MG TAB 40 MG PO (10:18)
[2021-07-18] MEDS: Magnesium Oxide 400 MG TAB PO ×2 (10:18→20:00)
[2021-07-18] MEDS: Cholecalciferol (Vitamin D3) 1,000 UNIT TAB 2000 UNITS PO (10:18)
[2021-07-18] MEDS: Spironolactone 25 MG TAB PO (10:19)
[2021-07-18] MEDS: ROSUVASTATIN 20 MG TAB PO (10:19)
[2021-07-18] MEDS: Senna TAB 2 TAB PO ×2 (10:19→20:00)
[2021-07-18] MEDS: Metoprolol 50 MG TAB PO ×2 (10:19→20:09)
[2021-07-18] MEDS: Nystatin POWDER 60 GM JAR TP ×2 (10:20→20:09)
[2021-07-18] MEDS: Ketoconazole 2% CREAM 15 GM TUBE TP ×2 (10:20→20:09)
[2021-07-18] MEDS: Aspirin 81 MG CHEW 324 MG CH (10:53)
[2021-07-18] MEDS: Polyethylene Glycol 3350 17 GM PACKET PO (10:56)
[2021-07-18 11:13] LABS: Troponin I < 50 ng/L (<or=60)
[2021-07-18] MEDS: Normal Saline Flush 10 ML SYR IVP ×2 (12:57→17:51)
[2021-07-18] MEDS: traMADol 50 MG TAB PO (12:58)
--- NOTE | 2021-07-18 14:45 | W.PM.PROGNOT ---
Date of Service Date of service: 07/18/21 Time of Service: 14:45 Assessment and Plan Assessment and plan (1) Chest pain: Status: Acute Assessment and plan: occurred with activity, resolved spontaneously with rest. EKG with no acute changes initial troponin negative, will continue to cycle oxygen applied given 324 mg asa will continue to monitor (2) Lymphedema: Status: Acute Assessment and plan: Chronic. Combined with venous insufficiency, she has chronic venous stasis changes. Also has diabetic ulcer present. Wound care has evaluated and making recommendations for daily changes while hospitalized. Podiatry following, no evidence of osteomyelitis, continue with current plan. ceftriaxone day 8 (3) Chronic heart failure with preserved ejection fraction: Status: Acute Assessment and plan: Last echo in our chart was in 2018. Echocardiogram this admission: EF of 55%. Mild concentric left ventricular hypertophy. Cont home torsemide and spironolactone. was given albumin, metolazone which she did not tolerate. lasix discontinued. Continue to hold diovan for now, parameters on lopressor (4) Diabetes mellitus with peripheral autonomic neuropathy: Status: Chronic Assessment and plan: blood sugars improved on lower doses of changed NPH to 40 bid from 60 and aspart from 40 to 35 with meals. Diabetic diet. ACHS glucose monitoring. (5) Chronic venous insufficiency: Status: Acute Assessment and plan: See above. (6) DVT prophylaxis: Status: Acute Assessment and plan: On Coumadin (7) Pneumonia, community acquired: Status: Resolved Assessment and plan: Presumptive diagnosis. completed course of ceftriaxone weaned off oxygen white count normalized. cxr unchanged. Does deny cough/sputum (8) Atrial fibrillation: Status: Chronic Assessment and plan: Cont metoprolol . Coumadin for AC. discontinue telemetry. INR 1.8 today will continue 4 mg today. continue to monitor and adjust as needed. (9) Morbid obesity: Status: Chronic (10) Coronary artery disease: Status: Chronic Assessment and plan: No current angina. Cont BB as BP allows/tolertes. Not on ASA. Is on coumadin. Cont statin (HLD) (11) UTI (urinary tract infection) due to Enterococcus: Status: Resolved Assessment and plan: urine cultures positive for enterococcus, treated with fosfomycin. no further symptoms. (12) Discharge planning issues: Status: Acute Assessment and plan: plan now for rehab tomorrow if medically stable. discussed with DR Syed Subjective Subjective Patient reports: tolerating liquids well, tolerating a regular diet, shortness of breath and afebrile Interval history since last seen: ambulated with PT and during session developed substernal chest pain, shortness of breath and hypoxia. she was placed back in bed with oxygen on and her symptoms resolved spontaneously. it did reoccur with repositioning in bed, not noted at that time to be hypoxic. It again spontaneously resolved. she was given 324 mg asa to chew, EKG obtained and unremarkable she had no further c/o. her initial troponin was negative. Exam Const General: cooperative, no acute distress, frail appearing and ill appearing Nutritional Appearance: obese Orientation: alert, awake and oriented x3 HENMT Head: normal to inspection, normocephalic and atraumatic Mouth: moist mucous membranes abnormal (dry) Eyes General: appearance normal, both eyes and all related structures Sclera: sclerae normal Neck Neck: full ROM Resp Effort & Inspection: normal respiratory effort Auscultation: clear to auscultation bilaterally and diminished lung sounds Cardio Rate: regular rate Rhythm: abnormal rhythm irregularly irregular GI Inspection: obesity Palpation: soft and nontender Skin Lesions: other (see wound care consult note, weepy) Rashes: other (bilateral venous stasis.) Neuro General: moves all extremities Cranial Nerves: facial strength normal Speech: speech normal Extrem General: edema and pedal edema (1/2 up bilaterally. ) bilaterally Psych Mental Status: mental status grossly normal Speech and Movement: speech clear Affect: normal affect Objective Last Vital Signs Temp 36.4 C L 07/18/21 11:33 Pulse 62 07/18/21 11:33 Resp 18 07/18/21 14:10 BP 105/71 07/18/21 11:33 Pulse Ox 94 07/18/21 11:33 Laboratory Results - last 24 hr 07/18/21 10:36 Troponin I < 50
[2021-07-18 15:24] LABS: Troponin I < 50 ng/L (<or=60)
--- NOTE | 2021-07-18 15:51 | PT.INTREAT ---
Date of service: 07/18/21 Time of Service: 09:50 PT Notes Visit Reasons: Hypoxic Respiratory Failure,Cellulitis Inpatient Physical Therapy Treatment Note [facility] Date: 07/18/2021 PRECAUTIONS: Fall, Activity as tolerated SUBJECTIVE: Elle states that she would like to go home versus discharge to a rehab facility. She reports that her helps her a lot at home. OBJECTIVE: Patient refused afternoon session due to significant fatigue. PAIN: Patient c/o chest heaviness post stair training BED MOBILITY/TRANSFERS Sit-supine: Max A of B LEs Sit-stand: S Stand-sit: S GAIT Assistive Device: FWW Weight bearing: Full Assist: SBA Distance: 40' x2 + 10' Deviation: Seated rest x2 due to SOB and fatigue VITALS: 84-94% on RA with gait training. Initiated 1L O2 via NC with gait and stair training, patient remained 91-97%. Vital signs obtained by primary nurse due to c/o chest heaviness. Please see her report for full vital sign details. STAIRS: Up/down 3x4 using B rails and a step-to pattern with supervision. ASSESSMENT: Patient tolerated session with c/o chest heaviness post gait training. She demonstrates limited activity tolerance and global weakness, increasing her risk for falls at home. At this time, recommend discharge to SNF-level facility for short term rehab. PLAN: Continue with gait training and transfer training as well as global strengthening and conditioning. TREATMENT CODE/TIME: 26 minutes; 08309 x2 (09:50)
--- NOTE | 2021-07-18 17:22 | CMPROGNOTE_ITS ---
- If Service Date Differs Date of service: 07/18/21 Time of Service: 17:22 Care Management Progress Note S/O: Elle was sitting up in bed when CM met with her. Her discharge was delayed today, as she was having chest pain and the provider wanted to monitor her overnight. She is now requiring supplemental O2 again (she had been weaned to room air), and is having repeat labs. She continues to work with PT, who feels that she will benefit from short term rehab, as she has not progressed enough to be independent at home. She has a bed offer at [facility], who has obtained a PA from her insurance. CM discussed her plan with her today, stating that the recommendation is for her to go to rehab, and this would be reviewed again tomorrow. CM will continue to follow. A: Elle is a 76 year old female admitted to [facility] on 07/10/21 with hypoxic respiratory failure, cellulitis. P: Anticipate Elle will return home vs SNF once medically cleared. She will be driven home via private vehicle by her . She will follow up with her PCP and discharge plan of care. CM will continue to follow.
[2021-07-18] MEDS: cefTRIAXone 1 GM/50 ML BAG IVPB (17:51)
--- NOTE | 2021-07-18 18:50 | INDS_ITS ---
Date of service: 07/18/21 PT Notes Visit Reasons: Hypoxic Respiratory Failure,Cellulitis Physical Therapy Inpatient Discharge Summary Date: 2021 Date of service: 07/14/2021 through 07/18/2021 This is a clinical summary of care provided for the duration of dates listed above. No charge was made in the completion of this documentation. Referring Doctor: Manpreet Celis PT Orders: PT CONSULT: Eval and treat Precautions: Fall. Standard. Patient Profile/Admitting Diagnosis:?Elle is a 76-year-old female that presented to the ER on 07/10/2021 and admitted for hypoxic respiratory failure and cellulitis. PMHX: See EMR Social History/Home Situation: Patient lives at home with , uses FWW for ambulation, usually on 2-3L O2 dependent on activity, no stairs Equipment Owned/DME: FWW, oxygen Subjective: NT. See most recent ELECTROENCEPHALOGRAPH TECHNICIAN notes. Objective:? General Observation: NT. See most recent ELECTROENCEPHALOGRAPH TECHNICIAN notes. Mental Status: NT. See most recent ELECTROENCEPHALOGRAPH TECHNICIAN notes. Pain: NT. See most recent ELECTROENCEPHALOGRAPH TECHNICIAN notes. ROM: Right Upper Extremity: Shoulder Flexion WFL. Shoulder abduction WFL. Elbow flexion WFL. Wrist flexion WFL. Opening and closing of hand WFL. Left Upper Extremity: Shoulder Flexion WFL. Shoulder abduction WFL. Elbow flexion WFL. Wrist flexion WFL. Opening and closing of hand WFL. Right Lower Extremity: Hip flexion WFL. Hip abduction WFL. Knee flexion WFL. Ankle dorsiflexion WFL. Ankle plantarflexion WFL. Left Lower Extremity: Hip flexion WFL. Hip abduction WFL. Knee flexion WFL. Ankle dorsiflexion WFL. Ankle plantarflexion WFL. Strength: Right Upper Extremity: Grossly 4+/5 Left Upper Extremity: Grossly 4+/5 Right Lower Extremity: Grossly 4+/5 Left Lower Extremity: Grossly 4+/5 13 Sensation:?Intact as to pain and pressure on bilateral lower extremities. Bed Mobility/Transfers: Supine to sit: Head of bed elevated, min A Sit to stand: CGA Stand to sit: CGA Gait:?Able to tolerate 40 feet +20 feet +10 feet on level surface ambulation requiring front-wheeled walker with full weightbearing on BLE with standby assist. Required 2 seated rests due to shortness of breath and fatigue. Rahul aturated to 84% on room air. Stairs: Tolerates up and down three 4 inch steps while holding onto bilateral rails with step to gait pattern requiring supervision assist. Balance:? Static Sitting: Good Dynamic Sitting: Fair Static Standing: Fair Dynamic Standing: Poor Assessment: Patient presents with clinical signs and symptoms consistent with current/admitting diagnoses that have resulted to mobility limitations, gait instability, generalized weakness, and impairment of motor control as demonstrated by the following impairment level findings: 1. Decreased strength to upper and lower extremity major muscle groups 2. Impaired sitting/standing balance 3. Impaired activity tolerance Impairments are contributing to the following functional limitations: 1. Increased dependence with transfers 2. Inability to safely ambulate without assistive device and physical assistance 3. Increase completion time for mobility ADL performance 4. Increased fall risk Goals: Goals x1 week 1. Supine-Sit: independent NOT MET 2. Sit-Supine: independent NOT MET 3. Sit-Stand: independent NOT MET 4. Stand-Sit: independent NOT MET 5. Bed-Chair: independent NOT MET 6. Chair-Bed: independent NOT MET 7. Independent gait on level surface with use of least restrictive device for at least 150 feet without report of pain nor dyspnea NOT MET Discharge Plan DISCHARGE RECOMMENDATIONS: SNF for continued rehabilitation at time of evaluation TREATMENT CODE/TIME: NC Thank you for the opportunity to participate in the care of this patient. Pavithra Willingham PT, DPT, CLT [facility] [place], [place]
[2021-07-18 19:02] LABS: COVID-19 PCR Negative (Negative)
[2021-07-18] MEDS: Warfarin 4 MG TAB PO (20:00)
[2021-07-18 20:12] LABS: Source Nasal/Nares
[2021-07-19 03:56] VITALS: BP 154/81; PULSE 68; RESP 17; TEMP 36.1; O2SAT 99
[2021-07-19 07:29] VITALS: PULSE 90; RESP 16; RESP 8; O2SAT 98
[2021-07-19] MEDS: Albuterol/Ipratropium 3 ML UPD VIAL UPD ×2 (07:29→14:03)
[2021-07-19 07:36] VITALS: BP 122/82; PULSE 65; RESP 18; TEMP 35.8; O2SAT 97
[2021-07-19] MEDS: Insulin Aspart 300 UNITS/3 ML PEN 35 UNITS SC ×2 (08:59→13:07)
[2021-07-19] MEDS: Insulin NPH-Human 300 UNITS/3 ML PEN 40 UNIT SC (09:01)
[2021-07-19] MEDS: Metoprolol 50 MG TAB PO (09:04)
[2021-07-19] MEDS: Spironolactone 25 MG TAB PO (09:04)
[2021-07-19] MEDS: Senna TAB 2 TAB PO (09:04)
[2021-07-19] MEDS: Ketoconazole 2% CREAM 15 GM TUBE TP (09:04)
[2021-07-19] MEDS: Torsemide 20 MG TAB 40 MG PO (09:04)
[2021-07-19] MEDS: Cholecalciferol (Vitamin D3) 1,000 UNIT TAB 2000 UNITS PO (09:04)
[2021-07-19] MEDS: Magnesium Oxide 400 MG TAB PO (09:04)
[2021-07-19] MEDS: ROSUVASTATIN 20 MG TAB PO (09:04)
[2021-07-19] MEDS: Nystatin POWDER 60 GM JAR TP (09:05)
--- NOTE | 2021-07-19 10:53 | RESPIRATORY ---
PT WAS AMBULATED FOR 5 MINUTES AROUND ROOM WHILE ON ROOM AIR WITH RESPIRATORY THERAPIST, PT'S SPO2 FLUCTUATED BETWEEN 93% TO 98% PT DID NOT EXHIBIT SIGNS OF DISTRESS AND TOLERATED THE PROCEDURE WELL.
--- NOTE | 2021-07-19 11:03 | W.PM.DS.N ---
Date of service: 07/19/21 Time of Service: 11:03 DS: Diagnosis Discharge Diagnosis (1) Chest pain: Status: Acute (2) Lymphedema: Status: Acute (3) Chronic heart failure with preserved ejection fraction: Status: Acute (4) Diabetes mellitus with peripheral autonomic neuropathy: Status: Chronic (5) Chronic venous insufficiency: Status: Acute (6) DVT prophylaxis: Status: Acute (7) Pneumonia, community acquired: Status: Resolved (8) Atrial fibrillation: Status: Chronic (9) Morbid obesity: Status: Chronic (10) Coronary artery disease: Status: Chronic (11) UTI (urinary tract infection) due to Enterococcus: Status: Resolved (12) Discharge planning issues: Status: Acute Discharge Plan Disposition Patient Disposition: HOME W/HOME HEALTH SERVICE Condition: Stable Discharge Details Reason For Visit: Hypoxic Respiratory Failure,Cellulitis Admit Date/Time: 07/10/21 15:44 Admit Provider: Manpreet Celis Attending Provider: Manpreet Celis Primary Care Provider: Jaqueline You [facility] Course Hospital Course: This is a 76 year old female with a history of morbid obesity, DM2/insulin requiring, atrial fibrillation, HTN, HLD, CAD, CHF, COPD, aortic stenosis who presented to the ED with shortness of breath that has been worsening for 2 days.? She does use supplemental O2 at home intermittently.? She also c/o pain in her left lower leg.? Initially in the ED a rapid response was called for sever shortness of breath experienced when transferring from wheelchair to bed.? A nonrebreather was placed briefly but her hypoxia improved and she, from there forward, required supplemental O2 via NC.? EKG showed afib with HR of 100 / LBBB.? Ultrasound negative for DVT.? CT chest negative for central pulmonary emboli; peripheral vessels not well visualized. + small areas of bilateral ground glass appearance possibly d/t atelectasis; pneumonia cannot be ruled out.? COVID neg.? WBC count 14.15.? Lytes normal.? Creatinine 1.5 which is her baseline.? Troponin 125 > 133 >135. Her case was discussed with cardiology at [facility] but they declined to accept d/t bed availability. Hospitalist services here was contacted and she was admitted here for further management. There was a question of cellulitis of the LLE and a dose of cefazolin given in the ED. While on med surg she remained chest pain free. troponins remained flat. she was placed on ceftriaxone and doxycycline to treat pneumonia and cellulitis. She was evaluated by Dr Escobar who made dressing recommendations. She showed no evidence of osteomyelitis on imaging. Her pain and swelling improved. she remained afebrile. she was working with physical therapy and initially thought she would need [facility] rehabilitation. She was also diureses aggressively with IV lasix, and metalozone and albumin added one day but her blood pressure dropped and this treatment was discontinued. She only received the metalozone and albumin and was started back on home oral torsemide. Diovan was placed on hold and blood pressure improved. Her kidney function did worsen initially with creatinine rising to 1.8 but by discharge it is at baseline at 1.5. she was also found to have an enterococcus faecalis UTI which was treated with fosfomycin. she was weaned off oxygen and doing well and now plan was to go home rather than to rehab. PT walked her from her room down the garay and she became tachycardic, hypoxic down to 84 and developed substernal chest pain which resolved spontaneously with rest. she was given asa and serial troponin and ekg ruled out an acute event. She was held one additional day and has been asymptomatic and hemodynamically stable. She was walked in her room with no chest pain or hypoxia, maintaining sats at 94% on room air. she is safe for discharge to home with home health services. she could benefit from a palliative care consultation. will defer further cardiac work up to outpatient team. she will be placed on augmentin to finish 10 more days for her diabetic foot infection. dressing change recommendation per wound care or Dr Escobar discharge discussed with Dr Syed [place] Meds and New Rx's Prescriptions: New amoxicillin-pot clavulanate [Augmentin] 500-125 mg tablet 1 tab PO BID Qty: 20 0RF Continued valsartan [Diovan] 40 MG tablet 1 tab PO DAILY 0RF sennosides [senna] 8.6 mg Tablet 17.2 mg PO BID 0RF acetaminophen 325 mg Tablet 650 mg PO QID PRN0RF ipratropium-albuterol 0.5 mg-3 mg(2.5 mg base)/3 mL Solution For Nebulization 3 ml INHALATION TID PRN0RF torsemide 20 mg tablet 40 mg PO DAILY 0RF Label Comments: Take 2 tablets by mouth every morning triamcinolone acetonide 0.1 % cream 1 applic TOPICAL BID 0RF Label Comments: Apply to affected area twice daily on legs spironolactone 25 mg tablet 25 mg PO DAILY 0RF Label Comments: Take 1 tab by mouth daily warfarin 4 mg tablet 4 mg PO DAILY 0RF Label Comments: Take 1 tablet by mouth every day or as directed magnesium oxide 400 mg (241.3 mg magnesium) Tablet 400 mg PO BID 0RF Novolin N NPH U-100 Insulin 100 unit/mL Suspension 55 unit SUBCUT BID 0RF nystatin 100,000 unit/gram Powder 1 applic TOPICAL BID 0RF albuterol sulfate [Proventil HFA] 90 mcg/actuation Hfa Aerosol Inhaler 2 puff INHALATION QID PRN0RF multivitamin,no-odke-Py-FA-min Tablet 1 tab PO DAILY 0RF insulin aspart U-100 [Novolog Flexpen U-100 Insulin] 300 UNITS/3 ML insulin pen 20 - 30 unit Sub-Q 0800,1200,1700 0RF Rx Instructions: see printed sliding scale polyethylene glycol 3350 17 gram Powder In Packet 17 g PO DAILY Qty: 0 0RF metoprolol tartrate 50 MG tablet 50 mg PO BID 0RF Label Comments: 06/04/16 75mg po am, 50mg hs rosuvastatin [Crestor] 20 MG tablet 20 mg PO DAILY 0RF Label Comments: madelin hawthorne sat 2.5mg rest days 5mg 04/04/17 cdg 08/27/17 PCP NOTES 20 MG QD. cholecalciferol (vitamin D3) 1,000 UNITS tablet 2,000 units PO DAILY 0RF Discharge Instructions Instructions: Chest Pain (DC), Diabetic Foot Ulcers (DC), Pneumonia (DC) Additional Instructions: Once daily: Cleanse both legs with Anasept, then pat dry. Apply Polymem sheets to open and draining areas on both legs. Cover with Kerlix. Secure with ellen wraps. Change dressings daily or PRN. Twice daily: Wash right foot with anasept cleanser. Gently dry. apply Ketoconazole cream to toes and weave a 3x3 gauze between the toes to separate and collect drainage Change gauze as needed when saturated. Stand Alone Forms: Nursing Discharge Form Referrals: Jaqueline You MD [Primary Care Provider] - 08/06/21 10:20 am Activity:: Activity as Tolerated Equipment/Supplies:: No Equipment Needed Diet:: Carb Counting Discharge Orders Discharge Orders: Discharge Order (Routine); Ordered 07/19/21 Ordered By: Raegan Husain DS: Summary Time Spent with Patient providing and/or coordinating discharge services: Greater than 30 minutes Status at Discharge Functional status at discharge: independent ambulation Overall status at discharge: patient is progressing back to baseline Mental Status: mental status grossly normal Speech and Movement: speech clear Mood: congruent mood Affect: normal affect Exam Const General: cooperative, no acute distress, frail appearing and ill appearing Nutritional Appearance: obese Orientation: alert, awake and oriented x3 HENMT Head: normal to inspection, normocephalic and atraumatic Mouth: moist mucous membranes abnormal (dry) Eyes General: appearance normal, both eyes and all related structures Sclera: sclerae normal Neck Neck: full ROM Resp Effort & Inspection: normal respiratory effort Auscultation: clear to auscultation bilaterally and diminished lung sounds Cardio Rate: regular rate and tachycardic Rhythm: abnormal rhythm irregularly irregular GI Inspection: obesity Palpation: soft and nontender Skin Lesions: other (see wound care consult note, weepy) Rashes: other (bilateral venous stasis.) Neuro General: moves all extremities Cranial Nerves: facial strength normal Speech: speech normal Extrem General: edema and pedal edema (1/2 up bilaterally. ) bilaterally Psych Mental Status: mental status grossly normal Speech and Movement: speech clear Mood: congruent mood Affect: normal affect DS: Data Vitals/I&O Vitals and I&O: Vital Signs Temperature 35.8 C L 07/19/21 07:36 Temperature Source Tympanic 07/19/21 07:36 Pulse 65 07/19/21 07:36 Pulse Rhythm Irregular 07/18/21 23:50 Pulse 85 07/10/21 16:31 Respiratory Rate 18 07/19/21 07:36 Respiratory Effort 07/18/21 23:50 Respiratory Depth Shallow 07/18/21 23:50 Respiratory Pattern Normal 07/18/21 23:50 Blood Pressure 122/82 07/19/21 07:36 Blood Pressure Mean 61 07/10/21 16:31 Blood Pressure Position Sitting 07/10/21 11:16 Pulse Oximetry 97 07/19/21 07:36 Oxygen Delivery Method Nasal Cannula 07/19/21 07:36 Oxygen Flow Rate 1 07/19/21 07:36 Fraction of Inspired Oxygen (FIO2) 29 07/16/21 09:29 Pain Level 0 07/19/21 07:36 Comment 07/18/21 10:04 Intake & Output 07/18/21 07/18/21 07/19/21 11:59 23:59 11:59 Intake Total 260 / 760 500 / 760 840 / 840 Output Total 1000 / 1000 1500 / 1500 Balance 260 / -240 -500 / -240 -660 / -660 Weight 126.7 kg Intake: IV Oral 250 / 740 490 / 740 840 / 840 Output: Urine 1000 / 1000 1500 / 1500 Other: Urine Color Yellow Yellow Light Lona Urine Appearance Clear Clear Clear Urine Odor Normal Normal Strong Comment unknown amount of urine, missed the hat Stool Size Moderate Stool Characteristics Soft Voiding Methods Toilet Bedside Commode Bedside Commode Data Completed and Pending Labs on day of discharge: Labs from last 24 hours 07/18/21 07/18/21 07/18/21 18:00 15:00 10:36 Troponin I < 50 < 50 COVID-19 Source Nasal/Nares SARS-CoV-2 (PCR) Negative PFSH All Active Problems Chest pain (Acute) UTI (urinary tract infection) (Acute) Discharge planning issues (Acute) Cellulitis (Acute) Hypotension (Acute) Hypoxia (Acute) Non-ST elevation OR (NSTEMI) (Acute) Lymphedema (Acute) Skin ulcer of right lower leg (Acute) Generalized weakness (Acute) Chronic heart failure with preserved ejection fraction (Acute) Dehydration (Acute) Prerenal azotemia (Acute) Encounter for wound care (Acute) Discharge planning issues (Acute) Diabetes mellitus with peripheral autonomic neuropathy (Chronic) Onychomycosis of foot with other complication (Chronic) Cellulitis and abscess of lower extremity (Acute) Anticoagulation excessive (Acute) Chronic venous insufficiency (Acute) NATY (obstructive sleep apnea) (Chronic) Lower extremity pain (Acute) DVT prophylaxis (Acute) Dyspnea (Chronic) a. Progressive. Atrial fibrillation (Chronic) a. Permanent on oral anticoagulation with warfarin. Diabetes mellitus (Chronic) a. Insulin-dependent, poorly controlled, with hemoglobin A1c 9.5 (09/13/13). Hypertension (Chronic) Hypercholesterolemia (Chronic) Multinodular goiter (Chronic) Morbid obesity (Chronic) Coronary artery disease (Chronic) a. With single vessel LAD involvement. H/O cardiac catheterization (Chronic) a. [facility], 2002. Pseudogout (Chronic) Psoriasis (Chronic) History of Surgical Procedure (Chronic) a. Appendectomy. b. Bilateral tubal ligation. c. Total abdominal hysterectomy with bilateral salpingo-oophorectomy. Medical History Aortic stenosis Bilateral leg edema Cellulitis Chronic anticoagulation Chronic low back pain CPDD (calcium pyrophosphate deposition disease) Dyspnea on exertion History of adenomatous polyp of colon (2003) History of colonic polyps (~2011) hyperplastic History of positive PPD Mitral regurgitation Nausea Pulmonary nodules Rosacea Tremor Venous stasis dermatitis Social History Smoking/Tobacco Use Status: Former Tobacco Use Smoking risk assessment performed?: Yes Alcohol Intake: never Drug use: Never Substance use type: does not use Do you feel safe at home: Yes Do you feel safe in your relationship?: Yes
--- NOTE | 2021-07-19 11:35 | PDOC.HHF2F ---
Home Health Certification Home Health Certification: 1. Encounter Date and Reason I certify that Elle Garland was seen by Raegan Husain on 07/19/21 and that I had a [id number] encounter with this patient that meets the physician face to face encounter requirements. 2. Clinical Findings Supporting Skilled Need and Homebound Status I certify that home health services are medically necessary, include either intermittent senior care and/or physical/speech therapy, and that this patient is homebound in that absences from the home require considerable and taxing effort and are infrequent or of short duration, or are attributable to the need to receive medical care. [X] (a) Attached documentation from encounter provides clinical findings supporting skilled need and homebound status (including what assistance patient requires to leave the home). The encounter with the patient was in whole, or in part, for the following medical condition, which is the primary reason for home health care: Hypoxic Respiratory Failure,Cellulitis, UTI, chest pain, edema Penitentiary: routine nursing evaluation, wound assessment and management, medication oversight. Physical and occupational Therapy: routine evaluation and management Homebound: patient is unable to safely leave the house unassisted d/t ambulation severely limited to shortness of breath and decreased strength and endurance. 3. Certification and Authentication I certify that I composed the above information based on my clinical judgment relating to this patient's medical condition and, if applicable, clinical findings communicated to me by the NPP or inpatient physician who performed the Home Health Referral. All further orders will be obtained through _Jaqueline You_(Community Based Physician - PCP)
[2021-07-19 11:53] VITALS: BP 97/58; PULSE 63; RESP 16; TEMP 35.8; O2SAT 98
--- NOTE | 2021-07-19 11:54 | PDOC.CMDIS ---
- If Service Date Differs Date of service: 07/19/21 Time of Service: 11:54 LACE Index Scoring Tool - Questions: Length of Stay (in days): 7 - 13 Acuity (Admit via E.D.?): Yes Comorbidities: Previous M.I., Diabetes w/o Complication, Congestive Heart Failure E.D. Visits: 3 - Answers: Total Score: 16 Risk of Readmission: High Risk Care Management Discharge Reason for Hospitalization: Hypoxic respiratory failure Discharge Plan: Elle will return home today with new orders for HH RN, PT, OT through [facility]. CM called and informed [facility] of her discharge today. Elle reports that her will be with her 23/12, and will support her with mobitity as well as dressing changes. Her will drive her home via private vehicle. She will follow up with her PCP and discharge plan of care. She is happy to be going home. Patient/Family Education Needs: Review discharge instructions including activity levels and medications, discussion of self care needs including ask me three. Services Needed at Discharge: Home Health Care Services ([facility])
[2021-07-19 14:03] VITALS: RESP 18; RESP 8; O2SAT 95
--- NOTE | 2021-07-19 14:58 | CHAPLAIN ---
Elle was up in her chair and told me she was being discharged today. She's happy about getting home after being here for over a week.
== END 2021-07-19 14:55 | disposition home health service (06) | DRG 190 ==
LOC: ER 16:15 → MS 17:23
PROVIDERS: Nurse Practitioner Acute Care; Admitting Provider Family Medicine; Emergency Provider Student in an Organized Health Care Education/Training Program; PCP Family Medicine; Visit Provider Family Medicine
DX: J44.0 Chronic obstructive pulmonary disease with (acute) lower respiratory infection (principal); J18.9 Pneumonia, unspecified organism; I50.32 Chronic diastolic (congestive) heart failure; Z68.42 Body mass index [BMI] 45.0-49.9, adult; L03.116 Cellulitis of left lower limb; I48.21 Permanent atrial fibrillation; L97.828 Non-pressure chronic ulcer of other part of left lower leg with other specified severity; L97.818 Non-pressure chronic ulcer of other part of right lower leg with other specified severity; N39.0 Urinary tract infection, site not specified; R07.9 Chest pain, unspecified; R74.8 Abnormal levels of other serum enzymes; I89.0 Lymphedema, not elsewhere classified; E11.42 Type 2 diabetes mellitus with diabetic polyneuropathy; I87.2 Venous insufficiency (chronic) (peripheral); E66.01 Morbid (severe) obesity due to excess calories; I25.10 Atherosclerotic heart disease of native coronary artery without angina pectoris; I11.0 Hypertensive heart disease with heart failure; E78.5 Hyperlipidemia, unspecified; I35.0 Nonrheumatic aortic (valve) stenosis; I44.7 Left bundle-branch block, unspecified; G47.33 Obstructive sleep apnea (adult) (pediatric); E11.65 Type 2 diabetes mellitus with hyperglycemia; L40.9 Psoriasis, unspecified; E04.2 Nontoxic multinodular goiter; E78.00 Pure hypercholesterolemia, unspecified; B95.2 Enterococcus as the cause of diseases classified elsewhere; E11.621 Type 2 diabetes mellitus with foot ulcer; L97.511 Non-pressure chronic ulcer of other part of right foot limited to breakdown of skin
CPT/HCPCS: 36415; 71275; 80048; 80053; 82947; 87077; 87635; 87637; 93005; 96361; 96365; 96375; 97110; 97162; 97530; 99285; 71046; 73630; 81003; 81015; 83036; 83605; 83735; 83880; 84484; 85025; 85379; 85610; 87086; 87186; 93010; 93306; 93971; 94640; 99223; 99233; 99239; J0690; J0696; J2930; J3490; J7620